=== PATIENT | female | born 1965 | race African-American/Black ===

== ENCOUNTER 2016-08-27 19:14 | Observation (INO) | payer OTHER ==
[~2016-08-27] VITALS: Ht 170.2 cm; Wt 94.9 kg
[~2016-08-27 19:14] MED LIST: AMIT50TA PO; ASPI81TA9 PO; ATOR40TA59 PO; BISA5TAB4 PO; CARV6.252 PO; CIPR500T94 PO; DIPH25CA58 PO; DOXY100T PO; DULO60CA6 PO; HYDR-2666 PO; HYDR-2678 PO; INSU100V13 SQ; INSU100V31 SQ; LISI-334 PO; OXYC-323 PO; QUET300T6 PO; SULF1TAB24 PO
--- NOTE | 2016-08-27 20:19 | PHYS DOC ---
Past Medical History Past Medical History: Bipolar, CVA, Dementia, Depression, Diabetes-Type II, High Cholesterol, Hypertension, [place], Other Additional Past Medical Histor: neuropathy, SI, diabetic foot ulcer r heel Past Surgical History: Other Additional Past Surgical Histo: cardiac stent, Additional Information: 0.5 PPD Alcohol Use: Occasionally Drug Use: None Adult General Chief Complaint Chief Complaint: LOSS OF CONSCIOUSNESS HPI HPI 51 yo F presenting to the ED today after having a syncopal event after feeling " lightheaded". She has a hx of an WI s/p stent placment. She denies having palpitations or chest pain prior to the event. She did hit her head and now is complaining of neck pain. Her neck pain is sharp, nonradiating moderate and without alleviating factors. Currently, she denies cp or soa. Review of systems is negative for chest pain abdominal pain nausea vomiting fevers or chills. All other review of systems is negative unless otherwise noted in history of present illness. Review of Systems Review of Systems SEE ABOVE. Allergies Allergies Allergies Coded Allergies Type Severity Reaction Last Updated Verified No Known Drug Allergies 09/27/13 No Physical Exam Physical Exam Constitutional: Well developed, well nourished, no acute distress, non-toxic appearance. [] HENT: Normocephalic, no depressed skull fractures present. No ecchymosis lacerations or abrasions., bilateral external ears normal, oropharynx moist, no oral exudates, nose normal. Eyes: PERRLA, EOMI, conjunctiva normal, no discharge. [] Neck: Normal range of motion, no tenderness, supple, no stridor. The patient's cervical spine is mildly tender palpation in the midline without step-off, lacerations abrasions or ecchymosis. Cardiovascular:Heart rate regular rhythm, no murmur Lungs & Thorax: Bilateral breath sounds clear to auscultation [] Abdomen: Bowel sounds normal, soft, no tenderness, no masses, no pulsatile masses. [] Skin: Warm, dry, no erythema, no rash. Back: No tenderness, no CVA tenderness. [] Extremities: No tenderness, no cyanosis, no clubbing, ROM intact, no edema. [] The patient's left shoulder is nontender with range of motion. Nontender clavicle. No ecchymosis lacerations or abrasions present. Otherwise neurovascularly intact. 2 second cap refill. The remainder the patient's extremities are nontender and without evidence of trauma. Neurologic: Alert and oriented X 3, normal motor function, normal sensory function, no focal deficits noted. [] Psychologic: Affect normal, judgement normal, mood normal. [] Current Patient Data Vital Signs Vital Signs Date Time Temp Pulse Resp B/P Pulse Ox O2 Delivery O2 Flow Rate FiO2 08/27/16 19:20 98.1 79 20 98/54 98 Room Air 98.1 Lab Values Laboratory Tests Test 08/27/16 19:55 08/27/16 21:10 08/27/16 22:00 Sodium Level 139mmol/L (136-145) Potassium Level 3.6mmol/L (3.5-5.1) Chloride Level 100mmol/L (98-107) Carbon Dioxide Level 30mmol/L (21-32) Anion Gap 9 (6-14) Blood Urea Nitrogen 17mg/dL (7-20) Creatinine 1.8mg/dL (0.6-1.0) H Estimated GFR (Cockcroft-Gault) 35.9 Glucose Level 302mg/dL (70-99) H Calcium Level 10.1mg/dL (8.5-10.1) Total Bilirubin 0.4mg/dL (0.2-1.0) Direct Bilirubin < 0.1mg/dL (0.0-0.2) Aspartate Amino Transferase (AST) 17U/L (15-37) Alanine Aminotransferase (ALT) 18U/L (14-59) Alkaline Phosphatase 100U/L (46-116) Troponin I Quantitative < 0.017ng/mL (0.000-0.055) Total Protein 8.2g/dL (6.4-8.2) Albumin 3.8g/dL (3.4-5.0) Lipase 266U/L (73-393) White Blood Count 8.2x10^3/uL (4.0-11.0) Red Blood Count 4.72x10^6/uL (3.50-5.40) Hemoglobin 13.8g/dL (12.0-15.5) Hematocrit 42.3% (36.0-47.0) Mean Corpuscular Volume 90fL (79-100) Mean Corpuscular Hemoglobin 29pg (25-35) Mean Corpuscular Hemoglobin Concent 33g/dL (31-37) Red Cell Distribution Width 14.8% (11.5-14.5) H Platelet Count 243x10^3/uL (140-400) Neutrophils (%) (Auto) 68% (31-73) Lymphocytes (%) (Auto) 24% (24-48) Monocytes (%) (Auto) 6% (0-9) Eosinophils (%) (Auto) 2% (0-3) Basophils (%) (Auto) 0% (0-3) Neutrophils # (Auto) 5.6x10^3uL (1.8-7.7) Lymphocytes # (Auto) 2.0x10^3/uL (1.0-4.8) Monocytes # (Auto) 0.5x10^3/uL (0.0-1.1) Eosinophils # (Auto) 0.1x10^3/uL (0.0-0.7) Basophils # (Auto) 0.0x10^3/uL (0.0-0.2) Urine Collection Type Unknown Urine Color Yellow Urine Clarity Clear Urine pH 5.5 Urine Specific [place] 1.015 Urine Protein 100mg/dL (NEG-TRACE) Urine Glucose (UA) 500mg/dL (NEG) Urine Ketones (Stick) Negativemg/dL (NEG) Urine Blood Negative (NEG) Urine Nitrite Negative (NEG) Urine Bilirubin Negative (NEG) Urine Urobilinogen Dipstick 0.2mg/dL (0.2 mg/dL) Urine Leukocyte Esterase Negative (NEG) Urine RBC 0/HPF (0-2) Urine WBC 0/HPF (0-4) Urine Squamous Epithelial Cells Few/LPF Urine Amorphous Sediment Present/HPF Urine Bacteria 0/HPF (0-FEW) Laboratory Tests 08/27/16 21:10 Laboratory Tests 08/27/16 19:55 EKG EKG EKG without previous for comparison available at this time on 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 ST segments show mild repolarization. [] Radiology/Procedures Radiology/Procedures Chest x-ray and left shoulder without any acute pathology. head and neck CT read without any acute pathology. [] Course & Med Decision Making Course & Med Decision Making Pertinent Labs and Imaging studies reviewed. (See chart for details) [] 51-year-old female presenting to the emergency department with syncope today. Vital signs showed mild hypotension. Otherwise afebrile and normal heart rate. Pertinent physical exam showed that she had normal physical exam. EKG not suggestive of Brugada syndrome. QT within normal limits. not suggestive of HOCM. Blood work obtained IV established. CBC unremarkable. Urinalysis negative. Chemistry panel unremarkable. She was then admitted to our hospital for telemetry monitoring further evaluation workup and care. Cardiology consult placed. Dragon Disclaimer Dragon Disclaimer This electronic medical record was generated, in whole or in part, using a voice recognition dictation system. Departure Departure Impression: Primary Impression: LOC (loss of consciousness) Disposition: ADMITTED INPATIENT Admitting Physician: Radha Patten Condition: STABLE Referrals: UNKNOWN PCP NAME (PCP) ANA RUIZ MD Aug 27, 2016 20:19
[2016-08-27 20:37] LABS: ANION GAP 9 (6-14); BLOOD UREA NITROGEN 17 mg/dL (7-20); CALCIUM 10.1 mg/dL (8.5-10.1); CARBON DIOXIDE 30 mmol/L (21-32); CHLORIDE 100 mmol/L (98-107); CREATININE 1.8 mg/dL (0.6-1.0); GFR 35.9; GLUCOSE 302 mg/dL (70-99); POTASSIUM 3.6 mmol/L (3.5-5.1); SODIUM 139 mmol/L (136-145)
[2016-08-27 20:43] LABS: ALBUMIN 3.8 g/dL (3.4-5.0); ALK PHOS 100 U/L (46-116); ALT (SGPT) 18 U/L (14-59); AST (SGOT) 17 U/L (15-37); DIRECT BILIRUBIN < 0.1 mg/dL (0.0-0.2); TOTAL BILIRUBIN 0.4 mg/dL (0.2-1.0); TOTAL PROTEIN 8.2 g/dL (6.4-8.2)
--- NOTE | 2016-08-27 20:53 | RAD ---
PROCEDURE CT scan of the head without contrast 08/27/2016 HISTORY Dizziness for several days. Syncopal episode earlier today with fall striking head. TECHNIQUE Unenhanced contiguous, 5 millimeter axial sections were obtained through the head. One or more of the following individualized dose reduction techniques were utilized for this study: 1. Automated exposure control. 2. Adjustment of the mA and/or kV according to patient size. 3. Use of iterative reconstruction technique. FINDINGS Comparison is made to the patient's MRI of the brain dated 11/14/2013. The ventricles are within normal limits in size and configuration. Old areas of infarction are seen involving both cerebellar hemispheres, left greater than right. No acute parenchymal abnormality is seen. No extra-axial fluid collection is noted. No skull fracture is seen. IMPRESSION No acute intracranial abnormality is seen. PROCEDURE CT scan of the cervical spine without contrast 08/27/2016 HISTORY Neck pain post fall. TECHNIQUE Unenhanced contiguous, 0.625 millimeter axial sections were obtained through the cervical spine. 3 millimeter reconstructed sagittal, axial and coronal images were obtained. One or more of the following individualized dose reduction techniques were utilized for this study: 1. Automated exposure control. 2. Adjustment of the mA and/or kV according to patient size. 3. Use of iterative reconstruction technique. FINDINGS Sagittal and coronal reconstructed images demonstrate minimal lateral curvature of the cervical spine convex to the right. There is reversal of the normal cervical lordosis. Degenerative changes consisting of disc space narrowing, vertebral endplate sclerosis and mild to moderate anterior vertebral body osteophyte formation are seen involving the lower cervical disc spaces. No fracture or subluxation of the cervical vertebrae is seen. IMPRESSION No fracture or subluxation of the cervical vertebrae is seen. Electronically signed by: Chadwick Dai MD (Aug 27, 2016 20:52:23)
[2016-08-27 21:25] LABS: BASO % 0 % (0-3); EOS % 2 % (0-3); HEMATOCRIT 42.3 % (36.0-47.0); HEMOGLOBIN 13.8 g/dL (12.0-15.5); LYMPH % 24 % (24-48); MEAN CORPUSCULAR HEMOGLOBIN 29 pg (25-35); MEAN CORPUSCULAR HGB CONC 33 g/dL (31-37); MEAN CORPUSCULAR VOLUME 90 fL (79-100); MONO % 6 % (0-9); NEUT % 68 % (31-73); PLATELET COUNT 243 x10^3/uL (140-400); RED BLOOD COUNT 4.72 x10^6/uL (3.50-5.40); RED CELL DISTRIBUTION WIDTH 14.8 % (11.5-14.5); WHITE BLOOD COUNT 8.2 x10^3/uL (4.0-11.0)
[2016-08-27 22:14] LABS: BILIRUBIN,URINE NEGATIVE (NEG); GLUCOSE,URINE 500 mg/dL (NEG); NITRITE,URINE NEGATIVE (NEG); PH,URINE 5.5; PROTEIN,URINE 100 mg/dL (NEG-TRACE); UROBILINOGEN,URINE 0.2 mg/dL (0.2 mg/dL)
[2016-08-27 22:23] LABS: BACTERIA,URINE 0 /HPF (0-FEW); RBC,URINE 0 /HPF (0-2); SQUAMOUS EPITHELIAL CELL,UR FEW /LPF; WBC,URINE 0 /HPF (0-4)
[2016-08-27] MEDS ORDERED: MORPHINE SULFATE 2 MG/ML DISP.SYRIN. IV PRN (23:00)
[2016-08-27] MEDS ORDERED: ONDANSETRON PF 4 MG/2 ML VIAL. IV PRN (23:00)
[2016-08-27] MEDS ORDERED: IV NORMAL SALINE 1000ML BAG 1,000 ML IV ONE (23:15)
[2016-08-28] VITALS (9 sets, daily range): BP systolic 83–138; BP diastolic 49–80
--- NOTE | 2016-08-28 00:16 | ACF ---
Admission Forms Criteria ACUTE LOSS OF CONSCIOUSNESS- ALOC Clinical Indications for Inpatient Care (Place 'X' for any and all applicable criteria): Ongoing inpatient care may be needed for ANY ONE of the following(1)(2)(3)(5)(6) : [X ]I. Suspected serious etiology (eg, medical disorder, REGISTRATION REP event) of mental status change [ ]II. Danger to self or others not manageable at lower level of care [ ]III. Grave disability (eg, inability to perform self care necessary at lower level of care) [ ]IV. Agitation or inappropriate behavior interfering with care for primary condition (eg, attempting to discontinue lines or drains prematurely, unable to cooperate with respiratory care) [ ]V. Delirium [A] [D][E] as described by ANY ONE of the following(26): [ ]a) Delirium due to alcohol or sedative [F] withdrawal [ ]b) Delirium of uncertain etiology that has not responded to appropriate empiric treatment [ ]c) Delirium that prevents performance of a life-sustaining function (eg, feeding or hydrating oneself) [ ]. General contraindications and/or Inappropriate clinical situations for Observational Care in patients with Acute Loss of Consciousness, when ANY ONE of the following is required: [ ]a) Prediction of prolongation of LOS based on ANY ONE of the following may be considered as a contraindication for observational care 2, 3, 4, 5, 6, 7, 8 , 9, 10, 11 [ ]i) Age > 65 yrs. [ ]ii) Patient arriving by ambulance [ ]iii) Patient with high acuity [ ]iv) Patient requiring vital sign monitoring [ ]v) Patient on IV medication [ ]b) Systolic blood pressures 180mmHg 3,12 [ ]c) Patient with altered mental status including delirium and other alteration of consciousness, (3) [ ]d) Patient whose discharge disposition will be to a care home home or rehabilitation home should not be managed in Emergency Department Observation Unit. CMS rule requires 3 days hospital stay before such placement.3,13 [ ]e) Patient with failure to thrive due to broad array of etiologies 3,16,17 [ ]f) Inability to ambulate 3,14 Extended stay beyond goal length of stay for the primary condition may be needed until ALL of the following are present(3)(5): [ ]a) Underlying medical etiology of mental status change is absent, or has been established and adequately treated [ ]b) Danger to self or others is absent or manageable at lower level of care. [ ]c) Behavior crisis management, including physical or chemical restraints, is not required or available at lower level of car [ ]d) Substance or alcohol withdrawal is absent or manageable at lower level of care. [ ]e) Behavioral symptoms (eg, agitation, somnolence, inappropriate behavior) are absent, or are manageable at lower level of care. The original [facility] [employer] content created by [facility] has been revised. The portions of the content which have been revised are identified through the use of italic text or in bold, and [facility] has neither reviewed nor approved the modified material. All other unmodified content is copyright [facility]. Please see references footnoted in the original [facility] edition 2016 Admission Criteria Met?: Yes GENIA BERMUDEZ Aug 28, 2016 00:16
[2016-08-28] MEDS ORDERED: DEXTROSE 50% 25 GM / 50ML DISP.SYRIN. IV PRN (02:00)
[2016-08-28] MEDS ORDERED: IV NORMAL SALINE 1000ML BAG 1,000 ML IV ONE (02:15)
[2016-08-28] MEDS ORDERED: IV NORMAL SALINE 1000ML BAG 1,000 ML IV SCH (02:30)
[2016-08-28 05:09] LABS: BASO % 0 % (0-3); EOS % 1 % (0-3); HEMATOCRIT 35.7 % (36.0-47.0); HEMOGLOBIN 11.6 g/dL (12.0-15.5); LYMPH # 1.8 x10^3/uL (1.0-4.8); LYMPH % 23 % (24-48); MEAN CORPUSCULAR HEMOGLOBIN 29 pg (25-35); MEAN CORPUSCULAR HGB CONC 33 g/dL (31-37); MEAN CORPUSCULAR VOLUME 90 fL (79-100); MONO % 5 % (0-9); NEUT % 70 % (31-73); PLATELET COUNT 222 x10^3/uL (140-400); RED BLOOD COUNT 3.98 x10^6/uL (3.50-5.40); RED CELL DISTRIBUTION WIDTH 14.4 % (11.5-14.5)
[2016-08-28 05:26] LABS: CALCIUM 8.5 mg/dL (8.5-10.1); CREATININE 1.6 mg/dL (0.6-1.0); GFR 41.1; POTASSIUM 3.4 mmol/L (3.5-5.1)
--- NOTE | 2016-08-28 06:14 | EKG ---
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
--- NOTE | 2016-08-28 07:35 | RAD ---
Left shoulder radiographs History: Fall on left side with pain. Comparison: None. Findings: AP internal rotation, AP slight external rotation, and scapular Y-view of left shoulder. No acute fracture or dislocation is identified. Mild-moderate clavicular degeneration is seen. Impression: No acute osseous traumatic injury identified.
--- NOTE | 2016-08-28 07:36 | RAD ---
Exam: AP portable chest. History: Fall with left shoulder pain. Comparison: 02/12/2016. Findings: The heart and mediastinal structures are within normal limits for size. Lungs are without infiltrate. No pneumothorax or pleural effusion is appreciated. Old granulomatous disease of the chest is noted. Impression: 1. No acute cardiopulmonary process.
[2016-08-28] MEDS: QUEtiapine 300 MG TAB.ER.24H. PO SCH (08:50)
[2016-08-28] MEDS: ASPIRIN ENTERIC COATED 81 MG TABLET.DR. PO SCH (08:50)
[2016-08-28] MEDS: INSULIN ASPART 300 UNITS/3 ML INSULN.PEN SQ SCH ×6 (08:55→17:34)
--- NOTE | 2016-08-28 09:03 | PDOC2 ---
JOHN SCOTT TIE LOADER 08/28/16 0903: CARDIAC CONSULT DATE OF CONSULT Date of Consult DATE: 08/28/16 TIME: 08:56 REASON FOR CONSULT Reason for Consult: Syncope REFERRING PHYSICIAN Referring Physician: Dr. Rasheed SOURCE Source: Chart review, Patient HISTORY OF PRESENT ILLNESS HISTORY OF PRESENT ILLNESS This is a 5 yo male who presented secondary to syncopal episode. Patient reports she was letting her do out; was light-headed, dizzy, and subsequently passed out. Patient reports she awoke on the floor. H/o Meniere's disease and chronic vertigo; follows with ENT at . Dizziness generally resolves without intervention. Also follows with outpatient neurologist. Reports previous episode of syncope in 2014 with [place]- underwent PCI/EUSEBIO to LAD at that time. Patient follows with Dr. Juarez of [facility]- had appointment a couple of days ago with follow-up scheduled for 6 months. Reportedly normal stress test 6 weeks ago. PAST MEDICAL HISTORY Past Medical History Cardiovascular: HTN (with hypertensive heart disease), [place] (PCI/EUSEBIO to LAD), Hyperlipidemia, Other (carotid stenosis bilaterally 50-70%; CDU 06/2014 @ ) CENTRAL NERVOUS SYSTEM: CVA (with memory loss), Dementia (following CVA), peripheral neuropathy GI: GERD (with h/o esophagitis) Heme/Onc: Anemia NOS, Cancer (ovarian) Hepatobiliary: No pertinent hx Psych: Bipolar, Depression, anxiety, self mutilation (cutting) Musculoskeletal: Osteoarthritis Rheumatologic: No pertinent hx Infectious disease: No pertinent hx ENT: Other (Meniere's disease) Renal/: Chronic renal insuff Endocrine: Diabetes (type II) Dermatology: No pertinent hx PAST SURGICAL HISTORY Past Surgical History: Other (LEEP) FAMILY HISTORY Family History: Coronary Artery Disease, Diabetes, Hypertension SOCIAL HISTORY Smoke: <1 pack per day ALCOHOL: none Drugs: None Lives: with Family CURRENT MEDICATIONS CURRENT MEDICATIONS Current Medications Medications (Trade) Dose Ordered Sig/Luis Enrique Route PRN Reason Start Time Stop Time Status Last Admin Dose Admin Sodium Chloride 1,000 ml @ 1,000 mls/hr 1X ONCE IV 08/27/16 23:15 08/28/16 00:14 DC 08/27/16 23:08 Sodium Chloride 1,000 ml @ 1,000 mls/hr 1X ONCE IV 08/28/16 02:15 08/28/16 03:14 DC 08/28/16 02:15 Sodium Chloride (Iv Sodium Chloride 0.9% 1000ml Bag) 1,000 ml @ 125 mls/hr Q8H IV 08/28/16 02:30 08/28/16 03:28 ALLERGIES ALLERGIES: Coded Allergies: No Known Drug Allergies (Unverified , 09/27/13) ROS Review of System 14 point ROS conducted with pertinent positives noted above in HPI PHYSICAL EXAM General: Alert, Oriented X3, Cooperative, No acute distress HEENT: Atraumatic, Mucous membr. moist/pink Lungs: Clear to auscultation, Normal air movement Heart: Regular rate, Normal S1, Normal S2, No murmurs Abdomen: Soft, No tenderness Extremities: No edema, Normal pulses Skin: No significant lesion Neuro: Normal speech, Sensation intact Psych/Mental Status: Mental status NL, Mood NL MUSCULOSKELETAL: Osteoarthritic changes both hands VITALS VITALS Vital Signs Date Time Temp Pulse Resp B/P Pulse Ox O2 Delivery O2 Flow Rate FiO2 08/28/16 07:35 97.3 79 18 112/65 99 Room Air 97.3 LABS Lab: Laboratory Tests Test 08/27/16 19:55 08/27/16 21:10 08/27/16 22:00 08/28/16 01:49 Sodium Level 139mmol/L (136-145) Potassium Level 3.6mmol/L (3.5-5.1) Chloride Level 100mmol/L (98-107) Carbon Dioxide Level 30mmol/L (21-32) Anion Gap 9 (6-14) Blood Urea Nitrogen 17mg/dL (7-20) Creatinine 1.8mg/dL (0.6-1.0) Estimated GFR (Cockcroft-Gault) 35.9 Glucose Level 302mg/dL (70-99) Calcium Level 10.1mg/dL (8.5-10.1) Total Bilirubin 0.4mg/dL (0.2-1.0) Direct Bilirubin < 0.1mg/dL (0.0-0.2) Aspartate Amino Transf (AST/SGOT) 17U/L (15-37) Alanine Aminotransferase (ALT/SGPT) 18U/L (14-59) Alkaline Phosphatase 100U/L (46-116) Troponin I Quantitative < 0.017ng/mL (0.000-0.055) Total Protein 8.2g/dL (6.4-8.2) Albumin 3.8g/dL (3.4-5.0) Lipase 266U/L (73-393) White Blood Count 8.2x10^3/uL (4.0-11.0) Red Blood Count 4.72x10^6/uL (3.50-5.40) Hemoglobin 13.8g/dL (12.0-15.5) Hematocrit 42.3% (36.0-47.0) Mean Corpuscular Volume 90fL (79-100) Mean Corpuscular Hemoglobin 29pg (25-35) Mean Corpuscular Hemoglobin Concent 33g/dL (31-37) Red Cell Distribution Width 14.8% (11.5-14.5) Platelet Count 243x10^3/uL (140-400) Neutrophils (%) (Auto) 68% (31-73) Lymphocytes (%) (Auto) 24% (24-48) Monocytes (%) (Auto) 6% (0-9) Eosinophils (%) (Auto) 2% (0-3) Basophils (%) (Auto) 0% (0-3) Neutrophils # (Auto) 5.6x10^3uL (1.8-7.7) Lymphocytes # (Auto) 2.0x10^3/uL (1.0-4.8) Monocytes # (Auto) 0.5x10^3/uL (0.0-1.1) Eosinophils # (Auto) 0.1x10^3/uL (0.0-0.7) Basophils # (Auto) 0.0x10^3/uL (0.0-0.2) Urine Collection Type Unknown Urine Color Yellow Urine Clarity Clear Urine pH 5.5 Urine Specific [place] 1.015 Urine Protein 100mg/dL (NEG-TRACE) Urine Glucose (UA) 500mg/dL (NEG) Urine Ketones (Stick) Negativemg/dL (NEG) Urine Blood Negative (NEG) Urine Nitrite Negative (NEG) Urine Bilirubin Negative (NEG) Urine Urobilinogen Dipstick 0.2mg/dL (0.2 mg/dL) Urine Leukocyte Esterase Negative (NEG) Urine RBC 0/HPF (0-2) Urine WBC 0/HPF (0-4) Urine Squamous Epithelial Cells Few/LPF Urine Amorphous Sediment Present/HPF Urine Bacteria 0/HPF (0-FEW) Glucose (Fingerstick) 220mg/dL (70-99) Test 08/28/16 04:40 08/28/16 07:55 White Blood Count 8.0x10^3/uL (4.0-11.0) Red Blood Count 3.98x10^6/uL (3.50-5.40) Hemoglobin 11.6g/dL (12.0-15.5) Hematocrit 35.7% (36.0-47.0) Mean Corpuscular Volume 90fL (79-100) Mean Corpuscular Hemoglobin 29pg (25-35) Mean Corpuscular Hemoglobin Concent 33g/dL (31-37) Red Cell Distribution Width 14.4% (11.5-14.5) Platelet Count 222x10^3/uL (140-400) Neutrophils (%) (Auto) 70% (31-73) Lymphocytes (%) (Auto) 23% (24-48) Monocytes (%) (Auto) 5% (0-9) Eosinophils (%) (Auto) 1% (0-3) Basophils (%) (Auto) 0% (0-3) Neutrophils # (Auto) 5.6x10^3uL (1.8-7.7) Lymphocytes # (Auto) 1.8x10^3/uL (1.0-4.8) Monocytes # (Auto) 0.4x10^3/uL (0.0-1.1) Eosinophils # (Auto) 0.1x10^3/uL (0.0-0.7) Basophils # (Auto) 0.0x10^3/uL (0.0-0.2) Sodium Level 138mmol/L (136-145) Potassium Level 3.4mmol/L (3.5-5.1) Chloride Level 104mmol/L (98-107) Carbon Dioxide Level 25mmol/L (21-32) Anion Gap 9 (6-14) Blood Urea Nitrogen 20mg/dL (7-20) Creatinine 1.6mg/dL (0.6-1.0) Estimated GFR (Cockcroft-Gault) 41.1 Glucose Level 239mg/dL (70-99) Calcium Level 8.5mg/dL (8.5-10.1) Troponin I Quantitative < 0.017ng/mL (0.000-0.055) Thyroid Stimulating Hormone (TSH) 1.605uIU/mL (0.358-3.74) Glucose (Fingerstick) 212mg/dL (70-99) ECHOCARDIOGRAM ECHOCARDIOGRAM <Conclusion> Left ventricle systolic function is normal. The Ejection Fraction is estimated at 50-55%. Mild tricuspid regurgitation. The PA pressure was estimated at 27 mmHg. There is no evidence of significant pericardial effusion. DATE: 02/14/16 1110 HEART CATH HEART CATH FINDINGS 1. Hemodynamics: Left ventricular end-diastolic pressure of 25 mmHg. No pullback gradient across the aortic valve. 2. Coronary angiography: a. The left main coronary artery arose from the left sinus of Valsalva, gave rise to the left anterior descending and left circumflex arteries and did not show any significant stenosis. b. The left anterior descending artery showed widely patent previously placed stent in the midsegment. c. The left circumflex artery was a dominant vessel that showed 80% stenosis in the mid segment and 70% stenosis in the distal segment of a small to medium caliber second obtuse marginal branch. d. The right coronary artery was small and nondominant vessel that showed moderate diffuse disease. Conclusion Widely patent previously placed stent in the left anterior descending artery with 80% stenosis involving small to medium caliber second obtuse marginal branch of left circumflex artery. No flow-limiting lesions that needed intervention were noted. Recommendations Medical Therapy DATE: 02/14/16 1345 ASSESSMENT/PLAN ASSESSMENT/PLAN 1. syncope no acute events overnight on telemetry TSH WNL echo 02/06 with preserved LV function- no significant valvular abnormalities likely vasovagal episode. Dehydration/orthostasis also potential will repeat echo. 2. CAD s/p PCI/EUSEBIO to LAD 2014 repeat cath with patent stent 02/06 reportedly normal stress test 6 weeks ago with [facility]- will obtain these records continue secondary prevention 3. HTN hypotensive upon admission mild dehydration, POA- IV fluids ongoing decrease coreg. Hold lisinopril check orthos 4. HLD 02/06- TG 765; TC 244 on high dose atorvastatin will recheck 5. DM, II uncontrolled, per PCP 6. SHABNAM with CKD fluid replacement 7. bipolar disorder [facility] records obtained and reviewed - [facility] (06/10/16) LVEF 38% mixed apical defect . recommend for cardiac cath to further asses he coronary anatomy - Left heart cath (07/16/16) moderate CAD involving the second marginal branching with 60-70% stenosis in the midportion, which appears very similar to previous cath performed in October of 2014. LAD stent patent LVEDP 10-15 mmHg Medical management recommended Problems: MIRIAM GEE MD 08/28/16 1648: CARDIAC CONSULT ALLERGIES ALLERGIES: Coded Allergies: No Known Drug Allergies (Unverified , 09/27/13) ASSESSMENT/PLAN ASSESSMENT/PLAN Patient seen and examined. Agree with MINE SURVEYOR's assessment and plan. Syncope most probably vasovagal. Telemetry did not show any significant arrhythmia so far. 2-D echo showed LVEF 40-45%. Recent cardiac catheterization results noted above. CAD status clinically stable. Plan for event monitor as an outpatient to rule out any significant arrhythmias. Thank you for your consultation. Problems: JOHN SCOTT APRN Aug 28, 2016 09:03 MIRIAM GEE MD Aug 28, 2016 16:48
[2016-08-28] MEDS ORDERED: ACETAMINOPHEN 325 MG TABLET. PO PRN (10:00)
[2016-08-28] MEDS ORDERED: ONDANSETRON PF 4 MG/2 ML VIAL. IV PRN (10:00)
--- NOTE | 2016-08-28 10:29 | PDOC1 ---
History and Physical Date of Admission Date of Admission 08/28/16 Identification/Chief Complaint Chief Complaint SYNcope Problems: Source Source: Chart review, Patient History of Present Illness History of Present Illness HPI HPI 51 yo F presenting to the ED today after having a syncope. pt has extensive medical problems, current smoking, DE with stent before, 3 times of left side stroke with mild right side weakness and slurry speech (mild , can feels getting worse now), menieres dz (lightheaded daily, right ear hearing loss and tinnitus). Pt said she was standing with her dog at home, felt some lightheaded, then fell on the ground, not sure for how long, woke up with daughter at side, some sob, no chest pain. She did hit her head and now is complaining of neck pain. no recent fever, chills, + mild cough with recent cold. denies dehydration. Past Medical History Cardiovascular: HTN, DE, Hyperlipidemia, Other CENTRAL NERVOUS SYSTEM: CVA, Dementia, Periperal neuropathy GI: GERD Heme/Onc: Anemia NOS, Cancer Hepatobiliary: No pertinent hx Psych: Bipolar, Depression Rheumatologic: No pertinent hx Infectious disease: No pertinent hx Renal/: Chronic renal insuff Endocrine: Diabetes Past Surgical History Past Surgical History: Other Family History Family History: Coronary Artery Disease, Diabetes Social History Smoke: <1 pack per day ALCOHOL: social Drugs: None Current Problem List Problem List Problems Medical Problems: (1) LOC (loss of consciousness) Status: Acute Current Medications Current Medications Current Medications Medications (Trade) Dose Ordered Sig/Luis Enrique Start Time Stop Time Status Last Admin Dose Admin Acetaminophen (Tylenol) 650 mg PRN Q6HRS PRN 08/28/16 10:00 Amitriptyline HCl (Amitriptyline HCl) 50 mg HS 08/28/16 21:00 Aspirin (Ecotrin) 81 mg [id number] 08/28/16 08:00 08/28/16 08:50 81 MG Atorvastatin Calcium (Lipitor) 80 mg QHS 08/28/16 21:00 Carvedilol (Coreg) 6.25 mg BIDWMEALS 08/28/16 10:30 Dextrose (Dextrose 50%-Water Syringe) 12.5 gm PRN Q15MIN PRN 08/28/16 02:00 Insulin Aspart (Novolog) 0-7 UNITS TIDWMEALS 08/28/16 08:00 08/28/16 08:55 4 UNITS Insulin Detemir (Levemir) 30 units HS 08/28/16 21:00 Morphine Sulfate 2 mg PRN Q2HR PRN 08/27/16 23:00 08/28/16 22:59 Ondansetron HCl (Zofran) 4 mg PRN Q8HRS PRN 08/27/16 23:00 08/28/16 22:59 Ondansetron HCl 4 mg 4 mg PRN Q6HRS PRN 08/28/16 10:00 Oxycodone/ Acetaminophen (Percocet 5/325) 1 tab PRN Q6HRS PRN 08/28/16 02:00 Potassium Chloride (Klor-Con) 40 meq 1X ONCE 08/28/16 10:30 08/28/16 10:31 Quetiapine Fumarate (SEROquel XR) 300 mg DAILY 08/28/16 09:00 08/28/16 08:50 300 MG Sodium Chloride (Iv Sodium Chloride 0.9% 1000ml Bag) 1,000 ml @ 100 mls/hr Q10H 08/28/16 10:30 08/29/16 10:29 Allergies Allergies Allergies Coded Allergies Type Severity Reaction Last Updated Verified No Known Drug Allergies 09/27/13 No ROS Review of System CONSTITUTIONAL: No fever or chills EYES: No recent changes SKIN: No rash or itching CARDIOVASCULAR: No chest pain, syncope, palpitations, or edema RESPIRATORY: No SOB or cough GASTROINTESTINAL: No nausea, vomiting or abdominal pain NEUROLOGICAL: No headaches or weakness ENDOCRINE: No cold or heat intolerance GENITOURINARY: No urgency or frequency of urination MUSCULOSKELETAL: No back pain or joint pain LYMPHATICS: No enlarged lymph nodes PSYCHIATRIC: No anxiety or depression Physical Exam Physical Exam GEN.: No apparent distress. Alert and oriented. HEENT: Head is normocephalic, atraumatic NECK: Supple. LUNGS: bl coarse bs. HEART: RRR, S1, S2 present. Peripheral pulses intact ABDOMEN: Soft, nontender. Positive bowel sounds. EXTREMITIES: Without any cyanosis. right side mild weaker 4/5. NEUROLOGIC: Normal speech, normal tone PSYCHIATRIC: Normal affect, normal mood. SKIN: No ulcerations Vitals Vitals Vital Signs Date Time Temp Pulse Resp B/P Pulse Ox O2 Delivery O2 Flow Rate FiO2 08/28/16 07:35 97.3 79 18 112/65 99 Room Air 97.3 Labs Labs Laboratory Tests Test 08/27/16 19:55 08/27/16 21:10 08/27/16 22:00 08/28/16 01:49 Sodium Level 139mmol/L (136-145) Potassium Level 3.6mmol/L (3.5-5.1) Chloride Level 100mmol/L (98-107) Carbon Dioxide Level 30mmol/L (21-32) Anion Gap 9 (6-14) Blood Urea Nitrogen 17mg/dL (7-20) Creatinine 1.8mg/dL (0.6-1.0) Estimated GFR (Cockcroft-Gault) 35.9 Glucose Level 302mg/dL (70-99) Calcium Level 10.1mg/dL (8.5-10.1) Total Bilirubin 0.4mg/dL (0.2-1.0) Direct Bilirubin < 0.1mg/dL (0.0-0.2) Aspartate Amino Transf (AST/SGOT) 17U/L (15-37) Alanine Aminotransferase (ALT/SGPT) 18U/L (14-59) Alkaline Phosphatase 100U/L (46-116) Troponin I Quantitative < 0.017ng/mL (0.000-0.055) Total Protein 8.2g/dL (6.4-8.2) Albumin 3.8g/dL (3.4-5.0) Lipase 266U/L (73-393) White Blood Count 8.2x10^3/uL (4.0-11.0) Red Blood Count 4.72x10^6/uL (3.50-5.40) Hemoglobin 13.8g/dL (12.0-15.5) Hematocrit 42.3% (36.0-47.0) Mean Corpuscular Volume 90fL (79-100) Mean Corpuscular Hemoglobin 29pg (25-35) Mean Corpuscular Hemoglobin Concent 33g/dL (31-37) Red Cell Distribution Width 14.8% (11.5-14.5) Platelet Count 243x10^3/uL (140-400) Neutrophils (%) (Auto) 68% (31-73) Lymphocytes (%) (Auto) 24% (24-48) Monocytes (%) (Auto) 6% (0-9) Eosinophils (%) (Auto) 2% (0-3) Basophils (%) (Auto) 0% (0-3) Neutrophils # (Auto) 5.6x10^3uL (1.8-7.7) Lymphocytes # (Auto) 2.0x10^3/uL (1.0-4.8) Monocytes # (Auto) 0.5x10^3/uL (0.0-1.1) Eosinophils # (Auto) 0.1x10^3/uL (0.0-0.7) Basophils # (Auto) 0.0x10^3/uL (0.0-0.2) Urine Collection Type Unknown Urine Color Yellow Urine Clarity Clear Urine pH 5.5 Urine Specific Booker 1.015 Urine Protein 100mg/dL (NEG-TRACE) Urine Glucose (UA) 500mg/dL (NEG) Urine Ketones (Stick) Negativemg/dL (NEG) Urine Blood Negative (NEG) Urine Nitrite Negative (NEG) Urine Bilirubin Negative (NEG) Urine Urobilinogen Dipstick 0.2mg/dL (0.2 mg/dL) Urine Leukocyte Esterase Negative (NEG) Urine RBC 0/HPF (0-2) Urine WBC 0/HPF (0-4) Urine Squamous Epithelial Cells Few/LPF Urine Amorphous Sediment Present/HPF Urine Bacteria 0/HPF (0-FEW) Glucose (Fingerstick) 220mg/dL (70-99) Test 08/28/16 04:40 08/28/16 07:55 White Blood Count 8.0x10^3/uL (4.0-11.0) Red Blood Count 3.98x10^6/uL (3.50-5.40) Hemoglobin 11.6g/dL (12.0-15.5) Hematocrit 35.7% (36.0-47.0) Mean Corpuscular Volume 90fL (79-100) Mean Corpuscular Hemoglobin 29pg (25-35) Mean Corpuscular Hemoglobin Concent 33g/dL (31-37) Red Cell Distribution Width 14.4% (11.5-14.5) Platelet Count 222x10^3/uL (140-400) Neutrophils (%) (Auto) 70% (31-73) Lymphocytes (%) (Auto) 23% (24-48) Monocytes (%) (Auto) 5% (0-9) Eosinophils (%) (Auto) 1% (0-3) Basophils (%) (Auto) 0% (0-3) Neutrophils # (Auto) 5.6x10^3uL (1.8-7.7) Lymphocytes # (Auto) 1.8x10^3/uL (1.0-4.8) Monocytes # (Auto) 0.4x10^3/uL (0.0-1.1) Eosinophils # (Auto) 0.1x10^3/uL (0.0-0.7) Basophils # (Auto) 0.0x10^3/uL (0.0-0.2) Sodium Level 138mmol/L (136-145) Potassium Level 3.4mmol/L (3.5-5.1) Chloride Level 104mmol/L (98-107) Carbon Dioxide Level 25mmol/L (21-32) Anion Gap 9 (6-14) Blood Urea Nitrogen 20mg/dL (7-20) Creatinine 1.6mg/dL (0.6-1.0) Estimated GFR (Cockcroft-Gault) 41.1 Glucose Level 239mg/dL (70-99) Calcium Level 8.5mg/dL (8.5-10.1) Troponin I Quantitative < 0.017ng/mL (0.000-0.055) Thyroid Stimulating Hormone (TSH) 1.605uIU/mL (0.358-3.74) Glucose (Fingerstick) 212mg/dL (70-99) Laboratory Tests Test 08/27/16 19:55 08/27/16 21:10 08/27/16 22:00 08/28/16 01:49 Sodium Level 139mmol/L (136-145) Potassium Level 3.6mmol/L (3.5-5.1) Chloride Level 100mmol/L (98-107) Carbon Dioxide Level 30mmol/L (21-32) Anion Gap 9 (6-14) Blood Urea Nitrogen 17mg/dL (7-20) Creatinine 1.8mg/dL (0.6-1.0) Estimated GFR (Cockcroft-Gault) 35.9 Glucose Level 302mg/dL (70-99) Calcium Level 10.1mg/dL (8.5-10.1) Total Bilirubin 0.4mg/dL (0.2-1.0) Direct Bilirubin < 0.1mg/dL (0.0-0.2) Aspartate Amino Transf (AST/SGOT) 17U/L (15-37) Alanine Aminotransferase (ALT/SGPT) 18U/L (14-59) Alkaline Phosphatase 100U/L (46-116) Troponin I Quantitative < 0.017ng/mL (0.000-0.055) Total Protein 8.2g/dL (6.4-8.2) Albumin 3.8g/dL (3.4-5.0) Lipase 266U/L (73-393) White Blood Count 8.2x10^3/uL (4.0-11.0) Red Blood Count 4.72x10^6/uL (3.50-5.40) Hemoglobin 13.8g/dL (12.0-15.5) Hematocrit 42.3% (36.0-47.0) Mean Corpuscular Volume 90fL (79-100) Mean Corpuscular Hemoglobin 29pg (25-35) Mean Corpuscular Hemoglobin Concent 33g/dL (31-37) Red Cell Distribution Width 14.8% (11.5-14.5) Platelet Count 243x10^3/uL (140-400) Neutrophils (%) (Auto) 68% (31-73) Lymphocytes (%) (Auto) 24% (24-48) Monocytes (%) (Auto) 6% (0-9) Eosinophils (%) (Auto) 2% (0-3) Basophils (%) (Auto) 0% (0-3) Neutrophils # (Auto) 5.6x10^3uL (1.8-7.7) Lymphocytes # (Auto) 2.0x10^3/uL (1.0-4.8) Monocytes # (Auto) 0.5x10^3/uL (0.0-1.1) Eosinophils # (Auto) 0.1x10^3/uL (0.0-0.7) Basophils # (Auto) 0.0x10^3/uL (0.0-0.2) Urine Collection Type Unknown Urine Color Yellow Urine Clarity Clear Urine pH 5.5 Urine Specific Booker 1.015 Urine Protein 100mg/dL (NEG-TRACE) Urine Glucose (UA) 500mg/dL (NEG) Urine Ketones (Stick) Negativemg/dL (NEG) Urine Blood Negative (NEG) Urine Nitrite Negative (NEG) Urine Bilirubin Negative (NEG) Urine Urobilinogen Dipstick 0.2mg/dL (0.2 mg/dL) Urine Leukocyte Esterase Negative (NEG) Urine RBC 0/HPF (0-2) Urine WBC 0/HPF (0-4) Urine Squamous Epithelial Cells Few/LPF Urine Amorphous Sediment Present/HPF Urine Bacteria 0/HPF (0-FEW) Glucose (Fingerstick) 220mg/dL (70-99) Test 08/28/16 04:40 08/28/16 07:55 White Blood Count 8.0x10^3/uL (4.0-11.0) Red Blood Count 3.98x10^6/uL (3.50-5.40) Hemoglobin 11.6g/dL (12.0-15.5) Hematocrit 35.7% (36.0-47.0) Mean Corpuscular Volume 90fL (79-100) Mean Corpuscular Hemoglobin 29pg (25-35) Mean Corpuscular Hemoglobin Concent 33g/dL (31-37) Red Cell Distribution Width 14.4% (11.5-14.5) Platelet Count 222x10^3/uL (140-400) Neutrophils (%) (Auto) 70% (31-73) Lymphocytes (%) (Auto) 23% (24-48) Monocytes (%) (Auto) 5% (0-9) Eosinophils (%) (Auto) 1% (0-3) Basophils (%) (Auto) 0% (0-3) Neutrophils # (Auto) 5.6x10^3uL (1.8-7.7) Lymphocytes # (Auto) 1.8x10^3/uL (1.0-4.8) Monocytes # (Auto) 0.4x10^3/uL (0.0-1.1) Eosinophils # (Auto) 0.1x10^3/uL (0.0-0.7) Basophils # (Auto) 0.0x10^3/uL (0.0-0.2) Sodium Level 138mmol/L (136-145) Potassium Level 3.4mmol/L (3.5-5.1) Chloride Level 104mmol/L (98-107) Carbon Dioxide Level 25mmol/L (21-32) Anion Gap 9 (6-14) Blood Urea Nitrogen 20mg/dL (7-20) Creatinine 1.6mg/dL (0.6-1.0) Estimated GFR (Cockcroft-Gault) 41.1 Glucose Level 239mg/dL (70-99) Calcium Level 8.5mg/dL (8.5-10.1) Troponin I Quantitative < 0.017ng/mL (0.000-0.055) Thyroid Stimulating Hormone (TSH) 1.605uIU/mL (0.358-3.74) Glucose (Fingerstick) 212mg/dL (70-99) VTE Prophylaxis Ordered VTE Prophylaxis Devices: Yes VTE Pharmacological Prophylaxi: Yes Assessment/Plan Assessment/Plan 1. syncope, need to rule out orthostatic hypotensive vs. vasovagal 2. worsening slurry speech with h/o stroke 3. h/o DE with stent 4. HTN 5. DM2 6.HLD 7. Bipolar disorder 8.dementia with stroke, mild 9. tobaccoism 10. SHABNAM, vasomotor 11. obesity 12. menieres dz 13. bronchitis plan: 1. cont home meds, hold lisinopril 2. check orthostatic bp 3. fu with neuro, card consult 4. check CArotid us, brain MRI 5. ptot 6. levemir 30u qhs, aspart 10u tid, ssi 7. dvt ppx RONNI BENTLEY MD Aug 28, 2016 10:29
[2016-08-28] MEDS ORDERED: CARVEDILOL 6.25 MG TABLET. PO SCH (10:30)
[2016-08-28] MEDS ORDERED: POTASSIUM CHLORIDE 20 MEQ TABLET.ER. PO ONE (10:30)
--- NOTE | 2016-08-28 11:11 | PDOC2 ---
NEUROLOGY CONSULT Date of Admission Date of Admission DATE: 08/28/16 TIME: 11:04 Reason for Consult Reason for Consult: syncope Referring Physician Referring Physician: Dr. Murrieta PCP: Dr. Kelly Source Source: Caregiver, Chart review, Patient History of Present Illness History of Present Illness The patient is a 51-year-old right-handed female who fainted yesterday. She felt lightheaded and her blood pressure was indeed low when measured. She actually had 2 episodes of syncope. She has been more dizzy and has been having some dysarthria in the last week. 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 She has also had a stroke in the past leaving her with memory problems. She never has had any convulsive activity, tongue biting, postictal confusion, or urinary incontinence with any syncopal episodes. She has fainted in the past. At the time of her last syncopal episode , she was found to have a myocardial infarction and did have a stent placement. Past Medical History Cardiovascular: CAD, HTN, [place] CENTRAL NERVOUS SYSTEM: CVA, Dementia (following strokes), Periperal neuropathy GI: GERD Heme/Onc: Cancer (ovarian) Psych: Anxiety, Bipolar, Depression (here in 2013 for self-inflicted wrist laceration) Musculoskeletal: low back pain, Osteoarthritis ENT: Other (right ear hearing loss, Meniere's) Endocrine: Diabetes Past Surgical History Past Surgical History: Other (coronary stent) Family History Family History: Cancer Social History Social History Lives with her children, occasional alcohol, occasional tobacco Current Medications Current Medications Current Medications Ondansetron HCl (Zofran) 4 mg PRN Q8HRS PRN IV NAUSEA/VOMITING; Start 08/27/16 at 23:00; Stop 08/28/16 at 22:59 Morphine Sulfate 2 mg 2 mg PRN Q2HR PRN IV PAIN; Start 08/27/16 at 23:00; Stop 08/28/16 at 22:59 Sodium Chloride (Iv Sodium Chloride 0.9% 1000ml Bag) 1,000 ml @ 1,000 mls/hr 1X ONCE IV Last administered on 08/27/16t 23:08; Start 08/27/16 at 23:15; Stop 08/28/16 at 00:14; Status DC Amitriptyline HCl (Amitriptyline HCl) 50 mg HS PO ; Start 08/28/16 at 21:00 Aspirin (Ecotrin) 81 mg DAILYWBKFT PO Last administered on 08/28/16 08:50; Start 08/28/16 at 08:00 Atorvastatin Calcium (Lipitor) 80 mg QHS PO ; Start 08/28/16 at 21:00 Insulin Aspart (Novolog) 10 units TIDAC SQ Last administered on 08/28/16 08:56 ; Start 08/28/16 at 07:30 Oxycodone/ Acetaminophen (Percocet 5/325) 1 tab PRN Q6HRS PRN PO PAIN; Start at 02:00 Quetiapine Fumarate (SEROquel XR) 300 mg DAILY PO Last administered on 08:50; Start 08/28/16 at 09:00 Insulin Detemir 30 units 30 units HS SQ ; Start 08/28/16 at 21:00 Sodium Chloride 1,000 ml @ 1,000 mls/hr 1X ONCE IV Last administered on 02:15; Start 08/28/16 at 02:15; Stop 08/28/16 at 03:14; Status DC Sodium Chloride (Iv Sodium Chloride 0.9% 1000ml Bag) 1,000 ml @ 125 mls/hr Q8H IV Last administered on 08/28/16 03:28; Start 08/28/16 at 02:30; Stop 08/28/16 at 09:57; Status DC Insulin Aspart (Novolog) 0-7 UNITS TIDWMEALS SQ Last administered on 08/28/16 08:55; Start 08/28/16 at 08:00 Dextrose (Dextrose 50%-Water Syringe) 12.5 gm PRN Q15MIN PRN IV SEE COMMENTS; Start 08/28/16 at 02:00 Carvedilol (Coreg) 6.25 mg BIDWMEALS PO ; Start 08/28/16 at 10:30; Stop 08/28/16 at 10:39; Status DC Potassium Chloride (Klor-Con) 40 meq 1X ONCE PO ; Start 08/28/16 at 10:30; Stop 08/28/16 at 10:31; Status DC Acetaminophen (Tylenol) 650 mg PRN Q6HRS PRN PO FEVER; Start 08/28/16 at 10:00 Ondansetron HCl 4 mg 4 mg PRN Q6HRS PRN IV NAUSEA/VOMITING; Start 08/28/16 at 10 :00 Sodium Chloride (Iv Sodium Chloride 0.9% 1000ml Bag) 1,000 ml @ 100 mls/hr Q10H IV ; Start 08/28/16 at 10:30; Stop 08/29/16 at 10:29 Heparin Sodium (Porcine) 5,000 unit Q8HRS SQ ; Start 08/28/16 at 14:00 Carvedilol (Coreg) 3.125 mg BIDWMEALS PO ; Start 08/28/16 at 17:00 Active Scripts Active Percocet 5-325 Mg Tablet (Oxycodone/Acetaminophen) 1 Each Tablet 1 Tab PO PRN Q6HRS PRN Bactrim Ds Tablet (Sulfamethoxazole/Trimethoprim) 1 Each Tablet 1 Tab PO BID 10 Days Carvedilol 6.25 Mg Tablet 6.25 Mg PO BIDWMEALS Atorvastatin Calcium 40 Mg Tablet 80 Mg PO QHS Aspirin Ec (Aspirin) 81 Mg Tablet.dr 81 Mg PO DAILYWBKFT Reported Levemir (Insulin Detemir) 100 Unit/1 Ml Vial 30 Unit SQ HS Novolog (Insulin Aspart) 100 Unit/1 Ml Vial 10 Unit SQ TIDAC Seroquel Xr (Quetiapine Fumarate) 300 Mg Tab.er.24h 300 Mg PO DAILY Amitriptyline Hcl 50 Mg Tablet 50 Mg PO HS Lisinopril 20 Mg Tablet 20 Mg PO DAILY Allergies Allergies: Coded Allergies: No Known Drug Allergies (Unverified , 09/27/13) ROS Review of System Patient denies fevers, chills, weight loss, dyspnea, angina, abdominal pain, change in bowels, or dysuria. 14 point review of systems is negative. Physical Exam Physical Examination PHYSICAL EXAMINATION: Vital signs: see above. General appearance is normal and in no acute distress. HEENT: Normocephalic and nontraumatic. Eyes, nose, ears, and throat are unremarkable. Neck is supple. No lymphadenopathy. No bruits are heard over the carotid artery. No crepitus. NEUROLOGICAL EXAMINATION: Mental Status Examination: Alert. Oriented to time, place, and person. Answers questions and follows commends. Pupils are equal round and reactive to light and accommodation. Extraocular movements are intact. Visual field exam shows no defect on the direct confrontation. No motor or sensory deficits on the facial exam. Uvula in the midline and the soft palate elevated symmetrically. No deviation of the tongue to any direction. Right hearing loss. Shoulder shrug normal. Muscle tone is normal. Muscle strength is 5. Deep tendon reflexes are 1+ all around. Plantar reflex is with flexion response bilaterally. Sizmfb-fe-oitv test performance is accurate. Alternative movements are accurate. Gait is a little unsteady, sensory apraxia. Sensory exam shows stocking loss. No cerebellar signs are elicited. Vitals VITALS Vital Signs Date Time Temp Pulse Resp B/P Pulse Ox O2 Delivery O2 Flow Rate FiO2 08/28/16 10:50 97.9 82 20 109/63 100 Room Air 97.9 Labs Labs Laboratory Tests Test 08/27/16 19:55 08/27/16 21:10 08/27/16 22:00 08/28/16 01:49 Sodium Level 139mmol/L (136-145) Potassium Level 3.6mmol/L (3.5-5.1) Chloride Level 100mmol/L (98-107) Carbon Dioxide Level 30mmol/L (21-32) Anion Gap 9 (6-14) Blood Urea Nitrogen 17mg/dL (7-20) Creatinine 1.8mg/dL (0.6-1.0) Estimated GFR (Cockcroft-Gault) 35.9 Glucose Level 302mg/dL (70-99) Calcium Level 10.1mg/dL (8.5-10.1) Total Bilirubin 0.4mg/dL (0.2-1.0) Direct Bilirubin < 0.1mg/dL (0.0-0.2) Aspartate Amino Transf (AST/SGOT) 17U/L (15-37) Alanine Aminotransferase (ALT/SGPT) 18U/L (14-59) Alkaline Phosphatase 100U/L (46-116) Troponin I Quantitative < 0.017ng/mL (0.000-0.055) Total Protein 8.2g/dL (6.4-8.2) Albumin 3.8g/dL (3.4-5.0) Lipase 266U/L (73-393) White Blood Count 8.2x10^3/uL (4.0-11.0) Red Blood Count 4.72x10^6/uL (3.50-5.40) Hemoglobin 13.8g/dL (12.0-15.5) Hematocrit 42.3% (36.0-47.0) Mean Corpuscular Volume 90fL (79-100) Mean Corpuscular Hemoglobin 29pg (25-35) Mean Corpuscular Hemoglobin Concent 33g/dL (31-37) Red Cell Distribution Width 14.8% (11.5-14.5) Platelet Count 243x10^3/uL (140-400) Neutrophils (%) (Auto) 68% (31-73) Lymphocytes (%) (Auto) 24% (24-48) Monocytes (%) (Auto) 6% (0-9) Eosinophils (%) (Auto) 2% (0-3) Basophils (%) (Auto) 0% (0-3) Neutrophils # (Auto) 5.6x10^3uL (1.8-7.7) Lymphocytes # (Auto) 2.0x10^3/uL (1.0-4.8) Monocytes # (Auto) 0.5x10^3/uL (0.0-1.1) Eosinophils # (Auto) 0.1x10^3/uL (0.0-0.7) Basophils # (Auto) 0.0x10^3/uL (0.0-0.2) Urine Collection Type Unknown Urine Color Yellow Urine Clarity Clear Urine pH 5.5 Urine Specific [place] 1.015 Urine Protein 100mg/dL (NEG-TRACE) Urine Glucose (UA) 500mg/dL (NEG) Urine Ketones (Stick) Negativemg/dL (NEG) Urine Blood Negative (NEG) Urine Nitrite Negative (NEG) Urine Bilirubin Negative (NEG) Urine Urobilinogen Dipstick 0.2mg/dL (0.2 mg/dL) Urine Leukocyte Esterase Negative (NEG) Urine RBC 0/HPF (0-2) Urine WBC 0/HPF (0-4) Urine Squamous Epithelial Cells Few/LPF Urine Amorphous Sediment Present/HPF Urine Bacteria 0/HPF (0-FEW) Glucose (Fingerstick) 220mg/dL (70-99) Test 08/28/16 04:40 08/28/16 07:55 White Blood Count 8.0x10^3/uL (4.0-11.0) Red Blood Count 3.98x10^6/uL (3.50-5.40) Hemoglobin 11.6g/dL (12.0-15.5) Hematocrit 35.7% (36.0-47.0) Mean Corpuscular Volume 90fL (79-100) Mean Corpuscular Hemoglobin 29pg (25-35) Mean Corpuscular Hemoglobin Concent 33g/dL (31-37) Red Cell Distribution Width 14.4% (11.5-14.5) Platelet Count 222x10^3/uL (140-400) Neutrophils (%) (Auto) 70% (31-73) Lymphocytes (%) (Auto) 23% (24-48) Monocytes (%) (Auto) 5% (0-9) Eosinophils (%) (Auto) 1% (0-3) Basophils (%) (Auto) 0% (0-3) Neutrophils # (Auto) 5.6x10^3uL (1.8-7.7) Lymphocytes # (Auto) 1.8x10^3/uL (1.0-4.8) Monocytes # (Auto) 0.4x10^3/uL (0.0-1.1) Eosinophils # (Auto) 0.1x10^3/uL (0.0-0.7) Basophils # (Auto) 0.0x10^3/uL (0.0-0.2) Sodium Level 138mmol/L (136-145) Potassium Level 3.4mmol/L (3.5-5.1) Chloride Level 104mmol/L (98-107) Carbon Dioxide Level 25mmol/L (21-32) Anion Gap 9 (6-14) Blood Urea Nitrogen 20mg/dL (7-20) Creatinine 1.6mg/dL (0.6-1.0) Estimated GFR (Cockcroft-Gault) 41.1 Glucose Level 239mg/dL (70-99) Calcium Level 8.5mg/dL (8.5-10.1) Troponin I Quantitative < 0.017ng/mL (0.000-0.055) Triglycerides Level 407mg/dL (0-150) Cholesterol Level 170mg/dL (0-200) LDL Cholesterol, Calculated 55mg/dL (0-100) VLDL Cholesterol, Calculated 81mg/dL (0-40) HDL Cholesterol 34mg/dL (40-60) Cholesterol/HDL Ratio 5.0 Thyroid Stimulating Hormone (TSH) 1.605uIU/mL (0.358-3.74) Glucose (Fingerstick) 212mg/dL (70-99) Laboratory Tests Test 08/27/16 19:55 08/27/16 21:10 08/27/16 22:00 08/28/16 01:49 Sodium Level 139mmol/L (136-145) Potassium Level 3.6mmol/L (3.5-5.1) Chloride Level 100mmol/L (98-107) Carbon Dioxide Level 30mmol/L (21-32) Anion Gap 9 (6-14) Blood Urea Nitrogen 17mg/dL (7-20) Creatinine 1.8mg/dL (0.6-1.0) Estimated GFR (Cockcroft-Gault) 35.9 Glucose Level 302mg/dL (70-99) Calcium Level 10.1mg/dL (8.5-10.1) Total Bilirubin 0.4mg/dL (0.2-1.0) Direct Bilirubin < 0.1mg/dL (0.0-0.2) Aspartate Amino Transf (AST/SGOT) 17U/L (15-37) Alanine Aminotransferase (ALT/SGPT) 18U/L (14-59) Alkaline Phosphatase 100U/L (46-116) Troponin I Quantitative < 0.017ng/mL (0.000-0.055) Total Protein 8.2g/dL (6.4-8.2) Albumin 3.8g/dL (3.4-5.0) Lipase 266U/L (73-393) White Blood Count 8.2x10^3/uL (4.0-11.0) Red Blood Count 4.72x10^6/uL (3.50-5.40) Hemoglobin 13.8g/dL (12.0-15.5) Hematocrit 42.3% (36.0-47.0) Mean Corpuscular Volume 90fL (79-100) Mean Corpuscular Hemoglobin 29pg (25-35) Mean Corpuscular Hemoglobin Concent 33g/dL (31-37) Red Cell Distribution Width 14.8% (11.5-14.5) Platelet Count 243x10^3/uL (140-400) Neutrophils (%) (Auto) 68% (31-73) Lymphocytes (%) (Auto) 24% (24-48) Monocytes (%) (Auto) 6% (0-9) Eosinophils (%) (Auto) 2% (0-3) Basophils (%) (Auto) 0% (0-3) Neutrophils # (Auto) 5.6x10^3uL (1.8-7.7) Lymphocytes # (Auto) 2.0x10^3/uL (1.0-4.8) Monocytes # (Auto) 0.5x10^3/uL (0.0-1.1) Eosinophils # (Auto) 0.1x10^3/uL (0.0-0.7) Basophils # (Auto) 0.0x10^3/uL (0.0-0.2) Urine Collection Type Unknown Urine Color Yellow Urine Clarity Clear Urine pH 5.5 Urine Specific [place] 1.015 Urine Protein 100mg/dL (NEG-TRACE) Urine Glucose (UA) 500mg/dL (NEG) Urine Ketones (Stick) Negativemg/dL (NEG) Urine Blood Negative (NEG) Urine Nitrite Negative (NEG) Urine Bilirubin Negative (NEG) Urine Urobilinogen Dipstick 0.2mg/dL (0.2 mg/dL) Urine Leukocyte Esterase Negative (NEG) Urine RBC 0/HPF (0-2) Urine WBC 0/HPF (0-4) Urine Squamous Epithelial Cells Few/LPF Urine Amorphous Sediment Present/HPF Urine Bacteria 0/HPF (0-FEW) Glucose (Fingerstick) 220mg/dL (70-99) Test 08/28/16 04:40 08/28/16 07:55 White Blood Count 8.0x10^3/uL (4.0-11.0) Red Blood Count 3.98x10^6/uL (3.50-5.40) Hemoglobin 11.6g/dL (12.0-15.5) Hematocrit 35.7% (36.0-47.0) Mean Corpuscular Volume 90fL (79-100) Mean Corpuscular Hemoglobin 29pg (25-35) Mean Corpuscular Hemoglobin Concent 33g/dL (31-37) Red Cell Distribution Width 14.4% (11.5-14.5) Platelet Count 222x10^3/uL (140-400) Neutrophils (%) (Auto) 70% (31-73) Lymphocytes (%) (Auto) 23% (24-48) Monocytes (%) (Auto) 5% (0-9) Eosinophils (%) (Auto) 1% (0-3) Basophils (%) (Auto) 0% (0-3) Neutrophils # (Auto) 5.6x10^3uL (1.8-7.7) Lymphocytes # (Auto) 1.8x10^3/uL (1.0-4.8) Monocytes # (Auto) 0.4x10^3/uL (0.0-1.1) Eosinophils # (Auto) 0.1x10^3/uL (0.0-0.7) Basophils # (Auto) 0.0x10^3/uL (0.0-0.2) Sodium Level 138mmol/L (136-145) Potassium Level 3.4mmol/L (3.5-5.1) Chloride Level 104mmol/L (98-107) Carbon Dioxide Level 25mmol/L (21-32) Anion Gap 9 (6-14) Blood Urea Nitrogen 20mg/dL (7-20) Creatinine 1.6mg/dL (0.6-1.0) Estimated GFR (Cockcroft-Gault) 41.1 Glucose Level 239mg/dL (70-99) Calcium Level 8.5mg/dL (8.5-10.1) Troponin I Quantitative < 0.017ng/mL (0.000-0.055) Triglycerides Level 407mg/dL (0-150) Cholesterol Level 170mg/dL (0-200) LDL Cholesterol, Calculated 55mg/dL (0-100) VLDL Cholesterol, Calculated 81mg/dL (0-40) HDL Cholesterol 34mg/dL (40-60) Cholesterol/HDL Ratio 5.0 Thyroid Stimulating Hormone (TSH) 1.605uIU/mL (0.358-3.74) Glucose (Fingerstick) 212mg/dL (70-99) Images Images CT head and cervical spine: Comparison is made to the patient's MRI of the brain dated 11/14/2013. The ventricles are within normal limits in size and configuration. Old areas of infarction are seen involving both cerebellar hemispheres, left greater than right. No acute parenchymal abnormality is seen. No extra-axial fluid collection is noted. No skull fracture is seen. IMPRESSION No acute intracranial abnormality is seen. PROCEDURE CT scan of the cervical spine without contrast 08/27/2016 HISTORY Neck pain post fall. TECHNIQUE Unenhanced contiguous, 0.625 millimeter axial sections were obtained through the cervical spine. 3 millimeter reconstructed sagittal, axial and coronal images were obtained. One or more of the following individualized dose reduction techniques were utilized for this study: 1. Automated exposure control. 2. Adjustment of the mA and/or kV according to patient size. 3. Use of iterative reconstruction technique. FINDINGS Sagittal and coronal reconstructed images demonstrate minimal lateral curvature of the cervical spine convex to the right. There is reversal of the normal cervical lordosis. Degenerative changes consisting of disc space narrowing, vertebral endplate sclerosis and mild to moderate anterior vertebral body osteophyte formation are seen involving the lower cervical disc spaces. No fracture or subluxation of the cervical vertebrae is seen. IMPRESSION No fracture or subluxation of the cervical vertebrae is seen. Assessment/Plan Assessment/Plan Impression: Vasovagal syncope History of strokes Multi-infarct dementia Psychiatric disease Peripheral neuropathy from diabetes Recommendations: Await brain MRI No evidence of a seizure that requires EEG testing Avoid dehydration I discussed my findings with the patient and her mother Thank you for letting me help with the patient's care. NICHOLAS SMITH MD Aug 28, 2016 11:11
[2016-08-28] MEDS: IV NORMAL SALINE 1000ML BAG 1,000 ML IV SCH ×2 (11:25→20:35)
--- NOTE | 2016-08-28 12:30 | RAD ---
Carotid ultrasound, 08/28/2016: History: Syncope Duplex evaluation of the carotid arteries in the neck was performed including grayscale, color-flow and spectral Doppler analysis. There is moderate intimal thickening in the common carotid arteries with moderate smooth plaquing at the carotid bifurcations, left greater than right. There is a velocity acceleration in the left internal carotid artery up to 324 cm/s. The end-diastolic velocity at that level is 148 cm/s. The internal carotid to common carotid artery ratio is 2.4. The velocity measurements suggest greater than 70% diameter stenosis, while the internal carotid artery to common carotid artery ratio suggests narrowing in the 50-70% diameter range. Correlation with the color images favors 50-70% diameter narrowing. On the right, the peak systolic velocity in the internal carotid artery is 154 cm/s. The end-diastolic velocity at that level is 69 cm/s. The internal carotid to common carotid artery ratio is 1.2. The velocities suggest narrowing in the 50-70% diameter range, however, the internal carotid to common carotid artery ratio suggests a lesser degree of narrowing. Correlation with the color images suggests that luminal narrowing is in the 0-50% diameter range. There is a moderate velocity accelerations in the right external carotid artery up to 282 cm/s suggesting mild narrowing at the origin of that vessel. These carotid velocity accelerations were not evident on the previous ultrasound study of 11/20/2010. Antegrade flow is present in both vertebral arteries in the neck. IMPRESSION: Moderate atherosclerotic plaquing at the carotid bifurcations, left greater than right, with underlying luminal narrowing of the proximal left internal carotid artery in the 50-70% diameter range and narrowing of the right internal carotid artery in the 0-50% diameter range. Note: Stenosis calculations for CT, MRA and conventional angiography are based upon determination of the distal ICA diameter in accordance with the NASCET methodology. Stenosis calculations for Doppler studies are derived from validated velocity criteria which are known to correlate with NASCET methodology of determining stenosis.
[2016-08-28] MEDS: HEPARIN PF for SUB-Q USE 5,000 UNIT/0.5 ML VIAL. SQ SCH ×2 (13:17→20:29)
--- NOTE | 2016-08-28 13:50 | RAD ---
BRAIN W/O CONTRAST Indication: DIZZINESS, SLURRED SPEECH, NO SX HX, PRIOR MRI Reason: stroke? with receent more slurry speech / Spl. Instructions: / History: COMPARISON: November 14, 2013 TECHNIQUE: Axial diffusion weighted imaging was obtained. Additional sagittal T1, axial T1, axial FLAIR, and axial T2 weighted imaging of the brain was also performed. FINDINGS: There are scattered foci of FLAIR signal hyperintensity in the periventricular white matter which are nonspecific but most likely related to sequelae of chronic small vessel ischemic disease. There is an old left cerebellar hemisphere infarct. No evidence of acute intracranial hemorrhage. No restricted diffusion to indicate acute infarct. No extra-axial fluid collections. No midline shift or mass effect. Ventricular size is appropriate. Midline structures have a normal anatomic configuration. Basal cisterns are patent. Arterial flow voids at the skull base and major dural venous sinuses are maintained. Globes and orbits are unremarkable. There is partial opacification of the left sphenoid sinus. IMPRESSION: - No acute or recent infarct. No acute intracranial abnormality. - Old left cerebellar infarct. - Mild left sphenoid sinus disease. Electronically signed by: Alan Hall (Aug 28, 2016 13:49:38)
[2016-08-28 14:43] LABS: BARBITURATES NEG (NEG); BENZODIAZEPINES NEG (NEG); CANNABINOIDS NEG (NEG); COCAINE NEG (NEG); METHADONE NEG (NEG); OPIATES NEG (NEG); PHENCYCLIDINE NEG (NEG)
[2016-08-28 14:47] LABS: ETHANOL, URINE NEG (NEG)
[2016-08-28] MEDS ORDERED: METO25TA9 PO (15:42)
[2016-08-28] MEDS ORDERED: CLOP75TA PO (15:49)
--- NOTE | 2016-08-28 16:15 | CARD ---
APPROVED REPORT EXAM: Two-dimensional and M-mode echocardiogram with Doppler and color Doppler. Other Information Quality : Good INDICATION Syncope 2D DIMENSIONS RVDd2.5 (2.9-3.5cm)Left Atrium(2D)3.5 (1.6-4.0cm) IVSd1.1 (0.7-1.1cm)Aortic Root(2D)2.4 (2.0-3.7cm) LVDd4.9 (3.9-5.9cm)LVOT Diameter2.0 (1.8-2.4cm) PWd1.2 (0.7-1.1cm)LVDs3.9 (2.5-4.0cm) FS (%) 23.0 %SV46.7 ml LVEF(%)45.0 (>50%) Aortic Valve AoV Peak Walter.146.7cm/sAoV VTI30.4cm AO Peak GR.8.6mmHgLVOT Peak Walter.90.0cm/s LVOT VTI 17.84cmAO Mean GR.4mmHg MELVIN (VMAX)1.66zb4WWX (VTI)1.90cm2 Mitral Valve MV E Quinmfrr17.5cm/sMV DECEL [id number] MV A Nxnjtucv658.7cm/sMV HNF12wz E/A Ratio0.8MVA (PHT)3.61cm2 TDI E/Medial E'13.1 Tricuspid Valve TR P. Ovmibjyj118pu/sRAP [id number] TR Peak Gr.25lkQiUVUY81biFz Pulmonary Vein S1 Ovfjppvh32.4cm/sD2 Pewnnfqc85.3cm/s PVa [id number] LEFT VENTRICLE The left ventricle is normal size. There is borderline concentric left ventricular hypertrophy. Left ventricle systolic function is mildly impaired. The Ejection Fraction is 40-45%. There is mild genera lized hypokinesis. Transmitral Doppler flow pattern is Grade I-abnormal relaxation pattern. RIGHT VENTRICLE The right ventricle is normal size. The right ventricular systolic function is normal. ATRIA The left atrium size is normal. The right atrium size is normal. The interatrial septum is intact wit h no evidence for an atrial septal defect or patent foramen ovale as noted on 2-D or Doppler imaging. AORTIC VALVE The aortic valve is normal in structure and function. Doppler and Color Flow revealed trace to mild a ortic regurgitation. There is no significant aortic valvular stenosis. MITRAL VALVE The mitral valve is normal in structure and function. There is no evidence of mitral valve prolapse. There is no mitral valve stenosis. Doppler and Color-flow revealed trace to mild mitral regurgitation . TRICUSPID VALVE The tricuspid valve is normal in structure and function. Doppler and Color Flow revealed trace to mil d tricuspid regurgitation. The PA pressure was estimated at 29 mmHg. There is no tricuspid valve sten osis. PULMONIC VALVE The pulmonary valve is normal in structure and function. Doppler and Color Flow revealed trace pulmon ic valvular regurgitation. There is no pulmonic valvular stenosis. GREAT VESSELS The aortic root is normal in size. The ascending aorta is normal in size. The IVC is normal in size a nd collapses >50% with inspiration. PERICARDIAL EFFUSION There is no evidence of significant pericardial effusion. Critical Notification Critical Value: No <Conclusion> The left ventricle is normal size. Left ventricle systolic function is mildly impaired. The Ejection Fraction is 40-45%. There is mild generalized hypokinesis. There is borderline concentric left ventricular hypertrophy. There is no significant aortic valvular stenosis. Doppler and Color Flow revealed trace to mild aortic regurgitation. Doppler and Color-flow revealed trace to mild mitral regurgitation. Doppler and Color Flow revealed trace to mild tricuspid regurgitation. The PA pressure was estimated at 29 mmHg. There is no evidence of significant pericardial effusion.
[2016-08-28] MEDS ORDERED: CARVEDILOL 3.125 MG TABLET. PO SCH (17:00)
[2016-08-28] MEDS: METOPROLOL TART IMMED RELEASE 25 MG TABLET. PO SCH (20:25)
[2016-08-28] MEDS: OXYCODONE/APAP 5/325 TABLET. PO PRN (20:34)
[2016-08-28] MEDS ORDERED: ATORVASTATIN CALCIUM 40 MG TABLET. PO SCH (21:00)
[2016-08-28] MEDS ORDERED: AMITRIPTYLINE HCL 50 MG TABLET PO SCH (21:00)
[2016-08-28] MEDS ORDERED: INSULIN DETEMIR 300 UNITS/3 ML INSULN.PEN. SQ SCH (21:00)
[2016-08-29 03:05] VITALS: BP 102/55
[2016-08-29 04:37] LABS: CALCIUM 8.3 mg/dL (8.5-10.1); GFR 70.7; POTASSIUM 4.1 mmol/L (3.5-5.1)
[2016-08-29 04:39] LABS: BASO % 1 % (0-3); EOS % 2 % (0-3); HEMATOCRIT 32.1 % (36.0-47.0); HEMOGLOBIN 10.7 g/dL (12.0-15.5); LYMPH # 2.2 x10^3/uL (1.0-4.8); LYMPH % 42 % (24-48); MEAN CORPUSCULAR HEMOGLOBIN 30 pg (25-35); MEAN CORPUSCULAR HGB CONC 33 g/dL (31-37); MEAN CORPUSCULAR VOLUME 90 fL (79-100); MONO % 5 % (0-9); NEUT % 51 % (31-73); PLATELET COUNT 191 x10^3/uL (140-400); RED BLOOD COUNT 3.58 x10^6/uL (3.50-5.40); RED CELL DISTRIBUTION WIDTH 14.8 % (11.5-14.5); WHITE BLOOD COUNT 5.3 x10^3/uL (4.0-11.0)
[2016-08-29] MEDS: IV NORMAL SALINE 1000ML BAG 1,000 ML IV SCH (05:52)
[2016-08-29] MEDS: HEPARIN PF for SUB-Q USE 5,000 UNIT/0.5 ML VIAL. SQ SCH (05:55)
[2016-08-29 07:00] VITALS: BP 144/76
[2016-08-29] MEDS: QUEtiapine 300 MG TAB.ER.24H. PO SCH (07:54)
[2016-08-29] MEDS: ASPIRIN ENTERIC COATED 81 MG TABLET.DR. PO SCH (07:54)
[2016-08-29] MEDS: METOPROLOL TART IMMED RELEASE 25 MG TABLET. PO SCH (07:55)
[2016-08-29] MEDS: INSULIN ASPART 300 UNITS/3 ML INSULN.PEN SQ SCH ×2 (08:00→08:01)
[2016-08-29] MEDS: OXYCODONE/APAP 5/325 TABLET. PO PRN (08:13)
[2016-08-29] MEDS ORDERED: CLOPIDOGREL BISULFATE 75 MG TABLET PO SCH (09:00)
[2016-08-29 10:00] VITALS: BP 141/83
[2016-08-29 10:03] VITALS: BP 140/76
[2016-08-29 10:06] VITALS: BP 147/77
[2016-08-29] MEDS ORDERED: Meclizine Hcl PO (10:13)
[2016-08-29] MEDS ORDERED: MECLIZINE HCL 12.5 MG TABLET. PO PRN (10:15)
--- NOTE | 2016-08-29 12:05 | PDOC ---
PROGRESS NOTES Assessment Problems Medical Problems: (1) LOC (loss of consciousness) Status: Acute Vasovagal syncope Orthostatic hypotension History of strokes, no new stroke on MRI Multi-infarct dementia Mnire's disease Psychiatric disease Peripheral neuropathy from diabetes Plan Avoid dehydration and rapid position shifts I discussed my findings with the patient and her mother Agree with discharge Follow-up with neurology as needed Follow up with ENT regarding Mnire's disease Subjective No complaints Objective Vital Signs Date Time Temp Pulse Resp B/P Pulse Ox O2 Delivery O2 Flow Rate FiO2 08/29/16 10:06 75 18 147/77 08/29/16 09:13 99 Room Air 08/29/16 07:00 98.1 98.1 Intake and Output 08/29/16 07:00 Intake Total 1620 ml Output Total 1 ml Balance 1619 ml Intake Oral 420 ml IV Total 1200 ml Output Urine/Stool Mix 1 ml # Voids 5 # Bowel Movements 1 PHYSICAL EXAM Alert. Oriented to time, place and person. PERRL. EOMI. CN: no focal findings. Muscle tone: normal. Muscle strength: 5/5 DTR: 1+ Plantar reflex: flexor Gait: not examined in bed. Sensory exam: stocking loss. No cerebellar signs elicited. Review of Relevant I have reviewed the following items elena (where applicable) has been applied. Labs Laboratory Tests Test 08/27/16 19:55 08/27/16 21:10 08/27/16 22:00 08/28/16 01:49 Sodium Level 139mmol/L (136-145) Potassium Level 3.6mmol/L (3.5-5.1) Chloride Level 100mmol/L (98-107) Carbon Dioxide Level 30mmol/L (21-32) Anion Gap 9 (6-14) Blood Urea Nitrogen 17mg/dL (7-20) Creatinine 1.8mg/dL (0.6-1.0) Estimated GFR (Cockcroft-Gault) 35.9 Glucose Level 302mg/dL (70-99) Calcium Level 10.1mg/dL (8.5-10.1) Total Bilirubin 0.4mg/dL (0.2-1.0) Direct Bilirubin < 0.1mg/dL (0.0-0.2) Aspartate Amino Transf (AST/SGOT) 17U/L (15-37) Alanine Aminotransferase (ALT/SGPT) 18U/L (14-59) Alkaline Phosphatase 100U/L (46-116) Troponin I Quantitative < 0.017ng/mL (0.000-0.055) Total Protein 8.2g/dL (6.4-8.2) Albumin 3.8g/dL (3.4-5.0) Lipase 266U/L (73-393) White Blood Count 8.2x10^3/uL (4.0-11.0) Red Blood Count 4.72x10^6/uL (3.50-5.40) Hemoglobin 13.8g/dL (12.0-15.5) Hematocrit 42.3% (36.0-47.0) Mean Corpuscular Volume 90fL (79-100) Mean Corpuscular Hemoglobin 29pg (25-35) Mean Corpuscular Hemoglobin Concent 33g/dL (31-37) Red Cell Distribution Width 14.8% (11.5-14.5) Platelet Count 243x10^3/uL (140-400) Neutrophils (%) (Auto) 68% (31-73) Lymphocytes (%) (Auto) 24% (24-48) Monocytes (%) (Auto) 6% (0-9) Eosinophils (%) (Auto) 2% (0-3) Basophils (%) (Auto) 0% (0-3) Neutrophils # (Auto) 5.6x10^3uL (1.8-7.7) Lymphocytes # (Auto) 2.0x10^3/uL (1.0-4.8) Monocytes # (Auto) 0.5x10^3/uL (0.0-1.1) Eosinophils # (Auto) 0.1x10^3/uL (0.0-0.7) Basophils # (Auto) 0.0x10^3/uL (0.0-0.2) Urine Collection Type Unknown Urine Color Yellow Urine Clarity Clear Urine pH 5.5 Urine Specific [place] 1.015 Urine Protein 100mg/dL (NEG-TRACE) Urine Glucose (UA) 500mg/dL (NEG) Urine Ketones (Stick) Negativemg/dL (NEG) Urine Blood Negative (NEG) Urine Nitrite Negative (NEG) Urine Bilirubin Negative (NEG) Urine Urobilinogen Dipstick 0.2mg/dL (0.2 mg/dL) Urine Leukocyte Esterase Negative (NEG) Urine RBC 0/HPF (0-2) Urine WBC 0/HPF (0-4) Urine Squamous Epithelial Cells Few/LPF Urine Amorphous Sediment Present/HPF Urine Bacteria 0/HPF (0-FEW) Glucose (Fingerstick) 220mg/dL (70-99) Test 08/28/16 04:40 08/28/16 07:55 08/28/16 11:00 08/28/16 13:08 White Blood Count 8.0x10^3/uL (4.0-11.0) Red Blood Count 3.98x10^6/uL (3.50-5.40) Hemoglobin 11.6g/dL (12.0-15.5) Hematocrit 35.7% (36.0-47.0) Mean Corpuscular Volume 90fL (79-100) Mean Corpuscular Hemoglobin 29pg (25-35) Mean Corpuscular Hemoglobin Concent 33g/dL (31-37) Red Cell Distribution Width 14.4% (11.5-14.5) Platelet Count 222x10^3/uL (140-400) Neutrophils (%) (Auto) 70% (31-73) Lymphocytes (%) (Auto) 23% (24-48) Monocytes (%) (Auto) 5% (0-9) Eosinophils (%) (Auto) 1% (0-3) Basophils (%) (Auto) 0% (0-3) Neutrophils # (Auto) 5.6x10^3uL (1.8-7.7) Lymphocytes # (Auto) 1.8x10^3/uL (1.0-4.8) Monocytes # (Auto) 0.4x10^3/uL (0.0-1.1) Eosinophils # (Auto) 0.1x10^3/uL (0.0-0.7) Basophils # (Auto) 0.0x10^3/uL (0.0-0.2) Sodium Level 138mmol/L (136-145) Potassium Level 3.4mmol/L (3.5-5.1) Chloride Level 104mmol/L (98-107) Carbon Dioxide Level 25mmol/L (21-32) Anion Gap 9 (6-14) Blood Urea Nitrogen 20mg/dL (7-20) Creatinine 1.6mg/dL (0.6-1.0) Estimated GFR (Cockcroft-Gault) 41.1 Glucose Level 239mg/dL (70-99) Calcium Level 8.5mg/dL (8.5-10.1) Troponin I Quantitative < 0.017ng/mL (0.000-0.055) < 0.017ng/mL (0.000-0.055) Triglycerides Level 407mg/dL (0-150) Cholesterol Level 170mg/dL (0-200) LDL Cholesterol, Calculated 55mg/dL (0-100) VLDL Cholesterol, Calculated 81mg/dL (0-40) HDL Cholesterol 34mg/dL (40-60) Cholesterol/HDL Ratio 5.0 Thyroid Stimulating Hormone (TSH) 1.605uIU/mL (0.358-3.74) Cortisol AM Sample 5.2ug/dL (6.2-19.4) Glucose (Fingerstick) 212mg/dL (70-99) 179mg/dL (70-99) Test 08/28/16 13:15 08/28/16 15:53 08/28/16 20:25 08/29/16 04:10 Urine Opiates Screen Neg (NEG) Urine Methadone Screen Neg (NEG) Urine Barbiturates Neg (NEG) Urine Phencyclidine Screen Neg (NEG) Urine Amphetamine/Methamphetamine Neg (NEG) Urine Benzodiazepines Screen Neg (NEG) Urine Cocaine Screen Neg (NEG) Urine Cannabinoids Screen Neg (NEG) Urine Ethyl Alcohol Neg (NEG) Glucose (Fingerstick) 199mg/dL (70-99) 126mg/dL (70-99) White Blood Count 5.3x10^3/uL (4.0-11.0) Red Blood Count 3.58x10^6/uL (3.50-5.40) Hemoglobin 10.7g/dL (12.0-15.5) Hematocrit 32.1% (36.0-47.0) Mean Corpuscular Volume 90fL (79-100) Mean Corpuscular Hemoglobin 30pg (25-35) Mean Corpuscular Hemoglobin Concent 33g/dL (31-37) Red Cell Distribution Width 14.8% (11.5-14.5) Platelet Count 191x10^3/uL (140-400) Neutrophils (%) (Auto) 51% (31-73) Lymphocytes (%) (Auto) 42% (24-48) Monocytes (%) (Auto) 5% (0-9) Eosinophils (%) (Auto) 2% (0-3) Basophils (%) (Auto) 1% (0-3) Neutrophils # (Auto) 2.7x10^3uL (1.8-7.7) Lymphocytes # (Auto) 2.2x10^3/uL (1.0-4.8) Monocytes # (Auto) 0.3x10^3/uL (0.0-1.1) Eosinophils # (Auto) 0.1x10^3/uL (0.0-0.7) Basophils # (Auto) 0.0x10^3/uL (0.0-0.2) Sodium Level 140mmol/L (136-145) Potassium Level 4.1mmol/L (3.5-5.1) Chloride Level 108mmol/L (98-107) Carbon Dioxide Level 23mmol/L (21-32) Anion Gap 9 (6-14) Blood Urea Nitrogen 16mg/dL (7-20) Creatinine 1.0mg/dL (0.6-1.0) Estimated GFR (Cockcroft-Gault) 70.7 Glucose Level 225mg/dL (70-99) Calcium Level 8.3mg/dL (8.5-10.1) Test 08/29/16 07:02 Glucose (Fingerstick) 224mg/dL (70-99) Laboratory Tests Test 08/28/16 13:08 08/28/16 13:15 08/28/16 15:53 08/28/16 20:25 Glucose (Fingerstick) 179mg/dL (70-99) 199mg/dL (70-99) 126mg/dL (70-99) Urine Opiates Screen Neg (NEG) Urine Methadone Screen Neg (NEG) Urine Barbiturates Neg (NEG) Urine Phencyclidine Screen Neg (NEG) Urine Amphetamine/Methamphetamine Neg (NEG) Urine Benzodiazepines Screen Neg (NEG) Urine Cocaine Screen Neg (NEG) Urine Cannabinoids Screen Neg (NEG) Urine Ethyl Alcohol Neg (NEG) Test 08/29/16 04:10 4/8/17 07:02 White Blood Count 5.3x10^3/uL (4.0-11.0) Red Blood Count 3.58x10^6/uL (3.50-5.40) Hemoglobin 10.7g/dL (12.0-15.5) Hematocrit 32.1% (36.0-47.0) Mean Corpuscular Volume 90fL (79-100) Mean Corpuscular Hemoglobin 30pg (25-35) Mean Corpuscular Hemoglobin Concent 33g/dL (31-37) Red Cell Distribution Width 14.8% (11.5-14.5) Platelet Count 191x10^3/uL (140-400) Neutrophils (%) (Auto) 51% (31-73) Lymphocytes (%) (Auto) 42% (24-48) Monocytes (%) (Auto) 5% (0-9) Eosinophils (%) (Auto) 2% (0-3) Basophils (%) (Auto) 1% (0-3) Neutrophils # (Auto) 2.7x10^3uL (1.8-7.7) Lymphocytes # (Auto) 2.2x10^3/uL (1.0-4.8) Monocytes # (Auto) 0.3x10^3/uL (0.0-1.1) Eosinophils # (Auto) 0.1x10^3/uL (0.0-0.7) Basophils # (Auto) 0.0x10^3/uL (0.0-0.2) Sodium Level 140mmol/L (136-145) Potassium Level 4.1mmol/L (3.5-5.1) Chloride Level 108mmol/L (98-107) Carbon Dioxide Level 23mmol/L (21-32) Anion Gap 9 (6-14) Blood Urea Nitrogen 16mg/dL (7-20) Creatinine 1.0mg/dL (0.6-1.0) Estimated GFR (Cockcroft-Gault) 70.7 Glucose Level 225mg/dL (70-99) Calcium Level 8.3mg/dL (8.5-10.1) Glucose (Fingerstick) 224mg/dL (70-99) Medications Current Medications Ondansetron HCl (Zofran) 4 mg PRN Q8HRS PRN IV NAUSEA/VOMITING; Start 08/27/16 at 23:00; Stop 08/28/16 at 22:59; Status DC Morphine Sulfate 2 mg 2 mg PRN Q2HR PRN IV PAIN; Start 08/27/16 at 23:00; Stop 08/28/16 at 22:59; Status DC Sodium Chloride (Iv Sodium Chloride 0.9% 1000ml Bag) 1,000 ml @ 1,000 mls/hr 1X ONCE IV Last administered on 08/27/16 23:08; Start 08/27/16 at 23:15; Stop 08/28/16 at 00:14; Status DC Amitriptyline HCl (Amitriptyline HCl) 50 mg HS PO Last administered on 20:26; Start 08/28/16 at 21:00; Stop 08/29/16 at 11:57; Status DC Aspirin (Ecotrin) 81 mg DAILYWBKFT PO Last administered on 08/29/16 07:54; Start 08/28/16 at 08:00; Stop 08/29/16 at 11:57; Status DC Atorvastatin Calcium (Lipitor) 80 mg QHS PO Last administered on 08/28/16 20:27 ; Start 08/28/16 at 21:00; Stop 08/29/16 at 11:57; Status DC Insulin Aspart (Novolog) 10 units TIDAC SQ Last administered on 08/29/16 08:01 ; Start 08/28/16 at 07:30; Stop 08/29/16 at 11:57; Status DC Oxycodone/ Acetaminophen (Percocet 5/325) 1 tab PRN Q6HRS PRN PO PAIN Last administered on 08/29/16 08:13; Start 08/28/16 at 02:00; Stop 08/29/16 at 11:57; Status DC Quetiapine Fumarate (SEROquel XR) 300 mg DAILY PO Last administered on 07:54; Start 08/28/16 at 09:00; Stop 08/29/16 at 11:57; Status DC Insulin Detemir 30 units 30 units HS SQ Last administered on 08/28/16 20:30; Start 08/28/16 at 21:00; Stop 08/29/16 at 11:57; Status DC Sodium Chloride 1,000 ml @ 1,000 mls/hr 1X ONCE IV Last administered on 02:15; Start 08/28/16 at 02:15; Stop 08/28/16 at 03:14; Status DC Sodium Chloride (Iv Sodium Chloride 0.9% 1000ml Bag) 1,000 ml @ 125 mls/hr Q8H IV Last administered on 08/28/16 03:28; Start 08/28/16 at 02:30; Stop 08/28/16 at 09:57; Status DC Insulin Aspart (Novolog) 0-7 UNITS TIDWMEALS SQ Last administered on 08/29/16 08:00; Start 08/28/16 at 08:00; Stop 08/29/16 at 11:57; Status DC Dextrose (Dextrose 50%-Water Syringe) 12.5 gm PRN Q15MIN PRN IV SEE COMMENTS; Start 08/28/16 at 02:00; Stop 08/29/16 at 11:57; Status DC Carvedilol (Coreg) 6.25 mg BIDWMEALS PO ; Start 08/28/16 at 10:30; Stop 08/28/16 at 10:39; Status DC Potassium Chloride (Klor-Con) 40 meq 1X ONCE PO Last administered on 08/28/16 11:25; Start 08/28/16 at 10:30; Stop 08/28/16 at 10:31; Status DC Acetaminophen (Tylenol) 650 mg PRN Q6HRS PRN PO FEVER; Start 08/28/16 at 10:00; Stop 08/29/16 at 11:57; Status DC Ondansetron HCl 4 mg 4 mg PRN Q6HRS PRN IV NAUSEA/VOMITING; Start 08/28/16 at 10 :00; Stop 08/29/16 at 11:57; Status DC Sodium Chloride (Iv Sodium Chloride 0.9% 1000ml Bag) 1,000 ml @ 100 mls/hr Q10H IV Last administered on 08/29/16 05:52; Start 08/28/16 at 10:30; Stop at 10:29; Status DC Heparin Sodium (Porcine) 5,000 unit Q8HRS SQ Last administered on 08/29/16 05: 55; Start 08/28/16 at 14:00; Stop 08/29/16 at 11:57; Status DC Carvedilol (Coreg) 3.125 mg BIDWMEALS PO ; Start 08/28/16 at 17:00; Stop 08/28/16 at 17:00; Status DC Metoprolol Tartrate (Lopressor) 12.5 mg BID PO Last administered on 08/29/16 07 :55; Start 08/28/16 at 21:00; Stop 08/29/16 at 11:57; Status DC Clopidogrel Bisulfate (Plavix) 75 mg DAILY PO Last administered on 08/29/16 08: 13; Start 08/29/16 at 09:00; Stop 08/29/16 at 11:57; Status DC Meclizine HCl (Antivert) 12.5 mg PRN Q6HRS PRN PO DIZZINESS Last administered on 08/29/16 10:50; Start 08/29/16 at 10:15; Stop 08/29/16 at 11:57; Status DC Active Scripts Active [Meclizine Hcl] 12.5 MG Tablet 12.5 Mg PO PRN Q6HRS PRN Clopidogrel (Clopidogrel Bisulfate) 75 Mg Tablet 1 Tab PO DAILY Metoprolol Succinate ( Xl ) (Metoprolol Succinate) 25 Mg Tab.er.24h 1 Tab PO DAILY Percocet 5-325 Mg Tablet (Oxycodone/Acetaminophen) 1 Each Tablet 1 Tab PO PRN Q6HRS PRN Atorvastatin Calcium 40 Mg Tablet 80 Mg PO QHS Aspirin Ec (Aspirin) 81 Mg Tablet. 81 Mg PO DAILYWBKFT Reported Levemir (Insulin Detemir) 100 Unit/1 Ml Vial 30 Unit SQ HS Novolog (Insulin Aspart) 100 Unit/1 Ml Vial 10 Unit SQ TIDAC Seroquel Xr (Quetiapine Fumarate) 300 Mg Tab.er.24h 300 Mg PO DAILY Amitriptyline Hcl 50 Mg Tablet 50 Mg PO HS Vitals/I & O Vital Sign - Last 24 Hours 08/28/16 08/28/16 08/28/16 08/28/16 14:14 14:14 15:00 19:00 Temp 97.6 98.1 97.6 98.1 Pulse 86 76 91 85 Resp B/P 114/63 83/64 138/72 137/80 Pulse Ox 100 100 O2 Delivery Room Air Room Air 4/708/28/16 08/28/16 08/28/16 20:12 20:25 20:34 21:12 Pulse 85 Resp 18 B/P 137/80 Pulse Ox 100 O2 Delivery Room Air Room Air Room Air 08/28/16 08/29/16 08/29/16 08/29/16 23:02 03:05 07:00 07:50 Temp 97.8 98.2 98.1 97.8 98.2 98.1 Pulse 80 83 84 Resp 16 18 20 B/P 121/72 102/55 144/76 Pulse Ox 98 98 99 O2 Delivery Room Air Room Air Room Air Room Air 08/29/16 08/29/16 08/29/16 08/29/16 07:55 08:13 09:13 10:00 Pulse 84 75 Resp 18 18 18 B/P 144/76 141/83 Pulse Ox 99 99 O2 Delivery Room Air Room Air 08/29/16 08/29/16 10:03 10:06 Pulse 75 75 Resp 18 18 B/P 140/76 147/77 Intake and Output 08/28/16 08/28/16 08/29/16 15:00 23:00 07:00 Intake Total 300 ml 120 ml 1200 ml Output Total 1 ml Balance 300 ml 119 ml 1200 ml Images MRI brain: - No acute or recent infarct. No acute intracranial abnormality. - Old left cerebellar infarct. - Mild left sphenoid sinus disease. Carotid Dopplers: Left 50-70%, right 0-50% NICHOLAS SMITH MD Aug 29, 2016 12:05
--- NOTE | 2016-08-29 12:36 | PDOC3 ---
Discharge Summary [facility] Date of Admission: Aug 27, 2016 Discharge Date: Aug 29, 2016 Admitting Diagnosis 1. syncope, 2/2 orthostatic hypotensive and vasovagal 2. worsening slurry speech with h/o stroke, neg MRI 3. h/o MD with stent 4. HTN 5. DM2 6.HLD 7. Bipolar disorder 8.dementia with stroke, mild 9. tobaccoism 10. SHABNAM, vasomotor 11. obesity 12. menieres dz 13. bronchitis Problems: Final Diagnosis CONSULTS neuro card Brief Hospital Course 51 yo F presenting to the ED today after having a syncope. pt has extensive medical problems, current smoking, MD with stent before, 3 times of left side stroke with mild right side weakness and slurry speech (mild , can feels getting worse now), menieres dz (lightheaded daily, right ear hearing loss and tinnitus). Pt said she was standing with her dog at home, felt some lightheaded, then fell on the ground, not sure for how long, woke up with daughter at side, some sob, no chest pain. She did hit her head and now is complaining of neck pain. no recent fever, chills, + mild cough with recent cold. denies dehydration. MRI brain neg for new stroke, echo is stable with EF 40%. pt was found + orthostatic hypotension, lisinopril dced. Cr normal with IVF, orthostatic low BP neg on 2nd day, pt still feels daily dizzy wo movement. dc home with metoprolol only, meclazine prn which might not help tho. dc time 35min. GEN.: No apparent distress. Alert and oriented. HEENT: Head is normocephalic, atraumatic NECK: Supple. LUNGS: bl coarse bs. HEART: RRR, S1, S2 present. Peripheral pulses intact ABDOMEN: Soft, nontender. Positive bowel sounds. EXTREMITIES: Without any cyanosis. right side mild weaker 4/5. NEUROLOGIC: Normal speech, normal tone PSYCHIATRIC: Normal affect, normal mood. SKIN: No ulcerations Problems: Disposition home CONDITION AT DISCHARGE: Improved Diet cardiac Scheduled Amitriptyline Hcl (Amitriptyline Hcl) 50 MG PO HS (Reported) Aspirin (Aspirin Ec) 81 MG PO DAILYWBKFT Atorvastatin Calcium (Atorvastatin Calcium) 80 MG PO QHS Clopidogrel Bisulfate (Clopidogrel) 1 TAB PO DAILY Insulin Aspart (Novolog) 10 UNIT SQ TIDAC (Reported) Insulin Detemir (Levemir) 30 UNIT SQ HS (Reported) Metoprolol Succinate (Metoprolol Succinate ( Xl )) 1 TAB PO DAILY Quetiapine Fumarate (Seroquel Xr) 300 MG PO DAILY (Reported) Scheduled PRN ([Meclizine Hcl]) 12.5 MG PO PRN Q6HRS PRN PRN DIZZINESS Oxycodone/Apap 5-325 (Percocet 5-325 Mg Tablet) 1 TAB PO PRN Q6HRS PRN PRN PAIN Discontinued Medications Bisacodyl (Bisacodyl) 5 MG PO DAILY (Reported) Diphenhydramine Hcl (Benadryl) 1 CAP PO QHS (Reported) Duloxetine Hcl (Cymbalta) 60 MG PO DAILY (Reported) Hydrocodone Bit/Acetaminophen (Hydrocodone-Apap 5-325 ) 1 TAB PO PRN Q6HRS PRN PRN PAIN (Reported) Hydrocodone Bit/Acetaminophen (Hydrocodone-Apap 5-325 ) 1 TAB PO PRN Q6HRS PRN PRN PAIN (Reported) Hydrocodone/Acetaminophen (Lortab 5-325 mg Tablet) 1 EACH PO PRN Q4HRS PRN PRN PAIN (Reported) Lisinopril (Lisinopril) 20 MG PO DAILY (Reported) Sulfamethoxazole/Trimethoprim (Bactrim Ds Tablet) 1 TAB PO BID Follow Up pcp in 2 weeks RONNI BENTLEY MD Aug 29, 2016 12:35
== END 2016-08-29 11:55 | disposition home or self-care (01) ==
LOC: ER 19:14 → 5 SOUTH 22:56 → INTOOBSV 22:56
PROVIDERS: ADMIT Internal Medicine; ATTEND Internal Medicine
DX: R55 Syncope and collapse (principal); I25.2 Old myocardial infarction; E11.22 Type 2 diabetes mellitus with diabetic chronic kidney disease; E11.42 Type 2 diabetes mellitus with diabetic polyneuropathy; I13.10 Hypertensive heart and chronic kidney disease without heart failure, with stage 1 through stage 4 chronic kidney disease, or unspecified chronic kidney disease; N18.9 Chronic kidney disease, unspecified; N17.9 Acute kidney failure, unspecified; E66.9 Obesity, unspecified; E78.00 Pure hypercholesterolemia, unspecified; E78.5 Hyperlipidemia, unspecified; E86.0 Dehydration; F01.50 Vascular dementia, unspecified severity, without behavioral disturbance, psychotic disturbance, mood disturbance, and anxiety; F17.200 Nicotine dependence, unspecified, uncomplicated; F31.9 Bipolar disorder, unspecified; H81.09 Meniere's disease, unspecified ear; H91.91 Unspecified hearing loss, right ear; H93.19 Tinnitus, unspecified ear; I21.3 ST elevation (STEMI) myocardial infarction of unspecified site; I25.10 Atherosclerotic heart disease of native coronary artery without angina pectoris; I63.9 Cerebral infarction, unspecified; I69.311 Memory deficit following cerebral infarction; I95.1 Orthostatic hypotension; J40 Bronchitis, not specified as acute or chronic; K21.9 Gastro-esophageal reflux disease without esophagitis; Z95.5 Presence of coronary angioplasty implant and graft; W19.XXXA Unspecified fall, initial encounter
CPT/HCPCS: 36415; 70450; 70551; 71010; 72125; 73030; 80048; 80061; 80076; 81001; 82533; 82947; 83690; 84443; 84484; 85027; 93005; 93306; 93880; 96361; 96372; 97161; 97165; 99285; G0378; G0481; G8978; G8979; G8980; J1815; J7030; J8597; G0379

== ENCOUNTER 2017-07-08 19:35 | Inpatient (IN) | payer MEDICARE, OTHER ==
[2017-07-08 19:57] LABS: ADD MAN DIFF? NO
[2017-07-08 19:59] LABS: BASO # 0.1 x10^3/uL (0.0-0.2); BASO % 1 % (0-3); EOS # 0.1 x10^3/uL (0.0-0.7); EOS % 2 % (0-3); HEMATOCRIT 36.4 % (36.0-47.0); HEMOGLOBIN 12.4 g/dL (12.0-15.5); LYMPH # 2.1 x10^3/uL (1.0-4.8); LYMPH % 27 % (24-48); MEAN CORPUSCULAR HEMOGLOBIN 31 pg (25-35); MEAN CORPUSCULAR HGB CONC 34 g/dL (31-37); MEAN CORPUSCULAR VOLUME 91 fL (79-100); MONO # 0.4 x10^3/uL (0.0-1.1); MONO % 5 % (0-9); NEUT # 5.2 x10^3uL (1.8-7.7); NEUT % 66 % (31-73); PLATELET COUNT 250 x10^3/uL (140-400); RED BLOOD COUNT 4.03 x10^6/uL (3.50-5.40); RED CELL DISTRIBUTION WIDTH 14.5 % (11.5-14.5); WHITE BLOOD COUNT 7.9 x10^3/uL (4.0-11.0)
[2017-07-08 20:02] LABS: URINE HCG POC HCG NEGATIVE (Negative)
[2017-07-08] MEDS: IV NORMAL SALINE 500ML BAG 500 ML IV (20:02)
[2017-07-08 20:03] LABS: BILIRUBIN,URINE NEGATIVE (NEG); CLARITY,URINE CLEAR; COLOR,URINE YELLOW; GLUCOSE,URINE NEGATIVE (NEG); NITRITE,URINE NEGATIVE (NEG); PROTEIN,URINE NEGATIVE (NEG-TRACE); UROBILINOGEN,URINE 0.2 mg/dL (0.2 mg/dL)
[2017-07-08 20:09] LABS: BACTERIA,URINE FEW /HPF (0-FEW); INR 1.2 (0.8-1.1); PARTIAL THROMBOPLASTIN TIME 28 SEC (24-38); RBC,URINE 0 /HPF (0-2); SQUAMOUS EPITHELIAL CELL,UR OCC /LPF; WBC,URINE OCC /HPF (0-4)
[2017-07-08 20:11] LABS: ANION GAP 10 (6-14); BLOOD UREA NITROGEN 15 mg/dL (7-20); BUN/CREATININE RATIO 12 (6-20); CALCIUM 9.1 mg/dL (8.5-10.1); CARBON DIOXIDE 27 mmol/L (21-32); CHLORIDE 102 mmol/L (98-107); CREATININE 1.3 mg/dL (0.6-1.0); GLUCOSE 263 mg/dL (70-99); POTASSIUM 3.8 mmol/L (3.5-5.1); SODIUM 139 mmol/L (136-145)
[2017-07-08 20:12] LABS: BARBITURATES NEG (NEG); BENZODIAZEPINES NEG (NEG); CANNABINOIDS NEG (NEG); COCAINE NEG (NEG); METHADONE NEG (NEG); OPIATES NEG (NEG); PHENCYCLIDINE NEG (NEG)
[2017-07-08 20:13] LABS: ACETAMIN < 2 mcg/ml (10-30); AMPHETAMINE/METHAMPHETAMINE NEG (NEG); ETHANOL < 10 mg/dL (0-10); SALIC 6.5 mg/dL (2.8-20.0)
[2017-07-08 20:14] LABS: ETHANOL, URINE NEG (NEG)
[2017-07-08 20:17] LABS: ALBUMIN 3.3 g/dL (3.4-5.0); ALBUMIN/GLOBULIN RATIO 0.7 (1.0-1.7); ALK PHOS 111 U/L (46-116); ALT (SGPT) 28 U/L (14-59); AST (SGOT) 21 U/L (15-37); MAGNESIUM 1.6 mg/dL (1.8-2.4); TOTAL BILIRUBIN 0.1 mg/dL (0.2-1.0)
[2017-07-08 20:19] LABS: TROPONINI < 0.017 ng/mL (0.000-0.055)
[2017-07-08 20:22] LABS: NT-PRO BNP 157 pg/mL (0-124)
[2017-07-08] MEDS: CLINDAMYCIN 600MG PREMIX 50 ML IV (20:38)
[2017-07-08] MEDS ORDERED: ONDANSETRON PF 4 MG/2 ML VIAL. IV (22:45)
[2017-07-08] MEDS ORDERED: ACETAMINOPHEN 325 MG TABLET. PO (22:45)
[2017-07-08] MEDS ORDERED: MORPHINE SULFATE 2 MG/ML DISP.SYRIN. IV (22:45)
[2017-07-09 07:52] LABS: ADD MAN DIFF? NO
[2017-07-09 07:57] LABS: BASO % 1 % (0-3); EOS # 0.1 x10^3/uL (0.0-0.7); EOS % 2 % (0-3); HEMATOCRIT 37.7 % (36.0-47.0); HEMOGLOBIN 12.4 g/dL (12.0-15.5); LYMPH # 1.6 x10^3/uL (1.0-4.8); LYMPH % 22 % (24-48); MEAN CORPUSCULAR HEMOGLOBIN 30 pg (25-35); MEAN CORPUSCULAR HGB CONC 33 g/dL (31-37); MEAN CORPUSCULAR VOLUME 91 fL (79-100); MONO # 0.4 x10^3/uL (0.0-1.1); MONO % 6 % (0-9); NEUT # 4.9 x10^3uL (1.8-7.7); NEUT % 70 % (31-73); PLATELET COUNT 254 x10^3/uL (140-400); RED BLOOD COUNT 4.15 x10^6/uL (3.50-5.40)
[2017-07-09 08:08] LABS: ANION GAP 11 (6-14); BLOOD UREA NITROGEN 14 mg/dL (7-20); CALCIUM 9.3 mg/dL (8.5-10.1); CARBON DIOXIDE 24 mmol/L (21-32); CHLORIDE 103 mmol/L (98-107); GFR 70.5; GLUCOSE 231 mg/dL (70-99); SODIUM 138 mmol/L (136-145)
[2017-07-09 08:17] LABS: POC GLUCOSE 228 mg/dL (70-99)
[2017-07-09 09:55] LABS: THYROID STIM HORMONE (TSH) 1.409 uIU/mL (0.358-3.74)
[2017-07-09 12:04] LABS: POC GLUCOSE 166 mg/dL (70-99)
[2017-07-09] MEDS: CLOPIDOGREL BISULFATE 75 MG TABLET PO (12:18)
[2017-07-09] MEDS: ASPIRIN ENTERIC COATED 81 MG TABLET.DR. PO (12:18)
[2017-07-09] MEDS: METOPROLOL SUCC 24HR ER 25 MG TAB.ER.24H. PO (12:18)
[2017-07-09] MEDS: IV NORMAL SALINE 1000ML BAG 1,000 ML IV (13:25)
[2017-07-09 17:15] LABS: POC GLUCOSE 325 mg/dL (70-99)
[2017-07-09 20:46] LABS: POC GLUCOSE 338 mg/dL (70-99)
[2017-07-09] MEDS: ATORVASTATIN CALCIUM 40 MG TABLET. PO (22:11)
[2017-07-10] MEDS: IV NORMAL SALINE 1000ML BAG 1,000 ML IV (02:37)
[2017-07-10] MEDS ORDERED: MECLIZINE HCL 12.5 MG TABLET. PO (02:45)
[2017-07-10 07:28] LABS: POC GLUCOSE 385 mg/dL (70-99)
[2017-07-10] MEDS: QUEtiapine 300 MG TAB.ER.24H. PO (09:03)
[2017-07-10] MEDS: ASPIRIN ENTERIC COATED 81 MG TABLET.DR. PO (09:03)
[2017-07-10] MEDS: CLOPIDOGREL BISULFATE 75 MG TABLET PO (09:04)
[2017-07-10] MEDS: METOPROLOL SUCC 24HR ER 25 MG TAB.ER.24H. PO (09:04)
[2017-07-10] MEDS: INSULIN ASPART 300 UNITS/3 ML INSULN.PEN SQ ×5 (09:12→17:40)
[2017-07-10] MEDS ORDERED: ACETAMINOPHEN 500 MG TABLET PO (10:15)
[2017-07-10] MEDS ORDERED: ONDANSETRON PF 4 MG/2 ML VIAL. IV (10:15)
[2017-07-10] MEDS ORDERED: DEXTROSE 50% 25 GM / 50ML DISP.SYRIN. IV (10:15)
[2017-07-10] MEDS ORDERED: ONDANSETRON ODT 4 MG TAB.RAPDIS. PO (10:15)
[2017-07-10 12:00] LABS: POC GLUCOSE 298 mg/dL (70-99)
[2017-07-10 13:04] LABS: SEDIMENTATION RATE 37 (0-25)
[2017-07-10 16:58] LABS: POC GLUCOSE 306 mg/dL (70-99)
[2017-07-10 20:37] LABS: POC GLUCOSE 258 mg/dL (70-99)
[2017-07-10] MEDS ORDERED: INSULIN DETEMIR 300 UNITS/3 ML INSULN.PEN. SQ (21:00)
[2017-07-10] MEDS: ATORVASTATIN CALCIUM 40 MG TABLET. PO (21:54)
[2017-07-10] MEDS: oxyCODONE/APAP 5/325 1 TAB TABLET PO (21:54)
[2017-07-10] MEDS: AMITRIPTYLINE HCL 50 MG TABLET PO (21:54)
[2017-07-10] MEDS: INSULIN DETEMIR 300 UNITS/3 ML INSULN.PEN. SQ (21:57)
[2017-07-11 01:08] LABS: HEMOGLOBIN A1C 9.1 % (4.8-5.6)
[2017-07-11 07:42] LABS: POC GLUCOSE 305 mg/dL (70-99)
[2017-07-11] MEDS: QUEtiapine 300 MG TAB.ER.24H. PO (08:59)
[2017-07-11] MEDS: ASPIRIN ENTERIC COATED 81 MG TABLET.DR. PO (08:59)
[2017-07-11] MEDS: CLOPIDOGREL BISULFATE 75 MG TABLET PO (08:59)
[2017-07-11] MEDS: METOPROLOL SUCC 24HR ER 25 MG TAB.ER.24H. PO (08:59)
[2017-07-11] MEDS: INSULIN ASPART 300 UNITS/3 ML INSULN.PEN SQ ×6 (09:04→17:17)
[2017-07-11 11:59] LABS: POC GLUCOSE 217 mg/dL (70-99)
[2017-07-11] MEDS: MORPHINE SULFATE 2 MG/ML DISP.SYRIN. IV (16:43)
[2017-07-11] MEDS: NICOTINE 21MG PATCH. TD (16:44)
[2017-07-11 17:13] LABS: POC GLUCOSE 228 mg/dL (70-99)
[2017-07-11] MEDS: ATORVASTATIN CALCIUM 40 MG TABLET. PO (20:31)
[2017-07-11] MEDS: oxyCODONE/APAP 5/325 1 TAB TABLET PO (20:31)
[2017-07-11] MEDS: AMITRIPTYLINE HCL 50 MG TABLET PO (20:32)
[2017-07-11] MEDS: INSULIN DETEMIR 300 UNITS/3 ML INSULN.PEN. SQ (20:36)
[2017-07-11 21:01] LABS: POC GLUCOSE 125 mg/dL (70-99)
[2017-07-11] MEDS: MORPHINE SULFATE 4 MG/ML DISP.SYRIN. IV (23:45)
[2017-07-12] MEDS: oxyCODONE/APAP 5/325 1 TAB TABLET PO ×2 (03:23→21:34)
[2017-07-12 04:48] LABS: ANION GAP 10 (6-14); BLOOD UREA NITROGEN 13 mg/dL (7-20); CALCIUM 9.4 mg/dL (8.5-10.1); CARBON DIOXIDE 24 mmol/L (21-32); CHLORIDE 101 mmol/L (98-107); GFR 70.5; GLUCOSE 271 mg/dL (70-99); POTASSIUM 4.1 mmol/L (3.5-5.1); SODIUM 135 mmol/L (136-145)
[2017-07-12] MEDS: CLOPIDOGREL BISULFATE 75 MG TABLET PO (07:00)
[2017-07-12] MEDS: INSULIN ASPART 300 UNITS/3 ML INSULN.PEN SQ ×6 (07:30→18:06)
[2017-07-12 07:58] LABS: POC GLUCOSE 231 mg/dL (70-99)
[2017-07-12] MEDS: ASPIRIN ENTERIC COATED 81 MG TABLET.DR. PO (08:00)
[2017-07-12] MEDS: METOPROLOL SUCC 24HR ER 25 MG TAB.ER.24H. PO (08:57)
[2017-07-12] MEDS: QUEtiapine 300 MG TAB.ER.24H. PO (08:57)
[2017-07-12] MEDS: NICOTINE 21MG PATCH. TD (08:58)
[2017-07-12 11:52] LABS: POC GLUCOSE 183 mg/dL (70-99)
[2017-07-12] MEDS ORDERED: IODIXANOL 320MG/ML 50ML VIAL. (12:35)
[2017-07-12] MEDS ORDERED: LIDOCAINE WITH 8.4% SOD BICARB 3 ML DISP.SYRIN. (12:35)
[2017-07-12] MEDS ORDERED: IODIXANOL 320 MG/ML 100 ML VIAL. ×3 (12:35→14:24)
[2017-07-12] MEDS: fentaNYL PF VIAL 100 MCG/2 ML VIAL IV (12:45)
[2017-07-12] MEDS: IODIXANOL 320 MG/ML 100 ML VIAL. IART (12:45)
[2017-07-12] MEDS ORDERED: MIDAZOLAM HCL/PF 2 MG/2 ML VIAL. (12:46)
[2017-07-12] MEDS ORDERED: fentaNYL PF VIAL 100 MCG/2 ML VIAL (12:46)
[2017-07-12] MEDS: LIDOCAINE 1%/EPI 1:100,000 20 ML VIAL. INJ (13:00)
[2017-07-12] MEDS ORDERED: CONTRAST GIVEN MC (13:00)
[2017-07-12] MEDS ORDERED: HEPARIN for IV BOLUS 10,000 UNIT/10 ML VIAL. (13:47)
[2017-07-12] MEDS: HEPARIN for IV BOLUS 10,000 UNIT/10 ML VIAL. IV (13:49)
[2017-07-12] MEDS: MIDAZOLAM HCL/PF 2 MG/2 ML VIAL. IV (14:04)
[2017-07-12 16:49] LABS: POC GLUCOSE 163 mg/dL (70-99)
[2017-07-12] MEDS: AMITRIPTYLINE HCL 50 MG TABLET PO (21:33)
[2017-07-12] MEDS: ATORVASTATIN CALCIUM 40 MG TABLET. PO (21:33)
[2017-07-12] MEDS: INSULIN DETEMIR 300 UNITS/3 ML INSULN.PEN. SQ (21:35)
[2017-07-12 22:22] LABS: POC GLUCOSE 185 mg/dL (70-99)
[2017-07-13] MEDS: INSULIN ASPART 300 UNITS/3 ML INSULN.PEN SQ ×6 (07:30→17:00)
[2017-07-13 08:27] LABS: POC GLUCOSE 290 mg/dL (70-99)
[2017-07-13] MEDS: oxyCODONE/APAP 5/325 1 TAB TABLET PO (10:02)
[2017-07-13] MEDS: METOPROLOL SUCC 24HR ER 25 MG TAB.ER.24H. PO (10:03)
[2017-07-13] MEDS: QUEtiapine 300 MG TAB.ER.24H. PO (10:03)
[2017-07-13] MEDS: NICOTINE 21MG PATCH. TD (10:03)
[2017-07-13] MEDS: ASPIRIN ENTERIC COATED 81 MG TABLET.DR. PO (10:35)
[2017-07-13] MEDS: CLOPIDOGREL BISULFATE 75 MG TABLET PO (10:35)
[2017-07-13 11:58] LABS: POC GLUCOSE 301 mg/dL (70-99)
[2017-07-13 15:51] LABS: POC GLUCOSE 206 mg/dL (70-99)
[2017-07-13] MEDS ORDERED: LIDOCAINE 1% 20 ML VIAL. (16:14)
[2017-07-13] MEDS ORDERED: silver sulfADIAZINE 1% CREAM 25GM TUBE. TP (16:14)
[2017-07-13] MEDS ORDERED: INSULIN ASPART 100 UNIT/ML 10ML VIAL. SQ (16:43)
[2017-07-13] MEDS: INSULIN ASPART 100 UNIT/ML 10ML VIAL. SQ (16:48)
[2017-07-13] MEDS ORDERED: DEXAMETHASONE SOD PHOS 20 MG/5 ML VIAL. (17:15)
[2017-07-13] MEDS ORDERED: LIDOCAINE 2% PF Vial for OR 5 ML VIAL. (17:15)
[2017-07-13] MEDS ORDERED: ONDANSETRON PF 4 MG/2 ML VIAL. (17:15)
[2017-07-13] MEDS ORDERED: PROPOFOL 20 ML IV (17:15)
[2017-07-13] MEDS ORDERED: fentaNYL PF VIAL 100 MCG/2 ML VIAL (17:15)
[2017-07-13] MEDS ORDERED: PHENYLEPHRINE in 0.9% NACL PF 1 MG/10 ML SYRINGE. IV (17:45)
[2017-07-13 18:15] LABS: POC GLUCOSE 169 mg/dL (70-99)
[2017-07-13] MEDS ORDERED: SEVOFLURANE 31 TO 60 MINUTES. IH (18:18)
[2017-07-13] MEDS: IV RINGERS,LACTATED 1000ML 1,000 ML IV (18:39)
[2017-07-13] MEDS ORDERED: MORPHINE SULFATE 2 MG/ML DISP.SYRIN. IV (18:45)
[2017-07-13] MEDS ORDERED: ONDANSETRON PF 4 MG/2 ML VIAL. IV (18:45)
[2017-07-13] MEDS ORDERED: PROCHLORPERAZINE 10 MG/2 ML VIAL. IV (18:45)
[2017-07-13] MEDS ORDERED: LIDOCAINE 1% PF 2 ML VIAL. ID (18:45)
[2017-07-13] MEDS ORDERED: fentaNYL PF VIAL 100 MCG/2 ML VIAL IV ×2 (18:45)
[2017-07-13] MEDS: AMITRIPTYLINE HCL 50 MG TABLET PO (20:44)
[2017-07-13] MEDS: ATORVASTATIN CALCIUM 40 MG TABLET. PO (20:44)
[2017-07-13] MEDS: INSULIN DETEMIR 300 UNITS/3 ML INSULN.PEN. SQ (20:47)
[2017-07-14] MEDS: oxyCODONE/APAP 5/325 1 TAB TABLET PO ×2 (00:32→16:08)
[2017-07-14 04:38] LABS: BASO % 0 % (0-3); EOS % 0 % (0-3); HEMATOCRIT 39.7 % (36.0-47.0); LYMPH # 0.7 x10^3/uL (1.0-4.8); LYMPH % 7 % (24-48); MEAN CORPUSCULAR HEMOGLOBIN 30 pg (25-35); MEAN CORPUSCULAR HGB CONC 33 g/dL (31-37); MEAN CORPUSCULAR VOLUME 92 fL (79-100); MONO # 0.1 x10^3/uL (0.0-1.1); MONO % 1 % (0-9); NEUT # 9.7 x10^3uL (1.8-7.7); NEUT % 93 % (31-73); PLATELET COUNT 245 x10^3/uL (140-400); RED BLOOD COUNT 4.32 x10^6/uL (3.50-5.40); RED CELL DISTRIBUTION WIDTH 14.9 % (11.5-14.5); WHITE BLOOD COUNT 10.5 x10^3/uL (4.0-11.0)
[2017-07-14 05:01] LABS: ANION GAP 13 (6-14); BLOOD UREA NITROGEN 17 mg/dL (7-20); CALCIUM 9.7 mg/dL (8.5-10.1); CARBON DIOXIDE 23 mmol/L (21-32); CHLORIDE 96 mmol/L (98-107); CREATININE 1.6 mg/dL (0.6-1.0); MAGNESIUM 1.9 mg/dL (1.8-2.4); PHOSPHORUS 3.7 mg/dL (2.6-4.7); POTASSIUM 4.5 mmol/L (3.5-5.1); SODIUM 132 mmol/L (136-145)
[2017-07-14 05:05] LABS: ADD MAN DIFF? YES
[2017-07-14 05:12] LABS: GLUCOSE 558 mg/dL (70-99)
[2017-07-14] MEDS: INSULIN ASPART 300 UNITS/3 ML INSULN.PEN SQ ×5 (05:53→13:29)
[2017-07-14 06:45] LABS: POC GLUCOSE 203 mg/dL (70-99)
[2017-07-14 08:21] LABS: POC GLUCOSE 384 mg/dL (70-99)
[2017-07-14] MEDS: silver sulfADIAZINE 1% CREAM 25GM TUBE. TP (09:00)
[2017-07-14 09:13] LABS: % BANDS 10 % (0-9); % BASOS 1 % (0-3); % LYMPHS 15 % (24-48); % MONOS 1 % (0-10); % SEGS 73 % (35-66); PLT ESTIMATE ADEQUATE (ADEQUATE)
[2017-07-14] MEDS: METOPROLOL SUCC 24HR ER 25 MG TAB.ER.24H. PO (09:33)
[2017-07-14] MEDS: NICOTINE 21MG PATCH. TD (09:33)
[2017-07-14] MEDS: QUEtiapine 300 MG TAB.ER.24H. PO (09:33)
[2017-07-14 12:03] LABS: POC GLUCOSE 329 mg/dL (70-99)
[2017-07-14] MEDS ORDERED: INSULIN DETEMIR 300 UNITS/3 ML INSULN.PEN. SQ (21:00)
== END 2017-07-14 16:45 | disposition home health service (06) | DRG 253 ==
LOC: 6 SOUTH 07-09 03:11 → ER 19:35 → ED HOLD 21:36
PROC: 0JBQ0ZZ Excision of Right Foot Subcutaneous Tissue and Fascia, Open Approach (ICD-10-PCS; 2017-07-13 16:30)
PROC: 0Y6P0Z1 Detachment at Right 1st Toe, High, Open Approach (ICD-10-PCS; 2017-07-13 16:30)
PROC: B41D1ZZ Fluoroscopy of Aorta and Bilateral Lower Extremity Arteries using Low Osmolar Contrast (ICD-10-PCS; principal; 2017-07-13 17:29)
PROC: 047K3Z1 Dilation of Right Femoral Artery using Drug-Coated Balloon, Percutaneous Approach (ICD-10-PCS; 2017-07-13 17:29)
PROC: 047R3ZZ Dilation of Right Posterior Tibial Artery, Percutaneous Approach (ICD-10-PCS; 2017-07-13 17:29)
PROC: B4101ZZ Fluoroscopy of Abdominal Aorta using Low Osmolar Contrast (ICD-10-PCS; 2017-07-13 17:29)
DX: E11.52 Type 2 diabetes mellitus with diabetic peripheral angiopathy with gangrene (principal); E11.22 Type 2 diabetes mellitus with diabetic chronic kidney disease; E11.40 Type 2 diabetes mellitus with diabetic neuropathy, unspecified; L03.90 Cellulitis, unspecified; I69.351 Hemiplegia and hemiparesis following cerebral infarction affecting right dominant side; L97.419 Non-pressure chronic ulcer of right heel and midfoot with unspecified severity; E11.621 Type 2 diabetes mellitus with foot ulcer; E11.65 Type 2 diabetes mellitus with hyperglycemia; E66.9 Obesity, unspecified; Z68.32 Body mass index [BMI] 32.0-32.9, adult; E78.00 Pure hypercholesterolemia, unspecified; E78.5 Hyperlipidemia, unspecified; F03.90 Unspecified dementia, unspecified severity, without behavioral disturbance, psychotic disturbance, mood disturbance, and anxiety; F17.210 Nicotine dependence, cigarettes, uncomplicated; F31.9 Bipolar disorder, unspecified; I13.10 Hypertensive heart and chronic kidney disease without heart failure, with stage 1 through stage 4 chronic kidney disease, or unspecified chronic kidney disease; I25.10 Atherosclerotic heart disease of native coronary artery without angina pectoris; I25.2 Old myocardial infarction; K21.9 Gastro-esophageal reflux disease without esophagitis; M17.11 Unilateral primary osteoarthritis, right knee; N18.9 Chronic kidney disease, unspecified; Z82.49 Family history of ischemic heart disease and other diseases of the circulatory system; Z83.3 Family history of diabetes mellitus; Z95.5 Presence of coronary angioplasty implant and graft; F41.9 Anxiety disorder, unspecified; K21.0 Gastro-esophageal reflux disease with esophagitis; M54.5 Low back pain; I99.8 Other disorder of circulatory system; Z71.89 Other specified counseling
CPT/HCPCS: 36415; 37224; 37228; 70450; 71045; 73630; 75625; 75710; 76937; 80048; 80053; 80307; 80329; 81001; 81025; 82962; 83036; 83735; 83880; 84100; 84443; 84484; 85007; 85025; 85610; 85651; 85730; 88304; 88305; 88311; 93005; 93306; 93922; 93925; 96365; 96366; 97162-GP; 97164-GP; 97165-GO; 99152; 99153; 99285; 99285-25; A4215; C1725; C1769; C1892; C1894; C2623; G0269; G0480; J0690; J1100; J1644; J1815; J2250; J2270; J2370; J2405; J2704; J3010; J3490; J7030; J7040; J7120

== ENCOUNTER → 2017-07-23 | Outpatient (CLI) | payer MEDICARE, OTHER | END | disposition home or self-care (01) | LOC: PMGWOUND 07:51 | DX: E11.621 Type 2 diabetes mellitus with foot ulcer (principal); L97.411 Non-pressure chronic ulcer of right heel and midfoot limited to breakdown of skin; F03.90 Unspecified dementia, unspecified severity, without behavioral disturbance, psychotic disturbance, mood disturbance, and anxiety; E11.42 Type 2 diabetes mellitus with diabetic polyneuropathy; I25.2 Old myocardial infarction; I25.10 Atherosclerotic heart disease of native coronary artery without angina pectoris; K21.9 Gastro-esophageal reflux disease without esophagitis; E66.9 Obesity, unspecified; M19.90 Unspecified osteoarthritis, unspecified site; F32.9 Major depressive disorder, single episode, unspecified; F41.9 Anxiety disorder, unspecified; M17.11 Unilateral primary osteoarthritis, right knee; F17.210 Nicotine dependence, cigarettes, uncomplicated; E11.52 Type 2 diabetes mellitus with diabetic peripheral angiopathy with gangrene; I96 Gangrene, not elsewhere classified; E11.65 Type 2 diabetes mellitus with hyperglycemia; E11.22 Type 2 diabetes mellitus with diabetic chronic kidney disease; I12.9 Hypertensive chronic kidney disease with stage 1 through stage 4 chronic kidney disease, or unspecified chronic kidney disease; N18.9 Chronic kidney disease, unspecified; E78.00 Pure hypercholesterolemia, unspecified; Z86.73 Personal history of transient ischemic attack (TIA), and cerebral infarction without residual deficits; Z85.43 Personal history of malignant neoplasm of ovary; Z72.89 Other problems related to lifestyle; Z68.36 Body mass index [BMI] 36.0-36.9, adult; Z95.5 Presence of coronary angioplasty implant and graft | CPT/HCPCS: 99214 ==

== ENCOUNTER → 2017-07-30 | Outpatient (CLI) | payer MEDICARE, OTHER | END | disposition home or self-care (01) | LOC: PMGWOUND 08:56 | DX: E11.621 Type 2 diabetes mellitus with foot ulcer (principal); L97.411 Non-pressure chronic ulcer of right heel and midfoot limited to breakdown of skin; F41.9 Anxiety disorder, unspecified; I25.10 Atherosclerotic heart disease of native coronary artery without angina pectoris; K21.9 Gastro-esophageal reflux disease without esophagitis; E66.9 Obesity, unspecified; I25.2 Old myocardial infarction; E78.00 Pure hypercholesterolemia, unspecified; E11.22 Type 2 diabetes mellitus with diabetic chronic kidney disease; I12.9 Hypertensive chronic kidney disease with stage 1 through stage 4 chronic kidney disease, or unspecified chronic kidney disease; N18.9 Chronic kidney disease, unspecified; E11.42 Type 2 diabetes mellitus with diabetic polyneuropathy; E11.52 Type 2 diabetes mellitus with diabetic peripheral angiopathy with gangrene; I96 Gangrene, not elsewhere classified; F03.90 Unspecified dementia, unspecified severity, without behavioral disturbance, psychotic disturbance, mood disturbance, and anxiety; M17.11 Unilateral primary osteoarthritis, right knee; F31.9 Bipolar disorder, unspecified; F17.210 Nicotine dependence, cigarettes, uncomplicated; Z85.43 Personal history of malignant neoplasm of ovary; Z86.73 Personal history of transient ischemic attack (TIA), and cerebral infarction without residual deficits; Z68.36 Body mass index [BMI] 36.0-36.9, adult; Z72.89 Other problems related to lifestyle | CPT/HCPCS: 97597 ==

== ENCOUNTER → 2017-08-06 | Outpatient (CLI) | payer MEDICARE, OTHER | END | disposition home or self-care (01) | LOC: PMGWOUND 08:50 | DX: E11.621 Type 2 diabetes mellitus with foot ulcer (principal); L97.413 Non-pressure chronic ulcer of right heel and midfoot with necrosis of muscle; F41.9 Anxiety disorder, unspecified; I25.10 Atherosclerotic heart disease of native coronary artery without angina pectoris; K21.9 Gastro-esophageal reflux disease without esophagitis; E66.9 Obesity, unspecified; I25.2 Old myocardial infarction; E78.00 Pure hypercholesterolemia, unspecified; E11.22 Type 2 diabetes mellitus with diabetic chronic kidney disease; I12.9 Hypertensive chronic kidney disease with stage 1 through stage 4 chronic kidney disease, or unspecified chronic kidney disease; N18.9 Chronic kidney disease, unspecified; E11.65 Type 2 diabetes mellitus with hyperglycemia; E11.42 Type 2 diabetes mellitus with diabetic polyneuropathy; E11.52 Type 2 diabetes mellitus with diabetic peripheral angiopathy with gangrene; I96 Gangrene, not elsewhere classified; F03.90 Unspecified dementia, unspecified severity, without behavioral disturbance, psychotic disturbance, mood disturbance, and anxiety; M17.11 Unilateral primary osteoarthritis, right knee; F31.9 Bipolar disorder, unspecified; F17.210 Nicotine dependence, cigarettes, uncomplicated; Z85.43 Personal history of malignant neoplasm of ovary; Z86.73 Personal history of transient ischemic attack (TIA), and cerebral infarction without residual deficits; Z68.36 Body mass index [BMI] 36.0-36.9, adult; Z72.89 Other problems related to lifestyle | CPT/HCPCS: 97597 ==

== ENCOUNTER → 2017-08-13 | Outpatient (CLI) | payer MEDICARE, OTHER | END | disposition home or self-care (01) | LOC: PMGWOUND 08:47 | DX: E11.621 Type 2 diabetes mellitus with foot ulcer (principal); L97.411 Non-pressure chronic ulcer of right heel and midfoot limited to breakdown of skin; F41.9 Anxiety disorder, unspecified; I25.10 Atherosclerotic heart disease of native coronary artery without angina pectoris; K21.9 Gastro-esophageal reflux disease without esophagitis; E66.9 Obesity, unspecified; I25.2 Old myocardial infarction; E78.00 Pure hypercholesterolemia, unspecified; E11.22 Type 2 diabetes mellitus with diabetic chronic kidney disease; I12.9 Hypertensive chronic kidney disease with stage 1 through stage 4 chronic kidney disease, or unspecified chronic kidney disease; N18.9 Chronic kidney disease, unspecified; E11.65 Type 2 diabetes mellitus with hyperglycemia; E11.42 Type 2 diabetes mellitus with diabetic polyneuropathy; E11.52 Type 2 diabetes mellitus with diabetic peripheral angiopathy with gangrene; I96 Gangrene, not elsewhere classified; F03.90 Unspecified dementia, unspecified severity, without behavioral disturbance, psychotic disturbance, mood disturbance, and anxiety; M17.11 Unilateral primary osteoarthritis, right knee; F31.9 Bipolar disorder, unspecified; F17.210 Nicotine dependence, cigarettes, uncomplicated; Z85.43 Personal history of malignant neoplasm of ovary; Z86.73 Personal history of transient ischemic attack (TIA), and cerebral infarction without residual deficits; Z68.36 Body mass index [BMI] 36.0-36.9, adult | CPT/HCPCS: 97597 ==

== ENCOUNTER → 2017-09-03 | Outpatient (CLI) | payer MEDICARE, OTHER | END | disposition home or self-care (01) | LOC: PMGWOUND 09:14 | DX: T87.89 Other complications of amputation stump (principal); E11.621 Type 2 diabetes mellitus with foot ulcer; L97.412 Non-pressure chronic ulcer of right heel and midfoot with fat layer exposed; F41.9 Anxiety disorder, unspecified; I25.10 Atherosclerotic heart disease of native coronary artery without angina pectoris; K21.9 Gastro-esophageal reflux disease without esophagitis; E66.9 Obesity, unspecified; I25.2 Old myocardial infarction; E78.00 Pure hypercholesterolemia, unspecified; E11.22 Type 2 diabetes mellitus with diabetic chronic kidney disease; I12.9 Hypertensive chronic kidney disease with stage 1 through stage 4 chronic kidney disease, or unspecified chronic kidney disease; N18.9 Chronic kidney disease, unspecified; E11.65 Type 2 diabetes mellitus with hyperglycemia; E11.42 Type 2 diabetes mellitus with diabetic polyneuropathy; E11.52 Type 2 diabetes mellitus with diabetic peripheral angiopathy with gangrene; I96 Gangrene, not elsewhere classified; F03.90 Unspecified dementia, unspecified severity, without behavioral disturbance, psychotic disturbance, mood disturbance, and anxiety; F32.9 Major depressive disorder, single episode, unspecified; M17.11 Unilateral primary osteoarthritis, right knee; F17.210 Nicotine dependence, cigarettes, uncomplicated; Z85.43 Personal history of malignant neoplasm of ovary; Z86.73 Personal history of transient ischemic attack (TIA), and cerebral infarction without residual deficits; Z68.36 Body mass index [BMI] 36.0-36.9, adult; Y83.5 Amputation of limb(s) as the cause of abnormal reaction of the patient, or of later complication, without mention of misadventure at the time of the procedure | CPT/HCPCS: 29445 ==

== ENCOUNTER → 2017-09-06 | Outpatient (CLI) | payer MEDICARE, OTHER | END | disposition home or self-care (01) | LOC: PMGWOUND 08:51 | DX: E11.621 Type 2 diabetes mellitus with foot ulcer (principal); L97.412 Non-pressure chronic ulcer of right heel and midfoot with fat layer exposed; F41.9 Anxiety disorder, unspecified; I25.10 Atherosclerotic heart disease of native coronary artery without angina pectoris; K21.9 Gastro-esophageal reflux disease without esophagitis; E11.22 Type 2 diabetes mellitus with diabetic chronic kidney disease; I12.9 Hypertensive chronic kidney disease with stage 1 through stage 4 chronic kidney disease, or unspecified chronic kidney disease; N18.9 Chronic kidney disease, unspecified; E11.52 Type 2 diabetes mellitus with diabetic peripheral angiopathy with gangrene; I96 Gangrene, not elsewhere classified; E66.9 Obesity, unspecified; I25.2 Old myocardial infarction; E78.00 Pure hypercholesterolemia, unspecified; E11.42 Type 2 diabetes mellitus with diabetic polyneuropathy; M17.11 Unilateral primary osteoarthritis, right knee; F03.90 Unspecified dementia, unspecified severity, without behavioral disturbance, psychotic disturbance, mood disturbance, and anxiety; F17.210 Nicotine dependence, cigarettes, uncomplicated; Z85.43 Personal history of malignant neoplasm of ovary; Z86.73 Personal history of transient ischemic attack (TIA), and cerebral infarction without residual deficits; F31.9 Bipolar disorder, unspecified; Z95.5 Presence of coronary angioplasty implant and graft; Z72.89 Other problems related to lifestyle; Z68.36 Body mass index [BMI] 36.0-36.9, adult | CPT/HCPCS: 29445 ==

== ENCOUNTER → 2017-09-13 | Outpatient (CLI) | payer MEDICARE, OTHER | END | disposition home or self-care (01) | LOC: PMGWOUND 08:51 | DX: E11.621 Type 2 diabetes mellitus with foot ulcer (principal); L97.412 Non-pressure chronic ulcer of right heel and midfoot with fat layer exposed; E11.22 Type 2 diabetes mellitus with diabetic chronic kidney disease; I12.9 Hypertensive chronic kidney disease with stage 1 through stage 4 chronic kidney disease, or unspecified chronic kidney disease; N18.9 Chronic kidney disease, unspecified; E11.65 Type 2 diabetes mellitus with hyperglycemia; E11.42 Type 2 diabetes mellitus with diabetic polyneuropathy; E11.52 Type 2 diabetes mellitus with diabetic peripheral angiopathy with gangrene; I96 Gangrene, not elsewhere classified; F03.90 Unspecified dementia, unspecified severity, without behavioral disturbance, psychotic disturbance, mood disturbance, and anxiety; F41.9 Anxiety disorder, unspecified; I25.10 Atherosclerotic heart disease of native coronary artery without angina pectoris; K21.9 Gastro-esophageal reflux disease without esophagitis; E66.9 Obesity, unspecified; I25.2 Old myocardial infarction; E78.00 Pure hypercholesterolemia, unspecified; F32.9 Major depressive disorder, single episode, unspecified; M17.11 Unilateral primary osteoarthritis, right knee; F17.210 Nicotine dependence, cigarettes, uncomplicated; Z85.43 Personal history of malignant neoplasm of ovary; Z86.73 Personal history of transient ischemic attack (TIA), and cerebral infarction without residual deficits; Z68.36 Body mass index [BMI] 36.0-36.9, adult | CPT/HCPCS: 99214 ==

== ENCOUNTER → 2017-09-30 | Outpatient (CLI) | payer MEDICARE, OTHER | END | disposition home or self-care (01) | LOC: PMGWOUND 13:19 | DX: E11.621 Type 2 diabetes mellitus with foot ulcer (principal); L97.412 Non-pressure chronic ulcer of right heel and midfoot with fat layer exposed; F41.9 Anxiety disorder, unspecified; I25.10 Atherosclerotic heart disease of native coronary artery without angina pectoris; K21.9 Gastro-esophageal reflux disease without esophagitis; E11.22 Type 2 diabetes mellitus with diabetic chronic kidney disease; I12.9 Hypertensive chronic kidney disease with stage 1 through stage 4 chronic kidney disease, or unspecified chronic kidney disease; N18.9 Chronic kidney disease, unspecified; E66.9 Obesity, unspecified; I25.2 Old myocardial infarction; E78.00 Pure hypercholesterolemia, unspecified; E11.42 Type 2 diabetes mellitus with diabetic polyneuropathy; E11.52 Type 2 diabetes mellitus with diabetic peripheral angiopathy with gangrene; I96 Gangrene, not elsewhere classified; M17.11 Unilateral primary osteoarthritis, right knee; F03.90 Unspecified dementia, unspecified severity, without behavioral disturbance, psychotic disturbance, mood disturbance, and anxiety; F31.9 Bipolar disorder, unspecified; F17.210 Nicotine dependence, cigarettes, uncomplicated; Z85.43 Personal history of malignant neoplasm of ovary; Z86.73 Personal history of transient ischemic attack (TIA), and cerebral infarction without residual deficits; Z95.5 Presence of coronary angioplasty implant and graft; Z72.89 Other problems related to lifestyle | CPT/HCPCS: 97597; 97598 ==

== ENCOUNTER 2017-10-25 17:31 | Emergency (ER) | payer MEDICARE, OTHER ==
[2017-10-25 18:02] LABS: POC GLUCOSE 332 mg/dL (70-99)
[2017-10-25 18:08] LABS: ADD MAN DIFF? NO; BILIRUBIN,URINE NEGATIVE (NEG); CLARITY,URINE CLEAR; COLOR,URINE YELLOW; GLUCOSE,URINE >=1000 mg/dL (NEG); NITRITE,URINE NEGATIVE (NEG); PROTEIN,URINE NEGATIVE (NEG-TRACE); UROBILINOGEN,URINE 0.2 mg/dL (0.2 mg/dL)
[2017-10-25 18:10] LABS: BASO % 1 % (0-3); EOS # 0.1 x10^3/uL (0.0-0.7); EOS % 2 % (0-3); HEMATOCRIT 37.4 % (36.0-47.0); HEMOGLOBIN 12.5 g/dL (12.0-15.5); LYMPH # 1.7 x10^3/uL (1.0-4.8); LYMPH % 25 % (24-48); MEAN CORPUSCULAR HEMOGLOBIN 30 pg (25-35); MEAN CORPUSCULAR HGB CONC 33 g/dL (31-37); MEAN CORPUSCULAR VOLUME 89 fL (79-100); MONO # 0.3 x10^3/uL (0.0-1.1); MONO % 5 % (0-9); NEUT # 4.6 x10^3uL (1.8-7.7); NEUT % 68 % (31-73); PLATELET COUNT 260 x10^3/uL (140-400); RED BLOOD COUNT 4.18 x10^6/uL (3.50-5.40); RED CELL DISTRIBUTION WIDTH 15.1 % (11.5-14.5); WHITE BLOOD COUNT 6.7 x10^3/uL (4.0-11.0)
[2017-10-25 18:15] LABS: BARBITURATES NEG (NEG); BENZODIAZEPINES NEG (NEG); CANNABINOIDS NEG (NEG); COCAINE NEG (NEG); METHADONE NEG (NEG); OPIATES NEG (NEG); PHENCYCLIDINE NEG (NEG)
[2017-10-25] MEDS: IV NORMAL SALINE 1000ML BAG 1,000 ML IV (18:15)
[2017-10-25 18:16] LABS: BACTERIA,URINE 0 /HPF (0-FEW); RBC,URINE OCC /HPF (0-2); SQUAMOUS EPITHELIAL CELL,UR MOD /LPF; WBC,URINE 0 /HPF (0-4)
[2017-10-25] MEDS: INSULIN REGULAR 100 UNIT/ML 3ML VIAL. IV (18:16)
[2017-10-25 18:19] LABS: ANION GAP 13 (6-14); BLOOD UREA NITROGEN 12 mg/dL (7-20); BUN/CREATININE RATIO 9 (6-20); CALCIUM 9.5 mg/dL (8.5-10.1); CARBON DIOXIDE 23 mmol/L (21-32); CHLORIDE 100 mmol/L (98-107); CREATININE 1.4 mg/dL (0.6-1.0); GFR 47.8; GLUCOSE 360 mg/dL (70-99); POTASSIUM 3.6 mmol/L (3.5-5.1); SODIUM 136 mmol/L (136-145)
[2017-10-25 18:22] LABS: ETHANOL < 10 mg/dL (0-10)
[2017-10-25 18:23] LABS: AMPHETAMINE/METHAMPHETAMINE NEG (NEG); ETHANOL, URINE NEG (NEG)
[2017-10-25 18:25] LABS: ALBUMIN 3.8 g/dL (3.4-5.0); ALBUMIN/GLOBULIN RATIO 0.9 (1.0-1.7); ALK PHOS 127 U/L (46-116); ALT (SGPT) 16 U/L (14-59); AST (SGOT) 13 U/L (15-37); TOTAL BILIRUBIN 0.4 mg/dL (0.2-1.0); TOTAL PROTEIN 7.9 g/dL (6.4-8.2)
[2017-10-25 19:37] LABS: POC GLUCOSE 181 mg/dL (70-99)
== END 2017-10-25 20:00 | disposition home or self-care (01) ==
LOC: ER 17:31
DX: E11.621 Type 2 diabetes mellitus with foot ulcer (principal); L97.412 Non-pressure chronic ulcer of right heel and midfoot with fat layer exposed; E11.65 Type 2 diabetes mellitus with hyperglycemia; E11.40 Type 2 diabetes mellitus with diabetic neuropathy, unspecified; I25.2 Old myocardial infarction; Z86.73 Personal history of transient ischemic attack (TIA), and cerebral infarction without residual deficits; Z89.411 Acquired absence of right great toe; Z95.5 Presence of coronary angioplasty implant and graft; Z79.4 Long term (current) use of insulin
CPT/HCPCS: 36415; 73630; 80053; 80307; 81001; 82962; 85025; 96361; 96374; 99285-25; G0480; J1815; J7030

== ENCOUNTER → 2017-10-29 | Outpatient (CLI) | payer MEDICARE, OTHER | END | disposition home or self-care (01) | LOC: PMGWOUND 08:32 | DX: E11.621 Type 2 diabetes mellitus with foot ulcer (principal); L97.412 Non-pressure chronic ulcer of right heel and midfoot with fat layer exposed; L97.421 Non-pressure chronic ulcer of left heel and midfoot limited to breakdown of skin; F03.90 Unspecified dementia, unspecified severity, without behavioral disturbance, psychotic disturbance, mood disturbance, and anxiety; E11.42 Type 2 diabetes mellitus with diabetic polyneuropathy; I25.2 Old myocardial infarction; I25.10 Atherosclerotic heart disease of native coronary artery without angina pectoris; I10 Essential (primary) hypertension; E66.9 Obesity, unspecified; K21.9 Gastro-esophageal reflux disease without esophagitis; F31.9 Bipolar disorder, unspecified; F41.9 Anxiety disorder, unspecified; F17.210 Nicotine dependence, cigarettes, uncomplicated; Z85.43 Personal history of malignant neoplasm of ovary; Z86.73 Personal history of transient ischemic attack (TIA), and cerebral infarction without residual deficits; Z68.36 Body mass index [BMI] 36.0-36.9, adult | CPT/HCPCS: 97597 ==

== ENCOUNTER → 2017-11-03 | Outpatient (CLI) | payer MEDICARE, OTHER | END | disposition home or self-care (01) | LOC: PMGWOUND 07:57 | DX: E11.621 Type 2 diabetes mellitus with foot ulcer (principal); L97.412 Non-pressure chronic ulcer of right heel and midfoot with fat layer exposed; L97.421 Non-pressure chronic ulcer of left heel and midfoot limited to breakdown of skin; F03.90 Unspecified dementia, unspecified severity, without behavioral disturbance, psychotic disturbance, mood disturbance, and anxiety; E11.42 Type 2 diabetes mellitus with diabetic polyneuropathy; E11.52 Type 2 diabetes mellitus with diabetic peripheral angiopathy with gangrene; I96 Gangrene, not elsewhere classified; E11.65 Type 2 diabetes mellitus with hyperglycemia; M17.11 Unilateral primary osteoarthritis, right knee; E11.22 Type 2 diabetes mellitus with diabetic chronic kidney disease; I12.9 Hypertensive chronic kidney disease with stage 1 through stage 4 chronic kidney disease, or unspecified chronic kidney disease; N18.9 Chronic kidney disease, unspecified; I25.2 Old myocardial infarction; I25.10 Atherosclerotic heart disease of native coronary artery without angina pectoris; F32.9 Major depressive disorder, single episode, unspecified; L84 Corns and callosities; K21.9 Gastro-esophageal reflux disease without esophagitis; F41.9 Anxiety disorder, unspecified; E78.00 Pure hypercholesterolemia, unspecified; E66.9 Obesity, unspecified; F17.210 Nicotine dependence, cigarettes, uncomplicated; Z85.43 Personal history of malignant neoplasm of ovary; Z86.73 Personal history of transient ischemic attack (TIA), and cerebral infarction without residual deficits; Z68.36 Body mass index [BMI] 36.0-36.9, adult; Z79.4 Long term (current) use of insulin | CPT/HCPCS: 29445; 97597 ==

== ENCOUNTER → 2017-11-05 | Outpatient (CLI) | payer MEDICARE, OTHER | END | disposition home or self-care (01) | LOC: PMGWOUND 11:45 | DX: E11.621 Type 2 diabetes mellitus with foot ulcer (principal); L97.412 Non-pressure chronic ulcer of right heel and midfoot with fat layer exposed; F03.90 Unspecified dementia, unspecified severity, without behavioral disturbance, psychotic disturbance, mood disturbance, and anxiety; E11.42 Type 2 diabetes mellitus with diabetic polyneuropathy; E11.52 Type 2 diabetes mellitus with diabetic peripheral angiopathy with gangrene; I96 Gangrene, not elsewhere classified; E11.65 Type 2 diabetes mellitus with hyperglycemia; M17.11 Unilateral primary osteoarthritis, right knee; E11.22 Type 2 diabetes mellitus with diabetic chronic kidney disease; I12.9 Hypertensive chronic kidney disease with stage 1 through stage 4 chronic kidney disease, or unspecified chronic kidney disease; N18.9 Chronic kidney disease, unspecified; I25.2 Old myocardial infarction; I25.10 Atherosclerotic heart disease of native coronary artery without angina pectoris; F32.9 Major depressive disorder, single episode, unspecified; L84 Corns and callosities; K21.9 Gastro-esophageal reflux disease without esophagitis; F41.9 Anxiety disorder, unspecified; E78.00 Pure hypercholesterolemia, unspecified; E66.9 Obesity, unspecified; F17.210 Nicotine dependence, cigarettes, uncomplicated; Z85.43 Personal history of malignant neoplasm of ovary; Z86.73 Personal history of transient ischemic attack (TIA), and cerebral infarction without residual deficits; Z68.36 Body mass index [BMI] 36.0-36.9, adult; Z79.4 Long term (current) use of insulin | CPT/HCPCS: 11042 ==

== ENCOUNTER → 2017-11-16 | Day surgery (SDC) | payer MEDICARE, OTHER ==
[~2017-11-16] MED LIST changes: -AMIT50TA PO; -ASPI81TA9 PO; -ATOR40TA59 PO; -BISA5TAB4 PO; -CARV6.252 PO; -CIPR500T94 PO; -DIPH25CA58 PO; -DOXY100T PO; -DULO60CA6 PO; -HYDR-2666 PO; -HYDR-2678 PO; -INSU100V13 SQ; -INSU100V31 SQ; +LIDOCAINE 1% PF 2 ML VIAL. ID; +LIDOCAINE 2% PF Vial for OR 5 ML VIAL.; -LISI-334 PO; +MORPHINE SULFATE 2 MG/ML DISP.SYRIN. IV; +ONDANSETRON PF 4 MG/2 ML VIAL.; +ONDANSETRON PF 4 MG/2 ML VIAL. IV; -OXYC-323 PO; +PROCHLORPERAZINE 10 MG/2 ML VIAL. IV; +PROPOFOL 20 ML IV; -QUET300T6 PO; -SULF1TAB24 PO; +ceFAZolin 2GM PREMIX 2 GM/50 ML BAG IV; +ePHEDrine PF IN SALINE 50 MG/5 ML DISP.SYRIN IV; +fentaNYL PF VIAL 100 MCG/2 ML VIAL; +fentaNYL PF VIAL 100 MCG/2 ML VIAL IV
[2017-11-16] MEDS: IV RINGERS,LACTATED 1000ML 1,000 ML IV (11:00)
[2017-11-16 12:20] LABS: POC GLUCOSE 148 mg/dL (70-99)
[2017-11-16 12:53] LABS: POC GLUCOSE 105 mg/dL (70-99)
[2017-11-16] MEDS: fentaNYL PF VIAL 100 MCG/2 ML VIAL IV (13:00)
[2017-11-16] MEDS: HYDROcodone/APAP 7.5/325MG 1 TAB TABLET PO (13:24)
== END | disposition home or self-care (01) ==
LOC: SURG 10:38
DX: E11.621 Type 2 diabetes mellitus with foot ulcer (principal); L97.412 Non-pressure chronic ulcer of right heel and midfoot with fat layer exposed; F17.210 Nicotine dependence, cigarettes, uncomplicated; Z98.890 Other specified postprocedural states; Z83.3 Family history of diabetes mellitus; Z79.82 Long term (current) use of aspirin; Z79.4 Long term (current) use of insulin; Z79.899 Other long term (current) drug therapy; Z86.73 Personal history of transient ischemic attack (TIA), and cerebral infarction without residual deficits; F03.90 Unspecified dementia, unspecified severity, without behavioral disturbance, psychotic disturbance, mood disturbance, and anxiety; E11.42 Type 2 diabetes mellitus with diabetic polyneuropathy; I25.10 Atherosclerotic heart disease of native coronary artery without angina pectoris; I10 Essential (primary) hypertension; J45.909 Unspecified asthma, uncomplicated; Z79.01 Long term (current) use of anticoagulants; K21.9 Gastro-esophageal reflux disease without esophagitis; E66.9 Obesity, unspecified; Z68.34 Body mass index [BMI] 34.0-34.9, adult; Z85.43 Personal history of malignant neoplasm of ovary; Z89.431 Acquired absence of right foot; M19.90 Unspecified osteoarthritis, unspecified site; F31.9 Bipolar disorder, unspecified; F41.9 Anxiety disorder, unspecified; Z72.89 Other problems related to lifestyle; Z88.8 Allergy status to other drugs, medicaments and biological substances
CPT/HCPCS: 11042; 82962; A7015; J0690; J2001; J2405; J2704; J3010; J7030

== ENCOUNTER → 2017-11-18 | Outpatient (CLI) | payer MEDICARE, OTHER | END | disposition home or self-care (01) | LOC: PMGWOUND 08:26 | DX: E11.621 Type 2 diabetes mellitus with foot ulcer (principal); L97.412 Non-pressure chronic ulcer of right heel and midfoot with fat layer exposed; F41.9 Anxiety disorder, unspecified; I25.10 Atherosclerotic heart disease of native coronary artery without angina pectoris; E11.52 Type 2 diabetes mellitus with diabetic peripheral angiopathy with gangrene; I96 Gangrene, not elsewhere classified; K21.9 Gastro-esophageal reflux disease without esophagitis; E66.9 Obesity, unspecified; I25.2 Old myocardial infarction; E78.00 Pure hypercholesterolemia, unspecified; E11.22 Type 2 diabetes mellitus with diabetic chronic kidney disease; I12.9 Hypertensive chronic kidney disease with stage 1 through stage 4 chronic kidney disease, or unspecified chronic kidney disease; N18.9 Chronic kidney disease, unspecified; E11.42 Type 2 diabetes mellitus with diabetic polyneuropathy; M17.11 Unilateral primary osteoarthritis, right knee; F03.90 Unspecified dementia, unspecified severity, without behavioral disturbance, psychotic disturbance, mood disturbance, and anxiety; F31.9 Bipolar disorder, unspecified; F17.210 Nicotine dependence, cigarettes, uncomplicated; Z86.73 Personal history of transient ischemic attack (TIA), and cerebral infarction without residual deficits; Z85.43 Personal history of malignant neoplasm of ovary; Z68.36 Body mass index [BMI] 36.0-36.9, adult; Z89.411 Acquired absence of right great toe; Z79.4 Long term (current) use of insulin | CPT/HCPCS: 93923 ==

== ENCOUNTER → 2017-11-26 | Outpatient (CLI) | payer MEDICARE, OTHER | END | disposition home or self-care (01) | LOC: PMGWOUND 09:58 | DX: E11.621 Type 2 diabetes mellitus with foot ulcer (principal); L97.412 Non-pressure chronic ulcer of right heel and midfoot with fat layer exposed; F41.9 Anxiety disorder, unspecified; I25.10 Atherosclerotic heart disease of native coronary artery without angina pectoris; E11.52 Type 2 diabetes mellitus with diabetic peripheral angiopathy with gangrene; I96 Gangrene, not elsewhere classified; K21.9 Gastro-esophageal reflux disease without esophagitis; E66.9 Obesity, unspecified; I25.2 Old myocardial infarction; E78.00 Pure hypercholesterolemia, unspecified; E11.22 Type 2 diabetes mellitus with diabetic chronic kidney disease; I12.9 Hypertensive chronic kidney disease with stage 1 through stage 4 chronic kidney disease, or unspecified chronic kidney disease; N18.9 Chronic kidney disease, unspecified; E11.42 Type 2 diabetes mellitus with diabetic polyneuropathy; M17.11 Unilateral primary osteoarthritis, right knee; F03.90 Unspecified dementia, unspecified severity, without behavioral disturbance, psychotic disturbance, mood disturbance, and anxiety; F31.9 Bipolar disorder, unspecified; F17.210 Nicotine dependence, cigarettes, uncomplicated; Z86.73 Personal history of transient ischemic attack (TIA), and cerebral infarction without residual deficits; Z85.43 Personal history of malignant neoplasm of ovary; Z68.36 Body mass index [BMI] 36.0-36.9, adult; Z89.411 Acquired absence of right great toe; Z79.4 Long term (current) use of insulin | CPT/HCPCS: 97597 ==

== ENCOUNTER → 2017-11-26 | Outpatient (CLI) | payer MEDICARE, OTHER ==
[2017-11-26 08:33] LABS: BLOOD UREA NITROGEN 16 mg/dL (7-20)
[2017-11-26 08:33] LABS: CREATININE 1.1 mg/dL (0.6-1.0); GFR 63.1
[2017-11-26] MEDS: GADOBUTROL 10 MMOL/10 ML VIAL IV (09:14)
== END | disposition home or self-care (01) ==
LOC: MRI 07:37
DX: L97.412 Non-pressure chronic ulcer of right heel and midfoot with fat layer exposed (principal); I13.10 Hypertensive heart and chronic kidney disease without heart failure, with stage 1 through stage 4 chronic kidney disease, or unspecified chronic kidney disease; E11.22 Type 2 diabetes mellitus with diabetic chronic kidney disease; N18.9 Chronic kidney disease, unspecified; E78.5 Hyperlipidemia, unspecified; E78.00 Pure hypercholesterolemia, unspecified; K21.9 Gastro-esophageal reflux disease without esophagitis
CPT/HCPCS: 36415; 73720; 82565; 84520; A9585

== ENCOUNTER → 2017-12-03 | Outpatient (CLI) | payer MEDICARE, OTHER | END | disposition home or self-care (01) | LOC: PMGWOUND 09:30 | DX: E11.621 Type 2 diabetes mellitus with foot ulcer (principal); L97.412 Non-pressure chronic ulcer of right heel and midfoot with fat layer exposed; F41.9 Anxiety disorder, unspecified; I25.10 Atherosclerotic heart disease of native coronary artery without angina pectoris; F31.9 Bipolar disorder, unspecified; K21.9 Gastro-esophageal reflux disease without esophagitis; E11.22 Type 2 diabetes mellitus with diabetic chronic kidney disease; I12.9 Hypertensive chronic kidney disease with stage 1 through stage 4 chronic kidney disease, or unspecified chronic kidney disease; N18.9 Chronic kidney disease, unspecified; E11.52 Type 2 diabetes mellitus with diabetic peripheral angiopathy with gangrene; I96 Gangrene, not elsewhere classified; E78.5 Hyperlipidemia, unspecified; E78.00 Pure hypercholesterolemia, unspecified; I25.2 Old myocardial infarction; E66.9 Obesity, unspecified; E11.42 Type 2 diabetes mellitus with diabetic polyneuropathy; M17.11 Unilateral primary osteoarthritis, right knee; F03.90 Unspecified dementia, unspecified severity, without behavioral disturbance, psychotic disturbance, mood disturbance, and anxiety; F17.210 Nicotine dependence, cigarettes, uncomplicated; Z95.5 Presence of coronary angioplasty implant and graft; Z86.73 Personal history of transient ischemic attack (TIA), and cerebral infarction without residual deficits; Z85.43 Personal history of malignant neoplasm of ovary; Z89.411 Acquired absence of right great toe; Z79.4 Long term (current) use of insulin; Z68.36 Body mass index [BMI] 36.0-36.9, adult | CPT/HCPCS: 11042 ==

== ENCOUNTER → 2017-12-13 | Outpatient (CLI) | payer MEDICARE, OTHER | END | disposition home or self-care (01) | LOC: PMGWOUND 11:42 | DX: E11.621 Type 2 diabetes mellitus with foot ulcer (principal); L97.412 Non-pressure chronic ulcer of right heel and midfoot with fat layer exposed; F41.9 Anxiety disorder, unspecified; I25.10 Atherosclerotic heart disease of native coronary artery without angina pectoris; F31.9 Bipolar disorder, unspecified; K21.9 Gastro-esophageal reflux disease without esophagitis; E11.22 Type 2 diabetes mellitus with diabetic chronic kidney disease; I12.9 Hypertensive chronic kidney disease with stage 1 through stage 4 chronic kidney disease, or unspecified chronic kidney disease; N18.9 Chronic kidney disease, unspecified; E11.52 Type 2 diabetes mellitus with diabetic peripheral angiopathy with gangrene; I96 Gangrene, not elsewhere classified; E78.5 Hyperlipidemia, unspecified; E78.00 Pure hypercholesterolemia, unspecified; I25.2 Old myocardial infarction; E66.9 Obesity, unspecified; E11.42 Type 2 diabetes mellitus with diabetic polyneuropathy; M17.11 Unilateral primary osteoarthritis, right knee; F03.90 Unspecified dementia, unspecified severity, without behavioral disturbance, psychotic disturbance, mood disturbance, and anxiety; F17.210 Nicotine dependence, cigarettes, uncomplicated; Z95.5 Presence of coronary angioplasty implant and graft; Z86.73 Personal history of transient ischemic attack (TIA), and cerebral infarction without residual deficits; Z85.43 Personal history of malignant neoplasm of ovary; Z89.411 Acquired absence of right great toe; Z79.4 Long term (current) use of insulin; Z68.36 Body mass index [BMI] 36.0-36.9, adult | CPT/HCPCS: 11042 ==

== ENCOUNTER → 2017-12-20 | Outpatient (CLI) | payer MEDICARE, OTHER | END | disposition home or self-care (01) | LOC: PMGWOUND 12:27 | DX: E11.621 Type 2 diabetes mellitus with foot ulcer (principal); L97.412 Non-pressure chronic ulcer of right heel and midfoot with fat layer exposed; F41.9 Anxiety disorder, unspecified; I25.10 Atherosclerotic heart disease of native coronary artery without angina pectoris; F31.9 Bipolar disorder, unspecified; K21.9 Gastro-esophageal reflux disease without esophagitis; E11.22 Type 2 diabetes mellitus with diabetic chronic kidney disease; I12.9 Hypertensive chronic kidney disease with stage 1 through stage 4 chronic kidney disease, or unspecified chronic kidney disease; N18.9 Chronic kidney disease, unspecified; E11.52 Type 2 diabetes mellitus with diabetic peripheral angiopathy with gangrene; I96 Gangrene, not elsewhere classified; E78.5 Hyperlipidemia, unspecified; E78.00 Pure hypercholesterolemia, unspecified; I25.2 Old myocardial infarction; E66.9 Obesity, unspecified; E11.42 Type 2 diabetes mellitus with diabetic polyneuropathy; M17.11 Unilateral primary osteoarthritis, right knee; F03.90 Unspecified dementia, unspecified severity, without behavioral disturbance, psychotic disturbance, mood disturbance, and anxiety; F17.210 Nicotine dependence, cigarettes, uncomplicated; Z95.5 Presence of coronary angioplasty implant and graft; Z86.73 Personal history of transient ischemic attack (TIA), and cerebral infarction without residual deficits; Z85.43 Personal history of malignant neoplasm of ovary; Z89.411 Acquired absence of right great toe; Z79.4 Long term (current) use of insulin; Z68.36 Body mass index [BMI] 36.0-36.9, adult | CPT/HCPCS: 99213 ==

== ENCOUNTER 2020-01-15 10:35 | Inpatient (IN) | payer OTHER ==
[~2020-01-15] VITALS: Ht 170.2 cm; Wt 97.4 kg
[~2020-01-15 10:35] MED LIST changes: +ACET-704 PO; +AMIT50TA PO; +ASPI-886 PO; +ATOR40TA59 PO; +BISA5TAB4 PO; +CARV6.2511 PO; +CEPH-264 PO; +CIPR500T94 PO; +CLOP75TA PO; +DIPH25CA58 PO; +DOXY100T PO; +DULO60CA6 PO; +FURO20TA3 PO; +GABA300C18 PO; +HYDR-2678 PO; +HYDR-2761 PO; +HYDR-3165 PO; +HYDR12.58 PO; +INSU100C SQ; +INSU100I13 SQ; +INSU100V13 SQ; +INSU100V31 SQ; +LEXAPRO20 MG PO; +LIDO700A21 TP; -LIDOCAINE 1% PF 2 ML VIAL. ID; -LIDOCAINE 2% PF Vial for OR 5 ML VIAL.; +LISI-334 PO; +METO-239 PO; -MORPHINE SULFATE 2 MG/ML DISP.SYRIN. IV; +Meclizine Hcl PO; -ONDANSETRON PF 4 MG/2 ML VIAL.; -ONDANSETRON PF 4 MG/2 ML VIAL. IV; +OXYC1TAB15 PO; +PARO20TA99 PO; +PROAIR RESPICL90 MCG IH; -PROCHLORPERAZINE 10 MG/2 ML VIAL. IV; -PROPOFOL 20 ML IV; +QUET300T89 PO; +RANI-376 PO; +SENN8.6T99 PO; +SULF1TAB24 PO; -ceFAZolin 2GM PREMIX 2 GM/50 ML BAG IV; -ePHEDrine PF IN SALINE 50 MG/5 ML DISP.SYRIN IV; -fentaNYL PF VIAL 100 MCG/2 ML VIAL; -fentaNYL PF VIAL 100 MCG/2 ML VIAL IV
[2020-01-15] MEDS ORDERED: IV RINGERS,LACTATED 1000ML 1,000 ML IV SCH (10:54)
[2020-01-15 11:10] LABS: BASO % 1 % (0-3); EOS # 0.1 x10^3/uL (0.0-0.7); EOS % 2 % (0-3); HEMATOCRIT 38.4 % (36.0-47.0); LYMPH # 1.8 x10^3/uL (1.0-4.8); LYMPH % 22 % (24-48); MEAN CORPUSCULAR HEMOGLOBIN 32 pg (25-35); MEAN CORPUSCULAR HGB CONC 34 g/dL (31-37); MEAN CORPUSCULAR VOLUME 94 fL (79-100); MONO # 0.4 x10^3/uL (0.0-1.1); MONO % 5 % (0-9); NEUT # 5.9 x10^3/uL (1.8-7.7); NEUT % 71 % (31-73); PLATELET COUNT 303 x10^3/uL (140-400); RED BLOOD COUNT 4.08 x10^6/uL (3.50-5.40); RED CELL DISTRIBUTION WIDTH 15.9 % (11.5-14.5); WHITE BLOOD COUNT 8.3 x10^3/uL (4.0-11.0)
[2020-01-15 11:20] LABS: CALCIUM 9.4 mg/dL (8.5-10.1); CREATININE 1.1 mg/dL (0.6-1.0); GFR 62.6; POTASSIUM 3.8 mmol/L (3.5-5.1)
--- NOTE | 2020-01-15 11:21 | RAD ---
Single AP view of the chest. Comparison: None. Indication: No history stated on the examination Findings: The heart is at the upper limits of normal. There is no pneumothorax or effusion. No air space or interstitial disease. Impression: 1. No acute cardiopulmonary process. Electronically signed by: Fabrice Kim MD (01/15/2020 11:17 AM) [id number]
[2020-01-15 11:24] LABS: ALBUMIN 3.6 g/dL (3.4-5.0); DIRECT BILIRUBIN 0.2 mg/dL (0.0-0.2); TOTAL BILIRUBIN 0.4 mg/dL (0.2-1.0); TOTAL PROTEIN 8.3 g/dL (6.4-8.2)
[2020-01-15] MEDS ORDERED: IOHEXOL 300 MG/ML 100ML VIAL. IV ONE (11:45)
[2020-01-15] MEDS ORDERED: CONTRAST GIVEN. MC PRN (11:45)
[2020-01-15 12:08] LABS: BILIRUBIN,URINE NEGATIVE (NEG); CLARITY,URINE CLEAR; COLOR,URINE YELLOW; NITRITE,URINE NEGATIVE (NEG); PROTEIN,URINE NEGATIVE (NEG-TRACE); UROBILINOGEN,URINE 0.2 mg/dL (0.2 mg/dL)
[2020-01-15 12:28] LABS: BACTERIA,URINE 0 /HPF (0-FEW); RBC,URINE OCC /HPF (0-2); SQUAMOUS EPITHELIAL CELL,UR MOD /LPF; WBC,URINE 0 /HPF (0-4)
--- NOTE | 2020-01-15 12:35 | RAD ---
CT abdomen and pelvis with contrast HISTORY: Pancreatitis COMPARISON: November 13, 2019 PQRS Compliance Statement: One or more of the following individualized dose reduction techniques were utilized for this examination: 1. Automated exposure control 2. Adjustment of the mA and/or kV according to patient size 3. Use of iterative reconstruction technique TECHNIQUE: Computed tomographic imaging of the abdomen and pelvis were performed following the uneventful intravenous administration of 75 cc Omnipaque 300 nonionic contrast material FINDINGS: Calcified granuloma in the left lower lobe is again seen. No acute findings in the lung bases. Liver negative Gallbladder contracted Inflammation around the inferior margin of the pancreatic head extending around the mesenteric root is present. No discrete fluid collections are seen. There is also inflammation around the pancreatic tail and splenic hilum without a discrete fluid collection. Adrenal glands negative Kidneys negative Calcified granuloma in the spleen Moderate stool retention Uterus and ovaries unremarkable Moderate urinary retention IMPRESSION: Peripancreatic inflammation is again seen but improved compared with November 12. No discrete fluid collections are present. Residual inflammation is primarily around the inferior margin of the pancreatic head into the mesenteric root and around the very tip of the pancreatic tail. Moderate urinary retention Moderate stool retention Electronically signed by: Mina Cleary MD (01/15/2020 12:32 PM) [id number]
--- NOTE | 2020-01-15 12:48 | PHYS DOC ---
Past Medical History Past Medical History: Alcoholism, CVA, Diabetes-Type II, [place] Additional Past Medical Histor: neuropathy, SI, diabetic foot ulcer r heel Past Surgical History: Other Additional Past Surgical Histo: cardiac stent, Rt great toe amputation Smoking Status: Current Every Day Smoker Alcohol Use: Heavy Additional Information: PATIENT DRINKS ABOUT ONE "WINE GLASS" OF "GIN AND POP" DAILY Drug Use: None General Adult EDM: Chief Complaint: ABDOMINAL PAIN HPI: HPI: 54-year-old AA female past medical history CAD (on plavix, 1 stent), tobacco use, alcohol abuse, NIDDM presents to the ED with complaints of right upper qu adrant epigastric sharp, nonradiating abdominal pain for the past 2 months and has progressively worsened with associated bloating, nausea and nonbloody nonbilious vomiting for the past day and a half, has not kept anything down since yesterday morning. States is feeling her pancreatitis and she was supposed to be admitted 2 months ago but left AMA. ROS: Denies associated fever, chills, cough, sore throat, chest pain or pressure, dyspnea, orthopnea, leg swelling, rash, hematemesis, hemoptysis, melena, hematochezia, back pain, dysuria, headache or neck stiffness. pmd-Dr. Santos at Current Medications: Current Medications Medications (Trade) Dose Ordered Sig/Luis Enrique Start Time Stop Time Status Last Admin Dose Admin Info (CONTRAST GIVEN -- Rx MONITORING) 1 each PRN DAILY PRN 01/15/20 11:45 01/17/20 11:44 Iohexol (Omnipaque 300 Mg/ml) 75 ml 1X ONCE 01/15/20 11:45 01/15/20 11:46 DC 01/15/20 12:08 75 ML Ringer's Solution 1,000 ml @ 1,000 mls/hr Q1H 01/15/20 10:54 01/15/20 11:53 DC 01/15/20 11:29 1,000 MLS/HR Allergies: Allergies: Allergies Coded Allergies Type Severity Reaction Last Updated Verified adhesive tape Allergy Intermediate Rash 11/14/19 Yes Physical Exam: PE: Constitutional: crying, in pain, non-toxic appearance. [] HENT: Normocephalic, atraumatic, bilateral external ears normal, oropharynx moist, no oral exudates, nose normal. [] Eyes: EOMI, conjunctiva normal, no discharge. [] Neck: Normal range of motion, no tenderness, supple, no stridor. [] Cardiovascular:Heart rate regular rhythm, no murmur [] Lungs & Thorax: Bilateral breath sounds clear to auscultation [] Abdomen: Bowel sounds normal, soft, slightly distended w/fluid wave, +epigastric ttp, no masses, no pulsatile masses. [] Skin: Warm, dry, no erythema, no rash. [] Back: No tenderness, Extremities: No tenderness, no cyanosis, no clubbing, ROM intact, Neurologic: Alert and oriented X 3, normal motor function, normal sensory function, no focal deficits noted. [] Psychologic: Affect normal, judgement normal, mood normal. [] Current Patient Data: Labs: Laboratory Tests Test 01/15/20 10:41 01/15/20 10:52 Urine Collection Type Unknown Urine Color Yellow Urine Clarity Clear Urine pH 7.0 (<5.0-8.0) Urine Specific [place] 1.010 (1.000-1.030) Urine Protein Negative mg/dL (NEG-TRACE) Urine Glucose (UA) >=1000 mg/dL (NEG) Urine Ketones (Stick) Negative mg/dL (NEG) Urine Blood Negative (NEG) Urine Nitrite Negative (NEG) Urine Bilirubin Negative (NEG) Urine Urobilinogen Dipstick 0.2 mg/dL (0.2 mg/dL) Urine Leukocyte Esterase Negative (NEG) Urine RBC Occ /HPF (0-2) Urine WBC 0 /HPF (0-4) Urine Squamous Epithelial Cells Mod /LPF Urine Bacteria 0 /HPF (0-FEW) White Blood Count 8.3 x10^3/uL (4.0-11.0) Red Blood Count 4.08 x10^6/uL (3.50-5.40) Hemoglobin 13.0 g/dL (12.0-15.5) Hematocrit 38.4 % (36.0-47.0) Mean Corpuscular Volume 94 fL (79-100) Mean Corpuscular Hemoglobin 32 pg (25-35) Mean Corpuscular Hemoglobin Concent 34 g/dL (31-37) Red Cell Distribution Width 15.9 % (11.5-14.5) H Platelet Count 303 x10^3/uL (140-400) Neutrophils (%) (Auto) 71 % (31-73) Lymphocytes (%) (Auto) 22 % (24-48) L Monocytes (%) (Auto) 5 % (0-9) Eosinophils (%) (Auto) 2 % (0-3) Basophils (%) (Auto) 1 % (0-3) Neutrophils # (Auto) 5.9 x10^3/uL (1.8-7.7) Lymphocytes # (Auto) 1.8 x10^3/uL (1.0-4.8) Monocytes # (Auto) 0.4 x10^3/uL (0.0-1.1) Eosinophils # (Auto) 0.1 x10^3/uL (0.0-0.7) Basophils # (Auto) 0.0 x10^3/uL (0.0-0.2) Sodium Level 136 mmol/L (136-145) Potassium Level 3.8 mmol/L (3.5-5.1) Chloride Level 99 mmol/L (98-107) Carbon Dioxide Level 26 mmol/L (21-32) Anion Gap 11 (6-14) Blood Urea Nitrogen 6 mg/dL (7-20) L Creatinine 1.1 mg/dL (0.6-1.0) H Estimated GFR (Cockcroft-Gault) 62.6 Glucose Level 263 mg/dL (70-99) H Calcium Level 9.4 mg/dL (8.5-10.1) Total Bilirubin 0.4 mg/dL (0.2-1.0) Direct Bilirubin 0.2 mg/dL (0.0-0.2) Aspartate Amino Transferase (AST) 14 U/L (15-37) L Alanine Aminotransferase (ALT) 10 U/L (14-59) L Alkaline Phosphatase 102 U/L (46-116) Creatine Kinase 59 U/L (26-192) Troponin I Quantitative < 0.017 ng/mL (0.000-0.055) Total Protein 8.3 g/dL (6.4-8.2) H Albumin 3.6 g/dL (3.4-5.0) Lipase 971 U/L (73-393) H Laboratory Tests 01/15/20 10:52 Laboratory Tests 01/15/20 10:52 Vital Signs: Vital Signs Date Time Temp Pulse Resp B/P (MAP) Pulse Ox O2 Delivery O2 Flow Rate FiO2 01/15/20 10:40 98.5 87 18 187/88 (121) 99 Room Air 98.5 EKG: EKG: Sinus rhythm at 87 bpm, no axis deviation, QTC 451, no T wave inversions, ST segment concavity in 1 and lead II, no ST elevations or ST depressions no Q waves Radiology/Procedures: Radiology/Procedures: []IMAGING REPORT Signed PATIENT: JONO HOLT V ACCOUNT: [id number] : 1965 LOCATION: ER AGE: 54 SEX: F EXAM STATUS: REG ER ORD. PHYSICIAN: CINTHYA MARIANO DO REASON: pancreatiits PROCEDURE: CT ABD PELV W/ IV CONTRST ONLY CT abdomen and pelvis with contrast HISTORY: Pancreatitis COMPARISON: November 13, 2019 PQRS Compliance Statement: One or more of the following individualized dose reduction techniques were utilized for this examination: 1. Automated exposure control 2. Adjustment of the mA and/or kV according to patient size 3. Use of iterative reconstruction technique TECHNIQUE: Computed tomographic imaging of the abdomen and pelvis were performed following the uneventful intravenous administration of 75 cc Omnipaque 300 nonionic contrast material FINDINGS: Calcified granuloma in the left lower lobe is again seen. No acute findings in the lung bases. Liver negative Gallbladder contracted Inflammation around the inferior margin of the pancreatic head extending around the mesenteric root is present. No discrete fluid collections are seen. There is also inflammation around the pancreatic tail and splenic hilum without a discrete fluid collection. Adrenal glands negative Kidneys negative Calcified granuloma in the spleen Moderate stool retention Uterus and ovaries unremarkable Moderate urinary retention IMPRESSION: Peripancreatic inflammation is again seen but improved compared with November 12. No discrete fluid collections are present. Residual inflammation is primarily around the inferior margin of the pancreatic head into the mesenteric root and around the very tip of the pancreatic tail. Moderate urinary retention Moderate stool retention Electronically signed by: Abi Mo MD (01/15/2020 12:32 PM) [id number] DICTATED and SIGNED BY: ABI MO MD DATE: 01/15/20 1232 IMAGING REPORT Signed PATIENT: JONO HOLT V ACCOUNT: [id number] : 1965 LOCATION: ER AGE: 54 SEX: F EXAM STATUS: REG ER ORD. PHYSICIAN: CINTHYA MARIANO DO REASON: abd pain PROCEDURE: PORTABLE CHEST 1V Single AP view of the chest. Comparison: None. Indication: No history stated on the examination Findings: The heart is at the upper limits of normal. There is no pneumothorax or effusion. No air space or interstitial disease. Impression: 1. No acute cardiopulmonary process. Electronically signed by: Fabrice Kim MD (01/15/2020 11:17 AM) [id number] DICTATED and SIGNED BY: FABRICE KIM MD DATE: 01/15/20 1117 Course & Med Decision Making: Course & Med Decision Making Pertinent Labs and Imaging studies reviewed. (See chart for details) Concern for chronic pancreatitis in the setting of dehydration, nausea, vomiting, pain and pancreatic inflammation on CT imaging. Patient afebrile with no leukocytosis. Will admit for pain control, IV fluids and GI consultation. Patient agrees with this plan. Patient is accepted by Dr. Quiroz. I have spoken with the patient and/or caregivers. I have explained the patient's condition, diagnosis and treatment plan based on the information available to me at this time. I have answered the patient's and/or caregivers questions and answered any concerns. The patient and/or caregivers have as good an understanding of the patient's diagnosis, condition and treatment plan as can be expected at this point. The patient has been stabilized within the capability of the emergency department. The patient will be transported for further care and management or will be moved to an observation or inpatient service. I have communicated with the staff or medical practitioner taking over this patient's care. Vivienne Disclaimer: Dragdagoberto Disclaimer: This electronic medical record was generated, in whole or in part, using a voice recognition dictation system. Departure Departure Impression: Primary Impression: Chronic pancreatitis Additional Impression: Nausea and vomiting Disposition: ADMITTED INPATIENT Admitting Physician: CARISA (Dr. Quiroz) Condition: STABLE Referrals: MILLA ZALDIVAR APRN (PCP) Justicifation of Admission Dx: Justifications for Admission: Justification of Admission Dx: Yes Comments: chronic pancreatitis, dehydration, n/v CINTHYA MARIANO DO Jan 15, 2020 12:48
[2020-01-15] MEDS ORDERED: METOCLOPRAMIDE 10 MG TABLET. PO ONE (13:00)
[2020-01-15] MEDS ORDERED: MORPHINE SULFATE 10 MG/ML VIAL. IV ONE (13:00)
--- NOTE | 2020-01-15 13:17 | EKG ---
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
[2020-01-15] MEDS ORDERED: ONDANSETRON PF 4 MG/2 ML VIAL. IV PRN (15:30)
[2020-01-15 15:56] LABS: CHOLESTEROL/HDL RATIO 4.4
[2020-01-15 17:10] VITALS: BP 183/88
[2020-01-15] MEDS: IV NORMAL SALINE 1000ML BAG 1,000 ML IV SCH (17:24)
[2020-01-15] MEDS ORDERED: DEXTROSE 50% 25 GM / 50ML DISP.SYRIN. IV PRN ×2 (17:30)
--- NOTE | 2020-01-15 17:32 | PDOC1 ---
History and Physical Date of Service: DOS: DATE: 01/15/20 TIME: 17:17 Chief Complaint: Chief Complain: Abdominal pain History of Present Illness: HPI: Patient is a 54-year-old female with past medical history of CAD with stent placement, history of alcohol abuse, diabetes who presents to the ED with generalized abdominal pain that radiates to the back for the past 2 months and has progressively worsened. Patient states that she has had history of acute pancreatitis in the past and also history of alcohol abuse. She has cut down on her smoking and her alcohol drinks immensely. Her last drink she states was about 2 weeks ago. Patient describes her pain as sharp, 6 out of 10, and is associated with nausea and vomiting. Patient denies any bloody bowel movements, fevers, shortness of breath, dysuria, or diarrhea Past Medical/Surgical History: PMH/PSH: Past Medical History: Alcohol abuse, CVA, Diabetes-Type II, [place], neuropathy, SI, diabetic foot ulcer r heel Past Surgical History: cardiac stent, Rt great toe amputation Allergies: Allergies: Coded Allergies: adhesive tape (Verified Allergy, Intermediate, Rash, 11/14/19) Family History: Family History: Reviewed and none reported Social History: Social History: Smoking Status: Current Every Day Smoker Alcohol Use: Heavy PATIENT DRINKS ABOUT ONE "WINE GLASS" OF "GIN AND POP" DAILY Drug Use: None Current Medications: Current Medications Current Medications Ringer's Solution 1,000 ml @ 1,000 mls/hr Q1H IV Last administered on 01/15/20at 11:29; Start 01/15/20 at 10:54; Stop 01/15/20 at 11:53; Status DC Iohexol (Omnipaque 300 Mg/ml) 75 ml 1X ONCE IV Last administered on 01/15/20at 12:08; Start 01/15/20 at 11:45; Stop 01/15/20 at 11:46; Status DC Info (CONTRAST GIVEN -- Rx MONITORING) 1 each PRN DAILY PRN MC SEE COMMENTS; Start 01/15/20 at 11:45; Stop 01/17/20 at 11:44 Morphine Sulfate (Morphine Sulfate) 8 mg 1X ONCE IV Last administered on 01/15/20at 13:08; Start 01/15/20 at 13:00; Stop 01/15/20 at 13:01; Status DC Metoclopramide HCl (Reglan) 10 mg 1X ONCE PO Last administered on 01/15/20at 13:08; Start 01/15/20 at 13:00; Stop 01/15/20 at 13:01; Status DC Ondansetron HCl (Zofran) 4 mg PRN Q8HRS PRN IV NAUSEA/VOMITING; Start 01/15/20 at 15:30; Stop 01/16/20 at 15:29 Sodium Chloride 1,000 ml @ 100 mls/hr Q10H IV ; Start 01/15/20 at 15:27; Stop 01/16/20 at 15:26 Active Scripts Active [place] 7.5-325 Tablet (Acetaminophen/Hydrocodone Bitart) 1 Each Tablet 1 Tab PO PRN Q6HRS PRN Clopidogrel (Clopidogrel Bisulfate) 75 Mg Tablet 1 Tab PO DAILY Metoprolol Succinate ( Xl ) (Metoprolol Succinate) 25 Mg Tab.er.24h 1 Tab PO DAILY Atorvastatin Calcium 40 Mg Tablet 80 Mg PO QHS Aspirin Ec (Aspirin) 81 Mg Tablet.dr 81 Mg PO DAILYWBKFT Reported Humalog (Insulin Lispro) 100 Unit/1 Ml Cartridge 16 Unit SQ TIDAC Lantus Solostar (Insulin Glargine,Hum.rec.anlog) 100 Unit/1 Ml Insuln.pen 35 Unit SQ QHS Lidocaine 1 Each Adh..patch 1 Each TP Senokot (Sennosides) 8.6 Mg Tablet 1 Tab PO PRN PRN Zantac (Ranitidine Hcl) 150 Mg Tablet 1 Tab PO BID Paxil (Paroxetine Hcl) 20 Mg Tablet 1 Tab PO DAILY Lisinopril 20 Mg Tablet 1 Tab PO DAILY Hydrochlorothiazide Tablet (Hydrochlorothiazide) 12.5 Mg Tablet 1 Tab PO DAILY Gabapentin 300 Mg Capsule 300 Mg PO TID Furosemide 20 Mg Tablet 1 Tab PO PRN DAILY PRN Lexapro (Escitalopram Oxalate) 20 Mg Tablet 1 Tab PO DAILY Proair Respiclick (Albuterol Sulfate) 90 Mcg Aer.pow.ba 2 Puff IH PRN PRN ROS: Review of Systems Review of System REVIEW OF SYSTEMS: GENERAL: Denies weakness SKIN: No bruising, hair changes or rashes. EYES: No blurred, double or loss of vision. NOSE AND THROAT: No history of nosebleeds, hoarseness or sore throat. HEART: No history of palpitations, chest pain or shortness of breath on exertion. LUNGS: Denies cough, hemoptysis, wheezing or shortness of breath. GASTROINTESTINAL: Denies changes in appetite, nausea, vomiting, diarrhea or constipation. GENITOURINARY: No history of frequency, urgency, hesitancy or nocturia. NEUROLOGIC: Denies history of numbness, tingling, or tremor. PSYCHIATRIC: No history of panic, anxiety or depression. ENDOCRINE: No history of heat or cold intolerance, polyuria or polydipsia. EXTREMITIES: Denies joint pain, pain on walking or stiffness. Physical Exam: Vital Signs: Vital Signs Date Time Temp Pulse Resp B/P (MAP) Pulse Ox O2 Delivery O2 Flow Rate FiO2 01/15/20 16:00 80 184/79 (114) 98 Room Air 01/15/20 13:08 18 01/15/20 10:40 98.5 98.5 Physcial Exam: GEN: Minimal distress. Alert and oriented HEENT: Normal cephalic, atraumatic, external auditory canals are patent EYES: Extraocular muscles are intact, pupil are equally round and reactive to light and accommodation MUSCULOSKELETAL: Well developed , well nourished, good range of motion ENDOCRINE: No thyromegaly was palpated LYMPHATICS: No cervical chain or axillary nodes were noted HEMATOPOIETIC: No bruising NECK: Supple, no JVD, no thyromegaly was noted LUNGS: Clear to auscultation in all lung chappell without rhonchi or wheezing HEART: RRR, S!, S2 present. Peripheral pulses intact, no obvious murmurs noted ABDOMEN: Soft, generalized tenderness to palpation with guarding. Positive bowel sounds, no organomegaly, normal bowel sounds EXTREMITIES: Without clubbing, cyanosis, or edema. Pedal pulses intact. Negative Homans sign NEUROLOGIC: Normal speech and tone. A&O x 3, moves all extremities, no obvious focal deficits PSYCHIATRIC: Normal affect, normal mood. Stable SKIN: No ulcerations or rashes, good skin turgor, no jaundice. Areas of excoriation due to skin irritation. Areas of shininess concerning for scleroderma VASCULAR: Good capillary refill, neurovascular bundle appears to be intact Labs: Labs: Laboratory Tests Test 01/15/20 10:41 01/15/20 10:52 Urine Collection Type Unknown Urine Color Yellow Urine Clarity Clear Urine pH 7.0 (<5.0-8.0) Urine Specific [place] 1.010 (1.000-1.030) Urine Protein Negative mg/dL (NEG-TRACE) Urine Glucose (UA) >=1000 mg/dL (NEG) Urine Ketones (Stick) Negative mg/dL (NEG) Urine Blood Negative (NEG) Urine Nitrite Negative (NEG) Urine Bilirubin Negative (NEG) Urine Urobilinogen Dipstick 0.2 mg/dL (0.2 mg/dL) Urine Leukocyte Esterase Negative (NEG) Urine RBC Occ /HPF (0-2) Urine WBC 0 /HPF (0-4) Urine Squamous Epithelial Cells Mod /LPF Urine Bacteria 0 /HPF (0-FEW) White Blood Count 8.3 x10^3/uL (4.0-11.0) Red Blood Count 4.08 x10^6/uL (3.50-5.40) Hemoglobin 13.0 g/dL (12.0-15.5) Hematocrit 38.4 % (36.0-47.0) Mean Corpuscular Volume 94 fL (79-100) Mean Corpuscular Hemoglobin 32 pg (25-35) Mean Corpuscular Hemoglobin Concent 34 g/dL (31-37) Red Cell Distribution Width 15.9 % (11.5-14.5) Platelet Count 303 x10^3/uL (140-400) Neutrophils (%) (Auto) 71 % (31-73) Lymphocytes (%) (Auto) 22 % (24-48) Monocytes (%) (Auto) 5 % (0-9) Eosinophils (%) (Auto) 2 % (0-3) Basophils (%) (Auto) 1 % (0-3) Neutrophils # (Auto) 5.9 x10^3/uL (1.8-7.7) Lymphocytes # (Auto) 1.8 x10^3/uL (1.0-4.8) Monocytes # (Auto) 0.4 x10^3/uL (0.0-1.1) Eosinophils # (Auto) 0.1 x10^3/uL (0.0-0.7) Basophils # (Auto) 0.0 x10^3/uL (0.0-0.2) Sodium Level 136 mmol/L (136-145) Potassium Level 3.8 mmol/L (3.5-5.1) Chloride Level 99 mmol/L (98-107) Carbon Dioxide Level 26 mmol/L (21-32) Anion Gap 11 (6-14) Blood Urea Nitrogen 6 mg/dL (7-20) Creatinine 1.1 mg/dL (0.6-1.0) Estimated GFR (Cockcroft-Gault) 62.6 Glucose Level 263 mg/dL (70-99) Calcium Level 9.4 mg/dL (8.5-10.1) Total Bilirubin 0.4 mg/dL (0.2-1.0) Direct Bilirubin 0.2 mg/dL (0.0-0.2) Aspartate Amino Transf (AST/SGOT) 14 U/L (15-37) Alanine Aminotransferase (ALT/SGPT) 10 U/L (14-59) Alkaline Phosphatase 102 U/L (46-116) Creatine Kinase 59 U/L (26-192) Troponin I Quantitative < 0.017 ng/mL (0.000-0.055) Total Protein 8.3 g/dL (6.4-8.2) Albumin 3.6 g/dL (3.4-5.0) Triglycerides Level 258 mg/dL (0-150) Cholesterol Level 173 mg/dL (0-200) LDL Cholesterol, Calculated 82 mg/dL (0-100) VLDL Cholesterol, Calculated 52 mg/dL (0-40) Non-HDL Cholesterol Calculated 134 mg/dL (0-129) HDL Cholesterol 39 mg/dL (40-60) Cholesterol/HDL Ratio 4.4 Lipase 971 U/L (73-393) Laboratory Tests Test 01/15/20 10:41 01/15/20 10:52 Urine Collection Type Unknown Urine Color Yellow Urine Clarity Clear Urine pH 7.0 (<5.0-8.0) Urine Specific [place] 1.010 (1.000-1.030) Urine Protein Negative mg/dL (NEG-TRACE) Urine Glucose (UA) >=1000 mg/dL (NEG) Urine Ketones (Stick) Negative mg/dL (NEG) Urine Blood Negative (NEG) Urine Nitrite Negative (NEG) Urine Bilirubin Negative (NEG) Urine Urobilinogen Dipstick 0.2 mg/dL (0.2 mg/dL) Urine Leukocyte Esterase Negative (NEG) Urine RBC Occ /HPF (0-2) Urine WBC 0 /HPF (0-4) Urine Squamous Epithelial Cells Mod /LPF Urine Bacteria 0 /HPF (0-FEW) White Blood Count 8.3 x10^3/uL (4.0-11.0) Red Blood Count 4.08 x10^6/uL (3.50-5.40) Hemoglobin 13.0 g/dL (12.0-15.5) Hematocrit 38.4 % (36.0-47.0) Mean Corpuscular Volume 94 fL (79-100) Mean Corpuscular Hemoglobin 32 pg (25-35) Mean Corpuscular Hemoglobin Concent 34 g/dL (31-37) Red Cell Distribution Width 15.9 % (11.5-14.5) Platelet Count 303 x10^3/uL (140-400) Neutrophils (%) (Auto) 71 % (31-73) Lymphocytes (%) (Auto) 22 % (24-48) Monocytes (%) (Auto) 5 % (0-9) Eosinophils (%) (Auto) 2 % (0-3) Basophils (%) (Auto) 1 % (0-3) Neutrophils # (Auto) 5.9 x10^3/uL (1.8-7.7) Lymphocytes # (Auto) 1.8 x10^3/uL (1.0-4.8) Monocytes # (Auto) 0.4 x10^3/uL (0.0-1.1) Eosinophils # (Auto) 0.1 x10^3/uL (0.0-0.7) Basophils # (Auto) 0.0 x10^3/uL (0.0-0.2) Sodium Level 136 mmol/L (136-145) Potassium Level 3.8 mmol/L (3.5-5.1) Chloride Level 99 mmol/L (98-107) Carbon Dioxide Level 26 mmol/L (21-32) Anion Gap 11 (6-14) Blood Urea Nitrogen 6 mg/dL (7-20) Creatinine 1.1 mg/dL (0.6-1.0) Estimated GFR (Cockcroft-Gault) 62.6 Glucose Level 263 mg/dL (70-99) Calcium Level 9.4 mg/dL (8.5-10.1) Total Bilirubin 0.4 mg/dL (0.2-1.0) Direct Bilirubin 0.2 mg/dL (0.0-0.2) Aspartate Amino Transf (AST/SGOT) 14 U/L (15-37) Alanine Aminotransferase (ALT/SGPT) 10 U/L (14-59) Alkaline Phosphatase 102 U/L (46-116) Creatine Kinase 59 U/L (26-192) Troponin I Quantitative < 0.017 ng/mL (0.000-0.055) Total Protein 8.3 g/dL (6.4-8.2) Albumin 3.6 g/dL (3.4-5.0) Triglycerides Level 258 mg/dL (0-150) Cholesterol Level 173 mg/dL (0-200) LDL Cholesterol, Calculated 82 mg/dL (0-100) VLDL Cholesterol, Calculated 52 mg/dL (0-40) Non-HDL Cholesterol Calculated 134 mg/dL (0-129) HDL Cholesterol 39 mg/dL (40-60) Cholesterol/HDL Ratio 4.4 Lipase 971 U/L (73-393) Assessment/Plan Assessment/Plan Acute abdominal pain due to acute on chronic pancreatitis Hypertension CAD with stents Diabetes mellitus Admit to medicine for observation Review for recent medication changes Reviewed tobacco or alcohol abuse Obtain lipid panel Appreciate GI consult and recommendations Every hour Accu-Cheks N.p.o. IV morphine PRN Lovenox for DVT prophylaxis Protonix GI prophylaxis ADA diet Full code Discussed with RN and SW Dispo admit for pain control Surrogate decision maker is self MALISSA WEN MD Jan 15, 2020 17:32
[2020-01-15] MEDS: KETOROLAC 30 MG/ML VIAL. IVP PRN (17:49)
[2020-01-15] MEDS: ENOXAPARIN 40 MG/0.4 ML SYRINGE. SQ SCH (17:52)
[2020-01-15] MEDS: LABETALOL 20 MG/4 ML DISP.SYRIN. IVP PRN (18:16)
[2020-01-15] MEDS ORDERED: BUPR450T3 PO (19:40)
[2020-01-15] MEDS ORDERED: IBUP-1027 PO (19:40)
[2020-01-15] MEDS ORDERED: FLUT16SP NS (19:40)
[2020-01-15] MEDS ORDERED: CYAN100072 PO (19:40)
[2020-01-15] MEDS ORDERED: CHOL500021 PO (19:40)
[2020-01-15] MEDS ORDERED: CIME300S4 PO (19:40)
[2020-01-15] MEDS ORDERED: OMEG100021 PO (19:40)
[2020-01-15] MEDS ORDERED: ESCITALOPRAM OX20 MG PO (19:40)
[2020-01-15] MEDS ORDERED: FENO145T3 PO (19:40)
[2020-01-15] MEDS ORDERED: CRESTOR40 MG PO (19:51)
[2020-01-15] MEDS ORDERED: POTA20TA4 PO (19:51)
[2020-01-15] MEDS ORDERED: QUET100T4 PO (19:51)
[2020-01-15] MEDS ORDERED: SPIR25TA5 PO (19:51)
[2020-01-15] MEDS ORDERED: ONDA4TAB12 PO (19:51)
[2020-01-15] MEDS ORDERED: TRIA0.2567 PO (19:51)
[2020-01-15] MEDS ORDERED: QUET400T4 PO (19:51)
[2020-01-15] MEDS ORDERED: OMEP20CA16 PO (19:51)
[2020-01-15] MEDS ORDERED: NITR0.4T22 SL (19:51)
[2020-01-15] MEDS ORDERED: LOSA100T14 PO (19:51)
[2020-01-15] MEDS ORDERED: ISOS30TA4 PO (19:51)
[2020-01-15 19:55] VITALS: BP 107/64
[2020-01-15] MEDS ORDERED: IV NORMAL SALINE 1000ML BAG 1,000 ML IV ONE (20:15)
[2020-01-15] MEDS ORDERED: ENOXAPARIN 40 MG/0.4 ML SYRINGE. SQ SCH (21:00)
[2020-01-15] MEDS: NICOTINE 7MG PATCH. TD SCH (21:07)
[2020-01-15] MEDS: MORPHINE SULFATE 2 MG/ML VIAL. IV PRN (21:08)
[2020-01-15 23:04] VITALS: BP 122/68
[2020-01-16] MEDS: KETOROLAC 30 MG/ML VIAL. IVP PRN ×4 (00:51→18:24)
[2020-01-16 02:42] VITALS: BP 118/65
[2020-01-16] MEDS: IV NORMAL SALINE 1000ML BAG 1,000 ML IV SCH ×2 (06:07→11:27)
[2020-01-16 07:00] VITALS: BP 179/84
[2020-01-16 07:42] LABS: BASO % 1 % (0-3); EOS # 0.1 x10^3/uL (0.0-0.7); EOS % 2 % (0-3); HEMATOCRIT 34.1 % (36.0-47.0); HEMOGLOBIN 11.1 g/dL (12.0-15.5); LYMPH # 1.6 x10^3/uL (1.0-4.8); LYMPH % 26 % (24-48); MEAN CORPUSCULAR HEMOGLOBIN 31 pg (25-35); MEAN CORPUSCULAR HGB CONC 33 g/dL (31-37); MEAN CORPUSCULAR VOLUME 95 fL (79-100); MONO # 0.4 x10^3/uL (0.0-1.1); MONO % 6 % (0-9); NEUT # 4.2 x10^3/uL (1.8-7.7); NEUT % 66 % (31-73); PLATELET COUNT 274 x10^3/uL (140-400); RED BLOOD COUNT 3.58 x10^6/uL (3.50-5.40); WHITE BLOOD COUNT 6.4 x10^3/uL (4.0-11.0)
[2020-01-16 07:48] LABS: ALBUMIN 2.9 g/dL (3.4-5.0); ALBUMIN/GLOBULIN RATIO 0.7 (1.0-1.7); CALCIUM 8.6 mg/dL (8.5-10.1); CREATININE 1.2 mg/dL (0.6-1.0); GFR 56.6; POTASSIUM 3.9 mmol/L (3.5-5.1); TOTAL BILIRUBIN 0.2 mg/dL (0.2-1.0); TOTAL PROTEIN 6.9 g/dL (6.4-8.2)
[2020-01-16] MEDS: MORPHINE SULFATE 2 MG/ML VIAL. IV PRN ×3 (08:23→22:06)
[2020-01-16] MEDS: NICOTINE 7MG PATCH. TD SCH (08:24)
[2020-01-16] MEDS: INSULIN LISPRO 300 UNITS/3 ML VIAL. SQ SCH ×3 (08:33→17:38)
--- NOTE | 2020-01-16 10:21 | PDOC2 ---
GI CONSULT Date of Service: DATE: 01/16/20 TIME: 10:21 Reason For Consult: pancreatitis HPI: HPI: 54 y/o female who we saw in October for pancreatitis (w/ fluid collection on CT and GB sludge on US), has alcohol history (and still drinks some). She left AMA on 11/15/19. Now tells me had pain upper abdominal pain since then but worse recently - can be sharp - associated w/ n/v. Tried OTC pain meds at home - ineffective. Also asks if she can eat today. H/o GERD previously on Tagamet but told to stop during a virtual office visit recently. H/o CAD on ASA and Plavix - this was held recently for possible rotator cuff repair but resumed when surgery not done. Denies hematemesis, dysphagia, diarrhea, hematochezia, melena, and weight loss. Has been a few days since she stooled. No previous EGD. Previous colonoscopy reportedly normal - can't remember where/when. Hepatomegaly/hepatic steatosis on past imaging. PMH: PMH: HTN, DE, HLD, CVA, DM, neuropathy, bipolar/depression, OA, Meniere's, CKD, PVD LEEP, right toe amputation FH: Family History: Cancer Social History: Smoke: <1 pack per day ALCOHOL: occassional (heavier in the past) Drugs: None ROS: GEN: Denies fevers, chills, sweats HEENT: Denies blurred vision, sore throat CV: Denies chest pain RESP: Denies shortness of air, cough GI: Per HPI : Denies hematuria, dysuria ENDO: Denies weight changes NEURO: Denies confusion, dizziness MSK: shoulder pain SKIN: Denies jaundice, pruritus Vitals: Vitals: Vital Signs Date Time Temp Pulse Resp B/P (MAP) Pulse Ox O2 Delivery O2 Flow Rate FiO2 01/16/20 08:23 98 Room Air 01/16/20 07:00 97.9 71 16 179/84 (115) 97.9 Labs: Labs: Laboratory Tests Test 01/15/20 10:41 01/15/20 10:52 01/15/20 20:33 01/16/20 07:05 Urine Collection Type Unknown Urine Color Yellow Urine Clarity Clear Urine pH 7.0 (<5.0-8.0) Urine Specific [place] 1.010 (1.000-1.030) Urine Protein Negative mg/dL (NEG-TRACE) Urine Glucose (UA) >=1000 mg/dL (NEG) Urine Ketones (Stick) Negative mg/dL (NEG) Urine Blood Negative (NEG) Urine Nitrite Negative (NEG) Urine Bilirubin Negative (NEG) Urine Urobilinogen Dipstick 0.2 mg/dL (0.2 mg/dL) Urine Leukocyte Esterase Negative (NEG) Urine RBC Occ /HPF (0-2) Urine WBC 0 /HPF (0-4) Urine Squamous Epithelial Cells Mod /LPF Urine Bacteria 0 /HPF (0-FEW) White Blood Count 8.3 x10^3/uL (4.0-11.0) 6.4 x10^3/uL (4.0-11.0) Red Blood Count 4.08 x10^6/uL (3.50-5.40) 3.58 x10^6/uL (3.50-5.40) Hemoglobin 13.0 g/dL (12.0-15.5) 11.1 g/dL (12.0-15.5) Hematocrit 38.4 % (36.0-47.0) 34.1 % (36.0-47.0) Mean Corpuscular Volume 94 fL (79-100) 95 fL (79-100) Mean Corpuscular Hemoglobin 32 pg (25-35) 31 pg (25-35) Mean Corpuscular Hemoglobin Concent 34 g/dL (31-37) 33 g/dL (31-37) Red Cell Distribution Width 15.9 % (11.5-14.5) 16.0 % (11.5-14.5) Platelet Count 303 x10^3/uL (140-400) 274 x10^3/uL (140-400) Neutrophils (%) (Auto) 71 % (31-73) 66 % (31-73) Lymphocytes (%) (Auto) 22 % (24-48) 26 % (24-48) Monocytes (%) (Auto) 5 % (0-9) 6 % (0-9) Eosinophils (%) (Auto) 2 % (0-3) 2 % (0-3) Basophils (%) (Auto) 1 % (0-3) 1 % (0-3) Neutrophils # (Auto) 5.9 x10^3/uL (1.8-7.7) 4.2 x10^3/uL (1.8-7.7) Lymphocytes # (Auto) 1.8 x10^3/uL (1.0-4.8) 1.6 x10^3/uL (1.0-4.8) Monocytes # (Auto) 0.4 x10^3/uL (0.0-1.1) 0.4 x10^3/uL (0.0-1.1) Eosinophils # (Auto) 0.1 x10^3/uL (0.0-0.7) 0.1 x10^3/uL (0.0-0.7) Basophils # (Auto) 0.0 x10^3/uL (0.0-0.2) 0.0 x10^3/uL (0.0-0.2) Sodium Level 136 mmol/L (136-145) 140 mmol/L (136-145) Potassium Level 3.8 mmol/L (3.5-5.1) 3.9 mmol/L (3.5-5.1) Chloride Level 99 mmol/L (98-107) 105 mmol/L (98-107) Carbon Dioxide Level 26 mmol/L (21-32) 25 mmol/L (21-32) Anion Gap 11 (6-14) 10 (6-14) Blood Urea Nitrogen 6 mg/dL (7-20) 12 mg/dL (7-20) Creatinine 1.1 mg/dL (0.6-1.0) 1.2 mg/dL (0.6-1.0) Estimated GFR (Cockcroft-Gault) 62.6 56.6 Glucose Level 263 mg/dL (70-99) 233 mg/dL (70-99) Calcium Level 9.4 mg/dL (8.5-10.1) 8.6 mg/dL (8.5-10.1) Total Bilirubin 0.4 mg/dL (0.2-1.0) 0.2 mg/dL (0.2-1.0) Direct Bilirubin 0.2 mg/dL (0.0-0.2) Aspartate Amino Transf (AST/SGOT) 14 U/L (15-37) 11 U/L (15-37) Alanine Aminotransferase (ALT/SGPT) 10 U/L (14-59) 9 U/L (14-59) Alkaline Phosphatase 102 U/L (46-116) 84 U/L (46-116) Creatine Kinase 59 U/L (26-192) Troponin I Quantitative < 0.017 ng/mL (0.000-0.055) Total Protein 8.3 g/dL (6.4-8.2) 6.9 g/dL (6.4-8.2) Albumin 3.6 g/dL (3.4-5.0) 2.9 g/dL (3.4-5.0) Triglycerides Level 258 mg/dL (0-150) Cholesterol Level 173 mg/dL (0-200) LDL Cholesterol, Calculated 82 mg/dL (0-100) VLDL Cholesterol, Calculated 52 mg/dL (0-40) Non-HDL Cholesterol Calculated 134 mg/dL (0-129) HDL Cholesterol 39 mg/dL (40-60) Cholesterol/HDL Ratio 4.4 Lipase 971 U/L (73-393) 836 U/L (73-393) Glucose (Fingerstick) 197 mg/dL (70-99) BUN/Creatinine Ratio 10 (6-20) Albumin/Globulin Ratio 0.7 (1.0-1.7) Test 01/16/20 07:56 Glucose (Fingerstick) 253 mg/dL (70-99) Allergies: Coded Allergies: adhesive tape (Verified Allergy, Intermediate, Rash, 11/14/19) Medications: Current Medications Medications (Trade) Dose Ordered Sig/Luis Enrique Route PRN Reason Start Time Stop Time Status Last Admin Dose Admin Ringer's Solution 1,000 ml @ 1,000 mls/hr Q1H IV 01/15/20 10:54 01/15/20 11:53 DC 01/15/20 11:29 Iohexol (Omnipaque 300 Mg/ml) 75 ml 1X ONCE IV 01/15/20 11:45 01/15/20 11:46 DC 01/15/20 12:08 Morphine Sulfate (Morphine Sulfate) 8 mg 1X ONCE IV 01/15/20 13:00 01/15/20 13:01 DC 01/15/20 13:08 Metoclopramide HCl (Reglan) 10 mg 1X ONCE PO 01/15/20 13:00 01/15/20 13:01 DC 01/15/20 13:08 Sodium Chloride 1,000 ml @ 100 mls/hr Q10H IV 01/15/20 15:27 01/16/20 15:26 01/16/20 06:07 Enoxaparin Sodium (Lovenox 40mg Syringe) 40 mg Q24H SQ 01/15/20 18:00 01/15/20 17:52 Ketorolac Tromethamine (Toradol 30mg Vial) 30 mg PRN Q6HRS PRN IVP PAIN 01/15/20 17:30 01/20/20 17:29 01/16/20 06:06 Morphine Sulfate (Morphine Sulfate) 2 mg PRN Q2HR PRN IV breakthrough pain 01/15/20 17:30 01/16/20 08:23 Insulin Human Lispro (HumaLOG) 0-5 UNITS TIDWMEALS SQ 01/16/20 08:00 01/16/20 08:33 Labetalol HCl (Normodyne Iv Push) 20 mg PRN Q2HR PRN IVP HYPERTENSION 01/15/20 18:00 01/15/20 18:16 Nicotine (Nicoderm Cq 7mg) 1 patch DAILY TD 01/15/20 20:00 01/16/20 08:24 Imaging: Imaging: CXR 01/14 Impression: 1. No acute cardiopulmonary process. CT A/P 01/14 IMPRESSION: Peripancreatic inflammation is again seen but improved compared with November 12. No discrete fluid collections are present. Residual inflammation is primarily around the inferior margin of the pancreatic head into the mesenteric root and around the very tip of the pancreatic tail. Moderate urinary retention Moderate stool retention PE: GEN: NAD - I attempted to see her several times this morning - she was showering for quite some time HEENT: Atraumatic, PERRL LUNGS: CTAB anteriorly HEART: RRR ABD: quiet BS, soft, epigastric discomfort to light touch EXTREMITY: No edema SKIN: No rashes, no jaundice NEURO/PSYCH: A & O 3 A/P: A/P: Pancreatitis - h/o same; suspect related to alcohol, additional h/o GB sludge on past imaging Mild anemia - chronic GERD CRC screen - reports normal colonoscopy in the past ?constipation Hepatomegaly/hepatic steatosis CAD, DM, CKD - on ASA and Plavix -- Try clears. Stop alcohol. Could consider surgery opinion re: GB sludge on past US. Check anemia parameters for completeness. PPI, Miralax. DONNA JUAREZ Jan 16, 2020 10:21
--- NOTE | 2020-01-16 10:54 | NUR ---
SS following for discharge planning. SS reviewed pt chart and discussed with pt RN. Pt is from home and is currently on room air. GI following. Pt is on clear liquid diet. SS will continue to follow for discharge planning.
[2020-01-16 11:00] VITALS: BP 182/82
[2020-01-16] MEDS: LABETALOL 20 MG/4 ML DISP.SYRIN. IVP PRN (11:51)
[2020-01-16] MEDS ORDERED: BISACODYL 5 MG TABLET.DR. PO PRN (12:30)
[2020-01-16 15:00] VITALS: BP 169/82
--- NOTE | 2020-01-16 15:37 | PDOC ---
PROGRESS NOTES Date of Service: DATE: 01/16/20 TIME: 15:34 Chief Complaint Chief Complaint Assessment/Plan Acute abdominal pain due to acute on chronic pancreatitis Hypertension CAD with stents Diabetes mellitus Admit to medicine for observation Review for recent medication changes Reviewed tobacco or alcohol abuse Obtain lipid panel Appreciate GI consult and recommendations Every hour Accu-Cheks N.p.o. IV morphine PRN Lovenox for DVT prophylaxis Protonix GI prophylaxis ADA diet Full code Discussed with RN and VIVIAN Dispo admit for pain control Surrogate decision maker is self History of Present Illness History of Present Illness History of Present Illness: HPI: Patient is a 54-year-old female with past medical history of CAD with stent placement, history of alcohol abuse, diabetes who presents to the ED with generalized abdominal pain that radiates to the back for the past 2 months and has progressively worsened. Patient states that she has had history of acute pancreatitis in the past and also history of alcohol abuse. She has cut down on her smoking and her alcohol drinks immensely. Her last drink she states was about 2 weeks ago. Patient describes her pain as sharp, 6 out of 10, and is associated with nausea and vomiting. Patient denies any bloody bowel movements, fevers, shortness of breath, dysuria, or diarrhea 01/15 Patient did not tolerate clear liquid diet, reassurance provided, I explained the need to give her bowel rest and iv fluids for maintenance Pain management will be adjusted, further recommendations based on clinical course. Vitals Vitals Vital Signs Date Time Temp Pulse Resp B/P (MAP) Pulse Ox O2 Delivery O2 Flow Rate FiO2 01/16/20 15:19 97 Room Air 01/16/20 11:51 75 182/82 01/16/20 11:00 98.2 18 98.2 Physical Exam Lungs: Clear Labs LABS Laboratory Tests Test 01/15/20 20:33 01/16/20 07:05 01/16/20 07:56 Glucose (Fingerstick) 197 mg/dL (70-99) 253 mg/dL (70-99) White Blood Count 6.4 x10^3/uL (4.0-11.0) Red Blood Count 3.58 x10^6/uL (3.50-5.40) Hemoglobin 11.1 g/dL (12.0-15.5) Hematocrit 34.1 % (36.0-47.0) Mean Corpuscular Volume 95 fL (79-100) Mean Corpuscular Hemoglobin 31 pg (25-35) Mean Corpuscular Hemoglobin Concent 33 g/dL (31-37) Red Cell Distribution Width 16.0 % (11.5-14.5) Platelet Count 274 x10^3/uL (140-400) Neutrophils (%) (Auto) 66 % (31-73) Lymphocytes (%) (Auto) 26 % (24-48) Monocytes (%) (Auto) 6 % (0-9) Eosinophils (%) (Auto) 2 % (0-3) Basophils (%) (Auto) 1 % (0-3) Neutrophils # (Auto) 4.2 x10^3/uL (1.8-7.7) Lymphocytes # (Auto) 1.6 x10^3/uL (1.0-4.8) Monocytes # (Auto) 0.4 x10^3/uL (0.0-1.1) Eosinophils # (Auto) 0.1 x10^3/uL (0.0-0.7) Basophils # (Auto) 0.0 x10^3/uL (0.0-0.2) Sodium Level 140 mmol/L (136-145) Potassium Level 3.9 mmol/L (3.5-5.1) Chloride Level 105 mmol/L (98-107) Carbon Dioxide Level 25 mmol/L (21-32) Anion Gap 10 (6-14) Blood Urea Nitrogen 12 mg/dL (7-20) Creatinine 1.2 mg/dL (0.6-1.0) Estimated GFR (Cockcroft-Gault) 56.6 BUN/Creatinine Ratio 10 (6-20) Glucose Level 233 mg/dL (70-99) Calcium Level 8.6 mg/dL (8.5-10.1) Iron Level 27 ug/dL (50-170) Total Iron Binding Capacity 264 ug/dL (250-450) Iron Saturation 10 % (15-34) Total Bilirubin 0.2 mg/dL (0.2-1.0) Aspartate Amino Transf (AST/SGOT) 11 U/L (15-37) Alanine Aminotransferase (ALT/SGPT) 9 U/L (14-59) Alkaline Phosphatase 84 U/L (46-116) Total Protein 6.9 g/dL (6.4-8.2) Albumin 2.9 g/dL (3.4-5.0) Albumin/Globulin Ratio 0.7 (1.0-1.7) Lipase 836 U/L (73-393) Vitamin B12 Level 257 pg/mL (247-911) Assessment and Plan Assessmemt and Plan Problems Medical Problems: (1) Chronic pancreatitis Status: Acute (2) Nausea and vomiting Status: Acute Comment Review of Relevant I have reviewed the following items elena (where applicable) has been applied. Labs Laboratory Tests Test 01/15/20 10:41 01/15/20 10:52 01/15/20 20:33 01/16/20 07:05 Urine Collection Type Unknown Urine Color Yellow Urine Clarity Clear Urine pH 7.0 (<5.0-8.0) Urine Specific [place] 1.010 (1.000-1.030) Urine Protein Negative mg/dL (NEG-TRACE) Urine Glucose (UA) >=1000 mg/dL (NEG) Urine Ketones (Stick) Negative mg/dL (NEG) Urine Blood Negative (NEG) Urine Nitrite Negative (NEG) Urine Bilirubin Negative (NEG) Urine Urobilinogen Dipstick 0.2 mg/dL (0.2 mg/dL) Urine Leukocyte Esterase Negative (NEG) Urine RBC Occ /HPF (0-2) Urine WBC 0 /HPF (0-4) Urine Squamous Epithelial Cells Mod /LPF Urine Bacteria 0 /HPF (0-FEW) White Blood Count 8.3 x10^3/uL (4.0-11.0) 6.4 x10^3/uL (4.0-11.0) Red Blood Count 4.08 x10^6/uL (3.50-5.40) 3.58 x10^6/uL (3.50-5.40) Hemoglobin 13.0 g/dL (12.0-15.5) 11.1 g/dL (12.0-15.5) Hematocrit 38.4 % (36.0-47.0) 34.1 % (36.0-47.0) Mean Corpuscular Volume 94 fL (79-100) 95 fL (79-100) Mean Corpuscular Hemoglobin 32 pg (25-35) 31 pg (25-35) Mean Corpuscular Hemoglobin Concent 34 g/dL (31-37) 33 g/dL (31-37) Red Cell Distribution Width 15.9 % (11.5-14.5) 16.0 % (11.5-14.5) Platelet Count 303 x10^3/uL (140-400) 274 x10^3/uL (140-400) Neutrophils (%) (Auto) 71 % (31-73) 66 % (31-73) Lymphocytes (%) (Auto) 22 % (24-48) 26 % (24-48) Monocytes (%) (Auto) 5 % (0-9) 6 % (0-9) Eosinophils (%) (Auto) 2 % (0-3) 2 % (0-3) Basophils (%) (Auto) 1 % (0-3) 1 % (0-3) Neutrophils # (Auto) 5.9 x10^3/uL (1.8-7.7) 4.2 x10^3/uL (1.8-7.7) Lymphocytes # (Auto) 1.8 x10^3/uL (1.0-4.8) 1.6 x10^3/uL (1.0-4.8) Monocytes # (Auto) 0.4 x10^3/uL (0.0-1.1) 0.4 x10^3/uL (0.0-1.1) Eosinophils # (Auto) 0.1 x10^3/uL (0.0-0.7) 0.1 x10^3/uL (0.0-0.7) Basophils # (Auto) 0.0 x10^3/uL (0.0-0.2) 0.0 x10^3/uL (0.0-0.2) Sodium Level 136 mmol/L (136-145) 140 mmol/L (136-145) Potassium Level 3.8 mmol/L (3.5-5.1) 3.9 mmol/L (3.5-5.1) Chloride Level 99 mmol/L (98-107) 105 mmol/L (98-107) Carbon Dioxide Level 26 mmol/L (21-32) 25 mmol/L (21-32) Anion Gap 11 (6-14) 10 (6-14) Blood Urea Nitrogen 6 mg/dL (7-20) 12 mg/dL (7-20) Creatinine 1.1 mg/dL (0.6-1.0) 1.2 mg/dL (0.6-1.0) Estimated GFR (Cockcroft-Gault) 62.6 56.6 Glucose Level 263 mg/dL (70-99) 233 mg/dL (70-99) Calcium Level 9.4 mg/dL (8.5-10.1) 8.6 mg/dL (8.5-10.1) Total Bilirubin 0.4 mg/dL (0.2-1.0) 0.2 mg/dL (0.2-1.0) Direct Bilirubin 0.2 mg/dL (0.0-0.2) Aspartate Amino Transf (AST/SGOT) 14 U/L (15-37) 11 U/L (15-37) Alanine Aminotransferase (ALT/SGPT) 10 U/L (14-59) 9 U/L (14-59) Alkaline Phosphatase 102 U/L (46-116) 84 U/L (46-116) Creatine Kinase 59 U/L (26-192) Troponin I Quantitative < 0.017 ng/mL (0.000-0.055) Total Protein 8.3 g/dL (6.4-8.2) 6.9 g/dL (6.4-8.2) Albumin 3.6 g/dL (3.4-5.0) 2.9 g/dL (3.4-5.0) Triglycerides Level 258 mg/dL (0-150) Cholesterol Level 173 mg/dL (0-200) LDL Cholesterol, Calculated 82 mg/dL (0-100) VLDL Cholesterol, Calculated 52 mg/dL (0-40) Non-HDL Cholesterol Calculated 134 mg/dL (0-129) HDL Cholesterol 39 mg/dL (40-60) Cholesterol/HDL Ratio 4.4 Lipase 971 U/L (73-393) 836 U/L (73-393) Glucose (Fingerstick) 197 mg/dL (70-99) BUN/Creatinine Ratio 10 (6-20) Iron Level 27 ug/dL (50-170) Total Iron Binding Capacity 264 ug/dL (250-450) Iron Saturation 10 % (15-34) Albumin/Globulin Ratio 0.7 (1.0-1.7) Vitamin B12 Level 257 pg/mL (247-911) Test 01/16/20 07:56 Glucose (Fingerstick) 253 mg/dL (70-99) Laboratory Tests Test 01/15/20 20:33 01/16/20 07:05 01/16/20 07:56 Glucose (Fingerstick) 197 mg/dL (70-99) 253 mg/dL (70-99) White Blood Count 6.4 x10^3/uL (4.0-11.0) Red Blood Count 3.58 x10^6/uL (3.50-5.40) Hemoglobin 11.1 g/dL (12.0-15.5) Hematocrit 34.1 % (36.0-47.0) Mean Corpuscular Volume 95 fL (79-100) Mean Corpuscular Hemoglobin 31 pg (25-35) Mean Corpuscular Hemoglobin Concent 33 g/dL (31-37) Red Cell Distribution Width 16.0 % (11.5-14.5) Platelet Count 274 x10^3/uL (140-400) Neutrophils (%) (Auto) 66 % (31-73) Lymphocytes (%) (Auto) 26 % (24-48) Monocytes (%) (Auto) 6 % (0-9) Eosinophils (%) (Auto) 2 % (0-3) Basophils (%) (Auto) 1 % (0-3) Neutrophils # (Auto) 4.2 x10^3/uL (1.8-7.7) Lymphocytes # (Auto) 1.6 x10^3/uL (1.0-4.8) Monocytes # (Auto) 0.4 x10^3/uL (0.0-1.1) Eosinophils # (Auto) 0.1 x10^3/uL (0.0-0.7) Basophils # (Auto) 0.0 x10^3/uL (0.0-0.2) Sodium Level 140 mmol/L (136-145) Potassium Level 3.9 mmol/L (3.5-5.1) Chloride Level 105 mmol/L (98-107) Carbon Dioxide Level 25 mmol/L (21-32) Anion Gap 10 (6-14) Blood Urea Nitrogen 12 mg/dL (7-20) Creatinine 1.2 mg/dL (0.6-1.0) Estimated GFR (Cockcroft-Gault) 56.6 BUN/Creatinine Ratio 10 (6-20) Glucose Level 233 mg/dL (70-99) Calcium Level 8.6 mg/dL (8.5-10.1) Iron Level 27 ug/dL (50-170) Total Iron Binding Capacity 264 ug/dL (250-450) Iron Saturation 10 % (15-34) Total Bilirubin 0.2 mg/dL (0.2-1.0) Aspartate Amino Transf (AST/SGOT) 11 U/L (15-37) Alanine Aminotransferase (ALT/SGPT) 9 U/L (14-59) Alkaline Phosphatase 84 U/L (46-116) Total Protein 6.9 g/dL (6.4-8.2) Albumin 2.9 g/dL (3.4-5.0) Albumin/Globulin Ratio 0.7 (1.0-1.7) Lipase 836 U/L (73-393) Vitamin B12 Level 257 pg/mL (247-911) Medications Current Medications Ringer's Solution 1,000 ml @ 1,000 mls/hr Q1H IV Last administered on 01/15/20at 11:29; Start 01/15/20 at 10:54; Stop 01/15/20 at 11:53; Status DC Iohexol (Omnipaque 300 Mg/ml) 75 ml 1X ONCE IV Last administered on 01/15/20at 12:08; Start 01/15/20 at 11:45; Stop 01/15/20 at 11:46; Status DC Info (CONTRAST GIVEN -- Rx MONITORING) 1 each PRN DAILY PRN MC SEE COMMENTS; Start 01/15/20 at 11:45; Stop 01/17/20 at 11:44 Morphine Sulfate (Morphine Sulfate) 8 mg 1X ONCE IV Last administered on 01/15/20at 13:08; Start 01/15/20 at 13:00; Stop 01/15/20 at 13:01; Status DC Metoclopramide HCl (Reglan) 10 mg 1X ONCE PO Last administered on 01/15/20at 13:08; Start 01/15/20 at 13:00; Stop 01/15/20 at 13:01; Status DC Ondansetron HCl (Zofran) 4 mg PRN Q8HRS PRN IV NAUSEA/VOMITING; Start 01/15/20 at 15:30; Stop 01/16/20 at 15:29; Status DC Sodium Chloride 1,000 ml @ 100 mls/hr Q10H IV Last administered on 01/16/20at 06:07; Start 01/15/20 at 15:27; Stop 01/16/20 at 15:26; Status DC Enoxaparin Sodium (Lovenox 40mg Syringe) 40 mg Q24H SQ Last administered on 01/15/20at 17:52; Start 01/15/20 at 18:00 Ketorolac Tromethamine (Toradol 30mg Vial) 30 mg PRN Q6HRS PRN IVP PAIN Last administered on 01/16/20at 11:45; Start 01/15/20 at 17:30; Stop 01/20/20 at 17:29 Morphine Sulfate (Morphine Sulfate) 2 mg PRN Q2HR PRN IV breakthrough pain Last administered on 01/16/20at 15:19; Start 01/15/20 at 17:30 Dextrose (Dextrose 50%-Water Syringe) 12.5 gm PRN Q15MIN PRN IV SEE COMMENTS; Start 01/15/20 at 17:30; Status UNV Insulin Human Lispro (HumaLOG) 0-5 UNITS TIDWMEALS SQ Last administered on 01/16/20at 08:33; Start 01/16/20 at 08:00 Dextrose (Dextrose 50%-Water Syringe) 12.5 gm PRN Q15MIN PRN IV SEE COMMENTS; Start 01/15/20 at 17:30 Labetalol HCl (Normodyne Iv Push) 20 mg PRN Q2HR PRN IVP HYPERTENSION Last administered on 01/16/20at 11:51; Start 01/15/20 at 18:00 Nicotine (Nicoderm Cq 7mg) 1 patch DAILY TD Last administered on 01/16/20at 08:24; Start 01/15/20 at 20:00 Sodium Chloride 1,000 ml @ 200 mls/hr 1X ONCE IV ; Start 01/15/20 at 20:15; Stop 01/16/20 at 01:14; Status DC Enoxaparin Sodium (Lovenox 40mg Syringe) 40 mg Q24H SQ ; Start 01/15/20 at 21:00; Status Cancel Pantoprazole Sodium (Protonix) 40 mg DAILYAC PO ; Start 01/17/20 at 07:30 Polyethylene Glycol (miraLAX PACKET) 17 gm DAILY PO ; Start 01/17/20 at 09:00 Cyanocobalamin (Vitamin B-12) 1,000 mcg DAILY IM ; Start 01/17/20 at 09:00 Ferrous Sulfate (Feosol) 325 mg DAILYWBKFT PO ; Start 01/17/20 at 08:00 Bisacodyl (Dulcolax Tab) 5 mg PRN DAILY PRN PO CONSTIPATION; Start 01/16/20 at 12:30 Active Scripts Active [place] 7.5-325 Tablet (Acetaminophen/Hydrocodone Bitart) 1 Each Tablet 1 Tab PO PRN Q6HRS PRN Clopidogrel (Clopidogrel Bisulfate) 75 Mg Tablet 1 Tab PO DAILY Metoprolol Succinate ( Xl ) (Metoprolol Succinate) 25 Mg Tab.er.24h 1 Tab PO DAILY Atorvastatin Calcium 40 Mg Tablet 80 Mg PO QHS Aspirin Ec (Aspirin) 81 Mg Tablet.dr 81 Mg PO DAILYWBKFT Reported Triazolam 0.25 Mg Tablet 2 Tab PO PRN QHS PRN MDD 2 Tablet(s) 30 Days Spironolactone 25 Mg Tablet 1 Tab PO DAILY Crestor (Rosuvastatin Calcium) 40 Mg Tablet 1 Tab PO DAILY Seroquel (Quetiapine Fumarate) 400 Mg Tablet 1 Tab PO QHS Seroquel (Quetiapine Fumarate) 100 Mg Tablet 1 Tab PO QHS Potassium Chloride (Potassium Chloride) 20 Meq Tablet.er 20 Meq PO DAILY Ondansetron Odt (Ondansetron) 4 Mg Tab.rapdis 1 Tab PO PRN Q6-8HRS Omeprazole 20 Mg Capsule.dr 1 Cap PO DAILY NITROGLYCERIN SubLingual (Nitroglycerin) 0.4 Mg Tab.subl 0.4 Mg SL PRN Q5MIN PRN Losartan Potassium 100 Mg Tablet 100 Mg PO DAILY Isosorbide Mononitrate Er (Isosorbide Mononitrate) 30 Mg Tab.er.24h 1 Tab PO DAILY Ibuprofen 400 Mg Tablet 400 Mg PO PRN Q6HRS PRN Fluticasone Propionate Nasal Seltzer (Fluticasone Propionate) 16 Gm Seltzer.susp 2 Seltzer NS DAILY Fish Oil 1,000 mg Softgel ([place]-3/Dha/Epa/Fish Oil) 1,000 Mg Capsule 1 Cap PO BID 30 Days Fenofibrate (Fenofibrate Nanocrystallized) 145 Mg Tablet 1 Tab PO DAILY Escitalopram Oxalate 20 Mg Tablet 1 Tab PO DAILY B-12 (Cyanocobalamin (Vitamin B-12)) 1,000 Mcg Tablet 1 Tab PO DAILY 30 Days Cimetidine (Cimetidine Hcl) 300 Mg/5 Ml Solution 300 Mg PO BID D3-50 (Cholecalciferol (Vitamin D3)) 50,000 Unit Capsule 50,000 Unit PO DAILY Bupropion Xl (Bupropion HCl) 450 Mg Tab.er.24h 1 Tab PO DAILYWBKFT 30 Days Humalog (Insulin Lispro) 100 Unit/1 Ml Cartridge 16 Unit SQ TIDAC Lantus Solostar (Insulin Glargine,Hum.rec.anlog) 100 Unit/1 Ml Insuln.pen 35 Unit SQ QHS Lidocaine PATCH (Lidocaine) 1 Each Adh..patch 1 Each TP Senokot (Sennosides) 8.6 Mg Tablet 1 Tab PO PRN PRN Zantac (Ranitidine Hcl) 150 Mg Tablet 1 Tab PO BID Paxil (Paroxetine Hcl) 20 Mg Tablet 1 Tab PO DAILY Lisinopril 20 Mg Tablet 1 Tab PO DAILY Hydrochlorothiazide Tablet (Hydrochlorothiazide) 12.5 Mg Tablet 1 Tab PO DAILY Gabapentin (Gabapentin) 300 Mg Capsule 300 Mg PO TID Furosemide 20 Mg Tablet 1 Tab PO PRN DAILY PRN Lexapro (Escitalopram Oxalate) 20 Mg Tablet 1 Tab PO DAILY Proair Respiclick (Albuterol Sulfate) 90 Mcg Aer.pow.ba 2 Puff IH PRN PRN Vitals/I & O Vital Sign - Last 24 Hours 01/15/20 01/15/20 01/15/20 01/15/20 16:00 17:10 18:16 19:55 Temp 98.2 98.1 98.2 98.1 Pulse 80 83 83 76 Resp 16 16 B/P (MAP) 184/79 (114) 183/88 (119) 183/88 107/64 (78) Pulse Ox 98 99 98 O2 Delivery Room Air Room Air Room Air 01/15/20 01/15/20 01/15/20 01/15/20 20:10 21:08 21:38 23:04 Temp 98.2 98.2 Pulse 76 Resp 16 16 16 B/P (MAP) 122/68 (86) Pulse Ox 98 98 95 O2 Delivery Room Air Room Air Room Air Room Air 01/16/20 01/16/20 01/16/20 01/16/20 02:42 07:00 08:00 08:23 Temp 98.3 97.9 98.3 97.9 Pulse 76 71 Resp 16 16 B/P (MAP) 118/65 (82) 179/84 (115) Pulse Ox 98 98 98 O2 Delivery Room Air Room Air Room Air Room Air 01/16/20 01/16/20 01/16/20 01/16/20 08:53 11:00 11:51 15:19 Temp 98.2 98.2 Pulse 75 75 Resp 18 B/P (MAP) 182/82 (115) 182/82 Pulse Ox 98 97 97 O2 Delivery Room Air Room Air Room Air Intake and Output 01/15/20 01/15/20 01/16/20 15:00 23:00 07:00 Intake Total 1000 ml 0 ml 0 ml Balance 1000 ml 0 ml 0 ml Justicifation of Admission Dx: Justifications for Admission: Justification of Admission Dx: Yes MECCA NAIDU MD Jan 16, 2020 15:37
[2020-01-16] MEDS: IV RINGERS,LACTATED 1000ML 1,000 ML IV SCH (17:32)
[2020-01-16] MEDS: ENOXAPARIN 40 MG/0.4 ML SYRINGE. SQ SCH (17:32)
[2020-01-16 19:32] VITALS: BP 159/79
[2020-01-16 20:08] LABS: ANA INTERP Negative (.)
[2020-01-16 22:53] VITALS: BP 136/66
[2020-01-17] MEDS: KETOROLAC 30 MG/ML VIAL. IVP PRN ×3 (02:41→21:29)
[2020-01-17] MEDS: IV RINGERS,LACTATED 1000ML 1,000 ML IV SCH ×2 (02:45→12:33)
[2020-01-17 03:08] VITALS: BP 177/83
[2020-01-17 07:00] VITALS: BP 189/83
[2020-01-17] MEDS: MORPHINE SULFATE 2 MG/ML VIAL. IV PRN (08:11)
[2020-01-17] MEDS: NICOTINE 7MG PATCH. TD SCH (08:11)
[2020-01-17] MEDS: LABETALOL 20 MG/4 ML DISP.SYRIN. IVP PRN (08:12)
[2020-01-17] MEDS: CYANOCOBALAMIN (VITAMIN B-12) 1,000 MCG/ML VIAL IM SCH (08:24)
[2020-01-17] MEDS: INSULIN LISPRO 300 UNITS/3 ML VIAL. SQ SCH ×3 (08:32→17:32)
--- NOTE | 2020-01-17 09:21 | PDOC ---
Date of Service: DATE: 01/17/20 TIME: 09:17 Subjective: Subjective: Right-sided pain - worse w/ movement, not worse w/ drinking water. Objective: Vital Signs: Vital Signs Date Time Temp Pulse Resp B/P (MAP) Pulse Ox O2 Delivery O2 Flow Rate FiO2 01/17/20 08:12 80 189/83 01/17/20 08:11 19 100 Room Air 01/17/20 07:00 98.9 98.9 Labs: Laboratory Tests Test 01/16/20 17:04 01/16/20 20:59 01/17/20 07:42 Glucose (Fingerstick) 289 mg/dL 252 mg/dL 293 mg/dL PE: GEN: NAD LUNGS: CTAB HEART: RRR ABD: right middle/RUQ tender to light touch, epigastric discomfort NEURO/PSYCH: A & O 3 A/P: Pancreatitis - h/o same; suspect related to alcohol but also h/o GB sludge Anemia - chronic - borderline low B12, also iron deficient - now on replacement GERD, ?constipation - on PPI, also has Miralax ordered Hepatomegaly/hepatic steatosis HTN, CAD, DM, CKD - on ASA and Plavix -- Will ask for surgery opinion. Consider repeating CT. Recheck labs. Okay w/ clear liquids per GI - this order cancelled per primary yesterday. Justicifation of Admission Dx: Justifications for Admission: Justification of Admission Dx: Yes DONNA JUAREZ Jan 17, 2020 09:21
[2020-01-17 11:10] VITALS: BP 151/85
[2020-01-17] MEDS: POLYETHYLENE GLYCOL 3350 17 GM PACKET. PO SCH (12:25)
[2020-01-17] MEDS: PANTOPRAZOLE 40 MG TABLET.DR. PO SCH (12:34)
[2020-01-17] MEDS: FERROUS SULFATE 325 MG TABLET. PO SCH (12:34)
[2020-01-17 15:06] VITALS: BP 168/75
--- NOTE | 2020-01-17 15:48 | PDOC2 ---
CONSULT Date of Consult Date of Consult DATE: 01/17/20 TIME: 15:43 Reason for Consult Reason for Consult: pancreatitis Referring Physician Referring Physician: Dr. Quiroz Identification/Chief Complaint Chief Complaint epigastric abd pain Source Source: Chart review, Patient History of Present Illness Reason for Visit: 54 yo F with pancreatitis. Pt with c/o persistent epigastric and RUQ pain. Pt appears fatigued and minimal interaction with interview. Past Medical History Cardiovascular: CAD, HTN, RI CENTRAL NERVOUS SYSTEM: CVA, Dementia, Periperal neuropathy, Other GI: GERD Heme/Onc: Cancer Hepatobiliary: No pertinent hx Psych: Anxiety, Bipolar, Depression, Other Musculoskeletal: low back pain Rheumatologic: No pertinent hx Infectious disease: No pertinent hx Renal/: Chronic renal insuff Endocrine: Diabetes Past Surgical History Past Surgical History: Other Family History Family History: Coronary Artery Disease, Diabetes, Hypertension Social History <1 pack per day ALCOHOL: occassional (heavier in the past) Drugs: None Lives: with Family Current Problem List Problem List Problems Medical Problems: (1) Chronic pancreatitis Status: Acute (2) Nausea and vomiting Status: Acute Current Medications Current Medications Current Medications Ringer's Solution 1,000 ml @ 1,000 mls/hr Q1H IV Last administered on 01/15/20at 11:29; Start 01/15/20 at 10:54; Stop 01/15/20 at 11:53; Status DC Iohexol (Omnipaque 300 Mg/ml) 75 ml 1X ONCE IV Last administered on 01/15/20at 12:08; Start 01/15/20 at 11:45; Stop 01/15/20 at 11:46; Status DC Info (CONTRAST GIVEN -- Rx MONITORING) 1 each PRN DAILY PRN MC SEE COMMENTS; Start 01/15/20 at 11:45; Stop 01/17/20 at 11:44; Status DC Morphine Sulfate (Morphine Sulfate) 8 mg 1X ONCE IV Last administered on 01/15/20at 13:08; Start 01/15/20 at 13:00; Stop 01/15/20 at 13:01; Status DC Metoclopramide HCl (Reglan) 10 mg 1X ONCE PO Last administered on 01/15/20at 13:08; Start 01/15/20 at 13:00; Stop 01/15/20 at 13:01; Status DC Ondansetron HCl (Zofran) 4 mg PRN Q8HRS PRN IV NAUSEA/VOMITING; Start 01/15/20 at 15:30; Stop 01/16/20 at 15:29; Status DC Sodium Chloride 1,000 ml @ 100 mls/hr Q10H IV Last administered on 01/16/20at 06:07; Start 01/15/20 at 15:27; Stop 01/16/20 at 15:26; Status DC Enoxaparin Sodium (Lovenox 40mg Syringe) 40 mg Q24H SQ Last administered on 01/16/20at 17:32; Start 01/15/20 at 18:00 Ketorolac Tromethamine (Toradol 30mg Vial) 30 mg PRN Q6HRS PRN IVP MODERATE PAIN 4-6 Last administered on 01/17/20at 12:35; Start 01/15/20 at 17:30; Stop 01/20/20 at 17:29 Morphine Sulfate (Morphine Sulfate) 2 mg PRN Q2HR PRN IV breakthrough pain Last administered on 01/17/20at 08:11; Start 01/15/20 at 17:30 Dextrose (Dextrose 50%-Water Syringe) 12.5 gm PRN Q15MIN PRN IV SEE COMMENTS; Start 01/15/20 at 17:30; Status UNV Insulin Human Lispro (HumaLOG) 0-5 UNITS TIDWMEALS SQ Last administered on 01/17/20at 12:45; Start 01/16/20 at 08:00 Dextrose (Dextrose 50%-Water Syringe) 12.5 gm PRN Q15MIN PRN IV SEE COMMENTS; Start 01/15/20 at 17:30 Labetalol HCl (Normodyne Iv Push) 20 mg PRN Q2HR PRN IVP HYPERTENSION Last administered on 01/17/20at 08:12; Start 01/15/20 at 18:00 Nicotine (Nicoderm Cq 7mg) 1 patch DAILY TD Last administered on 01/17/20at 08:11; Start 01/15/20 at 20:00 Sodium Chloride 1,000 ml @ 200 mls/hr 1X ONCE IV ; Start 01/15/20 at 20:15; Stop 01/16/20 at 01:14; Status DC Enoxaparin Sodium (Lovenox 40mg Syringe) 40 mg Q24H SQ ; Start 01/15/20 at 21:00; Status Cancel Pantoprazole Sodium (Protonix) 40 mg DAILYAC PO Last administered on 01/17/20at 12:34; Start 01/17/20 at 07:30 Polyethylene Glycol (miraLAX PACKET) 17 gm DAILY PO ; Start 01/17/20 at 09:00 Cyanocobalamin (Vitamin B-12) 1,000 mcg DAILY IM Last administered on 01/17/20at 08:24; Start 01/17/20 at 09:00 Ferrous Sulfate (Feosol) 325 mg DAILYWBKFT PO Last administered on 01/17/20at 12:34; Start 01/17/20 at 08:00 Bisacodyl (Dulcolax Tab) 5 mg PRN DAILY PRN PO CONSTIPATION; Start 01/16/20 at 12:30 Ringer's Solution 1,000 ml @ 100 mls/hr Q10H IV Last administered on 01/17/20at 12:33; Start 01/16/20 at 15:45 Active Scripts Active [place] 7.5-325 Tablet (Acetaminophen/Hydrocodone Bitart) 1 Each Tablet 1 Tab PO PRN Q6HRS PRN Clopidogrel (Clopidogrel Bisulfate) 75 Mg Tablet 1 Tab PO DAILY Metoprolol Succinate ( Xl ) (Metoprolol Succinate) 25 Mg Tab.er.24h 1 Tab PO DAILY Atorvastatin Calcium 40 Mg Tablet 80 Mg PO QHS Aspirin Ec (Aspirin) 81 Mg Tablet.dr 81 Mg PO DAILYWBKFT Reported Triazolam 0.25 Mg Tablet 2 Tab PO PRN QHS PRN MDD 2 Tablet(s) 30 Days Spironolactone 25 Mg Tablet 1 Tab PO DAILY Crestor (Rosuvastatin Calcium) 40 Mg Tablet 1 Tab PO DAILY Seroquel (Quetiapine Fumarate) 400 Mg Tablet 1 Tab PO QHS Seroquel (Quetiapine Fumarate) 100 Mg Tablet 1 Tab PO QHS Potassium Chloride (Potassium Chloride) 20 Meq Tablet.er 20 Meq PO DAILY Ondansetron Odt (Ondansetron) 4 Mg Tab.rapdis 1 Tab PO PRN Q6-8HRS Omeprazole 20 Mg Capsule.dr 1 Cap PO DAILY NITROGLYCERIN SubLingual (Nitroglycerin) 0.4 Mg Tab.subl 0.4 Mg SL PRN Q5MIN PRN Losartan Potassium 100 Mg Tablet 100 Mg PO DAILY Isosorbide Mononitrate Er (Isosorbide Mononitrate) 30 Mg Tab.er.24h 1 Tab PO DAILY Ibuprofen 400 Mg Tablet 400 Mg PO PRN Q6HRS PRN Fluticasone Propionate Nasal [place] (Fluticasone Propionate) 16 Gm [place].susp 2 [place] NS DAILY Fish Oil 1,000 mg Softgel ([place]-3/Dha/Epa/Fish Oil) 1,000 Mg Capsule 1 Cap PO BID 30 Days Fenofibrate (Fenofibrate Nanocrystallized) 145 Mg Tablet 1 Tab PO DAILY Escitalopram Oxalate 20 Mg Tablet 1 Tab PO DAILY B-12 (Cyanocobalamin (Vitamin B-12)) 1,000 Mcg Tablet 1 Tab PO DAILY 30 Days Cimetidine (Cimetidine Hcl) 300 Mg/5 Ml Solution 300 Mg PO BID D3-50 (Cholecalciferol (Vitamin D3)) 50,000 Unit Capsule 50,000 Unit PO DAILY Bupropion Xl (Bupropion HCl) 450 Mg Tab.er.24h 1 Tab PO DAILYWBKFT 30 Days Humalog (Insulin Lispro) 100 Unit/1 Ml Cartridge 16 Unit SQ TIDAC Lantus Solostar (Insulin Glargine,Hum.rec.anlog) 100 Unit/1 Ml Insuln.pen 35 Unit SQ QHS Lidocaine PATCH (Lidocaine) 1 Each Adh..patch 1 Each TP Senokot (Sennosides) 8.6 Mg Tablet 1 Tab PO PRN PRN Zantac (Ranitidine Hcl) 150 Mg Tablet 1 Tab PO BID Paxil (Paroxetine Hcl) 20 Mg Tablet 1 Tab PO DAILY Lisinopril 20 Mg Tablet 1 Tab PO DAILY Hydrochlorothiazide Tablet (Hydrochlorothiazide) 12.5 Mg Tablet 1 Tab PO DAILY Gabapentin (Gabapentin) 300 Mg Capsule 300 Mg PO TID Furosemide 20 Mg Tablet 1 Tab PO PRN DAILY PRN Lexapro (Escitalopram Oxalate) 20 Mg Tablet 1 Tab PO DAILY Proair Respiclick (Albuterol Sulfate) 90 Mcg Aer.pow.ba 2 Puff IH PRN PRN Allergies Allergies: Coded Allergies: adhesive tape (Verified Allergy, Intermediate, Rash, 11/14/19) ROS Gastrointestinal: Yes Abdominal Pain Physical Exam General: Alert, mild distress HEENT: Atraumatic Lungs: Normal air movement Abdomen: Soft, Other (mild TTP epgastric) Vitals VITALS Vital Signs Date Time Temp Pulse Resp B/P (MAP) Pulse Ox O2 Delivery O2 Flow Rate FiO2 01/17/20 15:06 98.4 89 16 168/75 (106) 100 Room Air 98.4 Labs Labs Laboratory Tests Test 01/15/20 20:33 01/16/20 07:05 01/16/20 07:56 01/16/20 17:04 Glucose (Fingerstick) 197 mg/dL (70-99) 253 mg/dL (70-99) 289 mg/dL (70-99) White Blood Count 6.4 x10^3/uL (4.0-11.0) Red Blood Count 3.58 x10^6/uL (3.50-5.40) Hemoglobin 11.1 g/dL (12.0-15.5) Hematocrit 34.1 % (36.0-47.0) Mean Corpuscular Volume 95 fL (79-100) Mean Corpuscular Hemoglobin 31 pg (25-35) Mean Corpuscular Hemoglobin Concent 33 g/dL (31-37) Red Cell Distribution Width 16.0 % (11.5-14.5) Platelet Count 274 x10^3/uL (140-400) Neutrophils (%) (Auto) 66 % (31-73) Lymphocytes (%) (Auto) 26 % (24-48) Monocytes (%) (Auto) 6 % (0-9) Eosinophils (%) (Auto) 2 % (0-3) Basophils (%) (Auto) 1 % (0-3) Neutrophils # (Auto) 4.2 x10^3/uL (1.8-7.7) Lymphocytes # (Auto) 1.6 x10^3/uL (1.0-4.8) Monocytes # (Auto) 0.4 x10^3/uL (0.0-1.1) Eosinophils # (Auto) 0.1 x10^3/uL (0.0-0.7) Basophils # (Auto) 0.0 x10^3/uL (0.0-0.2) Sodium Level 140 mmol/L (136-145) Potassium Level 3.9 mmol/L (3.5-5.1) Chloride Level 105 mmol/L (98-107) Carbon Dioxide Level 25 mmol/L (21-32) Anion Gap 10 (6-14) Blood Urea Nitrogen 12 mg/dL (7-20) Creatinine 1.2 mg/dL (0.6-1.0) Estimated GFR (Cockcroft-Gault) 56.6 BUN/Creatinine Ratio 10 (6-20) Glucose Level 233 mg/dL (70-99) Calcium Level 8.6 mg/dL (8.5-10.1) Iron Level 27 ug/dL (50-170) Total Iron Binding Capacity 264 ug/dL (250-450) Iron Saturation 10 % (15-34) Total Bilirubin 0.2 mg/dL (0.2-1.0) Aspartate Amino Transf (AST/SGOT) 11 U/L (15-37) Alanine Aminotransferase (ALT/SGPT) 9 U/L (14-59) Alkaline Phosphatase 84 U/L (46-116) Total Protein 6.9 g/dL (6.4-8.2) Albumin 2.9 g/dL (3.4-5.0) Albumin/Globulin Ratio 0.7 (1.0-1.7) Lipase 836 U/L (73-393) Vitamin B12 Level 257 pg/mL (247-911) Test 01/16/20 20:59 01/17/20 07:42 01/17/20 11:42 Glucose (Fingerstick) 252 mg/dL (70-99) 293 mg/dL (70-99) 251 mg/dL (70-99) Laboratory Tests Test 01/16/20 17:04 01/16/20 20:59 01/17/20 07:42 01/17/20 11:42 Glucose (Fingerstick) 289 mg/dL (70-99) 252 mg/dL (70-99) 293 mg/dL (70-99) 251 mg/dL (70-99) Images Images CT with improved inflammation of pancreas Assessment/Plan Assessment/Plan Pancreatitis favor supportive care and etoh cessation pt is poor surgical candidate. Would consider elective cholecystectomy pending etoh cessation. Thanks for consult! IESHA WILKES MD Jan 17, 2020 15:48
[2020-01-17] MEDS: ENOXAPARIN 40 MG/0.4 ML SYRINGE. SQ SCH (17:28)
[2020-01-17] MEDS: HYDROcodone/APAP 7.5/325MG 1 TAB TABLET PO PRN (18:26)
--- NOTE | 2020-01-17 18:41 | PDOC ---
PROGRESS NOTES Date of Service: DATE: 01/17/20 TIME: 18:39 Chief Complaint Chief Complaint Assessment/Plan Acute abdominal pain due to acute on chronic pancreatitis Hypertension CAD with stents Diabetes mellitus Admit to medicine for observation Review for recent medication changes Reviewed tobacco or alcohol abuse Obtain lipid panel Appreciate GI consult and recommendations Every hour Accu-Cheks N.p.o. IV morphine PRN Lovenox for DVT prophylaxis Protonix GI prophylaxis ADA diet Full code Discussed with RN and SW Dispo admit for pain control Surrogate decision maker is self History of Present Illness History of Present Illness History of Present Illness: HPI: Patient is a 54-year-old female with past medical history of CAD with stent placement, history of alcohol abuse, diabetes who presents to the ED with generalized abdominal pain that radiates to the back for the past 2 months and has progressively worsened. Patient states that she has had history of acute pancreatitis in the past and also history of alcohol abuse. She has cut down on her smoking and her alcohol drinks immensely. Her last drink she states was about 2 weeks ago. Patient describes her pain as sharp, 6 out of 10, and is associated with nausea and vomiting. Patient denies any bloody bowel movements, fevers, shortness of breath, dysuria, or diarrhea 01/15 Patient did not tolerate clear liquid diet, reassurance provided, I explained the need to give her bowel rest and iv fluids for maintenance Pain management will be adjusted, further recommendations based on clinical course. 01/16 Patient still complains of some abdominal pain, mild nausea. She denies any vomiting. She did lose IV access and discussed with her nursing staff to try to replace this. September 30 for midline if unable to obtain IV access. Vitals Vitals Vital Signs Date Time Temp Pulse Resp B/P (MAP) Pulse Ox O2 Delivery O2 Flow Rate FiO2 01/17/20 18:26 18 100 Room Air 01/17/20 15:06 98.4 89 168/75 (106) 98.4 Physical Exam General: Alert, mild distress Lungs: Clear Abdomen: Soft, Other (mild TTP epgastric) Extremities: No clubbing, No cyanosis Skin: No rashes, No breakdown Labs LABS Laboratory Tests Test 01/16/20 20:59 01/17/20 07:42 01/17/20 11:42 01/17/20 16:36 Glucose (Fingerstick) 252 mg/dL (70-99) 293 mg/dL (70-99) 251 mg/dL (70-99) 183 mg/dL (70-99) Review of Systems Review of Systems Abdominal pain, nausea. Patient denies vomiting, denies chest pain, denies shortness of breath, denies fever Assessment and Plan Assessmemt and Plan Problems Medical Problems: (1) Chronic pancreatitis Status: Acute (2) Nausea and vomiting Status: Acute Comment Review of Relevant I have reviewed the following items elena (where applicable) has been applied. Labs Laboratory Tests Test 01/15/20 20:33 01/16/20 07:05 01/16/20 07:56 01/16/20 17:04 Glucose (Fingerstick) 197 mg/dL (70-99) 253 mg/dL (70-99) 289 mg/dL (70-99) White Blood Count 6.4 x10^3/uL (4.0-11.0) Red Blood Count 3.58 x10^6/uL (3.50-5.40) Hemoglobin 11.1 g/dL (12.0-15.5) Hematocrit 34.1 % (36.0-47.0) Mean Corpuscular Volume 95 fL (79-100) Mean Corpuscular Hemoglobin 31 pg (25-35) Mean Corpuscular Hemoglobin Concent 33 g/dL (31-37) Red Cell Distribution Width 16.0 % (11.5-14.5) Platelet Count 274 x10^3/uL (140-400) Neutrophils (%) (Auto) 66 % (31-73) Lymphocytes (%) (Auto) 26 % (24-48) Monocytes (%) (Auto) 6 % (0-9) Eosinophils (%) (Auto) 2 % (0-3) Basophils (%) (Auto) 1 % (0-3) Neutrophils # (Auto) 4.2 x10^3/uL (1.8-7.7) Lymphocytes # (Auto) 1.6 x10^3/uL (1.0-4.8) Monocytes # (Auto) 0.4 x10^3/uL (0.0-1.1) Eosinophils # (Auto) 0.1 x10^3/uL (0.0-0.7) Basophils # (Auto) 0.0 x10^3/uL (0.0-0.2) Sodium Level 140 mmol/L (136-145) Potassium Level 3.9 mmol/L (3.5-5.1) Chloride Level 105 mmol/L (98-107) Carbon Dioxide Level 25 mmol/L (21-32) Anion Gap 10 (6-14) Blood Urea Nitrogen 12 mg/dL (7-20) Creatinine 1.2 mg/dL (0.6-1.0) Estimated GFR (Cockcroft-Gault) 56.6 BUN/Creatinine Ratio 10 (6-20) Glucose Level 233 mg/dL (70-99) Calcium Level 8.6 mg/dL (8.5-10.1) Iron Level 27 ug/dL (50-170) Total Iron Binding Capacity 264 ug/dL (250-450) Iron Saturation 10 % (15-34) Total Bilirubin 0.2 mg/dL (0.2-1.0) Aspartate Amino Transf (AST/SGOT) 11 U/L (15-37) Alanine Aminotransferase (ALT/SGPT) 9 U/L (14-59) Alkaline Phosphatase 84 U/L (46-116) Total Protein 6.9 g/dL (6.4-8.2) Albumin 2.9 g/dL (3.4-5.0) Albumin/Globulin Ratio 0.7 (1.0-1.7) Lipase 836 U/L (73-393) Vitamin B12 Level 257 pg/mL (247-911) Test 01/16/20 20:59 01/17/20 07:42 01/17/20 11:42 01/17/20 16:36 Glucose (Fingerstick) 252 mg/dL (70-99) 293 mg/dL (70-99) 251 mg/dL (70-99) 183 mg/dL (70-99) Laboratory Tests Test 01/16/20 20:59 01/17/20 07:42 01/17/20 11:42 01/17/20 16:36 Glucose (Fingerstick) 252 mg/dL (70-99) 293 mg/dL (70-99) 251 mg/dL (70-99) 183 mg/dL (70-99) Medications Current Medications Ringer's Solution 1,000 ml @ 1,000 mls/hr Q1H IV Last administered on 01/15/20at 11:29; Start 01/15/20 at 10:54; Stop 01/15/20 at 11:53; Status DC Iohexol (Omnipaque 300 Mg/ml) 75 ml 1X ONCE IV Last administered on 01/15/20at 12:08; Start 01/15/20 at 11:45; Stop 01/15/20 at 11:46; Status DC Info (CONTRAST GIVEN -- Rx MONITORING) 1 each PRN DAILY PRN MC SEE COMMENTS; Start 01/15/20 at 11:45; Stop 01/17/20 at 11:44; Status DC Morphine Sulfate (Morphine Sulfate) 8 mg 1X ONCE IV Last administered on 01/15/20at 13:08; Start 01/15/20 at 13:00; Stop 01/15/20 at 13:01; Status DC Metoclopramide HCl (Reglan) 10 mg 1X ONCE PO Last administered on 01/15/20at 13:08; Start 01/15/20 at 13:00; Stop 01/15/20 at 13:01; Status DC Ondansetron HCl (Zofran) 4 mg PRN Q8HRS PRN IV NAUSEA/VOMITING; Start 01/15/20 at 15:30; Stop 01/16/20 at 15:29; Status DC Sodium Chloride 1,000 ml @ 100 mls/hr Q10H IV Last administered on 01/16/20at 06:07; Start 01/15/20 at 15:27; Stop 01/16/20 at 15:26; Status DC Enoxaparin Sodium (Lovenox 40mg Syringe) 40 mg Q24H SQ Last administered on 01/17/20at 17:28; Start 01/15/20 at 18:00 Ketorolac Tromethamine (Toradol 30mg Vial) 30 mg PRN Q6HRS PRN IVP MODERATE PAIN 4-6 Last administered on 01/17/20at 12:35; Start 01/15/20 at 17:30; Stop 01/20/20 at 17:29 Morphine Sulfate (Morphine Sulfate) 2 mg PRN Q2HR PRN IV breakthrough pain Last administered on 01/17/20at 08:11; Start 01/15/20 at 17:30 Dextrose (Dextrose 50%-Water Syringe) 12.5 gm PRN Q15MIN PRN IV SEE COMMENTS; Start 01/15/20 at 17:30; Status UNV Insulin Human Lispro (HumaLOG) 0-5 UNITS TIDWMEALS SQ Last administered on at 17:32; Start 01/16/20 at 08:00 Dextrose (Dextrose 50%-Water Syringe) 12.5 gm PRN Q15MIN PRN IV SEE COMMENTS; Start 01/15/20 at 17:30 Labetalol HCl (Normodyne Iv Push) 20 mg PRN Q2HR PRN IVP HYPERTENSION Last administered on 01/17/20at 08:12; Start 01/15/20 at 18:00 Nicotine (Nicoderm Cq 7mg) 1 patch DAILY TD Last administered on 01/17/20at 08:11; Start 01/15/20 at 20:00 Sodium Chloride 1,000 ml @ 200 mls/hr 1X ONCE IV ; Start 01/15/20 at 20:15; Stop 01/16/20 at 01:14; Status DC Enoxaparin Sodium (Lovenox 40mg Syringe) 40 mg Q24H SQ ; Start 01/15/20 at 21:00; Status Cancel Pantoprazole Sodium (Protonix) 40 mg DAILYAC PO Last administered on 01/17/20at 12:34; Start 01/17/20 at 07:30 Polyethylene Glycol (miraLAX PACKET) 17 gm DAILY PO ; Start 01/17/20 at 09:00 Cyanocobalamin (Vitamin B-12) 1,000 mcg DAILY IM Last administered on 01/17/20at 08:24; Start 01/17/20 at 09:00 Ferrous Sulfate (Feosol) 325 mg DAILYWBKFT PO Last administered on 01/17/20at 12:34; Start 01/17/20 at 08:00 Bisacodyl (Dulcolax Tab) 5 mg PRN DAILY PRN PO CONSTIPATION; Start 01/16/20 at 12:30 Ringer's Solution 1,000 ml @ 100 mls/hr Q10H IV Last administered on 01/17/20at 12:33; Start 01/16/20 at 15:45 Acetaminophen/ Hydrocodone Bitart (Lortab 7.5/325) 1 tab PRN Q6HRS PRN PO PAIN Last administered on 01/17/20at 18:26; Start 01/17/20 at 18:00 Active Scripts Active [place] 7.5-325 Tablet (Acetaminophen/Hydrocodone Bitart) 1 Each Tablet 1 Tab PO PRN Q6HRS PRN Clopidogrel (Clopidogrel Bisulfate) 75 Mg Tablet 1 Tab PO DAILY Metoprolol Succinate ( Xl ) (Metoprolol Succinate) 25 Mg Tab.er.24h 1 Tab PO DAILY Atorvastatin Calcium 40 Mg Tablet 80 Mg PO QHS Aspirin Ec (Aspirin) 81 Mg Tablet.dr 81 Mg PO DAILYWBKFT Reported Triazolam 0.25 Mg Tablet 2 Tab PO PRN QHS PRN MDD 2 Tablet(s) 30 Days Spironolactone 25 Mg Tablet 1 Tab PO DAILY Crestor (Rosuvastatin Calcium) 40 Mg Tablet 1 Tab PO DAILY Seroquel (Quetiapine Fumarate) 400 Mg Tablet 1 Tab PO QHS Seroquel (Quetiapine Fumarate) 100 Mg Tablet 1 Tab PO QHS Potassium Chloride (Potassium Chloride) 20 Meq Tablet.er 20 Meq PO DAILY Ondansetron Odt (Ondansetron) 4 Mg Tab.rapdis 1 Tab PO PRN Q6-8HRS Omeprazole 20 Mg Capsule.dr 1 Cap PO DAILY NITROGLYCERIN SubLingual (Nitroglycerin) 0.4 Mg Tab.subl 0.4 Mg SL PRN Q5MIN PRN Losartan Potassium 100 Mg Tablet 100 Mg PO DAILY Isosorbide Mononitrate Er (Isosorbide Mononitrate) 30 Mg Tab.er.24h 1 Tab PO DAILY Ibuprofen 400 Mg Tablet 400 Mg PO PRN Q6HRS PRN Fluticasone Propionate Nasal [place] (Fluticasone Propionate) 16 Gm [place].susp 2 [place] NS DAILY Fish Oil 1,000 mg Softgel ([place]-3/Dha/Epa/Fish Oil) 1,000 Mg Capsule 1 Cap PO BID 30 Days Fenofibrate (Fenofibrate Nanocrystallized) 145 Mg Tablet 1 Tab PO DAILY Escitalopram Oxalate 20 Mg Tablet 1 Tab PO DAILY B-12 (Cyanocobalamin (Vitamin B-12)) 1,000 Mcg Tablet 1 Tab PO DAILY 30 Days Cimetidine (Cimetidine Hcl) 300 Mg/5 Ml Solution 300 Mg PO BID D3-50 (Cholecalciferol (Vitamin D3)) 50,000 Unit Capsule 50,000 Unit PO DAILY Bupropion Xl (Bupropion HCl) 450 Mg Tab.er.24h 1 Tab PO DAILYWBKFT 30 Days Humalog (Insulin Lispro) 100 Unit/1 Ml Cartridge 16 Unit SQ TIDAC Lantus Solostar (Insulin Glargine,Hum.rec.anlog) 100 Unit/1 Ml Insuln.pen 35 Unit SQ QHS Lidocaine PATCH (Lidocaine) 1 Each Adh..patch 1 Each TP Senokot (Sennosides) 8.6 Mg Tablet 1 Tab PO PRN PRN Zantac (Ranitidine Hcl) 150 Mg Tablet 1 Tab PO BID Paxil (Paroxetine Hcl) 20 Mg Tablet 1 Tab PO DAILY Lisinopril 20 Mg Tablet 1 Tab PO DAILY Hydrochlorothiazide Tablet (Hydrochlorothiazide) 12.5 Mg Tablet 1 Tab PO DAILY Gabapentin (Gabapentin) 300 Mg Capsule 300 Mg PO TID Furosemide 20 Mg Tablet 1 Tab PO PRN DAILY PRN Lexapro (Escitalopram Oxalate) 20 Mg Tablet 1 Tab PO DAILY Proair Respiclick (Albuterol Sulfate) 90 Mcg Aer.pow.ba 2 Puff IH PRN PRN Vitals/I & O Vital Sign - Last 24 Hours 01/16/20 01/16/20 01/16/20 01/16/20 19:32 20:07 22:06 22:36 Temp 98.1 98.1 Pulse 82 Resp 18 16 16 B/P (MAP) 159/79 (105) Pulse Ox 97 97 100 O2 Delivery Room Air Room Air Room Air Room Air 01/16/20 01/17/20 01/17/20 01/17/20 22:53 03:08 07:00 08:00 Temp 97.6 98.1 98.9 97.6 98.1 98.9 Pulse 62 74 77 Resp 18 18 18 B/P (MAP) 136/66 (89) 177/83 (114) 189/83 (118) Pulse Ox 97 100 100 O2 Delivery Room Air Room Air Room Air Room Air 01/17/20 01/17/20 01/17/20 01/17/20 08:11 08:12 08:45 11:10 Temp 97.8 97.8 Pulse 80 72 Resp 19 17 18 B/P (MAP) 189/83 151/85 (107) Pulse Ox 100 99 99 O2 Delivery Room Air Room Air Room Air 01/17/20 01/17/20 15:06 18:26 Temp 98.4 98.4 Pulse 89 Resp 16 18 B/P (MAP) 168/75 (106) Pulse Ox 100 100 O2 Delivery Room Air Room Air Intake and Output 01/16/20 01/16/20 01/17/20 14:59 22:59 06:59 Intake Total 0 ml 280 ml 360 ml Output Total 250 ml 1350 ml Balance -250 ml 280 ml -990 ml Justicifation of Admission Dx: Justifications for Admission: Justification of Admission Dx: Yes KAITLIN DAILY MD Jan 17, 2020 18:41
--- NOTE | 2020-01-17 18:55 | NUR ---
IV accidentally pulled out by patient, this nurse attempted 2x to put an IV access but failed. Patient has to have IV fluids going per Dr. Oseguera. Notified charge auditor and informed night RN.
[2020-01-17 19:45] VITALS: BP 176/81
[2020-01-17 23:22] VITALS: BP 173/79
[2020-01-18] MEDS: MORPHINE SULFATE 2 MG/ML VIAL. IV PRN (00:58)
[2020-01-18 02:34] VITALS: BP 175/80
[2020-01-18] MEDS: KETOROLAC 30 MG/ML VIAL. IVP PRN ×2 (03:36→21:50)
[2020-01-18] MEDS: IV RINGERS,LACTATED 1000ML 1,000 ML IV SCH ×3 (03:36→17:45)
[2020-01-18 06:09] LABS: BASO % 1 % (0-3); EOS # 0.2 x10^3/uL (0.0-0.7); EOS % 3 % (0-3); HEMATOCRIT 32.3 % (36.0-47.0); HEMOGLOBIN 10.7 g/dL (12.0-15.5); LYMPH # 1.2 x10^3/uL (1.0-4.8); LYMPH % 18 % (24-48); MEAN CORPUSCULAR HEMOGLOBIN 31 pg (25-35); MEAN CORPUSCULAR HGB CONC 33 g/dL (31-37); MEAN CORPUSCULAR VOLUME 94 fL (79-100); MONO # 0.3 x10^3/uL (0.0-1.1); MONO % 5 % (0-9); NEUT # 4.9 x10^3/uL (1.8-7.7); NEUT % 75 % (31-73); PLATELET COUNT 256 x10^3/uL (140-400); RED BLOOD COUNT 3.43 x10^6/uL (3.50-5.40); RED CELL DISTRIBUTION WIDTH 15.7 % (11.5-14.5); WHITE BLOOD COUNT 6.6 x10^3/uL (4.0-11.0)
[2020-01-18 06:50] LABS: CALCIUM 8.4 mg/dL (8.5-10.1); CREATININE 0.9 mg/dL (0.6-1.0); POTASSIUM 3.8 mmol/L (3.5-5.1)
[2020-01-18 07:00] VITALS: BP 197/90
[2020-01-18] MEDS: INSULIN LISPRO 300 UNITS/3 ML VIAL. SQ SCH ×3 (08:00→17:44)
[2020-01-18] MEDS: POLYETHYLENE GLYCOL 3350 17 GM PACKET. PO SCH ×2 (09:30→21:00)
[2020-01-18] MEDS: CYANOCOBALAMIN (VITAMIN B-12) 1,000 MCG/ML VIAL IM SCH (09:30)
[2020-01-18] MEDS: FERROUS SULFATE 325 MG TABLET. PO SCH (09:31)
[2020-01-18] MEDS: NICOTINE 7MG PATCH. TD SCH (09:31)
[2020-01-18] MEDS: PANTOPRAZOLE 40 MG TABLET.DR. PO SCH (09:32)
[2020-01-18] MEDS: HYDROcodone/APAP 7.5/325MG 1 TAB TABLET PO PRN ×2 (10:11→17:21)
--- NOTE | 2020-01-18 10:44 | PDOC ---
Date of Service: DATE: 01/18/20 TIME: 10:41 Subjective: Subjective: Not feeling better - right-sided pain w/ movement. However, very hungry. Hasn't stooled, taking Miralax. Objective: Objective: Surgery note reviewed - could consider elective roberta pending alcohol cessation. Vital Signs: Vital Signs Date Time Temp Pulse Resp B/P (MAP) Pulse Ox O2 Delivery O2 Flow Rate FiO2 01/18/20 10:11 98 Room Air 01/18/20 07:00 97.8 81 20 197/90 (125) 97.8 Labs: Laboratory Tests Test 01/17/20 11:42 01/17/20 16:36 01/17/20 20:57 01/18/20 05:25 Glucose (Fingerstick) 251 mg/dL 183 mg/dL 215 mg/dL White Blood Count 6.6 x10^3/uL Red Blood Count 3.43 x10^6/uL Hemoglobin 10.7 g/dL Hematocrit 32.3 % Mean Corpuscular Volume 94 fL Mean Corpuscular Hemoglobin 31 pg Mean Corpuscular Hemoglobin Concent 33 g/dL Red Cell Distribution Width 15.7 % Platelet Count 256 x10^3/uL Neutrophils (%) (Auto) 75 % Lymphocytes (%) (Auto) 18 % Monocytes (%) (Auto) 5 % Eosinophils (%) (Auto) 3 % Basophils (%) (Auto) 1 % Neutrophils # (Auto) 4.9 x10^3/uL Lymphocytes # (Auto) 1.2 x10^3/uL Monocytes # (Auto) 0.3 x10^3/uL Eosinophils # (Auto) 0.2 x10^3/uL Basophils # (Auto) 0.0 x10^3/uL Sodium Level 140 mmol/L Potassium Level 3.8 mmol/L Chloride Level 104 mmol/L Carbon Dioxide Level 25 mmol/L Anion Gap 11 Blood Urea Nitrogen 8 mg/dL Creatinine 0.9 mg/dL Estimated GFR (Cockcroft-Gault) 79.0 Glucose Level 281 mg/dL Calcium Level 8.4 mg/dL Lipase 645 U/L Test 01/18/20 07:19 Glucose (Fingerstick) 263 mg/dL PE: GEN: NAD LUNGS: CTAB HEART: RRR ABD: LESS right-sided pain, quiet NEURO/PSYCH: A & O 3 A/P: Right-sided pain Alcoholic pancreatitis - recurrent Anemia - iron and B12 deficient GERD, constipation - on PPI and Miralax Hepatomegaly/hepatic steatosis HTN, CAD, DM, CKD - on ASA and Plavix -- Asking to advance diet - try full liquids. Consider repeating CT. Justicifation of Admission Dx: Justifications for Admission: Justification of Admission Dx: Yes DONNA JUAREZ Jan 18, 2020 10:44
[2020-01-18] MEDS ORDERED: BISACODYL 5 MG TABLET.DR. PO ONE (10:45)
[2020-01-18 11:00] VITALS: BP 182/89
--- NOTE | 2020-01-18 12:12 | NUR ---
SS following up with discharge planning. SS reviewed pt chart and discussed with pt RN. Pt is currently on room air. Diet advanced to full liquid diet. Discharge plan is to home when medically ready. SS will continue to follow for discharge planning.
--- NOTE | 2020-01-18 14:43 | PDOC ---
SURGICAL PROGRESS NOTE DATE: 01/18/20 TIME: 14:41 Subjective Pt with c/o epigastric pain, improved Vital Signs Vital Signs Date Time Temp Pulse Resp B/P (MAP) Pulse Ox O2 Delivery O2 Flow Rate FiO2 01/18/20 11:11 100 Room Air 01/18/20 11:00 97.9 88 20 182/89 (120) 97.9 I&O Intake and Output 01/18/20 07:00 Intake Total 1080 ml Output Total 2400 ml Balance -1320 ml Intake Oral 1080 ml Output Urine Total 2400 ml General: Alert, Oriented X3, Cooperative, No acute distress Abdomen: Soft, Other (mild epigastric TTP) Labs Laboratory Tests Test 01/16/20 17:04 01/16/20 20:59 01/17/20 07:42 01/17/20 11:42 Glucose (Fingerstick) 289 mg/dL (70-99) 252 mg/dL (70-99) 293 mg/dL (70-99) 251 mg/dL (70-99) Test 01/17/20 16:36 01/17/20 20:57 01/18/20 05:25 01/18/20 07:19 Glucose (Fingerstick) 183 mg/dL (70-99) 215 mg/dL (70-99) 263 mg/dL (70-99) White Blood Count 6.6 x10^3/uL (4.0-11.0) Red Blood Count 3.43 x10^6/uL (3.50-5.40) Hemoglobin 10.7 g/dL (12.0-15.5) Hematocrit 32.3 % (36.0-47.0) Mean Corpuscular Volume 94 fL (79-100) Mean Corpuscular Hemoglobin 31 pg (25-35) Mean Corpuscular Hemoglobin Concent 33 g/dL (31-37) Red Cell Distribution Width 15.7 % (11.5-14.5) Platelet Count 256 x10^3/uL (140-400) Neutrophils (%) (Auto) 75 % (31-73) Lymphocytes (%) (Auto) 18 % (24-48) Monocytes (%) (Auto) 5 % (0-9) Eosinophils (%) (Auto) 3 % (0-3) Basophils (%) (Auto) 1 % (0-3) Neutrophils # (Auto) 4.9 x10^3/uL (1.8-7.7) Lymphocytes # (Auto) 1.2 x10^3/uL (1.0-4.8) Monocytes # (Auto) 0.3 x10^3/uL (0.0-1.1) Eosinophils # (Auto) 0.2 x10^3/uL (0.0-0.7) Basophils # (Auto) 0.0 x10^3/uL (0.0-0.2) Sodium Level 140 mmol/L (136-145) Potassium Level 3.8 mmol/L (3.5-5.1) Chloride Level 104 mmol/L (98-107) Carbon Dioxide Level 25 mmol/L (21-32) Anion Gap 11 (6-14) Blood Urea Nitrogen 8 mg/dL (7-20) Creatinine 0.9 mg/dL (0.6-1.0) Estimated GFR (Cockcroft-Gault) 79.0 Glucose Level 281 mg/dL (70-99) Calcium Level 8.4 mg/dL (8.5-10.1) Lipase 645 U/L (73-393) Test 01/18/20 11:53 Glucose (Fingerstick) 167 mg/dL (70-99) Laboratory Tests Test 01/17/20 16:36 01/17/20 20:57 01/18/20 05:25 01/18/20 07:19 Glucose (Fingerstick) 183 mg/dL (70-99) 215 mg/dL (70-99) 263 mg/dL (70-99) White Blood Count 6.6 x10^3/uL (4.0-11.0) Red Blood Count 3.43 x10^6/uL (3.50-5.40) Hemoglobin 10.7 g/dL (12.0-15.5) Hematocrit 32.3 % (36.0-47.0) Mean Corpuscular Volume 94 fL (79-100) Mean Corpuscular Hemoglobin 31 pg (25-35) Mean Corpuscular Hemoglobin Concent 33 g/dL (31-37) Red Cell Distribution Width 15.7 % (11.5-14.5) Platelet Count 256 x10^3/uL (140-400) Neutrophils (%) (Auto) 75 % (31-73) Lymphocytes (%) (Auto) 18 % (24-48) Monocytes (%) (Auto) 5 % (0-9) Eosinophils (%) (Auto) 3 % (0-3) Basophils (%) (Auto) 1 % (0-3) Neutrophils # (Auto) 4.9 x10^3/uL (1.8-7.7) Lymphocytes # (Auto) 1.2 x10^3/uL (1.0-4.8) Monocytes # (Auto) 0.3 x10^3/uL (0.0-1.1) Eosinophils # (Auto) 0.2 x10^3/uL (0.0-0.7) Basophils # (Auto) 0.0 x10^3/uL (0.0-0.2) Sodium Level 140 mmol/L (136-145) Potassium Level 3.8 mmol/L (3.5-5.1) Chloride Level 104 mmol/L (98-107) Carbon Dioxide Level 25 mmol/L (21-32) Anion Gap 11 (6-14) Blood Urea Nitrogen 8 mg/dL (7-20) Creatinine 0.9 mg/dL (0.6-1.0) Estimated GFR (Cockcroft-Gault) 79.0 Glucose Level 281 mg/dL (70-99) Calcium Level 8.4 mg/dL (8.5-10.1) Lipase 645 U/L (73-393) Test 01/18/20 11:53 Glucose (Fingerstick) 167 mg/dL (70-99) Problem List Problems Medical Problems: (1) Chronic pancreatitis Status: Acute (2) Nausea and vomiting Status: Acute Assessment/Plan pancreatitis, favor secondary to etoh encourage etoh cessation. Seems to be improving encourage consideration for f/u and consideration of cholecystectomy pending etoh cessation. Will sign off, but please call for question. Justicifation of Admission Dx: Justifications for Admission: Justification of Admission Dx: Yes IESHA WILKES MD Jan 18, 2020 14:43
[2020-01-18 15:00] VITALS: BP 183/95
--- NOTE | 2020-01-18 17:30 | PDOC ---
PROGRESS NOTES Date of Service: DATE: 01/18/20 TIME: : Chief Complaint Chief Complaint Assessment/Plan Acute abdominal pain due to acute on chronic pancreatitis Hypertension CAD with stents Diabetes mellitus Admit to medicine for observation Review for recent medication changes Reviewed tobacco or alcohol abuse Obtain lipid panel Appreciate GI consult and recommendations Every hour Accu-Cheks N.p.o. IV morphine PRN Lovenox for DVT prophylaxis Protonix GI prophylaxis ADA diet Full code Discussed with RN and VIVIAN Dispo admit for pain control Surrogate decision maker is self History of Present Illness History of Present Illness History of Present Illness: HPI: Patient is a 54-year-old female with past medical history of CAD with stent placement, history of alcohol abuse, diabetes who presents to the ED with generalized abdominal pain that radiates to the back for the past 2 months and has progressively worsened. Patient states that she has had history of acute pancreatitis in the past and also history of alcohol abuse. She has cut down on her smoking and her alcohol drinks immensely. Her last drink she states was about 2 weeks ago. Patient describes her pain as sharp, 6 out of 10, and is associated with nausea and vomiting. Patient denies any bloody bowel movements, fevers, shortness of breath, dysuria, or diarrhea 01/15 Patient did not tolerate clear liquid diet, reassurance provided, I explained the need to give her bowel rest and iv fluids for maintenance Pain management will be adjusted, further recommendations based on clinical course. 01/16 Patient still complains of some abdominal pain, mild nausea. She denies any vomiting. She did lose IV access and discussed with her nursing staff to try to replace this. September 30 for midline if unable to obtain IV access. 01/17 Patient denies any significant improvement in her epigastric abdominal pain. She does report new onset of right lower quadrant pain. She describes his pain as cramping in nature. She is tolerating a full liquid diet without any nausea or vomiting. Discussed plan to repeat CT abdomen pelvis to evaluate lack of improvement in symptoms. Vitals Vitals Vital Signs Date Time Temp Pulse Resp B/P (MAP) Pulse Ox O2 Delivery O2 Flow Rate FiO2 01/18/20 17:21 100 Room Air 01/18/20 15:00 98.2 95 20 183/95 (124) 98.2 Physical Exam General: Alert, Oriented X3, Cooperative, No acute distress Lungs: Clear Abdomen: Soft, Other (mild epigastric TTP, right lower quadrant tenderness) Extremities: No clubbing, No cyanosis Skin: No rashes, No breakdown Labs LABS Laboratory Tests Test 01/17/20 20:57 01/18/20 05:25 01/18/20 07:19 01/18/20 11:53 Glucose (Fingerstick) 215 mg/dL (70-99) 263 mg/dL (70-99) 167 mg/dL (70-99) White Blood Count 6.6 x10^3/uL (4.0-11.0) Red Blood Count 3.43 x10^6/uL (3.50-5.40) Hemoglobin 10.7 g/dL (12.0-15.5) Hematocrit 32.3 % (36.0-47.0) Mean Corpuscular Volume 94 fL (79-100) Mean Corpuscular Hemoglobin 31 pg (25-35) Mean Corpuscular Hemoglobin Concent 33 g/dL (31-37) Red Cell Distribution Width 15.7 % (11.5-14.5) Platelet Count 256 x10^3/uL (140-400) Neutrophils (%) (Auto) 75 % (31-73) Lymphocytes (%) (Auto) 18 % (24-48) Monocytes (%) (Auto) 5 % (0-9) Eosinophils (%) (Auto) 3 % (0-3) Basophils (%) (Auto) 1 % (0-3) Neutrophils # (Auto) 4.9 x10^3/uL (1.8-7.7) Lymphocytes # (Auto) 1.2 x10^3/uL (1.0-4.8) Monocytes # (Auto) 0.3 x10^3/uL (0.0-1.1) Eosinophils # (Auto) 0.2 x10^3/uL (0.0-0.7) Basophils # (Auto) 0.0 x10^3/uL (0.0-0.2) Sodium Level 140 mmol/L (136-145) Potassium Level 3.8 mmol/L (3.5-5.1) Chloride Level 104 mmol/L (98-107) Carbon Dioxide Level 25 mmol/L (21-32) Anion Gap 11 (6-14) Blood Urea Nitrogen 8 mg/dL (7-20) Creatinine 0.9 mg/dL (0.6-1.0) Estimated GFR (Cockcroft-Gault) 79.0 Glucose Level 281 mg/dL (70-99) Calcium Level 8.4 mg/dL (8.5-10.1) Lipase 645 U/L (73-393) Test 01/18/20 17:21 Glucose (Fingerstick) 217 mg/dL (70-99) Review of Systems Review of Systems Epigastric pain, right lower quadrant pain. Denies fever, denies nausea, denies vomiting, denies shortness of breath. Assessment and Plan Assessmemt and Plan Problems Medical Problems: (1) Chronic pancreatitis Status: Acute (2) Nausea and vomiting Status: Acute Comment Review of Relevant I have reviewed the following items elena (where applicable) has been applied. Labs Laboratory Tests Test 01/16/20 20:59 01/17/20 07:42 01/17/20 11:42 01/17/20 16:36 Glucose (Fingerstick) 252 mg/dL (70-99) 293 mg/dL (70-99) 251 mg/dL (70-99) 183 mg/dL (70-99) Test 01/17/20 20:57 01/18/20 05:25 01/18/20 07:19 01/18/20 11:53 Glucose (Fingerstick) 215 mg/dL (70-99) 263 mg/dL (70-99) 167 mg/dL (70-99) White Blood Count 6.6 x10^3/uL (4.0-11.0) Red Blood Count 3.43 x10^6/uL (3.50-5.40) Hemoglobin 10.7 g/dL (12.0-15.5) Hematocrit 32.3 % (36.0-47.0) Mean Corpuscular Volume 94 fL (79-100) Mean Corpuscular Hemoglobin 31 pg (25-35) Mean Corpuscular Hemoglobin Concent 33 g/dL (31-37) Red Cell Distribution Width 15.7 % (11.5-14.5) Platelet Count 256 x10^3/uL (140-400) Neutrophils (%) (Auto) 75 % (31-73) Lymphocytes (%) (Auto) 18 % (24-48) Monocytes (%) (Auto) 5 % (0-9) Eosinophils (%) (Auto) 3 % (0-3) Basophils (%) (Auto) 1 % (0-3) Neutrophils # (Auto) 4.9 x10^3/uL (1.8-7.7) Lymphocytes # (Auto) 1.2 x10^3/uL (1.0-4.8) Monocytes # (Auto) 0.3 x10^3/uL (0.0-1.1) Eosinophils # (Auto) 0.2 x10^3/uL (0.0-0.7) Basophils # (Auto) 0.0 x10^3/uL (0.0-0.2) Sodium Level 140 mmol/L (136-145) Potassium Level 3.8 mmol/L (3.5-5.1) Chloride Level 104 mmol/L (98-107) Carbon Dioxide Level 25 mmol/L (21-32) Anion Gap 11 (6-14) Blood Urea Nitrogen 8 mg/dL (7-20) Creatinine 0.9 mg/dL (0.6-1.0) Estimated GFR (Cockcroft-Gault) 79.0 Glucose Level 281 mg/dL (70-99) Calcium Level 8.4 mg/dL (8.5-10.1) Lipase 645 U/L (73-393) Test 01/18/20 17:21 Glucose (Fingerstick) 217 mg/dL (70-99) Laboratory Tests Test 01/17/20 20:57 01/18/20 05:25 01/18/20 07:19 01/18/20 11:53 Glucose (Fingerstick) 215 mg/dL (70-99) 263 mg/dL (70-99) 167 mg/dL (70-99) White Blood Count 6.6 x10^3/uL (4.0-11.0) Red Blood Count 3.43 x10^6/uL (3.50-5.40) Hemoglobin 10.7 g/dL (12.0-15.5) Hematocrit 32.3 % (36.0-47.0) Mean Corpuscular Volume 94 fL (79-100) Mean Corpuscular Hemoglobin 31 pg (25-35) Mean Corpuscular Hemoglobin Concent 33 g/dL (31-37) Red Cell Distribution Width 15.7 % (11.5-14.5) Platelet Count 256 x10^3/uL (140-400) Neutrophils (%) (Auto) 75 % (31-73) Lymphocytes (%) (Auto) 18 % (24-48) Monocytes (%) (Auto) 5 % (0-9) Eosinophils (%) (Auto) 3 % (0-3) Basophils (%) (Auto) 1 % (0-3) Neutrophils # (Auto) 4.9 x10^3/uL (1.8-7.7) Lymphocytes # (Auto) 1.2 x10^3/uL (1.0-4.8) Monocytes # (Auto) 0.3 x10^3/uL (0.0-1.1) Eosinophils # (Auto) 0.2 x10^3/uL (0.0-0.7) Basophils # (Auto) 0.0 x10^3/uL (0.0-0.2) Sodium Level 140 mmol/L (136-145) Potassium Level 3.8 mmol/L (3.5-5.1) Chloride Level 104 mmol/L (98-107) Carbon Dioxide Level 25 mmol/L (21-32) Anion Gap 11 (6-14) Blood Urea Nitrogen 8 mg/dL (7-20) Creatinine 0.9 mg/dL (0.6-1.0) Estimated GFR (Cockcroft-Gault) 79.0 Glucose Level 281 mg/dL (70-99) Calcium Level 8.4 mg/dL (8.5-10.1) Lipase 645 U/L (73-393) Test 01/18/20 17:21 Glucose (Fingerstick) 217 mg/dL (70-99) Medications Current Medications Ringer's Solution 1,000 ml @ 1,000 mls/hr Q1H IV Last administered on 01/15/20at 11:29; Start 01/15/20 at 10:54; Stop 01/15/20 at 11:53; Status DC Iohexol (Omnipaque 300 Mg/ml) 75 ml 1X ONCE IV Last administered on 01/15/20at 12:08; Start 01/15/20 at 11:45; Stop 01/15/20 at 11:46; Status DC Info (CONTRAST GIVEN -- Rx MONITORING) 1 each PRN DAILY PRN MC SEE COMMENTS; Start 01/15/20 at 11:45; Stop 01/17/20 at 11:44; Status DC Morphine Sulfate (Morphine Sulfate) 8 mg 1X ONCE IV Last administered on 01/15/20at 13:08; Start 01/15/20 at 13:00; Stop 01/15/20 at 13:01; Status DC Metoclopramide HCl (Reglan) 10 mg 1X ONCE PO Last administered on 01/15/20at 13:08; Start 01/15/20 at 13:00; Stop 01/15/20 at 13:01; Status DC Ondansetron HCl (Zofran) 4 mg PRN Q8HRS PRN IV NAUSEA/VOMITING; Start 01/15/20 at 15:30; Stop 01/16/20 at 15:29; Status DC Sodium Chloride 1,000 ml @ 100 mls/hr Q10H IV Last administered on 01/16/20at 06:07; Start 01/15/20 at 15:27; Stop 01/16/20 at 15:26; Status DC Enoxaparin Sodium (Lovenox 40mg Syringe) 40 mg Q24H SQ Last administered on 01/17/20at 17:28; Start 01/15/20 at 18:00 Ketorolac Tromethamine (Toradol 30mg Vial) 30 mg PRN Q6HRS PRN IVP MODERATE PAIN 4-6 Last administered on 01/18/20at 03:36; Start 01/15/20 at 17:30; Stop at 17:29 Morphine Sulfate (Morphine Sulfate) 2 mg PRN Q2HR PRN IV breakthrough pain Last administered on 01/18/20at 00:58; Start 01/15/20 at 17:30 Dextrose (Dextrose 50%-Water Syringe) 12.5 gm PRN Q15MIN PRN IV SEE COMMENTS; Start 01/15/20 at 17:30; Status UNV Insulin Human Lispro (HumaLOG) 0-5 UNITS TIDWMEALS SQ Last administered on 01/18/20at 13:16; Start 01/16/20 at 08:00 Dextrose (Dextrose 50%-Water Syringe) 12.5 gm PRN Q15MIN PRN IV SEE COMMENTS; Start 01/15/20 at 17:30 Labetalol HCl (Normodyne Iv Push) 20 mg PRN Q2HR PRN IVP HYPERTENSION Last administered on 01/17/20 08:12; Start 01/15/20 at 18:00 Nicotine (Nicoderm Cq 7mg) 1 patch DAILY TD Last administered on 01/18/20at 09:31; Start 01/15/20 at 20:00 Sodium Chloride 1,000 ml @ 200 mls/hr 1X ONCE IV ; Start 01/15/20 at 20:15; Stop 01/16/20 at 01:14; Status DC Enoxaparin Sodium (Lovenox 40mg Syringe) 40 mg Q24H SQ ; Start 01/15/20 at 21:00; Status Cancel Pantoprazole Sodium (Protonix) 40 mg DAILYAC PO Last administered on 01/18/20at 09:32; Start 01/17/20 at 07:30 Polyethylene Glycol (miraLAX PACKET) 17 gm DAILY PO Last administered on 01/18/20at 09:30; Start 01/17/20 at 09:00; Stop 01/18/20 at 10:46; Status DC Cyanocobalamin (Vitamin B-12) 1,000 mcg DAILY IM Last administered on 01/18/20at 09:30; Start 01/17/20 at 09:00 Ferrous Sulfate (Feosol) 325 mg DAILYWBKFT PO Last administered on 01/18/20at 09:31; Start 01/17/20 at 08:00 Bisacodyl (Dulcolax Tab) 5 mg PRN DAILY PRN PO CONSTIPATION; Start 01/16/20 at 12:30 Ringer's Solution 1,000 ml @ 100 mls/hr Q10H IV Last administered on 01/18/20at 03:36; Start 01/16/20 at 15:45 Acetaminophen/ Hydrocodone Bitart (Lortab 7.5/325) 1 tab PRN Q6HRS PRN PO PAIN Last administered on 01/18/20at 17:21; Start 01/17/20 at 18:00 Bisacodyl (Dulcolax Tab) 10 mg 1X ONCE PO Last administered on 01/18/20at 13:12; Start 01/18/20 at 10:45; Stop 01/18/20 at 10:46; Status DC Polyethylene Glycol (miraLAX PACKET) 17 gm BID PO ; Start 01/18/20 at 21:00 Active Scripts Active [place] 7.5-325 Tablet (Acetaminophen/Hydrocodone Bitart) 1 Each Tablet 1 Tab PO PRN Q6HRS PRN Clopidogrel (Clopidogrel Bisulfate) 75 Mg Tablet 1 Tab PO DAILY Metoprolol Succinate ( Xl ) (Metoprolol Succinate) 25 Mg Tab.er.24h 1 Tab PO DAILY Atorvastatin Calcium 40 Mg Tablet 80 Mg PO QHS Aspirin Ec (Aspirin) 81 Mg Tablet.dr 81 Mg PO DAILYWBKFT Reported Triazolam 0.25 Mg Tablet 2 Tab PO PRN QHS PRN MDD 2 Tablet(s) 30 Days Spironolactone 25 Mg Tablet 1 Tab PO DAILY Crestor (Rosuvastatin Calcium) 40 Mg Tablet 1 Tab PO DAILY Seroquel (Quetiapine Fumarate) 400 Mg Tablet 1 Tab PO QHS Seroquel (Quetiapine Fumarate) 100 Mg Tablet 1 Tab PO QHS Potassium Chloride (Potassium Chloride) 20 Meq Tablet.er 20 Meq PO DAILY Ondansetron Odt (Ondansetron) 4 Mg Tab.rapdis 1 Tab PO PRN Q6-8HRS Omeprazole 20 Mg Capsule.dr 1 Cap PO DAILY NITROGLYCERIN SubLingual (Nitroglycerin) 0.4 Mg Tab.subl 0.4 Mg SL PRN Q5MIN PRN Losartan Potassium 100 Mg Tablet 100 Mg PO DAILY Isosorbide Mononitrate Er (Isosorbide Mononitrate) 30 Mg Tab.er.24h 1 Tab PO DAILY Ibuprofen 400 Mg Tablet 400 Mg PO PRN Q6HRS PRN Fluticasone Propionate Nasal [place] (Fluticasone Propionate) 16 Gm [place].susp 2 [place] NS DAILY Fish Oil 1,000 mg Softgel ([place]-3/Dha/Epa/Fish Oil) 1,000 Mg Capsule 1 Cap PO BID 30 Days Fenofibrate (Fenofibrate Nanocrystallized) 145 Mg Tablet 1 Tab PO DAILY Escitalopram Oxalate 20 Mg Tablet 1 Tab PO DAILY B-12 (Cyanocobalamin (Vitamin B-12)) 1,000 Mcg Tablet 1 Tab PO DAILY 30 Days Cimetidine (Cimetidine Hcl) 300 Mg/5 Ml Solution 300 Mg PO BID D3-50 (Cholecalciferol (Vitamin D3)) 50,000 Unit Capsule 50,000 Unit PO DAILY Bupropion Xl (Bupropion HCl) 450 Mg Tab.er.24h 1 Tab PO DAILYWBKFT 30 Days Humalog (Insulin Lispro) 100 Unit/1 Ml Cartridge 16 Unit SQ TIDAC Lantus Solostar (Insulin Glargine,Hum.rec.anlog) 100 Unit/1 Ml Insuln.pen 35 Unit SQ QHS Lidocaine PATCH (Lidocaine) 1 Each Adh..patch 1 Each TP Senokot (Sennosides) 8.6 Mg Tablet 1 Tab PO PRN PRN Zantac (Ranitidine Hcl) 150 Mg Tablet 1 Tab PO BID Paxil (Paroxetine Hcl) 20 Mg Tablet 1 Tab PO DAILY Lisinopril 20 Mg Tablet 1 Tab PO DAILY Hydrochlorothiazide Tablet (Hydrochlorothiazide) 12.5 Mg Tablet 1 Tab PO DAILY Gabapentin (Gabapentin) 300 Mg Capsule 300 Mg PO TID Furosemide 20 Mg Tablet 1 Tab PO PRN DAILY PRN Lexapro (Escitalopram Oxalate) 20 Mg Tablet 1 Tab PO DAILY Proair Respiclick (Albuterol Sulfate) 90 Mcg Aer.pow.ba 2 Puff IH PRN PRN Vitals/I & O Vital Sign - Last 24 Hours 01/17/20 01/17/20 01/17/20 01/17/20 18:26 19:26 19:45 20:00 Temp 98.5 98.5 Pulse 79 Resp 18 16 16 B/P (MAP) 176/81 (112) Pulse Ox 100 99 99 O2 Delivery Room Air Room Air Room Air Room Air 01/17/20 01/18/20 01/18/20 01/18/20 23:22 00:58 01:28 02:34 Temp 98.3 98.0 98.3 98.0 Pulse 86 74 Resp 16 16 16 16 B/P (MAP) 173/79 (110) 175/80 (111) Pulse Ox 99 99 99 O2 Delivery Room Air Room Air Room Air Room Air 01/18/20 01/18/20 01/18/20 01/18/20 07:00 08:00 10:11 11:00 Temp 97.8 97.9 97.8 97.9 Pulse 81 88 Resp 20 20 B/P (MAP) 197/90 (125) 182/89 (120) Pulse Ox 98 98 100 O2 Delivery Room Air Room Air Room Air Room Air 01/18/20 01/18/20 01/18/20 11:11 15:00 17:21 Temp 98.2 98.2 Pulse 95 Resp 20 B/P (MAP) 183/95 (124) Pulse Ox 100 100 100 O2 Delivery Room Air Room Air Room Air Intake and Output 01/17/20 01/17/20 01/18/20 15:00 23:00 07:00 Intake Total 480 ml 600 ml Output Total 900 ml 500 ml 1000 ml Balance -420 ml 100 ml -1000 ml Justicifation of Admission Dx: Justifications for Admission: Justification of Admission Dx: Yes KAITLIN DAILY MD Jan 18, 2020 17:30
[2020-01-18] MEDS: ENOXAPARIN 40 MG/0.4 ML SYRINGE. SQ SCH (18:03)
[2020-01-18] MEDS ORDERED: ZOLPIDEM 5 MG TABLET. PO PRN (19:15)
[2020-01-18 19:55] VITALS: BP 159/78
[2020-01-18] MEDS: QUEtiapine 100 MG TABLET. PO SCH (21:50)
[2020-01-18 23:55] VITALS: BP 139/68
[2020-01-19] VITALS (8 sets, daily range): BP systolic 148–187; BP diastolic 69–90
[2020-01-19] MEDS: IV RINGERS,LACTATED 1000ML 1,000 ML IV SCH ×3 (03:44→23:36)
[2020-01-19 05:00] LABS: BASO % 0 % (0-3); EOS # 0.2 x10^3/uL (0.0-0.7); EOS % 3 % (0-3); HEMATOCRIT 31.7 % (36.0-47.0); HEMOGLOBIN 10.6 g/dL (12.0-15.5); LYMPH # 1.4 x10^3/uL (1.0-4.8); LYMPH % 21 % (24-48); MEAN CORPUSCULAR HEMOGLOBIN 31 pg (25-35); MEAN CORPUSCULAR HGB CONC 34 g/dL (31-37); MEAN CORPUSCULAR VOLUME 93 fL (79-100); MONO # 0.4 x10^3/uL (0.0-1.1); MONO % 5 % (0-9); NEUT # 4.7 x10^3/uL (1.8-7.7); NEUT % 71 % (31-73); PLATELET COUNT 270 x10^3/uL (140-400); RED CELL DISTRIBUTION WIDTH 15.8 % (11.5-14.5); WHITE BLOOD COUNT 6.7 x10^3/uL (4.0-11.0)
[2020-01-19 05:31] LABS: CALCIUM 8.8 mg/dL (8.5-10.1); GFR 69.9; POTASSIUM 3.5 mmol/L (3.5-5.1)
[2020-01-19] MEDS ORDERED: CONTRAST GIVEN. MC PRN (06:45)
[2020-01-19] MEDS ORDERED: IOHEXOL 300 MG/ML 100ML VIAL. IV ONE (07:00)
--- NOTE | 2020-01-19 08:33 | RAD ---
INDICATION: Reason: pancreatitis / Spl. Instructions: OMNI 300 INJ 75 MLS / History: COMPARISON: January 15, 2020 TECHNIQUE: Axial CT images obtained through the abdomen with contrast. One or more of the following individualized dose reduction techniques were utilized for this examination: 1. Automated exposure control; 2. Adjustment of the mA and/or kV according to patient size; 3. Use of iterative reconstruction technique. FINDINGS: Calcified granuloma left lung base. Linear opacity at the bilateral lung bases could be from scarring or atelectasis. Calcific atherosclerosis. There is some subcutaneous edema and air seen anterior abdominal wall. Small free fluid. There is edema and some fluid seen adjacent to the pancreas and extending into the mesentery. The edema is also now seen abutting the stomach and colon. At the pancreatic head there is a focal low density region seen measuring approximately 11 mm. Splenic calcified granulomas. No hydronephrosis. No dilated loops of bowel in the upper abdomen to suggest obstruction. Degenerative changes the spine with multilevel central canal and neural foraminal stenosis. Subcentimeter low-density lesion is again seen within the liver. IMPRESSION: * Interval increase in the amount of edema and fluid seen at the pancreas which could be secondary to increasing pancreatitis. There is also now edema and fluid seen adjacent to the stomach, duodenum as well as right side of the colon therefore superimposed gastritis/duodenitis or ulcer are within the differential as well. Secondary inflammation to portion of colon is not excluded given the edema in the area. Focal low density region within the pancreatic head region which could be secondary to causes such as pseudocyst formation but follow-up could be obtained to ensure that this decreases to exclude alternative causes such as intraductal papillary mucinous neoplasm. Electronically signed by: Bobby Gallardo MD (01/19/2020 8:30 AM) [id number]
[2020-01-19] MEDS: FERROUS SULFATE 325 MG TABLET. PO SCH (08:44)
[2020-01-19] MEDS: PARoxetine 20 MG TABLET PO SCH (08:44)
[2020-01-19] MEDS: CITALOPRAM 20 MG TABLET. PO SCH (08:44)
[2020-01-19] MEDS: HYDROcodone/APAP 7.5/325MG 1 TAB TABLET PO PRN ×3 (08:44→20:20)
[2020-01-19] MEDS: PANTOPRAZOLE 40 MG TABLET.DR. PO SCH (08:44)
[2020-01-19] MEDS: METOPROLOL SUCC 24HR ER 25 MG TAB.ER.24H. PO SCH ×2 (08:45→09:00)
[2020-01-19] MEDS: NICOTINE 7MG PATCH. TD SCH (08:58)
[2020-01-19] MEDS: INSULIN LISPRO 300 UNITS/3 ML VIAL. SQ SCH ×3 (08:58→16:46)
[2020-01-19] MEDS: CYANOCOBALAMIN (VITAMIN B-12) 1,000 MCG/ML VIAL IM SCH (08:59)
[2020-01-19] MEDS: POLYETHYLENE GLYCOL 3350 17 GM PACKET. PO SCH ×2 (08:59→21:45)
--- NOTE | 2020-01-19 10:45 | PDOC ---
Date of Service: DATE: 01/19/20 TIME: 10:43 Subjective: Subjective: Pain worse after eating, improved w/ meds, worse when moving. Objective: Objective: Nurse asking about DC. Vital Signs: Vital Signs Date Time Temp Pulse Resp B/P (MAP) Pulse Ox O2 Delivery O2 Flow Rate FiO2 01/19/20 09:05 82 148/74 (98) 01/19/20 07:00 98.9 18 99 Room Air 98.9 Labs: Laboratory Tests Test 01/18/20 11:53 01/18/20 17:21 01/18/20 20:40 01/19/20 04:20 Glucose (Fingerstick) 167 mg/dL 217 mg/dL 163 mg/dL White Blood Count 6.7 x10^3/uL Red Blood Count 3.40 x10^6/uL Hemoglobin 10.6 g/dL Hematocrit 31.7 % Mean Corpuscular Volume 93 fL Mean Corpuscular Hemoglobin 31 pg Mean Corpuscular Hemoglobin Concent 34 g/dL Red Cell Distribution Width 15.8 % Platelet Count 270 x10^3/uL Neutrophils (%) (Auto) 71 % Lymphocytes (%) (Auto) 21 % Monocytes (%) (Auto) 5 % Eosinophils (%) (Auto) 3 % Basophils (%) (Auto) 0 % Neutrophils # (Auto) 4.7 x10^3/uL Lymphocytes # (Auto) 1.4 x10^3/uL Monocytes # (Auto) 0.4 x10^3/uL Eosinophils # (Auto) 0.2 x10^3/uL Basophils # (Auto) 0.0 x10^3/uL Sodium Level 140 mmol/L Potassium Level 3.5 mmol/L Chloride Level 105 mmol/L Carbon Dioxide Level 24 mmol/L Anion Gap 11 Blood Urea Nitrogen 7 mg/dL Creatinine 1.0 mg/dL Estimated GFR (Cockcroft-Gault) 69.9 Glucose Level 213 mg/dL Calcium Level 8.8 mg/dL Test 01/19/20 08:11 Glucose (Fingerstick) 212 mg/dL Imaging: CT abd 01/18 IMPRESSION: * Interval increase in the amount of edema and fluid seen at the pancreas which could be secondary to increasing pancreatitis. There is also now edema and fluid seen adjacent to the stomach, duodenum as well as right side of the colon therefore superimposed gastritis/duodenitis or ulcer are within the differential as well. Secondary inflammation to portion of colon is not excluded given the edema in the area. Focal low density region within the pancreatic head region which could be secondary to causes such as pseudocyst formation but follow-up could be obtained to ensure that this decreases to exclude alternative causes such as intraductal papillary mucinous neoplasm. PE: GEN: NAD LUNGS: CTAB HEART: RRR ABD: quiet, right-sided and epigastric tenderness NEURO/PSYCH: A & O 3 A/P: Right-sided abd pain, alcoholic pancreatiits FUNMILAYO/B12 deficiency, GERD, constipation -- Wouldn't discharge. Interval CT w/ increased inflammation, possible pseudocyst. Back to clear - many need PICC/TPN. Justicifation of Admission Dx: Justifications for Admission: Justification of Admission Dx: Yes DONNA JUAREZ Jan 19, 2020 10:45
--- NOTE | 2020-01-19 14:29 | NUR ---
SS following up with discharge planning. SS reviewed pt chart and discussed with pt RN. Pt is currently on room air. Pt having abdominal pain today. GI ordered TPN and gut rest. SS will continue to follow for discharge planning.
[2020-01-19] MEDS: hydroCHLOROthiazide 12.5 MG CAPSULE PO SCH (18:42)
[2020-01-19] MEDS: ENOXAPARIN 40 MG/0.4 ML SYRINGE. SQ SCH (18:42)
[2020-01-19] MEDS: QUEtiapine 100 MG TABLET. PO SCH (20:18)
[2020-01-19] MEDS: LABETALOL 20 MG/4 ML DISP.SYRIN. IVP PRN (20:22)
--- NOTE | 2020-01-19 21:00 | PDOC ---
PROGRESS NOTES Date of Service: DATE: 01/19/20 TIME: 21:00 Chief Complaint Chief Complaint Assessment/Plan Acute abdominal pain due to acute on chronic pancreatitis Hypertension CAD with stents Diabetes mellitus Admit to medicine for observation Review for recent medication changes Reviewed tobacco or alcohol abuse Obtain lipid panel Appreciate GI consult and recommendations Every hour Accu-Cheks N.p.o. IV morphine PRN Lovenox for DVT prophylaxis Protonix GI prophylaxis ADA diet Full code Discussed with RN and VIVIAN Dispo admit for pain control Surrogate decision maker is self History of Present Illness History of Present Illness History of Present Illness: HPI: Patient is a 54-year-old female with past medical history of CAD with stent placement, history of alcohol abuse, diabetes who presents to the ED with generalized abdominal pain that radiates to the back for the past 2 months and has progressively worsened. Patient states that she has had history of acute pancreatitis in the past and also history of alcohol abuse. She has cut down on her smoking and her alcohol drinks immensely. Her last drink she states was about 2 weeks ago. Patient describes her pain as sharp, 6 out of 10, and is associated with nausea and vomiting. Patient denies any bloody bowel movements, fevers, shortness of breath, dysuria, or diarrhea 01/15 Patient did not tolerate clear liquid diet, reassurance provided, I explained the need to give her bowel rest and iv fluids for maintenance Pain management will be adjusted, further recommendations based on clinical course. 01/16 Patient still complains of some abdominal pain, mild nausea. She denies any vomiting. She did lose IV access and discussed with her nursing staff to try to replace this. September 30 for midline if unable to obtain IV access. 01/17 Patient denies any significant improvement in her epigastric abdominal pain. She does report new onset of right lower quadrant pain. She describes his pain as cramping in nature. She is tolerating a full liquid diet without any nausea or vomiting. Discussed plan to repeat CT abdomen pelvis to evaluate lack of improvement in symptoms. 01/18 Still with pain, improved with meds. Repeat CT concerning fo worsening pancreatitis. Per GI recommendations, will pursue PICC line, TPN, and clear liquids. Vitals Vitals Vital Signs Date Time Temp Pulse Resp B/P (MAP) Pulse Ox O2 Delivery O2 Flow Rate FiO2 01/19/20 20:22 82 171/75 01/19/20 20:20 18 95 Room Air 01/19/20 19:45 98.2 98.2 Physical Exam General: Alert, Oriented X3, Cooperative, No acute distress Lungs: Clear Abdomen: Soft, Other (mild epigastric TTP, right lower quadrant tenderness) Extremities: No clubbing, No cyanosis Skin: No rashes, No breakdown Labs LABS Laboratory Tests Test 01/19/20 04:20 01/19/20 08:11 01/19/20 11:56 01/19/20 16:39 White Blood Count 6.7 x10^3/uL (4.0-11.0) Red Blood Count 3.40 x10^6/uL (3.50-5.40) Hemoglobin 10.6 g/dL (12.0-15.5) Hematocrit 31.7 % (36.0-47.0) Mean Corpuscular Volume 93 fL (79-100) Mean Corpuscular Hemoglobin 31 pg (25-35) Mean Corpuscular Hemoglobin Concent 34 g/dL (31-37) Red Cell Distribution Width 15.8 % (11.5-14.5) Platelet Count 270 x10^3/uL (140-400) Neutrophils (%) (Auto) 71 % (31-73) Lymphocytes (%) (Auto) 21 % (24-48) Monocytes (%) (Auto) 5 % (0-9) Eosinophils (%) (Auto) 3 % (0-3) Basophils (%) (Auto) 0 % (0-3) Neutrophils # (Auto) 4.7 x10^3/uL (1.8-7.7) Lymphocytes # (Auto) 1.4 x10^3/uL (1.0-4.8) Monocytes # (Auto) 0.4 x10^3/uL (0.0-1.1) Eosinophils # (Auto) 0.2 x10^3/uL (0.0-0.7) Basophils # (Auto) 0.0 x10^3/uL (0.0-0.2) Sodium Level 140 mmol/L (136-145) Potassium Level 3.5 mmol/L (3.5-5.1) Chloride Level 105 mmol/L (98-107) Carbon Dioxide Level 24 mmol/L (21-32) Anion Gap 11 (6-14) Blood Urea Nitrogen 7 mg/dL (7-20) Creatinine 1.0 mg/dL (0.6-1.0) Estimated GFR (Cockcroft-Gault) 69.9 Glucose Level 213 mg/dL (70-99) Calcium Level 8.8 mg/dL (8.5-10.1) Glucose (Fingerstick) 212 mg/dL (70-99) 214 mg/dL (70-99) 103 mg/dL (70-99) Review of Systems Review of Systems Abdominal pain. Denies nausea, denies vomiting, denies fever. Assessment and Plan Assessmemt and Plan Problems Medical Problems: (1) Chronic pancreatitis Status: Acute (2) Nausea and vomiting Status: Acute Comment Review of Relevant I have reviewed the following items elena (where applicable) has been applied. Labs Laboratory Tests Test 01/18/20 05:25 01/18/20 07:19 01/18/20 11:53 01/18/20 17:21 White Blood Count 6.6 x10^3/uL (4.0-11.0) Red Blood Count 3.43 x10^6/uL (3.50-5.40) Hemoglobin 10.7 g/dL (12.0-15.5) Hematocrit 32.3 % (36.0-47.0) Mean Corpuscular Volume 94 fL (79-100) Mean Corpuscular Hemoglobin 31 pg (25-35) Mean Corpuscular Hemoglobin Concent 33 g/dL (31-37) Red Cell Distribution Width 15.7 % (11.5-14.5) Platelet Count 256 x10^3/uL (140-400) Neutrophils (%) (Auto) 75 % (31-73) Lymphocytes (%) (Auto) 18 % (24-48) Monocytes (%) (Auto) 5 % (0-9) Eosinophils (%) (Auto) 3 % (0-3) Basophils (%) (Auto) 1 % (0-3) Neutrophils # (Auto) 4.9 x10^3/uL (1.8-7.7) Lymphocytes # (Auto) 1.2 x10^3/uL (1.0-4.8) Monocytes # (Auto) 0.3 x10^3/uL (0.0-1.1) Eosinophils # (Auto) 0.2 x10^3/uL (0.0-0.7) Basophils # (Auto) 0.0 x10^3/uL (0.0-0.2) Sodium Level 140 mmol/L (136-145) Potassium Level 3.8 mmol/L (3.5-5.1) Chloride Level 104 mmol/L (98-107) Carbon Dioxide Level 25 mmol/L (21-32) Anion Gap 11 (6-14) Blood Urea Nitrogen 8 mg/dL (7-20) Creatinine 0.9 mg/dL (0.6-1.0) Estimated GFR (Cockcroft-Gault) 79.0 Glucose Level 281 mg/dL (70-99) Calcium Level 8.4 mg/dL (8.5-10.1) Lipase 645 U/L (73-393) Glucose (Fingerstick) 263 mg/dL (70-99) 167 mg/dL (70-99) 217 mg/dL (70-99) Test 01/18/20 20:40 01/19/20 04:20 01/19/20 08:11 01/19/20 11:56 Glucose (Fingerstick) 163 mg/dL (70-99) 212 mg/dL (70-99) 214 mg/dL (70-99) White Blood Count 6.7 x10^3/uL (4.0-11.0) Red Blood Count 3.40 x10^6/uL (3.50-5.40) Hemoglobin 10.6 g/dL (12.0-15.5) Hematocrit 31.7 % (36.0-47.0) Mean Corpuscular Volume 93 fL (79-100) Mean Corpuscular Hemoglobin 31 pg (25-35) Mean Corpuscular Hemoglobin Concent 34 g/dL (31-37) Red Cell Distribution Width 15.8 % (11.5-14.5) Platelet Count 270 x10^3/uL (140-400) Neutrophils (%) (Auto) 71 % (31-73) Lymphocytes (%) (Auto) 21 % (24-48) Monocytes (%) (Auto) 5 % (0-9) Eosinophils (%) (Auto) 3 % (0-3) Basophils (%) (Auto) 0 % (0-3) Neutrophils # (Auto) 4.7 x10^3/uL (1.8-7.7) Lymphocytes # (Auto) 1.4 x10^3/uL (1.0-4.8) Monocytes # (Auto) 0.4 x10^3/uL (0.0-1.1) Eosinophils # (Auto) 0.2 x10^3/uL (0.0-0.7) Basophils # (Auto) 0.0 x10^3/uL (0.0-0.2) Sodium Level 140 mmol/L (136-145) Potassium Level 3.5 mmol/L (3.5-5.1) Chloride Level 105 mmol/L (98-107) Carbon Dioxide Level 24 mmol/L (21-32) Anion Gap 11 (6-14) Blood Urea Nitrogen 7 mg/dL (7-20) Creatinine 1.0 mg/dL (0.6-1.0) Estimated GFR (Cockcroft-Gault) 69.9 Glucose Level 213 mg/dL (70-99) Calcium Level 8.8 mg/dL (8.5-10.1) Test 01/19/20 16:39 Glucose (Fingerstick) 103 mg/dL (70-99) Laboratory Tests Test 01/19/20 04:20 01/19/20 08:11 01/19/20 11:56 01/19/20 16:39 White Blood Count 6.7 x10^3/uL (4.0-11.0) Red Blood Count 3.40 x10^6/uL (3.50-5.40) Hemoglobin 10.6 g/dL (12.0-15.5) Hematocrit 31.7 % (36.0-47.0) Mean Corpuscular Volume 93 fL (79-100) Mean Corpuscular Hemoglobin 31 pg (25-35) Mean Corpuscular Hemoglobin Concent 34 g/dL (31-37) Red Cell Distribution Width 15.8 % (11.5-14.5) Platelet Count 270 x10^3/uL (140-400) Neutrophils (%) (Auto) 71 % (31-73) Lymphocytes (%) (Auto) 21 % (24-48) Monocytes (%) (Auto) 5 % (0-9) Eosinophils (%) (Auto) 3 % (0-3) Basophils (%) (Auto) 0 % (0-3) Neutrophils # (Auto) 4.7 x10^3/uL (1.8-7.7) Lymphocytes # (Auto) 1.4 x10^3/uL (1.0-4.8) Monocytes # (Auto) 0.4 x10^3/uL (0.0-1.1) Eosinophils # (Auto) 0.2 x10^3/uL (0.0-0.7) Basophils # (Auto) 0.0 x10^3/uL (0.0-0.2) Sodium Level 140 mmol/L (136-145) Potassium Level 3.5 mmol/L (3.5-5.1) Chloride Level 105 mmol/L (98-107) Carbon Dioxide Level 24 mmol/L (21-32) Anion Gap 11 (6-14) Blood Urea Nitrogen 7 mg/dL (7-20) Creatinine 1.0 mg/dL (0.6-1.0) Estimated GFR (Cockcroft-Gault) 69.9 Glucose Level 213 mg/dL (70-99) Calcium Level 8.8 mg/dL (8.5-10.1) Glucose (Fingerstick) 212 mg/dL (70-99) 214 mg/dL (70-99) 103 mg/dL (70-99) Medications Current Medications Ringer's Solution 1,000 ml @ 1,000 mls/hr Q1H IV Last administered on at 11:29; Start 01/15/20 at 10:54; Stop 01/15/20 at 11:53; Status DC Iohexol (Omnipaque 300 Mg/ml) 75 ml 1X ONCE IV Last administered on 01/15/20at 12:08; Start 01/15/20 at 11:45; Stop 01/15/20 at 11:46; Status DC Info (CONTRAST GIVEN -- Rx MONITORING) 1 each PRN DAILY PRN MC SEE COMMENTS; Start 01/15/20 at 11:45; Stop 01/17/20 at 11:44; Status DC Morphine Sulfate (Morphine Sulfate) 8 mg 1X ONCE IV Last administered on 01/15/20at 13:08; Start 01/15/20 at 13:00; Stop 01/15/20 at 13:01; Status DC Metoclopramide HCl (Reglan) 10 mg 1X ONCE PO Last administered on 01/15/20at 13:08; Start 01/15/20 at 13:00; Stop 01/15/20 at 13:01; Status DC Ondansetron HCl (Zofran) 4 mg PRN Q8HRS PRN IV NAUSEA/VOMITING; Start 01/15/20 at 15:30; Stop 01/16/20 at 15:29; Status DC Sodium Chloride 1,000 ml @ 100 mls/hr Q10H IV Last administered on 01/16/20at 06:07; Start 01/15/20 at 15:27; Stop 01/16/20 at 15:26; Status DC Enoxaparin Sodium (Lovenox 40mg Syringe) 40 mg Q24H SQ Last administered on 01/19/20at 18:42; Start 01/15/20 at 18:00 Ketorolac Tromethamine (Toradol 30mg Vial) 30 mg PRN Q6HRS PRN IVP MODERATE PAIN 4-6 Last administered on 01/18/20at 21:50; Start 01/15/20 at 17:30; Stop 01/20/20 at 17:29 Morphine Sulfate (Morphine Sulfate) 2 mg PRN Q2HR PRN IV breakthrough pain Last administered on 01/18/20at 00:58; Start 01/15/20 at 17:30 Dextrose (Dextrose 50%-Water Syringe) 12.5 gm PRN Q15MIN PRN IV SEE COMMENTS; Start 01/15/20 at 17:30; Status UNV Insulin Human Lispro (HumaLOG) 0-5 UNITS TIDWMEALS SQ Last administered on 01/19/20at 13:06; Start 01/16/20 at 08:00 Dextrose (Dextrose 50%-Water Syringe) 12.5 gm PRN Q15MIN PRN IV SEE COMMENTS; Start 01/15/20 at 17:30 Labetalol HCl (Normodyne Iv Push) 20 mg PRN Q2HR PRN IVP HYPERTENSION Last administered on 01/19/20at 20:22; Start 01/15/20 at 18:00 Nicotine (Nicoderm Cq 7mg) 1 patch DAILY TD Last administered on 01/19/20at 08:58; Start 01/15/20 at 20:00 Sodium Chloride 1,000 ml @ 200 mls/hr 1X ONCE IV ; Start 01/15/20 at 20:15; Stop 01/16/20 at 01:14; Status DC Enoxaparin Sodium (Lovenox 40mg Syringe) 40 mg Q24H SQ ; Start 01/15/20 at 21:00; Status Cancel Pantoprazole Sodium (Protonix) 40 mg DAILYAC PO Last administered on 01/19/20at 08:44; Start 01/17/20 at 07:30 Polyethylene Glycol (miraLAX PACKET) 17 gm DAILY PO Last administered on 01/18/20at 09:30; Start 01/17/20 at 09:00; Stop 01/18/20 at 10:46; Status DC Cyanocobalamin (Vitamin B-12) 1,000 mcg DAILY IM Last administered on 01/18/20at 09:30; Start 01/17/20 at 09:00 Ferrous Sulfate (Feosol) 325 mg DAILYWBKFT PO Last administered on 01/19/20at 08:44; Start 01/17/20 at 08:00 Bisacodyl (Dulcolax Tab) 5 mg PRN DAILY PRN PO CONSTIPATION; Start 01/16/20 at 12:30 Ringer's Solution 1,000 ml @ 100 mls/hr Q10H IV Last administered on 01/19/20at 03:44; Start 01/16/20 at 15:45 Acetaminophen/ Hydrocodone Bitart (Lortab 7.5/325) 1 tab PRN Q6HRS PRN PO PAIN Last administered on 01/19/20at 20:20; Start 01/17/20 at 18:00 Bisacodyl (Dulcolax Tab) 10 mg 1X ONCE PO Last administered on 01/18/20at 13:12; Start 01/18/20 at 10:45; Stop 01/18/20 at 10:46; Status DC Polyethylene Glycol (miraLAX PACKET) 17 gm BID PO ; Start 01/18/20 at 21:00 Metoprolol Succinate (Toprol Xl) 25 mg DAILY PO ; Start 01/19/20 at 09:00; Stop 01/19/20 at 16:51; Status DC Paroxetine HCl (Paxil) 20 mg DAILY PO Last administered on 01/19/20at 08:44; Start 01/19/20 at 09:00 Quetiapine Fumarate (SEROquel) 100 mg QHS PO Last administered on 01/19/20at 20:18; Start 01/18/20 at 21:00 Citalopram Hydrobromide (CeleXA) 40 mg DAILY PO Last administered on 01/19/20at 08:44; Start 01/19/20 at 09:00 Zolpidem Tartrate (Ambien) 5 mg PRN QHS PRN PO INSOMNIA; Start 01/18/20 at 19:15; Status Cancel Zolpidem Tartrate (Ambien) 5 mg PRN QHS PRN PO INSOMNIA; Start 01/18/20 at 19:30 Iohexol (Omnipaque 300 Mg/ml) 75 ml 1X ONCE IV Last administered on 01/19/20at 07:50; Start 01/19/20 at 07:00; Stop 01/19/20 at 07:01; Status DC Info (CONTRAST GIVEN -- Rx MONITORING) 1 each PRN DAILY PRN MC SEE COMMENTS; Start 01/19/20 at 06:45; Stop 01/21/20 at 06:44 Hydrochlorothiazide (Microzide) 12.5 mg DAILY PO Last administered on 01/19/20at 18:42; Start 01/19/20 at 17:00 Active Scripts Active [place] 7.5-325 Tablet (Acetaminophen/Hydrocodone Bitart) 1 Each Tablet 1 Tab PO PRN Q6HRS PRN Clopidogrel (Clopidogrel Bisulfate) 75 Mg Tablet 1 Tab PO DAILY Metoprolol Succinate ( Xl ) (Metoprolol Succinate) 25 Mg Tab.er.24h 1 Tab PO DAILY Atorvastatin Calcium 40 Mg Tablet 80 Mg PO QHS Aspirin Ec (Aspirin) 81 Mg Tablet.dr 81 Mg PO DAILYWBKFT Reported Triazolam 0.25 Mg Tablet 2 Tab PO PRN QHS PRN MDD 2 Tablet(s) 30 Days Spironolactone 25 Mg Tablet 1 Tab PO DAILY Crestor (Rosuvastatin Calcium) 40 Mg Tablet 1 Tab PO DAILY Seroquel (Quetiapine Fumarate) 400 Mg Tablet 1 Tab PO QHS Seroquel (Quetiapine Fumarate) 100 Mg Tablet 1 Tab PO QHS Potassium Chloride (Potassium Chloride) 20 Meq Tablet.er 20 Meq PO DAILY Ondansetron Odt (Ondansetron) 4 Mg Tab.rapdis 1 Tab PO PRN Q6-8HRS Omeprazole 20 Mg Capsule.dr 1 Cap PO DAILY NITROGLYCERIN SubLingual (Nitroglycerin) 0.4 Mg Tab.subl 0.4 Mg SL PRN Q5MIN PRN Losartan Potassium 100 Mg Tablet 100 Mg PO DAILY Isosorbide Mononitrate Er (Isosorbide Mononitrate) 30 Mg Tab.er.24h 1 Tab PO DAILY Ibuprofen 400 Mg Tablet 400 Mg PO PRN Q6HRS PRN Fluticasone Propionate Nasal [place] (Fluticasone Propionate) 16 Gm [place].susp 2 [place] NS DAILY Fish Oil 1,000 mg Softgel ([place]-3/Dha/Epa/Fish Oil) 1,000 Mg Capsule 1 Cap PO BID 30 Days Fenofibrate (Fenofibrate Nanocrystallized) 145 Mg Tablet 1 Tab PO DAILY Escitalopram Oxalate 20 Mg Tablet 1 Tab PO DAILY B-12 (Cyanocobalamin (Vitamin B-12)) 1,000 Mcg Tablet 1 Tab PO DAILY 30 Days Cimetidine (Cimetidine Hcl) 300 Mg/5 Ml Solution 300 Mg PO BID D3-50 (Cholecalciferol (Vitamin D3)) 50,000 Unit Capsule 50,000 Unit PO DAILY Bupropion Xl (Bupropion HCl) 450 Mg Tab.er.24h 1 Tab PO DAILYWBKFT 30 Days Humalog (Insulin Lispro) 100 Unit/1 Ml Cartridge 16 Unit SQ TIDAC Lantus Solostar (Insulin Glargine,Hum.rec.anlog) 100 Unit/1 Ml Insuln.pen 35 Unit SQ QHS Lidocaine PATCH (Lidocaine) 1 Each Adh..patch 1 Each TP Senokot (Sennosides) 8.6 Mg Tablet 1 Tab PO PRN PRN Zantac (Ranitidine Hcl) 150 Mg Tablet 1 Tab PO BID Paxil (Paroxetine Hcl) 20 Mg Tablet 1 Tab PO DAILY Lisinopril 20 Mg Tablet 1 Tab PO DAILY Hydrochlorothiazide Tablet (Hydrochlorothiazide) 12.5 Mg Tablet 1 Tab PO DAILY Gabapentin (Gabapentin) 300 Mg Capsule 300 Mg PO TID Furosemide 20 Mg Tablet 1 Tab PO PRN DAILY PRN Lexapro (Escitalopram Oxalate) 20 Mg Tablet 1 Tab PO DAILY Proair Respiclick (Albuterol Sulfate) 90 Mcg Aer.pow.ba 2 Puff IH PRN PRN Vitals/I & O Vital Sign - Last 24 Hours 01/18/20 01/19/20 01/19/20 01/19/20 23:55 00:00 01:00 02:18 Temp 98.2 98.3 98.2 98.3 Pulse 88 90 Resp 18 16 18 18 B/P (MAP) 139/68 (91) 169/70 (103) Pulse Ox 98 99 98 98 O2 Delivery Room Air Room Air Room Air Room Air 01/19/20 01/19/20 01/19/20 01/19/20 07:00 08:15 09:05 11:00 Temp 98.9 98.8 98.9 98.8 Pulse 89 82 85 Resp 18 20 B/P (MAP) 186/90 (122) 148/74 (98) 187/84 (118) Pulse Ox 99 97 O2 Delivery Room Air Room Air Room Air 01/19/20 01/19/20 01/19/20 01/19/20 12:12 15:00 19:45 20:20 Temp 98.8 98.2 98.8 98.2 Pulse 85 81 82 Resp 20 17 18 B/P (MAP) 164/81 (108) 177/86 (116) 171/75 (107) Pulse Ox 98 95 95 O2 Delivery Room Air Room Air Room Air 01/19/20 20:22 Pulse 82 B/P (MAP) 171/75 Intake and Output 01/18/20 01/18/20 01/19/20 15:00 23:00 07:00 Intake Total 200 ml 1550 ml 0 ml Output Total 500 ml 300 ml Balance -300 ml 1550 ml -300 ml Justicifation of Admission Dx: Justifications for Admission: Justification of Admission Dx: Yes KAITLIN DAILY MD Jan 19, 2020 21:00
--- NOTE | 2020-01-19 21:39 | RAD ---
CHEST AP ONLY History: Reason: PICC line placement / Spl. Instructions: / History: Comparison: January 15, 2020 Findings: Right PICC with tip projecting over the lower SVC. Tiny right pleural effusion. No consolidation. Normal heart size. No pneumothorax. Impression: 1. Interval placement right PICC. 2. Tiny right pleural effusion. Electronically signed by: Natalio Gore DO (01/19/2020 9:36 PM) [facility]
[2020-01-19] MEDS: MORPHINE SULFATE 2 MG/ML VIAL. IV PRN (21:48)
[2020-01-19] MEDS: ZOLPIDEM 5 MG TABLET. PO PRN (21:50)
[2020-01-20] MEDS: HYDROcodone/APAP 7.5/325MG 1 TAB TABLET PO PRN ×3 (04:00→21:22)
[2020-01-20 04:15] VITALS: BP 158/72
[2020-01-20 04:42] LABS: BASO % 1 % (0-3); EOS # 0.2 x10^3/uL (0.0-0.7); EOS % 3 % (0-3); HEMATOCRIT 29.5 % (36.0-47.0); HEMOGLOBIN 9.7 g/dL (12.0-15.5); LYMPH # 1.4 x10^3/uL (1.0-4.8); LYMPH % 23 % (24-48); MEAN CORPUSCULAR HEMOGLOBIN 31 pg (25-35); MEAN CORPUSCULAR HGB CONC 33 g/dL (31-37); MEAN CORPUSCULAR VOLUME 94 fL (79-100); MONO # 0.3 x10^3/uL (0.0-1.1); MONO % 5 % (0-9); NEUT # 4.3 x10^3/uL (1.8-7.7); NEUT % 69 % (31-73); PLATELET COUNT 270 x10^3/uL (140-400); RED BLOOD COUNT 3.16 x10^6/uL (3.50-5.40); RED CELL DISTRIBUTION WIDTH 15.6 % (11.5-14.5); WHITE BLOOD COUNT 6.3 x10^3/uL (4.0-11.0)
[2020-01-20 05:06] LABS: CALCIUM 8.6 mg/dL (8.5-10.1); CREATININE 0.9 mg/dL (0.6-1.0); POTASSIUM 3.5 mmol/L (3.5-5.1)
[2020-01-20] MEDS: PANTOPRAZOLE 40 MG TABLET.DR. PO SCH (05:09)
[2020-01-20 07:58] VITALS: BP 157/75
[2020-01-20] MEDS: CITALOPRAM 20 MG TABLET. PO SCH (07:58)
[2020-01-20] MEDS: hydroCHLOROthiazide 12.5 MG CAPSULE PO SCH (07:58)
[2020-01-20] MEDS: FERROUS SULFATE 325 MG TABLET. PO SCH (07:58)
[2020-01-20] MEDS: PARoxetine 20 MG TABLET PO SCH (07:58)
[2020-01-20] MEDS: CYANOCOBALAMIN (VITAMIN B-12) 1,000 MCG/ML VIAL IM SCH (07:59)
[2020-01-20] MEDS: INSULIN LISPRO 300 UNITS/3 ML VIAL. SQ SCH ×3 (08:04→18:31)
[2020-01-20] MEDS: NICOTINE 7MG PATCH. TD SCH (08:06)
[2020-01-20] MEDS: POLYETHYLENE GLYCOL 3350 17 GM PACKET. PO SCH ×2 (08:06→21:22)
[2020-01-20] MEDS: IV RINGERS,LACTATED 1000ML 1,000 ML IV SCH ×2 (11:08→19:45)
[2020-01-20 11:48] VITALS: BP 139/71
--- NOTE | 2020-01-20 14:13 | PDOC ---
[employer] PROGRESS NOTE Date of Service DOS: DATE: 01/20/20 TIME: 14:10 Chief Complaint Chief Complaint Assessment/Plan Acute abdominal pain due to acute on chronic pancreatitisrepeat CT scan on 01/19/2020 showed worsening pancreatic fluid Hypertension CAD with stents Diabetes mellitus Admit to medicine for observation Pending PICC line placement for TPN Pharmacy to consult for TPN calculations. Review for recent medication changes Reviewed tobacco or alcohol abuse Appreciate GI consult and recommendations Every hour Accu-Cheks N.p.o. IV morphine PRN Lovenox for DVT prophylaxis Protonix GI prophylaxis ADA diet Full code Discussed with RN and VIVIAN Dispo admit for pain control Surrogate decision maker is self History of Present Illness History of Present Illness History of Present Illness: HPI: Patient is a 54-year-old female with past medical history of CAD with stent placement, history of alcohol abuse, diabetes who presents to the ED with generalized abdominal pain that radiates to the back for the past 2 months and has progressively worsened. Patient states that she has had history of acute pancreatitis in the past and also history of alcohol abuse. She has cut down on her smoking and her alcohol drinks immensely. Her last drink she states was a bout 2 weeks ago. Patient describes her pain as sharp, 6 out of 10, and is associated with nausea and vomiting. Patient denies any bloody bowel movements, fevers, shortness of breath, dysuria, or diarrhea 01/15 Patient did not tolerate clear liquid diet, reassurance provided, I explained the need to give her bowel rest and iv fluids for maintenance Pain management will be adjusted, further recommendations based on clinical course. 01/16 Patient still complains of some abdominal pain, mild nausea. She denies any vomiting. She did lose IV access and discussed with her nursing staff to try to replace this. September 30 for midline if unable to obtain IV access. 01/17 Patient denies any significant improvement in her epigastric abdominal pain. She does report new onset of right lower quadrant pain. She describes his pain as cramping in nature. She is tolerating a full liquid diet without any nausea or vomiting. Discussed plan to repeat CT abdomen pelvis to evaluate lack of improvement in symptoms. 01/18 Still with pain, improved with meds. Repeat CT concerning fo worsening pancreatitis. Per GI recommendations, will pursue PICC line, TPN, and clear liquids. 01/20/2020 No acute events overnight. Pending PEG line placement and TPN. Patient's chart, labs, images were reviewed and discussed with RN Vitals/I&O Vitals/I&O: Vital Signs Date Time Temp Pulse Resp B/P (MAP) Pulse Ox O2 Delivery O2 Flow Rate FiO2 01/20/20 11:48 97.8 72 20 139/71 (93) 94 Room Air 97.8 I & O 01/19/20 01/19/20 01/20/20 15:00 23:00 07:00 Intake Total 550 ml 540 ml 640 ml Balance 550 ml 540 ml 640 ml Physical Exam General: Alert, Oriented X3, Cooperative, No acute distress Lungs: Clear Abdomen: Soft, Other (mild epigastric TTP, right lower quadrant tenderness) Extremities: No clubbing, No cyanosis Skin: No rashes, No breakdown Labs Labs: Laboratory Tests Test 01/19/20 16:39 01/19/20 21:27 01/20/20 04:20 01/20/20 07:18 Glucose (Fingerstick) 103 mg/dL (70-99) 280 mg/dL (70-99) 269 mg/dL (70-99) White Blood Count 6.3 x10^3/uL (4.0-11.0) Red Blood Count 3.16 x10^6/uL (3.50-5.40) Hemoglobin 9.7 g/dL (12.0-15.5) Hematocrit 29.5 % (36.0-47.0) Mean Corpuscular Volume 94 fL (79-100) Mean Corpuscular Hemoglobin 31 pg (25-35) Mean Corpuscular Hemoglobin Concent 33 g/dL (31-37) Red Cell Distribution Width 15.6 % (11.5-14.5) Platelet Count 270 x10^3/uL (140-400) Neutrophils (%) (Auto) 69 % (31-73) Lymphocytes (%) (Auto) 23 % (24-48) Monocytes (%) (Auto) 5 % (0-9) Eosinophils (%) (Auto) 3 % (0-3) Basophils (%) (Auto) 1 % (0-3) Neutrophils # (Auto) 4.3 x10^3/uL (1.8-7.7) Lymphocytes # (Auto) 1.4 x10^3/uL (1.0-4.8) Monocytes # (Auto) 0.3 x10^3/uL (0.0-1.1) Eosinophils # (Auto) 0.2 x10^3/uL (0.0-0.7) Basophils # (Auto) 0.0 x10^3/uL (0.0-0.2) Sodium Level 139 mmol/L (136-145) Potassium Level 3.5 mmol/L (3.5-5.1) Chloride Level 105 mmol/L (98-107) Carbon Dioxide Level 25 mmol/L (21-32) Anion Gap 9 (6-14) Blood Urea Nitrogen 8 mg/dL (7-20) Creatinine 0.9 mg/dL (0.6-1.0) Estimated GFR (Cockcroft-Gault) 79.0 Glucose Level 268 mg/dL (70-99) Calcium Level 8.6 mg/dL (8.5-10.1) Lipase 439 U/L (73-393) Test 01/20/20 11:13 Glucose (Fingerstick) 196 mg/dL (70-99) Assessment and Plan Assessmemt and Plan Problems Medical Problems: (1) Chronic pancreatitis Status: Acute (2) Nausea and vomiting Status: Acute Comment Review of Relevant I have reviewed the following items elena (where applicable) has been applied. Medications: Current Medications Medications (Trade) Dose Ordered Sig/Luis Enrique Route PRN Reason Start Time Stop Time Status Last Admin Dose Admin Hydrochlorothiazide (Microzide) 12.5 mg DAILY PO 01/19/20 17:00 01/20/20 07:58 Justifications for Admission Other Justification MALISSA WEN MD Jan 20, 2020 14:13
[2020-01-20] MEDS: TPN PER PHARMACY MC PRN (14:57)
--- NOTE | 2020-01-20 14:59 | NUR ---
Pharmacy TPN Dosing Note S: JONO HOLT V is a 54 year old F Currently receiving Central Continuous TPN started 01/20/20 B:Pertinent PMH: Bowel rest/pseudocyst Height: 5 feet, 7 inches Weight: 97.7 kg Current diet: CLD LABS: Sodium: 139 Potassium: 3.5 Chloride: 105 Calcium: 8.6 Corrected Calcium: 9.48 Magnesium: CO2: 25 SCr: 0.9 Glucose: 196-280 Albumin: 2.9 AST: 11 ALT: 9 TPN FORMULA: TPN TYPE: Central Continuous AMINO ACIDS: 60 gm DEXTROSE: 195 gm LIPIDS: 20 gm SODIUM CHLORIDE: 90 mEq POTASSIUM CHLORIDE: 50 mEq POTASSIUM PHOSPHATE: 13.6 mmol MAGNESIUM: 10 mEq CALCIUM: 10 mEq MULTIPLE VITAMIN: 10 ml TRACE ELEMENTS: 1 ml(s) TPN PLAN: Initiate house formula TPN. R: Begin TPN Will monitor electrolytes, glucose, and tolerance to TPN. Queenie Perez Chantel, 01/20/20 [id number]
[2020-01-20 15:46] VITALS: BP 145/82
[2020-01-20] MEDS: ENOXAPARIN 40 MG/0.4 ML SYRINGE. SQ SCH (18:32)
[2020-01-20 19:00] VITALS: BP 154/73
[2020-01-20] MEDS: QUEtiapine 100 MG TABLET. PO SCH (21:22)
[2020-01-20] MEDS ORDERED: TOTAL PARENTERAL NUTRITION 1,424.9614 ML, AMINO ACID 15% 60 GM, DEXTROSE 70 % IN WATER ... IV SCH (22:00)
[2020-01-20 23:00] VITALS: BP 136/69
[2020-01-21 03:00] VITALS: BP 126/72
[2020-01-21] MEDS: IV RINGERS,LACTATED 1000ML 1,000 ML IV SCH ×2 (05:45→15:45)
[2020-01-21 06:41] LABS: BASO # 0.1 x10^3/uL (0.0-0.2); BASO % 1 % (0-3); EOS # 0.3 x10^3/uL (0.0-0.7); EOS % 4 % (0-3); HEMOGLOBIN 9.7 g/dL (12.0-15.5); LYMPH # 1.5 x10^3/uL (1.0-4.8); LYMPH % 21 % (24-48); MEAN CORPUSCULAR HEMOGLOBIN 31 pg (25-35); MEAN CORPUSCULAR HGB CONC 33 g/dL (31-37); MEAN CORPUSCULAR VOLUME 94 fL (79-100); MONO # 0.3 x10^3/uL (0.0-1.1); MONO % 4 % (0-9); NEUT # 4.8 x10^3/uL (1.8-7.7); NEUT % 70 % (31-73); PLATELET COUNT 245 x10^3/uL (140-400); RED BLOOD COUNT 3.08 x10^6/uL (3.50-5.40); RED CELL DISTRIBUTION WIDTH 15.6 % (11.5-14.5); WHITE BLOOD COUNT 6.9 x10^3/uL (4.0-11.0)
[2020-01-21 06:54] LABS: CALCIUM 8.5 mg/dL (8.5-10.1); CREATININE 0.8 mg/dL (0.6-1.0); GFR 90.4; POTASSIUM 3.9 mmol/L (3.5-5.1)
[2020-01-21 06:59] LABS: MAGNESIUM 1.9 mg/dL (1.8-2.4); PHOSPHORUS 3.6 mg/dL (2.6-4.7)
[2020-01-21 07:16] VITALS: BP 168/77
[2020-01-21] MEDS: NICOTINE 7MG PATCH. TD SCH (08:34)
[2020-01-21] MEDS: hydroCHLOROthiazide 12.5 MG CAPSULE PO SCH (08:34)
[2020-01-21] MEDS: HYDROcodone/APAP 7.5/325MG 1 TAB TABLET PO PRN ×2 (08:35→17:32)
[2020-01-21] MEDS: PANTOPRAZOLE 40 MG TABLET.DR. PO SCH (08:35)
[2020-01-21] MEDS: PARoxetine 20 MG TABLET PO SCH (08:35)
[2020-01-21] MEDS: CYANOCOBALAMIN (VITAMIN B-12) 1,000 MCG/ML VIAL IM SCH (08:35)
[2020-01-21] MEDS: CITALOPRAM 20 MG TABLET. PO SCH (08:35)
[2020-01-21] MEDS: FERROUS SULFATE 325 MG TABLET. PO SCH (08:35)
[2020-01-21] MEDS: INSULIN LISPRO 300 UNITS/3 ML VIAL. SQ SCH ×3 (08:38→17:33)
[2020-01-21] MEDS: POLYETHYLENE GLYCOL 3350 17 GM PACKET. PO SCH ×2 (08:53→21:00)
[2020-01-21 11:20] VITALS: BP 187/82
[2020-01-21] MEDS: TPN PER PHARMACY MC PRN (11:43)
--- NOTE | 2020-01-21 11:53 | NUR ---
Pharmacy TPN Dosing Note S: JONO HOLT V is a 54 year old F Currently receiving Central Continuous TPN started 01/20/20 B:Pertinent PMH: Bowel rest/pseudocyst Height: 5 feet, 7 inches Weight: 97.4 kg Current diet: CLD LABS: Sodium: 140 Potassium: 3.9 Chloride: 107 Calcium: 8.5 Corrected Calcium: 9.38 Magnesium: 1.9 CO2: 25 SCr: 0.8 Glucose: 263-290 Albumin: 2.9 AST: 11 ALT: 9 TPN FORMULA: TPN TYPE: Central Continuous AMINO ACIDS: 60 gm DEXTROSE: 195 gm LIPIDS: 20 gm SODIUM CHLORIDE: 90 mEq POTASSIUM CHLORIDE: 50 mEq POTASSIUM PHOSPHATE: 13.6 mmol MAGNESIUM: 10 mEq CALCIUM: 10 mEq MULTIPLE VITAMIN: 10 ml TRACE ELEMENTS: 1 ml(s) TPN PLAN: Continue same R: Continue TPN Will monitor electrolytes, glucose, and tolerance to TPN. Queenie Perez Chantel, 01/21/20 [id number]
[2020-01-21 15:20] VITALS: BP 168/75
[2020-01-21] MEDS: ENOXAPARIN 40 MG/0.4 ML SYRINGE. SQ SCH (17:31)
--- NOTE | 2020-01-21 17:50 | PDOC ---
[facility] PROGRESS NOTE Date of Service DOS: DATE: 01/21/20 TIME: 17:48 Chief Complaint Chief Complaint Assessment/Plan Acute abdominal pain due to acute on chronic pancreatitisrepeat CT scan on 01/19/2020 showed worsening pancreatic fluid Hypertension CAD with stents Diabetes mellitus Advance diet to full liquid diet, once tolerating can consider discontinuing TPN Increased insulin sliding scale to high intensity Increased SCD glargine to 25 units PICC line placed and will continue TPN Pharmacy to consult for TPN calculations. Review for recent medication changes Reviewed tobacco or alcohol abuse Appreciate GI consult and recommendations Every hour Accu-Cheks IV morphine PRN Lovenox for DVT prophylaxis Protonix GI prophylaxis ADA diet Full code Discussed with RN and VIVIAN Dispo admit for pain control Surrogate decision maker is self History of Present Illness History of Present Illness History of Present Illness: HPI: Patient is a 54-year-old female with past medical history of CAD with stent placement, history of alcohol abuse, diabetes who presents to the ED with generalized abdominal pain that radiates to the back for the past 2 months and has progressively worsened. Patient states that she has had history of acute pancreatitis in the past and also history of alcohol abuse. She has cut down on her smoking and her alcohol drinks immensely. Her last drink she states was ab out 2 weeks ago. Patient describes her pain as sharp, 6 out of 10, and is associated with nausea and vomiting. Patient denies any bloody bowel movements, fevers, shortness of breath, dysuria, or diarrhea 01/15 Patient did not tolerate clear liquid diet, reassurance provided, I explained the need to give her bowel rest and iv fluids for maintenance Pain management will be adjusted, further recommendations based on clinical course. 01/16 Patient still complains of some abdominal pain, mild nausea. She denies any vomiting. She did lose IV access and discussed with her nursing staff to try to replace this. September 30 for midline if unable to obtain IV access. 01/17 Patient denies any significant improvement in her epigastric abdominal pain. She does report new onset of right lower quadrant pain. She describes his pain as cramping in nature. She is tolerating a full liquid diet without any nausea or vomiting. Discussed plan to repeat CT abdomen pelvis to evaluate lack of improvement in symptoms. 01/18 Still with pain, improved with meds. Repeat CT concerning fo worsening pancreatitis. Per GI recommendations, will pursue PICC line, TPN, and clear liquids. 01/20/2020 No acute events overnight. Pending PICC line placement and TPN. Patient's chart, labs, images were reviewed and discussed with RN 01/21/2020 No acute events overnight. Patient seen and examined bedside. Patient notes i mprove meant and her abdominal pain. Patient tolerated clears and would like to advance diet. Patient's chart, labs, images were reviewed and discussed with RN Vitals/I&O Vitals/I&O: Vital Signs Date Time Temp Pulse Resp B/P (MAP) Pulse Ox O2 Delivery O2 Flow Rate FiO2 01/21/20 17:32 18 Room Air 01/21/20 15:20 98.3 72 168/75 (106) 100 98.3 I & O 01/20/20 01/20/20 01/21/20 15:00 23:00 07:00 Intake Total 630 ml 500 ml 300 ml Balance 630 ml 500 ml 300 ml Physical Exam Physical Exam: GEN: No apparent distress. Alert and oriented HEENT: Normal cephalic, atraumatic, external auditory canals are patent NECK: Supple, no JVD, no thyromegaly was noted LUNGS: Bilateral crackles HEART: RRR, S1, S2 present. Peripheral pulses intact, no obvious murmurs not ed ABDOMEN: Soft, minimal epigastric discomfort upon palpation positive bowel sounds, no organomegaly, normal bowel sounds EXTREMITIES: Without clubbing, cyanosis, or edema. Pedal pulses intact. Negative Homans sign General: Alert, Oriented X3, Cooperative, No acute distress Lungs: Clear Abdomen: Soft, Other (mild epigastric TTP, right lower quadrant tenderness) Extremities: No clubbing, No cyanosis Skin: No rashes, No breakdown Labs Labs: Laboratory Tests Test 01/20/20 20:45 01/21/20 06:30 01/21/20 07:48 01/21/20 11:19 Glucose (Fingerstick) 225 mg/dL (70-99) 290 mg/dL (70-99) 263 mg/dL (70-99) White Blood Count 6.9 x10^3/uL (4.0-11.0) Red Blood Count 3.08 x10^6/uL (3.50-5.40) Hemoglobin 9.7 g/dL (12.0-15.5) Hematocrit 29.0 % (36.0-47.0) Mean Corpuscular Volume 94 fL (79-100) Mean Corpuscular Hemoglobin 31 pg (25-35) Mean Corpuscular Hemoglobin Concent 33 g/dL (31-37) Red Cell Distribution Width 15.6 % (11.5-14.5) Platelet Count 245 x10^3/uL (140-400) Neutrophils (%) (Auto) 70 % (31-73) Lymphocytes (%) (Auto) 21 % (24-48) Monocytes (%) (Auto) 4 % (0-9) Eosinophils (%) (Auto) 4 % (0-3) Basophils (%) (Auto) 1 % (0-3) Neutrophils # (Auto) 4.8 x10^3/uL (1.8-7.7) Lymphocytes # (Auto) 1.5 x10^3/uL (1.0-4.8) Monocytes # (Auto) 0.3 x10^3/uL (0.0-1.1) Eosinophils # (Auto) 0.3 x10^3/uL (0.0-0.7) Basophils # (Auto) 0.1 x10^3/uL (0.0-0.2) Sodium Level 140 mmol/L (136-145) Potassium Level 3.9 mmol/L (3.5-5.1) Chloride Level 107 mmol/L (98-107) Carbon Dioxide Level 25 mmol/L (21-32) Anion Gap 8 (6-14) Blood Urea Nitrogen 5 mg/dL (7-20) Creatinine 0.8 mg/dL (0.6-1.0) Estimated GFR (Cockcroft-Gault) 90.4 Glucose Level 283 mg/dL (70-99) Calcium Level 8.5 mg/dL (8.5-10.1) Phosphorus Level 3.6 mg/dL (2.6-4.7) Magnesium Level 1.9 mg/dL (1.8-2.4) Triglycerides Level 179 mg/dL (0-150) Lipase 353 U/L (73-393) Test 01/21/20 15:55 Glucose (Fingerstick) 253 mg/dL (70-99) Assessment and Plan Assessmemt and Plan Problems Medical Problems: (1) Chronic pancreatitis Status: Acute (2) Nausea and vomiting Status: Acute Comment Review of Relevant I have reviewed the following items elena (where applicable) has been applied. Medications: Current Medications Medications (Trade) Dose Ordered Sig/Luis Enrique Route PRN Reason Start Time Stop Time Status Last Admin Dose Admin Sodium Chloride 90 meq/Potassium Chloride 50 meq/ Potassium Phosphate 13.6 mmol/Magnesium Sulfate 10 meq/ Calcium Gluconate 10 meq/ Multivitamins 10 ml/Chromium/ Copper/Manganese/ Seleni/Zn 1 ml/ Total Parenteral Nutrition/Amino Acids/Dextrose/ Fat Emulsion Intravenous 1,512 ml @ 63 mls/hr TPN CONT IV 01/20/20 22:00 01/21/20 21:59 01/20/20 21:23 Insulin Human Lispro (HumaLOG) 0-9 UNITS TIDWMEALS SQ 01/21/20 12:00 01/21/20 17:33 Justifications for Admission Other Justification MALISSA WEN MD Jan 21, 2020 17:50
[2020-01-21 19:00] VITALS: BP 195/80
[2020-01-21] MEDS: QUEtiapine 100 MG TABLET. PO SCH (21:00)
[2020-01-21] MEDS: INSULIN GLARGINE SYRINGE. SQ SCH (21:00)
[2020-01-21] MEDS ORDERED: TOTAL PARENTERAL NUTRITION 1,424.9614 ML, AMINO ACID 15% 60 GM, DEXTROSE 70 % IN WATER ... IV SCH (22:00)
[2020-01-21 23:00] VITALS: BP 179/94
[2020-01-22] MEDS: IV RINGERS,LACTATED 1000ML 1,000 ML IV SCH ×3 (01:45→21:29)
[2020-01-22 04:33] VITALS: BP 160/70
[2020-01-22 06:42] LABS: BASO # 0.1 x10^3/uL (0.0-0.2); BASO % 1 % (0-3); EOS # 0.2 x10^3/uL (0.0-0.7); EOS % 3 % (0-3); HEMATOCRIT 30.5 % (36.0-47.0); HEMOGLOBIN 10.2 g/dL (12.0-15.5); LYMPH # 1.7 x10^3/uL (1.0-4.8); LYMPH % 21 % (24-48); MEAN CORPUSCULAR HEMOGLOBIN 31 pg (25-35); MEAN CORPUSCULAR HGB CONC 33 g/dL (31-37); MEAN CORPUSCULAR VOLUME 94 fL (79-100); MONO # 0.5 x10^3/uL (0.0-1.1); MONO % 6 % (0-9); NEUT # 5.4 x10^3/uL (1.8-7.7); NEUT % 69 % (31-73); PLATELET COUNT 288 x10^3/uL (140-400); RED BLOOD COUNT 3.25 x10^6/uL (3.50-5.40); RED CELL DISTRIBUTION WIDTH 15.6 % (11.5-14.5); WHITE BLOOD COUNT 7.9 x10^3/uL (4.0-11.0)
[2020-01-22 07:00] VITALS: BP 179/84
[2020-01-22 07:26] LABS: CALCIUM 9.2 mg/dL (8.5-10.1); CREATININE 0.8 mg/dL (0.6-1.0); GFR 90.4
[2020-01-22 07:43] LABS: PHOSPHORUS 4.4 mg/dL (2.6-4.7)
[2020-01-22] MEDS: CITALOPRAM 20 MG TABLET. PO SCH (09:15)
[2020-01-22] MEDS: MORPHINE SULFATE 2 MG/ML VIAL. IV PRN (09:15)
[2020-01-22] MEDS: LABETALOL 20 MG/4 ML DISP.SYRIN. IVP PRN (09:15)
[2020-01-22] MEDS: PARoxetine 20 MG TABLET PO SCH (09:16)
[2020-01-22] MEDS: CYANOCOBALAMIN (VITAMIN B-12) 1,000 MCG/ML VIAL IM SCH (09:16)
[2020-01-22] MEDS: NICOTINE 7MG PATCH. TD SCH (09:16)
[2020-01-22] MEDS: hydroCHLOROthiazide 12.5 MG CAPSULE PO SCH (09:16)
[2020-01-22] MEDS: PANTOPRAZOLE 40 MG TABLET.DR. PO SCH (09:16)
[2020-01-22] MEDS: FERROUS SULFATE 325 MG TABLET. PO SCH (09:16)
[2020-01-22] MEDS: POLYETHYLENE GLYCOL 3350 17 GM PACKET. PO SCH ×3 (09:17→21:00)
[2020-01-22] MEDS: INSULIN LISPRO 300 UNITS/3 ML VIAL. SQ SCH ×6 (09:39→17:03)
[2020-01-22 10:50] VITALS: BP 176/81
--- NOTE | 2020-01-22 11:46 | PDOC ---
Date of Service: DATE: 01/22/20 TIME: 11:43 Subjective: Subjective: Main complaint this morning is headache. Right-sided pain is better, still needing PO pain meds. Tolerating full liquids, also on TPN. Abd pain NOT worse w/ eating (though was last week). Objective: Vital Signs: Vital Signs Date Time Temp Pulse Resp B/P (MAP) Pulse Ox O2 Delivery O2 Flow Rate FiO2 01/22/20 10:50 98.2 69 18 176/81 (112) 97 Room Air 98.2 Labs: Laboratory Tests Test 01/21/20 15:55 01/21/20 20:51 01/22/20 06:10 01/22/20 09:19 Glucose (Fingerstick) 253 mg/dL 232 mg/dL 318 mg/dL White Blood Count 7.9 x10^3/uL Red Blood Count 3.25 x10^6/uL Hemoglobin 10.2 g/dL Hematocrit 30.5 % Mean Corpuscular Volume 94 fL Mean Corpuscular Hemoglobin 31 pg Mean Corpuscular Hemoglobin Concent 33 g/dL Red Cell Distribution Width 15.6 % Platelet Count 288 x10^3/uL Neutrophils (%) (Auto) 69 % Lymphocytes (%) (Auto) 21 % Monocytes (%) (Auto) 6 % Eosinophils (%) (Auto) 3 % Basophils (%) (Auto) 1 % Neutrophils # (Auto) 5.4 x10^3/uL Lymphocytes # (Auto) 1.7 x10^3/uL Monocytes # (Auto) 0.5 x10^3/uL Eosinophils # (Auto) 0.2 x10^3/uL Basophils # (Auto) 0.1 x10^3/uL Sodium Level 135 mmol/L Potassium Level 4.0 mmol/L Chloride Level 101 mmol/L Carbon Dioxide Level 22 mmol/L Anion Gap 12 Blood Urea Nitrogen 10 mg/dL Creatinine 0.8 mg/dL Estimated GFR (Cockcroft-Gault) 90.4 Glucose Level 318 mg/dL Calcium Level 9.2 mg/dL Phosphorus Level 4.4 mg/dL Magnesium Level 2.0 mg/dL Lipase 424 U/L Test 01/22/20 11:23 Glucose (Fingerstick) 327 mg/dL PE: GEN: NAD LUNGS: CTAB HEART: RRR ABD: right-sided discomfort - less compared to exam Wednesday NEURO/PSYCH: A & O 3 A/P: Alcoholic pancreatitis, possible pseudocyst - on TPN, full liquids FUNMILAYO/B12 deficiency, GERD, constipation Headache, HTN - per primary -- Tolerating full liquids. Will review w/ Dr. Nieto re: duration for TPN. Discussed w/ pt need for interval pancreas imaging. Justicifation of Admission Dx: Justifications for Admission: Justification of Admission Dx: Yes DONNA JUAREZ Jan 22, 2020 11:46
--- NOTE | 2020-01-22 12:12 | PDOC ---
[facility] PROGRESS NOTE Date of Service DOS: DATE: 01/22/20 TIME: 12:10 Chief Complaint Chief Complaint Assessment/Plan Acute abdominal pain due to acute on chronic pancreatitisrepeat CT scan on 01/19/2020 showed worsening pancreatic fluid Hypertension CAD with stents Diabetes mellitus Advance diet to full liquid diet, once tolerating can consider discontinuing TPN Increased insulin sliding scale to high intensity Increased SCD glargine to 25 units PICC line placed and will continue TPN Pharmacy to consult for TPN calculations. Review for recent medication changes Reviewed tobacco or alcohol abuse Appreciate GI consult and recommendations Every hour Accu-Cheks IV morphine PRN Lovenox for DVT prophylaxis Protonix GI prophylaxis ADA diet Full code Discussed with RN and VIVIAN Dispo admit for pain control Surrogate decision maker is self History of Present Illness History of Present Illness Ms Vargas is a 54-year-old female with past medical history of CAD with stent placement, history of alcohol abuse, diabetes who presents to the ED with generalized abdominal pain that radiates to the back for the past 2 months and has progressively worsened. Patient states that she has had history of acute pancreatitis in the past and also history of alcohol abuse. She has cut down on her smoking and her alcohol drinks immensely. Her last drink she states was about 2 weeks ago. Patient describes her pain as sharp, 6 out of 10, and is associated with nausea and vomiting. Patient denies any bloody bowel movements, fevers, shortness of breath, dysuria, or diarrhea 01/15 Patient did not tolerate clear liquid diet, reassurance provided, I explained the need to give her bowel rest and iv fluids for maintenance Pain management will be adjusted, further recommendations based on clinical course. 01/16 Patient still complains of some abdominal pain, mild nausea. She denies any vomiting. She did lose IV access and discussed with her nursing staff to try to replace this. September 30 for midline if unable to obtain IV access. 01/17 Patient denies any significant improvement in her epigastric abdominal pain. She does report new onset of right lower quadrant pain. She describes his pain as cramping in nature. She is tolerating a full liquid diet without any nausea or vomiting. Discussed plan to repeat CT abdomen pelvis to evaluate lack of improvement in symptoms. 01/18 Still with pain, improved with meds. Repeat CT concerning fo worsening pancreatitis. Per GI recommendations, will pursue PICC line, TPN, and clear liquids. 01/20/2020 No acute events overnight. Pending PICC line placement and TPN. Patient's chart, labs, images were reviewed and discussed with RN 01/21/2020 No acute events overnight. Patient seen and examined bedside. Patient notes improve meant and her abdominal pain. Patient tolerated clears and would like to advance diet. Patient's chart, labs, images were reviewed and discussed with RN Feels improved today. Tolerated p.o. well. Vitals/I&O Vitals/I&O: Vital Signs Date Time Temp Pulse Resp B/P (MAP) Pulse Ox O2 Delivery O2 Flow Rate FiO2 01/22/20 10:50 98.2 69 18 176/81 (112) 97 Room Air 98.2 I & O 01/21/20 01/21/20 01/22/20 15:00 23:00 07:00 Intake Total 660 ml 310 ml Output Total 0 ml Balance 660 ml 310 ml 0 ml Physical Exam Physical Exam: GEN: No apparent distress. Alert and oriented HEENT: Normal cephalic, atraumatic, external auditory canals are patent NECK: Supple, no JVD, no thyromegaly was noted LUNGS: Bilateral crackles HEART: RRR, S1, S2 present. Peripheral pulses intact, no obvious murmurs noted ABDOMEN: Soft, minimal epigastric discomfort upon palpation positive bowel sounds, no organomegaly, normal bowel sounds EXTREMITIES: Without clubbing, cyanosis, or edema. Pedal pulses intact. Negative Homans sign General: Alert, Oriented X3, Cooperative, No acute distress Lungs: Clear Abdomen: Soft, Other (mild epigastric TTP, right lower quadrant tenderness) Extremities: No clubbing, No cyanosis Skin: No rashes, No breakdown Labs Labs: Laboratory Tests Test 01/21/20 15:55 01/21/20 20:51 01/22/20 06:10 01/22/20 09:19 Glucose (Fingerstick) 253 mg/dL (70-99) 232 mg/dL (70-99) 318 mg/dL (70-99) White Blood Count 7.9 x10^3/uL (4.0-11.0) Red Blood Count 3.25 x10^6/uL (3.50-5.40) Hemoglobin 10.2 g/dL (12.0-15.5) Hematocrit 30.5 % (36.0-47.0) Mean Corpuscular Volume 94 fL (79-100) Mean Corpuscular Hemoglobin 31 pg (25-35) Mean Corpuscular Hemoglobin Concent 33 g/dL (31-37) Red Cell Distribution Width 15.6 % (11.5-14.5) Platelet Count 288 x10^3/uL (140-400) Neutrophils (%) (Auto) 69 % (31-73) Lymphocytes (%) (Auto) 21 % (24-48) Monocytes (%) (Auto) 6 % (0-9) Eosinophils (%) (Auto) 3 % (0-3) Basophils (%) (Auto) 1 % (0-3) Neutrophils # (Auto) 5.4 x10^3/uL (1.8-7.7) Lymphocytes # (Auto) 1.7 x10^3/uL (1.0-4.8) Monocytes # (Auto) 0.5 x10^3/uL (0.0-1.1) Eosinophils # (Auto) 0.2 x10^3/uL (0.0-0.7) Basophils # (Auto) 0.1 x10^3/uL (0.0-0.2) Sodium Level 135 mmol/L (136-145) Potassium Level 4.0 mmol/L (3.5-5.1) Chloride Level 101 mmol/L (98-107) Carbon Dioxide Level 22 mmol/L (21-32) Anion Gap 12 (6-14) Blood Urea Nitrogen 10 mg/dL (7-20) Creatinine 0.8 mg/dL (0.6-1.0) Estimated GFR (Cockcroft-Gault) 90.4 Glucose Level 318 mg/dL (70-99) Calcium Level 9.2 mg/dL (8.5-10.1) Phosphorus Level 4.4 mg/dL (2.6-4.7) Magnesium Level 2.0 mg/dL (1.8-2.4) Lipase 424 U/L (73-393) Test 01/22/20 11:23 Glucose (Fingerstick) 327 mg/dL (70-99) Assessment and Plan Assessmemt and Plan Problems Medical Problems: (1) Chronic pancreatitis Status: Acute (2) Nausea and vomiting Status: Acute Comment Review of Relevant I have reviewed the following items elena (where applicable) has been applied. Medications: Current Medications Medications (Trade) Dose Ordered Sig/Luis Enrique Route PRN Reason Start Time Stop Time Status Last Admin Dose Admin Insulin Glargine (Lantus Syringe) 35 unit QHS SQ 01/21/20 21:00 01/21/20 21:00 Sodium Chloride 90 meq/Potassium Chloride 50 meq/ Potassium Phosphate 13.6 mmol/Magnesium Sulfate 10 meq/ Calcium Gluconate 10 meq/ Multivitamins 10 ml/Chromium/ Copper/Manganese/ Seleni/Zn 1 ml/ Total Parenteral Nutrition/Amino Acids/Dextrose/ Fat Emulsion Intravenous 1,512 ml @ 63 mls/hr TPN CONT IV 01/21/20 22:00 01/22/20 21:59 01/21/20 22:00 Justifications for Admission Other Justification BAKARI KINGSTON MD Jan 22, 2020 12:11
[2020-01-22] MEDS ORDERED: PROCHLORPERAZINE 10 MG/2 ML VIAL. IV PRN (12:15)
[2020-01-22] MEDS ORDERED: ACETAMINOPHEN 325 MG TABLET. PO PRN (12:15)
[2020-01-22] MEDS: LOSARTAN POTASSIUM 25 MG TABLET. PO SCH (12:29)
[2020-01-22 15:18] VITALS: BP 161/75
[2020-01-22] MEDS: ENOXAPARIN 40 MG/0.4 ML SYRINGE. SQ SCH (17:01)
[2020-01-22] MEDS: HYDROcodone/APAP 7.5/325MG 1 TAB TABLET PO PRN ×2 (17:11→22:48)
--- NOTE | 2020-01-22 17:56 | NUR ---
SW following for discharge planning. Spoke with RN and reviewed chart. Pt on room air. Pt COVID negative. Pt still has PICC but pt's diet has been advanced from TPN to GI soft. Pt on IV pain medications. SW following.
[2020-01-22 19:03] VITALS: BP 153/74
[2020-01-22] MEDS: ZOLPIDEM 5 MG TABLET. PO PRN (20:58)
[2020-01-22] MEDS: QUEtiapine 100 MG TABLET. PO SCH (20:58)
[2020-01-22] MEDS: INSULIN GLARGINE SYRINGE. SQ SCH (21:29)
[2020-01-22 23:00] VITALS: BP_SYST 137; BP_SYST 179; BP_DIAS 80; BP_DIAS 93
[2020-01-23 03:00] VITALS: BP 146/67
[2020-01-23 04:52] LABS: PHOSPHORUS 5.1 mg/dL (2.6-4.7)
[2020-01-23 07:00] VITALS: BP 190/85
[2020-01-23 07:04] LABS: CALCIUM 9.1 mg/dL (8.5-10.1); GFR 69.9
[2020-01-23] MEDS: IV RINGERS,LACTATED 1000ML 1,000 ML IV SCH (07:45)
--- NOTE | 2020-01-23 08:09 | PDOC ---
[facility] PROGRESS NOTE Date of Service DOS: DATE: 01/23/20 TIME: 08:08 Chief Complaint Chief Complaint Assessment/Plan Acute abdominal pain due to acute on chronic pancreatitisrepeat CT scan on 01/19/2020 showed worsening pancreatic fluid Hypertension CAD with stents Diabetes mellitus Advance diet to full liquid diet, once tolerating can consider discontinuing TPN Increased insulin sliding scale to high intensity Increased SCD glargine to 25 units PICC line placed and will continue TPN Pharmacy to consult for TPN calculations. Review for recent medication changes Reviewed tobacco or alcohol abuse Appreciate GI consult and recommendations Every hour Accu-Cheks IV morphine PRN Lovenox for DVT prophylaxis Protonix GI prophylaxis ADA diet Full code Discussed with RN and VIVIAN Dispo admit for pain control Surrogate decision maker is self History of Present Illness History of Present Illness Ms Vargas is a 54-year-old female with past medical history of CAD with stent placement, history of alcohol abuse, diabetes who presents to the ED with generalized abdominal pain that radiates to the back for the past 2 months and has progressively worsened. Patient states that she has had history of acute pancreatitis in the past and also history of alcohol abuse. She has cut down on her smoking and her alcohol drinks immensely. Her last drink she states was about 2 weeks ago. Patient describes her pain as sharp, 6 out of 10, and is associated with nausea and vomiting. Patient denies any bloody bowel movements, fevers, shortness of breath, dysuria, or diarrhea 01/15: Patient did not tolerate clear liquid diet, reassurance provided, I explained the need to give her bowel rest and iv fluids for maintenance Pain management will be adjusted, further recommendations based on clinical course. 01/16: Patient still complains of some abdominal pain, mild nausea. She denies any vomiting. She did lose IV access and discussed with her nursing staff to try to replace this. September 30 for midline if unable to obtain IV access. 01/17: Patient denies any significant improvement in her epigastric abdominal pain. She does report new onset of right lower quadrant pain. She is toleratin g a full liquid diet without any nausea or vomiting. 01/18: Still with pain, improved with meds. Repeat CT concerning fo worsening pancreatitis. Per GI recommendations, will pursue PICC line, TPN, and clear liquids. 01/19: No acute events overnight. PICC line placement and TPN. 01/20: No acute events overnight. Patient seen and examined bedside. Patient notes improve meant and her abdominal pain. Patient tolerated clears and would like to advance diet. Patient's chart, labs, images were reviewed and discussed with RN 01/21: Feels improved today. Tolerated p.o. well. Glucose rising. Afebrile. Off TPN. No pain at all currently. D/w her mother in room ok for d/c home,but to stop HCTZ, stop ozempic or any GLP-1 agonists and to completely avoid alcohol. Vitals/I&O Vitals/I&O: Vital Signs Date Time Temp Pulse Resp B/P (MAP) Pulse Ox O2 Delivery O2 Flow Rate FiO2 01/23/20 03:00 98.6 77 18 146/67 (93) 96 Room Air 98.6 I & O 01/22/20 01/22/20 01/23/20 15:00 23:00 07:00 Intake Total 600 ml Output Total 0 ml Balance 600 ml Physical Exam Physical Exam: GEN: No apparent distress. Alert and oriented HEENT: Normal cephalic, atraumatic, external auditory canals are patent NECK: Supple, no JVD, no thyromegaly was noted LUNGS: Bilateral crackles HEART: RRR, S1, S2 present. Peripheral pulses intact, no obvious murmurs noted ABDOMEN: Soft, minimal epigastric discomfort upon palpation positive bowel sounds, no organomegaly, normal bowel sounds EXTREMITIES: Without clubbing, cyanosis, or edema. Pedal pulses intact. Negative Homans sign General: Alert, Oriented X3, Cooperative, No acute distress Lungs: Clear Abdomen: Soft, Other (mild epigastric TTP, right lower quadrant tenderness) Extremities: No clubbing, No cyanosis Skin: No rashes, No breakdown Labs Labs: Laboratory Tests Test 01/22/20 09:19 01/22/20 11:23 01/22/20 16:52 01/22/20 21:06 Glucose (Fingerstick) 318 mg/dL (70-99) 327 mg/dL (70-99) 197 mg/dL (70-99) 248 mg/dL (70-99) Test 01/23/20 03:25 01/23/20 07:58 Sodium Level 137 mmol/L (136-145) Potassium Level 4.0 mmol/L (3.5-5.1) Chloride Level 101 mmol/L (98-107) Carbon Dioxide Level 24 mmol/L (21-32) Anion Gap 12 (6-14) Blood Urea Nitrogen 10 mg/dL (7-20) Creatinine 1.0 mg/dL (0.6-1.0) Estimated GFR (Cockcroft-Gault) 69.9 Glucose Level 326 mg/dL (70-99) Calcium Level 9.1 mg/dL (8.5-10.1) Phosphorus Level 5.1 mg/dL (2.6-4.7) Magnesium Level 2.0 mg/dL (1.8-2.4) Lipase 604 U/L (73-393) Glucose (Fingerstick) 248 mg/dL (70-99) Assessment and Plan Assessmemt and Plan Problems Medical Problems: (1) Chronic pancreatitis Status: Acute (2) Nausea and vomiting Status: Acute Comment Review of Relevant I have reviewed the following items elena (where applicable) has been applied. Medications: Current Medications Medications (Trade) Dose Ordered Sig/Luis Enrique Route PRN Reason Start Time Stop Time Status Last Admin Dose Admin Acetaminophen (Tylenol) 650 mg PRN Q6HRS PRN PO MILD PAIN / TEMP > 100.3'F 01/22/20 12:15 01/22/20 12:29 Prochlorperazine Edisylate (Compazine) 10 mg PRN Q6HRS PRN IV NAUSEA/VOMITING 01/22/20 12:15 01/22/20 12:29 Insulin Human Lispro (HumaLOG) 8 units TIDAC SQ 01/22/20 12:30 01/22/20 16:57 DC 01/22/20 12:31 Losartan Potassium (Cozaar) 25 mg DAILY PO 01/22/20 12:15 01/22/20 12:29 Insulin Human Lispro (HumaLOG) 3 units TIDAC SQ 01/22/20 17:00 01/22/20 17:03 Justifications for Admission Other Justification BAKARI KINGSTON MD Jan 23, 2020 08:09
[2020-01-23] MEDS: FERROUS SULFATE 325 MG TABLET. PO SCH (08:16)
[2020-01-23] MEDS: NICOTINE 7MG PATCH. TD SCH (08:16)
[2020-01-23] MEDS: POLYETHYLENE GLYCOL 3350 17 GM PACKET. PO SCH (08:16)
[2020-01-23] MEDS: PARoxetine 20 MG TABLET PO SCH (08:17)
[2020-01-23] MEDS: CITALOPRAM 20 MG TABLET. PO SCH (08:17)
[2020-01-23] MEDS: CYANOCOBALAMIN (VITAMIN B-12) 1,000 MCG/ML VIAL IM SCH (08:18)
[2020-01-23] MEDS: LOSARTAN POTASSIUM 25 MG TABLET. PO SCH (08:18)
[2020-01-23] MEDS: PANTOPRAZOLE 40 MG TABLET.DR. PO SCH (08:18)
[2020-01-23] MEDS: HYDROcodone/APAP 7.5/325MG 1 TAB TABLET PO PRN ×2 (08:21→13:54)
[2020-01-23] MEDS: INSULIN LISPRO 300 UNITS/3 ML VIAL. SQ SCH ×4 (08:31→12:48)
[2020-01-23] MEDS ORDERED: amLODIPine BESYLATE 5 MG TABLET PO SCH (09:00)
[2020-01-23 11:00] VITALS: BP 155/77
--- NOTE | 2020-01-23 11:20 | PDOC ---
Date of Service: DATE: 01/23/20 TIME: 11:16 Subjective: Subjective: Feels much better. Just a headache. Abd pain improving. Ate a burger and chicken yesterday. Skipped breakfast because didn't like it. Would like to go home. Objective: Objective: Stools charted. Vital Signs: Vital Signs Date Time Temp Pulse Resp B/P (MAP) Pulse Ox O2 Delivery O2 Flow Rate FiO2 01/23/20 08:21 Room Air 01/23/20 08:18 78 190/85 01/23/20 07:00 98.6 18 96 98.6 Labs: Laboratory Tests Test 01/22/20 11:23 01/22/20 16:52 01/22/20 21:06 01/23/20 07:58 Glucose (Fingerstick) 327 mg/dL (70-99) 197 mg/dL (70-99) 248 mg/dL (70-99) 248 mg/dL (70-99) PE: GEN: NAD - sitting up in bed, looks better today LUNGS: clear anteriorly HEART: RRR ABD: soft, less right-sided discomfort NEURO/PSYCH: A & O 3 A/P: Alcoholic pancreatitis, possible pseudocyst - tolerating soft diet FUNMILAYO/B12 deficiency, GERD, constipation Headache, HTN - per primary -- Tolerating GI soft diet, symptoms improved. Okay to DC per GI. Our office will contact for interval pancreas imaging - will review timing w/ Dr. Nieto. Also needs outpt 'scopes. Continue iron, B12, PPI, and Miralax or similar as needed. Justicifation of Admission Dx: Justifications for Admission: Justification of Admission Dx: Yes DONNA JUAREZ Jan 23, 2020 11:20
[2020-01-23] MEDS ORDERED: ASA/APAP/CAFFEINE 250/250/65MG TABLET. PO ONE (12:30)
--- NOTE | 2020-01-23 12:32 | PDOC3 ---
Discharge Summary Visit Information Date of Admission: Jan 15, 2020 Date of Discharge: Jan 23, 2020 Admitting Diagnosis: Acute on chronic pancreatitis Final Diagnosis Problems Medical Problems: (1) Chronic pancreatitis Status: Acute (2) Nausea and vomiting Status: Acute Brief Hospital Course Allergies Allergies Coded Allergies Type Severity Reaction Last Updated Verified adhesive tape Allergy Intermediate Rash 11/14/19 Yes Vital Signs Vital Signs Date Time Temp Pulse Resp B/P (MAP) Pulse Ox O2 Delivery O2 Flow Rate FiO2 01/23/20 11:00 98.6 77 18 155/77 (103) 97 Room Air 98.6 Lab Results Laboratory Tests Test 01/21/20 15:55 01/21/20 20:51 01/22/20 06:10 01/22/20 09:19 Glucose (Fingerstick) 253 mg/dL (70-99) 232 mg/dL (70-99) 318 mg/dL (70-99) White Blood Count 7.9 x10^3/uL (4.0-11.0) Red Blood Count 3.25 x10^6/uL (3.50-5.40) Hemoglobin 10.2 g/dL (12.0-15.5) Hematocrit 30.5 % (36.0-47.0) Mean Corpuscular Volume 94 fL (79-100) Mean Corpuscular Hemoglobin 31 pg (25-35) Mean Corpuscular Hemoglobin Concent 33 g/dL (31-37) Red Cell Distribution Width 15.6 % (11.5-14.5) Platelet Count 288 x10^3/uL (140-400) Neutrophils (%) (Auto) 69 % (31-73) Lymphocytes (%) (Auto) 21 % (24-48) Monocytes (%) (Auto) 6 % (0-9) Eosinophils (%) (Auto) 3 % (0-3) Basophils (%) (Auto) 1 % (0-3) Neutrophils # (Auto) 5.4 x10^3/uL (1.8-7.7) Lymphocytes # (Auto) 1.7 x10^3/uL (1.0-4.8) Monocytes # (Auto) 0.5 x10^3/uL (0.0-1.1) Eosinophils # (Auto) 0.2 x10^3/uL (0.0-0.7) Basophils # (Auto) 0.1 x10^3/uL (0.0-0.2) Sodium Level 135 mmol/L (136-145) Potassium Level 4.0 mmol/L (3.5-5.1) Chloride Level 101 mmol/L (98-107) Carbon Dioxide Level 22 mmol/L (21-32) Anion Gap 12 (6-14) Blood Urea Nitrogen 10 mg/dL (7-20) Creatinine 0.8 mg/dL (0.6-1.0) Estimated GFR (Cockcroft-Gault) 90.4 Glucose Level 318 mg/dL (70-99) Calcium Level 9.2 mg/dL (8.5-10.1) Phosphorus Level 4.4 mg/dL (2.6-4.7) Magnesium Level 2.0 mg/dL (1.8-2.4) Lipase 424 U/L (73-393) Test 01/22/20 11:23 01/22/20 16:52 01/22/20 21:06 01/23/20 03:25 Glucose (Fingerstick) 327 mg/dL (70-99) 197 mg/dL (70-99) 248 mg/dL (70-99) Sodium Level 137 mmol/L (136-145) Potassium Level 4.0 mmol/L (3.5-5.1) Chloride Level 101 mmol/L (98-107) Carbon Dioxide Level 24 mmol/L (21-32) Anion Gap 12 (6-14) Blood Urea Nitrogen 10 mg/dL (7-20) Creatinine 1.0 mg/dL (0.6-1.0) Estimated GFR (Cockcroft-Gault) 69.9 Glucose Level 326 mg/dL (70-99) Calcium Level 9.1 mg/dL (8.5-10.1) Phosphorus Level 5.1 mg/dL (2.6-4.7) Magnesium Level 2.0 mg/dL (1.8-2.4) Lipase 604 U/L (73-393) Test 01/23/20 07:58 01/23/20 12:21 Glucose (Fingerstick) 248 mg/dL (70-99) 224 mg/dL (70-99) Laboratory Tests Test 01/22/20 16:52 01/22/20 21:06 01/23/20 03:25 01/23/20 07:58 Glucose (Fingerstick) 197 mg/dL (70-99) 248 mg/dL (70-99) 248 mg/dL (70-99) Sodium Level 137 mmol/L (136-145) Potassium Level 4.0 mmol/L (3.5-5.1) Chloride Level 101 mmol/L (98-107) Carbon Dioxide Level 24 mmol/L (21-32) Anion Gap 12 (6-14) Blood Urea Nitrogen 10 mg/dL (7-20) Creatinine 1.0 mg/dL (0.6-1.0) Estimated GFR (Cockcroft-Gault) 69.9 Glucose Level 326 mg/dL (70-99) Calcium Level 9.1 mg/dL (8.5-10.1) Phosphorus Level 5.1 mg/dL (2.6-4.7) Magnesium Level 2.0 mg/dL (1.8-2.4) Lipase 604 U/L (73-393) Test 01/23/20 12:21 Glucose (Fingerstick) 224 mg/dL (70-99) Brief Hospital Course Ms Vargas is a 54-year-old female with past medical history of CAD with stent placement, history of alcohol abuse, diabetes who presents to the ED with gener alized abdominal pain that radiates to the back for the past 2 months and has progressively worsened. Patient states that she has had history of acute pancreatitis in the past and also history of alcohol abuse. She has cut down on her smoking and her alcohol drinks immensely. Her last drink she states was about 2 weeks ago. Patient describes her pain as sharp, 6 out of 10, and is associated with nausea and vomiting. Patient denies any bloody bowel movements, fevers, shortness of breath, dysuria, or diarrhea 01/15: Patient did not tolerate clear liquid diet, reassurance provided, I explained the need to give her bowel rest and iv fluids for maintenance Pain management will be adjusted, further recommendations based on clinical course. 01/16: Patient still complains of some abdominal pain, mild nausea. She denies any vomiting. She did lose IV access and discussed with her nursing staff to try to replace this. September 30 for midline if unable to obtain IV access. 01/17: Patient denies any significant improvement in her epigastric abdominal pain. She does report new onset of right lower quadrant pain. She is tolerating a full liquid diet without any nausea or vomiting. 01/18: Still with pain, improved with meds. Repeat CT concerning fo worsening pancreatitis. Per GI recommendations, will pursue PICC line, TPN, and clear liquids. 01/19: No acute events overnight. PICC line placement and TPN. 01/20: No acute events overnight. Patient seen and examined bedside. Patient notes improve meant and her abdominal pain. Patient tolerated clears and would like to advance diet. Patient's chart, labs, images were reviewed and discussed with RN 01/21: Feels improved today. Tolerated p.o. well. Glucose rising. Afebrile. Off TPN. No pain at all currently. D/w her mother in room ok for d/c home,but to stop HCTZ, stop ozempic or any GLP-1 agonists and to completely avoid alcohol. Consults: GI Problem list: Acute abdominal pain due to acute on chronic pancreatitisrepeat CT scan on 01/19/2020 showed worsening pancreatic fluid Hypertension CAD with stents Diabetes mellitus Greater than 30 minutes spent on d/c home Discharge Information Condition at Discharge: Improved Follow Up: Weeks Disposition/Orders: D/C to Home Scheduled Aspirin (Aspirin Ec) 81 Mg Tablet.dr, 81 MG PO DAILYWBKFT, #30 Prescribed by: ART JALLOH MD on 02/14/16 3521 Last Action: HELD on 01/15/202004 by MALISSA WEN MD Bupropion HCl (Bupropion Xl) 450 Mg Tab.er.24h, 1 TAB PO DAILYWBKFT for antismoking for 30 Days, #30 Ref 0 (Reported) Entered as Reported by: MICK VASQUEZ RN on 01/15/201939 Last Taken: UNKNOWN on Unknown Date & Time Last Action: HELD on 01/15/202004 by MALISSA WEN MD Cholecalciferol (Vitamin D3) (D3-50) 50,000 Unit Capsule, 50,000 UNIT PO DAILY for Supplement, (Reported) Entered as Reported by: MICK VASQUEZ RN on 01/15/201939 Last Taken: UNKNOWN on Unknown Date & Time Last Action: HELD on 01/15/202004 by MALISSA WEN MD Clopidogrel Bisulfate (Clopidogrel) 75 Mg Tablet, 1 TAB PO DAILY, #90 Ref 1 Prescribed by: JOHN SCOTT APRN on 08/28/16 1549 Last Action: HELD on 01/15/202004 by MALISSA WEN MD Cyanocobalamin (Vitamin B-12) (B-12) 1,000 Mcg Tablet, 1 TAB PO DAILY for Supplement for 30 Days, #30 Ref 0 (Reported) Entered as Reported by: MICK VASQUEZ RN on 01/15/201939 Last Taken: UNKNOWN on Unknown Date & Time Last Action: HELD on 01/15/202004 by MALISSA WEN MD Escitalopram Oxalate (Lexapro) 20 Mg Tablet, 1 TAB PO DAILY, #90 Ref 3 (Reported) Entered as Reported by: XOCHITL RAMIREZ on 11/15/17 1213 Last Action: Converted on 01/18/201902 by MALISSA WEN MD Fluticasone Propionate (Fluticasone Propionate Nasal [place]) 16 Gm [place].susp, 2 SPRAY NS DAILY for Congestion, #1 Ref 11 (Reported) Entered as Reported by: MICK VASQUEZ RN on 01/15/201939 Last Taken: UNKNOWN on Unknown Date & Time Last Action: HELD on 01/15/202004 by MALISSA WEN MD Gabapentin (Gabapentin ) 300 Mg Capsule, 300 MG PO TID, (Reported) Entered as Reported by: XOCHITL RAMIREZ on 11/15/17 1225 Last Action: HELD on 01/15/202004 by MALISSA WEN MD Insulin Glargine,Hum.rec.anlog (Lantus Solostar) 100 Unit/1 Ml Insuln.pen, 35 UNIT SQ QHS, #15 Ref 3 (Reported) Entered as Reported by: XOCHITL RAMIREZ on 11/15/17 1231 Last Action: Converted on 01/21/20 0851 by MALISSA WEN MD Insulin Lispro (Humalog) 100 Unit/1 Ml Cartridge, 16 UNIT SQ TIDAC, (Reported) Entered as Reported by: XOCHITL RAMIREZ on 11/15/17 1233 Last Action: HELD on 01/15/202004 by MALISSA WEN MD Isosorbide Mononitrate (Isosorbide Mononitrate Er) 30 Mg Tab.er.24h, 1 TAB PO DAILY for Cardiac, #30 Ref 5 (Reported) Entered as Reported by: MICK VASQUEZ RN on 01/15/201950 Last Action: HELD on 01/15/202004 by MALISSA WEN MD Lisinopril (Lisinopril) 20 Mg Tablet, 1 TAB PO DAILY, #30 Ref 5 (Reported) Entered as Reported by: XOCHITL RAMIREZ on 11/15/17 1226 Last Action: HELD on 01/15/202004 by MALISSA WEN MD Metoprolol Succinate (Metoprolol Succinate ( Xl )) 25 Mg Tab.er.24h, 1 TAB PO D AILY, #30 Ref 5 Prescribed by: JOHN SCOTT APRN on 08/28/16 1542 Last Action: Continued on 01/18/201902 by MALISSA WEN MD [place]-3/Dha/Epa/Fish Oil (Fish Oil 1,000 mg Softgel) 1,000 Mg Capsule, 1 CAP PO BID for supplement for 30 Days, #60 Ref 0 (Reported) Entered as Reported by: MICK VASQUEZ RN on 01/15/201939 Last Taken: UNKNOWN on Unknown Date & Time Last Action: HELD on 01/15/202004 by MALISSA WEN MD Omeprazole (Omeprazole) 20 Mg Capsule.dr, 1 CAP PO DAILY for gerd, #30 Ref 5 (Reported) Entered as Reported by: MICK VASQUEZ RN on 01/15/201950 Last Taken: UNKNOWN on Unknown Date & Time Last Action: HELD on 01/15/202004 by MALISSA WEN MD Ondansetron (Ondansetron Odt) 4 Mg Tab.rapdis, 1 TAB PO PRN Q6-8HRS for N/V, #16 (Reported) Entered as Reported by: MICK VASQUEZ RN on 01/15/201950 Last Taken: UNKNOWN on Unknown Date & Time Last Action: HELD on 01/15/202004 by MALISSA WEN MD Potassium Chloride (Potassium Chloride ) 20 Meq Tablet.er, 20 MEQ PO DAILY for SUPPLEMENT, (Reported) Entered as Reported by: MICK VASQUEZ RN on 01/15/201950 Last Taken: UNKNOWN on Unknown Date & Time Last Action: HELD on 01/15/202004 by MALISSA WEN MD Quetiapine Fumarate (Seroquel) 100 Mg Tablet, 1 TAB PO QHS for Bipolar, #30 (Reported) Entered as Reported by: MICK VASQUEZ RN on 01/15/201950 Last Taken: UNKNOWN on Unknown Date & Time Last Action: Continued on 01/18/201902 by MALISSA WEN MD Rosuvastatin Calcium (Crestor) 40 Mg Tablet, 1 TAB PO DAILY for HLD, #30 Ref 5 (Reported) Entered as Reported by: MICK VASQUEZ RN on 01/15/201950 Last Taken: UNKNOWN on Unknown Date & Time Last Action: HELD on 01/15/202004 by MALISSA WEN MD Spironolactone (Spironolactone) 25 Mg Tablet, 1 TAB PO DAILY for HTN, #90 Ref 1 (Reported) Entered as Reported by: MICK VASQUEZ RN on 01/15/201950 Last Taken: UNKNOWN on Unknown Date & Time Last Action: HELD on 01/15/202004 by MALISSA WEN MD Scheduled PRN Albuterol Sulfate (Proair Respiclick) 90 Mcg Aer.pow.ba, 2 PUFF IH PRN PRN for SHORTNESS OF BREATH, (Reported) Entered as Reported by: XOCHITL RAMIREZ on 11/15/17 1212 Last Action: HELD on 01/15/202004 by MALISSA WEN MD Furosemide (Furosemide) 20 Mg Tablet, 1 TAB PO PRN DAILY PRN for SWELLING, #90 Ref 1 (Reported) Entered as Reported by: XOCHITL RAMIREZ on 11/15/17 1215 Last Action: HELD on 01/15/202004 by MALISSA WEN MD Hydrocodone/Apap 7.5-325 ([place] 7.5-325 Tablet) 1 Each Tablet, 1 TAB PO PRN Q6HRS PRN for PAIN, #20 Ref 0 Prescribed by: VICKY OCHOA on 11/16/17 1226 Last Action: Continued on 01/17/20 175 by DIONICIO SALAS Ibuprofen (Ibuprofen) 400 Mg Tablet, 400 MG PO PRN Q6HRS PRN for INFLAMMATION, (Reported) Entered as Reported by: MICK VASQUEZ RN on 01/15/201939 Last Taken: UNKNOWN on Unknown Date & Time Last Action: HELD on 01/15/202004 by MALISSA WEN MD Sennosides (Senokot) 8.6 Mg Tablet, 1 TAB PO PRN PRN for CONSTIPATION, #40 (Reported) Entered as Reported by: XOCHITL RAMIREZ on 11/15/17 1229 Last Action: HELD on 01/15/202004 by MALISSA WEN MD Triazolam (Triazolam) 0.25 Mg Tablet, 2 TAB PO PRN QHS PRN for sleep MDD 2 Tablet(s) for 30 Days, #60 Ref 0 (Reported) Entered as Reported by: MICK VASQUEZ RN on 01/15/201950 Last Taken: UNKNOWN on Unknown Date & Time Last Action: Converted on 01/18/201902 by MALISSA WEN MD Miscellaneous Medications Lidocaine (Lidocaine PATCH ) 1 Each Adh..patch, 1 EACH TP, (Reported) Entered as Reported by: XOCHITL RAMIREZ on 11/15/17 1231 Last Action: HELD on 01/15/202004 by MALISSA WEN MD Discontinued Medications Atorvastatin Calcium (Atorvastatin Calcium) 40 Mg Tablet, 80 MG PO QHS, #60 Prescribed by: ART JALLOH MD on 02/14/16 1731 Last Action: HELD on 01/15/202004 by MALISSA WEN MD Cimetidine Hcl (Cimetidine) 300 Mg/5 Ml Solution, 300 MG PO BID for Gerd, (Reported) Entered as Reported by: MICK VASQUEZ RN on 01/15/201939 Last Taken: UNKNOWN on Unknown Date & Time Last Action: HELD on 01/15/202004 by MALISSA WEN MD Escitalopram Oxalate (Escitalopram Oxalate) 20 Mg Tablet, 1 TAB PO DAILY for Bipolar, #30 Ref 5 (Reported) Entered as Reported by: MICK VASQUEZ RN on 01/15/201939 Last Taken: UNKNOWN on Unknown Date & Time Last Action: HELD on 01/15/202004 by MALISSA WEN MD Fenofibrate Nanocrystallized (Fenofibrate) 145 Mg Tablet, 1 TAB PO DAILY for HLD, #30 Ref 5 (Reported) Entered as Reported by: MICK VASQUEZ RN on 01/15/201939 Last Taken: UNKNOWN on Unknown Date & Time Last Action: HELD on 01/15/202004 by MALISSA WEN MD Hydrochlorothiazide (Hydrochlorothiazide Tablet) 12.5 Mg Tablet, 1 TAB PO DAILY, #30 Ref 5 (Reported) Entered as Reported by: XOCHITL RAMIREZ on 6/5 Last Action: HELD on 01/15/202004 by MALISSA WEN MD Losartan Potassium (Losartan Potassium) 100 Mg Tablet, 100 MG PO DAILY for HYP ERTENSION, (Reported) Entered as Reported by: MICK VASQUEZ RN on 01/15/201950 Last Taken: UNKNOWN on Unknown Date & Time Last Action: HELD on 01/15/202004 by MALISSA WEN MD Nitroglycerin (NITROGLYCERIN SubLingual) 0.4 Mg Tab.subl, 0.4 MG SL PRN Q5MIN PRN for CHEST PAIN, (Reported) Entered as Reported by: MICK VASQUEZ RN on 01/15/201950 Last Taken: UNKNOWN on Unknown Date & Time Last Action: HELD on 01/15/202004 by MALISSA WEN MD Paroxetine Hcl (Paxil) 20 Mg Tablet, 1 TAB PO DAILY, #30 Ref 5 (Reported) Entered as Reported by: XOCHITL RAMIREZ on 11/15/17 1226 Last Action: Continued on 01/18/201902 by MALISSA WEN MD Quetiapine Fumarate (Seroquel) 400 Mg Tablet, 1 TAB PO QHS for bipolar, #30 Ref 2 (Reported) Entered as Reported by: MICK VASQUEZ RN on 01/15/201950 Last Taken: UNKNOWN on Unknown Date & Time Last Action: HELD on 01/15/202004 by MALISSA WEN MD Ranitidine Hcl (Zantac) 150 Mg Tablet, 1 TAB PO BID, #60 Ref 3 (Reported) Entered as Reported by: XOCHITL RAMIREZ on 11/15/171226 Last Action: HELD on 01/15/202004 by MALISSA WEN MD Justicifation of Admission Dx: Justifications for Admission: Justification of Admission Dx: Yes BAKARI KINGSTON MD Jan 23, 2020 12:32
--- NOTE | 2020-01-23 14:00 | NUR ---
Discharge Note: JONO HOLT [facility] Discharge instructions and discharge home medications reviewed with Patient and a copy given. All questions have been answered and understanding verbalized. The following instructions and handouts were given: f/u with pcp within one week. Discontinued lines and drains: MARIELOS BULLOCK PICC Line. Patient discharged to Home or Self Care with Family Member via Wheelchair
--- NOTE | 2020-01-23 17:03 | NUR ---
SW following. Spoke with RN and reviewed chart. Pt ready for discharge home today, self-care. No further SW needs identified at this time.
== END 2020-01-23 14:00 | disposition home or self-care (01) | DRG 439 ==
LOC: ER 10:35 → 2 NORTH 15:35 → 6 SOUTH 01-20 05:54
PROVIDERS: ADMIT Internal Medicine; ATTEND Internal Medicine
PROC: 02HV33Z Insertion of Infusion Device into Superior Vena Cava, Percutaneous Approach (ICD-10-PCS; principal; 2020-01-15)
DX: K85.90 Acute pancreatitis without necrosis or infection, unspecified (principal); D62 Acute posthemorrhagic anemia; E78.5 Hyperlipidemia, unspecified; D64.9 Anemia, unspecified; E11.22 Type 2 diabetes mellitus with diabetic chronic kidney disease; E11.40 Type 2 diabetes mellitus with diabetic neuropathy, unspecified; E11.51 Type 2 diabetes mellitus with diabetic peripheral angiopathy without gangrene; E53.8 Deficiency of other specified B group vitamins; F03.90 Unspecified dementia, unspecified severity, without behavioral disturbance, psychotic disturbance, mood disturbance, and anxiety; F10.10 Alcohol abuse, uncomplicated; F17.210 Nicotine dependence, cigarettes, uncomplicated; F31.9 Bipolar disorder, unspecified; K86.1 Other chronic pancreatitis; I12.9 Hypertensive chronic kidney disease with stage 1 through stage 4 chronic kidney disease, or unspecified chronic kidney disease; I25.10 Atherosclerotic heart disease of native coronary artery without angina pectoris; I25.2 Old myocardial infarction; K21.9 Gastro-esophageal reflux disease without esophagitis; K59.00 Constipation, unspecified; K76.0 Fatty (change of) liver, not elsewhere classified; N18.9 Chronic kidney disease, unspecified; Z82.49 Family history of ischemic heart disease and other diseases of the circulatory system; Z83.3 Family history of diabetes mellitus; Z86.73 Personal history of transient ischemic attack (TIA), and cerebral infarction without residual deficits; Z95.5 Presence of coronary angioplasty implant and graft; F41.9 Anxiety disorder, unspecified; M54.5 Low back pain; Z79.84 Long term (current) use of oral hypoglycemic drugs
CPT/HCPCS: 36415; 36569; 71045; 74160; 74177; 80048; 80053; 80061; 80076; 81001; 82550; 82607; 82962; 83540; 83550; 83690; 83735; 84100; 84478; 84484; 85025; 86038; 93005; 96361; 96374; 99285; J0610; J0780; J1650; J1815; J1885; J2270; J3420; J3475; J3480; J3490; J7030; J7120; Q9967; G0378

== ENCOUNTER 2020-06-20 07:05 | Inpatient (IN) | payer OTHER ==
[~2020-06-20] VITALS: Ht 170.2 cm; Wt 96.0 kg
[~2020-06-20 07:05] MED LIST changes: +BUPR450T3 PO; +CHOL500021 PO; +CIME300S4 PO; +CRESTOR40 MG PO; +CYAN100072 PO; +ESCITALOPRAM OX20 MG PO; +FENO145T3 PO; +FLUT16SP NS; +IBUP-1027 PO; +ISOS30TA68 PO; -LISI-334 PO; +LISI20TA18 PO; +LOSA100T14 PO; +NITR0.4T22 SL; +OMEG100021 PO; +OMEP20CA16 PO; +ONDA4TAB12 PO; +POTA20TA4 PO; +QUET100T4 PO; +QUET400T4 PO; +SPIR25TA5 PO; +TRIA0.2567 PO
[2020-06-20 07:40] LABS: BASO # 0.1 x10^3/uL (0.0-0.2); BASO % 1 % (0-3); EOS # 0.2 x10^3/uL (0.0-0.7); EOS % 2 % (0-3); HEMATOCRIT 41.6 % (36.0-47.0); HEMOGLOBIN 13.5 g/dL (12.0-15.5); LYMPH # 1.1 x10^3/uL (1.0-4.8); LYMPH % 11 % (24-48); MEAN CORPUSCULAR HEMOGLOBIN 30 pg (25-35); MEAN CORPUSCULAR HGB CONC 32 g/dL (31-37); MEAN CORPUSCULAR VOLUME 92 fL (79-100); MONO # 0.5 x10^3/uL (0.0-1.1); MONO % 4 % (0-9); NEUT # 8.6 x10^3/uL (1.8-7.7); NEUT % 82 % (31-73); PLATELET COUNT 303 x10^3/uL (140-400); RED BLOOD COUNT 4.53 x10^6/uL (3.50-5.40); RED CELL DISTRIBUTION WIDTH 14.7 % (11.5-14.5); WHITE BLOOD COUNT 10.5 x10^3/uL (4.0-11.0)
--- NOTE | 2020-06-20 07:44 | PHYS DOC ---
Past Medical History Past Medical History: Alcoholism, CVA, Diabetes-Type II, TN, Pancreatitis Additional Past Medical Histor: neuropathy, SI, diabetic foot ulcer r heel Past Surgical History: Other Additional Past Surgical Histo: cardiac stent, Rt great toe amputation Smoking Status: Current Every Day Smoker Alcohol Use: Heavy Additional Information: SOBER x1 MO Drug Use: None General Adult EDM: Chief Complaint: ABDOMINAL PAIN HPI: HPI: 55-year-old female past medical history of hypertension, CAD w/stent placement, diabetes, history of alcohol abuse and pancreatitis 6 months ago, presents the ED with complaints of sharp, nonradiating upper abdominal pain for the past 3 days, is concerned she is having pancreatitis again. Reports nausea and vomi ting 2 days ago, last bowel movement was 2 days ago. Last alcoholic beverage was on Wednesday-reports half a glass of wine while watching the [employer] game. no PSH. Was seen by her pmd on Wednesday for these symptoms and prescribed amytriptyline. Stopped taking is because it made her "feel weird." Denies any IVDU/ cocaine use. Upon ROS, has cp that started 2 days ago. Has no taken her BP medications today but reports compliance. Review of Systems: Review of Systems: Constitutional: Denies fever or chills. [] Eyes: Denies change in visual acuity. [] HENT: Denies nasal congestion or sore throat. [] Respiratory: Denies cough or shortness of breath. [] Cardiovascular: Denies syncope or hemoptysis GI: Denies melena, hematochezia, hematemesis, constipation or diarrhea : Denies dysuria or hematuria Musculoskeletal: Denies joint pain or swelling Integument: Denies rash or diaphoresis Neurologic: Denies headache, focal weakness or sensory changes. [] Endocrine: Denies polyuria or polydipsia. [] Lymphatic: Denies swollen glands. [] Psychiatric: Denies depression or anxiety. [] Heart Score: Risk Factors: Risk Factors: DM, Current or recent (<one month) smoker, HTN, HLP, family history of CAD, obesity. Risk Scores: Score 0 - 3: 2.5% MACE over next 6 weeks - Discharge Home Score 4 - 6: 20.3% MACE over next 6 weeks - Admit for Clinical Observation Score 7 - 10: 72.7% MACE over next 6 weeks - Early Invasive Strategies Current Medications: Current Medications Medications (Trade) Dose Ordered Sig/Luis Enrique Start Time Stop Time Status Last Admin Dose Admin Sodium Chloride 1,000 ml @ 1,000 mls/hr Q1H 06/20/20 07:45 06/20/20 08:44 Allergies: Allergies: Allergies Coded Allergies Type Severity Reaction Last Updated Verified adhesive tape Allergy Intermediate Rash 11/14/19 Yes Physical Exam: PE: Constitutional: Afebrile, hypertensive, nontoxic appearing HENT: Normocephalic, atraumatic, Eyes: EOMI, conjunctiva normal, no discharge. Neck: Normal range of motion, supple, Cardiovascular: S1/2 present, regular rhythm Lungs & Thorax: Speaking in full sentences, bilateral equal chest rise, no tachypnea or increased work of breathing Abdomen: soft, very tender in RLQ, RUQ, LUG, no peritonitis or rigidity Skin: Warm, dry, no erythema, no rash. [] Back: No midline tenderness, right CVA tenderness. [] Extremities: No tenderness, no cyanosis, no edema Neurologic: Alert and oriented X 3, normal motor function, normal sensory function, no focal deficits noted. [] Psychologic: Affect normal, judgement normal, mood normal. [] Current Patient Data: Vital Signs: Vital Signs Date Time Temp Pulse Resp B/P (MAP) Pulse Ox O2 Delivery O2 Flow Rate FiO2 06/20/20 07:10 98.4 92 12 187/88 (121) 100 Room Air 98.4 EKG: EKG: sinus at 90 bpm, no axis deviation, prolonged QTC of 467, no ST elevations, ST segment depressions in lead II, III, and aVF, no T wave inversions, -I compared this with October [address] segment depressions do appear worsened on reeval pt reports "yes" to nonradiating chest pressure that has been present for more than 24 hours. Radiology/Procedures: Radiology/Procedures: IMAGING REPORT Signed PATIENT: JONO HOLT V ACCOUNT: [id number] : 1965 LOCATION: ER AGE: 55 SEX: F EXAM STATUS: REG ER ORD. PHYSICIAN: CINTHYA MARIANO DO REASON: ruQ pain, h/o pacnreatitis PROCEDURE: CT ABD PELV W/ IV CONTRST ONLY CT of the abdomen and pelvis with contrast. HISTORY: Right upper quadrant pain, history of pancreatitis. CT scan the abdomen and pelvis was done using 75 mL Omnipaque 300 contrast. Lung bases are clear. There is no effusion. There is a cyst in the right liver without change from the prior study. No new liver lesion is noted. Spleen and adrenal glands are normal. 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 There is no mass or hydronephrosis in the kidneys. There is been an improvement at the tail the pancreas compared to the study from January 18. There is now increased edema and inflammation about the head of the pancreas extending into the mesentery most consistent with an acute pancreatitis. I do not see free air that might suggest perforated ulcer. There is no bowel obstruction. Appendix is normal. There is a small amount of free fluid in the pelvis. Uterus and ovaries are unremarkable. Bladder is normal. IMPRESSION: 1. Peripancreatic inflammation and fluid about the head of the pancreas suggests an acute pancreatitis. 2. Improvement at the tail of the pancreas compared to December 2019. 3. Mild free fluid in the pelvis. PQRS Compliance Statement: One or more of the following individualized dose reduction techniques were utilized for this examination: 1. Automated exposure control 2. Adjustment of the mA and/or kV according to patient size 3. Use of iterative reconstruction technique Electronically signed by: Babak Smith MD (06/20/2020 8:49 AM) [id number] DICTATED and SIGNED BY: BABAK SMITH MD DATE: 06/20/20 [id number] 0 IMAGING REPORT Signed PATIENT: JONO HOLT V ACCOUNT: [id number] : 1965 LOCATION: ER AGE: 55 SEX: F EXAM STATUS: REG ER ORD. PHYSICIAN: CINTHYA MARIANO DO REASON: abd pain PROCEDURE: CHEST AP ONLY EXAM: XR CHEST 1V 06/20/2020 8:06 AM CLINICAL INDICATION: Abdominal pain COMPARISON: Chest radiograph 01/19/2020 TECHNIQUE: AP upright view of the chest FINDINGS: The heart and mediastinum are normal. Lungs are well-expanded. A calcified granuloma in the medial left lung base is unchanged. No consolidation, pleural effusion, or pneumothorax. Pulmonary vascularity is normal. Moderate bilateral acromioclavicular degenerative joint disease. IMPRESSION: No acute cardiopulmonary abnormality. Electronically signed by: Madeline Farfan MD (06/20/2020 8:18 AM) [id number] DICTATED and SIGNED BY: MADELINE FARFAN MD DATE: 06/20/20 [id number] 0 Course & Med Decision Making: Course & Med Decision Making Pertinent Labs and Imaging studies reviewed. (See chart for details) Concern for acute pancreatitis and symptomatic hypertension w/EKG changes. Was given nitro and analgesia in ed. Susan grading of pancreatitis score 2 = mild. Patient with no hypocalcemia. Hyperglycemia is consistent with prior lab levels. Lactic acid and blood cultures pending. Will admit for further medical management and cardiology consultation. Patient stable time of admission and agrees this plan. I have spoken with the patient and/or caregivers. I have explained the p atient's condition, diagnosis and treatment plan based on the information available to me at this time. I have answered the patient's and/or caregivers questions and answered any concerns. The patient and/or caregivers have as good an understanding of the patient's diagnosis, condition and treatment plan as can be expected at this point. The patient has been stabilized within the capability of the emergency department. The patient will be transported for further care and management or will be moved to an observation or inpatient service. I have communicated with the staff or medical practitioner taking over this patient's care. Vivienne Disclaimer: Vivienne Disclaimer: This electronic medical record was generated, in whole or in part, using a voice recognition dictation system. Departure Departure Impression: Primary Impression: Acute pancreatitis Additional Impressions: Inferior ST segment depression Uncontrolled hypertension Disposition: ADMITTED INPT THIS HOSP Admitting Physician: CARISA (Dr. Espinoza) Condition: STABLE Referrals: MILLA ZALDIVAR APRN (PCP) CINTHYA MARIANO DO Jun 20, 2020 07:44
[2020-06-20] MEDS ORDERED: IV NORMAL SALINE 1000ML BAG 1,000 ML IV SCH (07:45)
[2020-06-20 07:52] LABS: CALCIUM 9.6 mg/dL (8.5-10.1); GFR 69.7
[2020-06-20 07:57] LABS: ALBUMIN 3.7 g/dL (3.4-5.0); TOTAL BILIRUBIN 0.5 mg/dL (0.2-1.0); TOTAL PROTEIN 7.5 g/dL (6.4-8.2)
[2020-06-20 08:00] LABS: BILIRUBIN,URINE NEGATIVE (NEG); CLARITY,URINE CLEAR; COLOR,URINE YELLOW; NITRITE,URINE NEGATIVE (NEG); PROTEIN,URINE 100 mg/dL (NEG-TRACE); UROBILINOGEN,URINE 0.2 mg/dL (0.2 mg/dL)
[2020-06-20 08:07] LABS: BARBITURATES NEG (NEG); BENZODIAZEPINES NEG (NEG); CANNABINOIDS NEG (NEG); COCAINE NEG (NEG); METHADONE NEG (NEG); OPIATES NEG (NEG); PHENCYCLIDINE NEG (NEG)
[2020-06-20 08:09] LABS: AMPHETAMINE/METHAMPHETAMINE NEG (NEG)
[2020-06-20 08:10] LABS: BACTERIA,URINE FEW /HPF (0-FEW); RBC,URINE OCC /HPF (0-2); WBC,URINE OCC /HPF (0-4)
[2020-06-20] MEDS ORDERED: fentaNYL PF VIAL 100 MCG/2 ML VIAL IVP ONE (08:15)
[2020-06-20] MEDS ORDERED: NITROGLYCERIN OINT 1 GM PACKET. TP ONE (08:15)
[2020-06-20] MEDS ORDERED: IOHEXOL 300 MG/ML 100ML VIAL. IV ONE (08:15)
[2020-06-20 08:18] LABS: DIRECT BILIRUBIN 0.1 mg/dL (0.0-0.2); MAGNESIUM 1.9 mg/dL (1.8-2.4)
--- NOTE | 2020-06-20 08:20 | RAD ---
EXAM: XR CHEST 1V 06/20/2020 8:06 AM CLINICAL INDICATION: Abdominal pain COMPARISON: Chest radiograph 01/19/2020 TECHNIQUE: AP upright view of the chest FINDINGS: The heart and mediastinum are normal. Lungs are well-expanded. A calcified granuloma in t he medial left lung base is unchanged. No consolidation, pleural effusion, or pneumothorax. Pulmonar y vascularity is normal. Moderate bilateral acromioclavicular degenerative joint disease. IMPRESSION: No acute cardiopulmonary abnormality. Electronically signed by: Madeline Farfan MD (06/20/2020 8:18 AM) [id number]
[2020-06-20] MEDS ORDERED: CONTRAST GIVEN. MC PRN (08:30)
--- NOTE | 2020-06-20 08:52 | RAD ---
CT of the abdomen and pelvis with contrast. HISTORY: Right upper quadrant pain, history of pancreatitis. CT scan the abdomen and pelvis was done using 75 mL Omnipaque 300 contrast. Lung bases are clear. The re is no effusion. There is a cyst in the right liver without change from the prior study. No new diane er lesion is noted. Spleen and adrenal glands are normal. 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 There is no m ass or hydronephrosis in the kidneys. There is been an improvement at the tail the pancreas compared to the study from January 18. There is now increased edema and inflammation about the head of the panc reas extending into the mesentery most consistent with an acute pancreatitis. I do not see free air t hat might suggest perforated ulcer. There is no bowel obstruction. Appendix is normal. There is a sma ll amount of free fluid in the pelvis. Uterus and ovaries are unremarkable. Bladder is normal. IMPRESSION: 1. Peripancreatic inflammation and fluid about the head of the pancreas suggests an acute pancreatiti s. 2. Improvement at the tail of the pancreas compared to December 2019. 3. Mild free fluid in the pelvis. PQRS Compliance Statement: One or more of the following individualized dose reduction techniques were utilized for this examinat ion: 1. Automated exposure control 2. Adjustment of the mA and/or kV according to patient size 3. Use of iterative reconstruction technique Electronically signed by: Babak Smith MD (06/20/2020 8:49 AM) [id number]
[2020-06-20] MEDS ORDERED: ONDANSETRON PF 4 MG/2 ML VIAL. IV PRN ×2 (09:15→10:45)
[2020-06-20] MEDS ORDERED: HYDROmorphone 2 MG/ML VIAL IVP ONE (09:15)
[2020-06-20] MEDS: IV NORMAL SALINE 1000ML BAG 1,000 ML IV SCH (09:15)
--- NOTE | 2020-06-20 10:31 | PDOC1 ---
History and Physical Date of Admission Date of Admission DATE: 06/20/20 TIME: 10:30 Identification/Chief Complaint Chief Complaint RUQ PAIN X 2 DAYS, worse today, seen in ER with chest pain, nl troponin , bp uncontrolled History of Present Illness History of Present Illness 54-year-old female with past medical history of CAD with stent placement, history of alcohol abuse, diabetes who presents to the ED with generalized abdominal pain AND ruq that radiates to the back for the past 24 hrs and has progressively worsened. Patient states that she has had history of acute pancreatitis in the past and also history of alcohol abuse. She has cut down on her smoking and no alcohol drinks Her last drink she states was about 12 weeks ago. Patient describes her pain as sharp, 6 out of 10, and is associated with nausea and vomiting. Patient denies any bloody bowel movements, fevers, shortness of breath, dysuria, or diarrhea Reports nausea and vomiting 2 days ago, last bowel movement was 2 days ago. Last alcoholic beverage was on Wednesday-half a glass of wine while watching the [employer] game. n Was seen by her pmd on Wednesday for these symptoms and prescribed a mytriptyline. Stopped taking is because it made her "feel weird." Denies any IVDU/ cocaine use. pt is poor surgical candidate. previously placed stent in the left anterior descending artery with 80% stenosis involving small to medium caliber second obtuse marginal branch of left circumflex artery ON LAST ADMIT, considered for elective cholecystectomy pending etoh cessation. Upon ROS, has chest pain that started 2 days ago. Has no taken her BP medications today but reports compliance. Past Medical History Past Medical History Past Medical History Past Medical History: Alcoholism, CVA, Diabetes-Type II, [place], Pancreatitis Additional Past Medical Histor: neuropathy, SI, diabetic foot ulcer r heel Past Surgical History: Other Additional Past Surgical Histo: cardiac stent, Rt great toe amputation Smoking Status: Current Every Day Smoker Alcohol Use: Heavy Additional Information: SOBER x1 MO Drug Use: None Procedure(s) performed: Left Heart Catheterization and selective coronary angiography via right transradial approach INDICATION The indication(s) include : unstable angina . PROCEDURE NARRATIVE After explaining the risks, benefits and alternative options, informed consent was obtained from patient. Patient was brought to the cardiac Market Research Assistant and right wrist was prepped and draped in the usual fashion after confirming a positive modified Varinder's test. Arterial access was obtained in the right radial artery and a 6 Afghan sheath was inserted. 6 Afghan JL 3.5 and 6 Afghan JR4 catheters were used to perform selective angiography of the left and right coronary arteries after initial attempts at engaging these vessels with 6 Afghan Bill catheter were unsuccessful. LVEDP and transaortic gradients were measured as well. Left ventriculography was not performed since recent 2-D echo showed normal LV function. Patient tolerated the procedure well. Hemostasis was achieved using TR band. There were no immediate complications. The following findings were noted. FINDINGS 1. Hemodynamics: Left ventricular end-diastolic pressure of 25 mmHg. No pullback gradient across the aortic valve. 2. Coronary angiography: a. The left main coronary artery arose from the left sinus of Valsalva, gave rise to the left anterior descending and left circumflex arteries and did not show any significant stenosis. b. The left anterior descending artery showed widely patent previously placed stent in the midsegment. c. The left circumflex artery was a dominant vessel that showed 80% stenosis in the mid segment and 70% stenosis in the distal segment of a small to medium caliber second obtuse marginal branch. d. The right coronary artery was small and nondominant vessel that showed moderate diffuse disease. Conclusion Widely patent previously placed stent in the left anterior descending artery with 80% stenosis involving small to medium caliber second obtuse marginal branch of left circumflex artery. No flow-limiting lesions that needed intervention were noted. Recommendations Medical Therapy DICTATED and SIGNED BY: MIRIAM GEE MD Past Medical History Cardiovascular: CAD, HTN, [place] CENTRAL NERVOUS SYSTEM: CVA, Dementia, Periperal neuropathy, Other GI: GERD Heme/Onc: Cancer Hepatobiliary: No pertinent hx Psych: Anxiety, Bipolar, Depression, Other Musculoskeletal: low back pain Rheumatologic: No pertinent hx Infectious disease: No pertinent hx Renal/: Chronic renal insuff Endocrine: Diabetes Past Surgical History Past Surgical History: Other Family History Family History: Coronary Artery Disease, Diabetes, Hypertension Social History <1 pack per day ALCOHOL: occassional (heavier in the past) Drugs: None Lives: with Family FHX COPD Cardiovascular: CAD, HTN, [place] CENTRAL NERVOUS SYSTEM: CVA, Dementia, Periperal neuropathy, Other GI: GERD Heme/Onc: Cancer Hepatobiliary: No pertinent hx Psych: Anxiety, Bipolar, Depression, Other Musculoskeletal: low back pain Rheumatologic: No pertinent hx Infectious disease: No pertinent hx Renal/: Chronic renal insuff Endocrine: Diabetes Past Surgical History Past Surgical History: Other Family History Family History: Alcohol Abuse, Coronary Artery Disease, Diabetes, Hypertension Social History Smoke: <1 pack per day ALCOHOL: occassional Drugs: None Current Problem List Problem List Problems Medical Problems: (1) Acute pancreatitis Status: Acute (2) Inferior ST segment depression Status: Acute (3) Uncontrolled hypertension Status: Acute Current Medications Current Medications Current Medications Sodium Chloride 1,000 ml @ 1,000 mls/hr Q1H IV Last administered on 06/20/20at 07:49; Start 06/20/20 at 07:45; Stop 06/20/20 at 08:44; Status DC Nitroglycerin (Nitro-Bid Oint) 1 inch 1X ONCE TP Last administered on 06/20/20at 08:15; Start 06/20/20 at 08:15; Stop 06/20/20 at 08:16; Status DC Fentanyl Citrate (Fentanyl 2ml Vial) 75 mcg 1X ONCE IVP Last administered on 06/20/20at 08:15; Start 06/20/20 at 08:15; Stop 06/20/20 at 08:16; Status DC Iohexol (Omnipaque 300 Mg/ml) 75 ml 1X ONCE IV Last administered on 06/20/20at 08:27; Start 06/20/20 at 08:15; Stop 06/20/20 at 08:18; Status DC Info (CONTRAST GIVEN -- Rx MONITORING) 1 each PRN DAILY PRN MC SEE COMMENTS; Start 06/20/20 at 08:30; Stop 06/22/20 at 08:29 Hydromorphone HCl (Dilaudid) 1 mg 1X ONCE IVP Last administered on 06/20/20at 09:49; Start 06/20/20 at 09:15; Stop 06/20/20 at 09:16; Status DC Ondansetron HCl (Zofran) 4 mg PRN Q8HRS PRN IV NAUSEA/VOMITING; Start 06/20/20 at 09:15; Stop 06/21/20 at 09:14 Morphine Sulfate (Morphine Sulfate) 2 mg PRN Q2HR PRN IV PAIN; Start 06/20/20 at 09:15; Stop 06/21/20 at 09:14 Sodium Chloride 1,000 ml @ 100 mls/hr Q10H IV ; Start 06/20/20 at 09:15; Stop 06/21/20 at 09:14 Active Scripts Active [place] 7.5-325 Tablet (Acetaminophen/Hydrocodone Bitart) 1 Each Tablet 1 Tab PO PRN Q6HRS PRN Clopidogrel (Clopidogrel Bisulfate) 75 Mg Tablet 1 Tab PO DAILY Metoprolol Succinate ( Xl ) (Metoprolol Succinate) 25 Mg Tab.er.24h 1 Tab PO DAILY Aspirin Ec (Aspirin) 81 Mg Tablet.dr 81 Mg PO DAILYWBKFT Reported Triazolam 0.25 Mg Tablet 2 Tab PO PRN QHS PRN MDD 2 Tablet(s) 30 Days Spironolactone 25 Mg Tablet 1 Tab PO DAILY Crestor (Rosuvastatin Calcium) 40 Mg Tablet 1 Tab PO DAILY Seroquel (Quetiapine Fumarate) 400 Mg Tablet 1 Tab PO QHS Seroquel (Quetiapine Fumarate) 100 Mg Tablet 1 Tab PO QHS Potassium Chloride (Potassium Chloride) 20 Meq Tablet.er 20 Meq PO DAILY Ondansetron Odt (Ondansetron) 4 Mg Tab.rapdis 1 Tab PO PRN Q6-8HRS Omeprazole 20 Mg Capsule.dr 1 Cap PO DAILY Isosorbide Mononitrate Er (Isosorbide Mononitrate) 30 Mg Tab.er.24h 1 Tab PO DAILY Ibuprofen 400 Mg Tablet 400 Mg PO PRN Q6HRS PRN Fluticasone Propionate Nasal [place] (Fluticasone Propionate) 16 Gm [place].susp 2 [place] NS DAILY Fish Oil 1,000 mg Softgel ([place]-3/Dha/Epa/Fish Oil) 1,000 Mg Capsule 1 Cap PO BID 30 Days B-12 (Cyanocobalamin (Vitamin B-12)) 1,000 Mcg Tablet 1 Tab PO DAILY 30 Days D3-50 (Cholecalciferol (Vitamin D3)) 50,000 Unit Capsule 50,000 Unit PO DAILY Bupropion Xl (Bupropion HCl) 450 Mg Tab.er.24h 1 Tab PO DAILYWBKFT 30 Days Humalog (Insulin Lispro) 100 Unit/1 Ml Cartridge 16 Unit SQ TIDAC Lantus Solostar (Insulin Glargine,Hum.rec.anlog) 100 Unit/1 Ml Insuln.pen 35 Unit SQ QHS Lidocaine PATCH (Lidocaine) 1 Each Adh..patch 1 Each TP Senokot (Sennosides) 8.6 Mg Tablet 1 Tab PO PRN PRN Lisinopril 20 Mg Tablet 1 Tab PO DAILY Gabapentin (Gabapentin) 300 Mg Capsule 300 Mg PO TID Furosemide 20 Mg Tablet 1 Tab PO PRN DAILY PRN Lexapro (Escitalopram Oxalate) 20 Mg Tablet 1 Tab PO DAILY Proair Respiclick (Albuterol Sulfate) 90 Mcg Aer.pow.ba 2 Puff IH PRN PRN Allergies Allergies: Coded Allergies: adhesive tape (Verified Allergy, Intermediate, Rash, 11/14/19) ROS Review of System Constitutional: Denies fever or chills. [] Eyes: Denies change in visual acuity. [] HENT: Denies nasal congestion or sore throat. [] Respiratory: Denies cough or shortness of breath. [] Cardiovascular: Denies syncope or hemoptysis GI: Denies melena, hematochezia, hematemesis, constipation or diarrhea : Denies dysuria or hematuria Musculoskeletal: Denies joint pain or swelling Integument: Denies rash or diaphoresis Neurologic: Denies headache, focal weakness or sensory changes. [] Endocrine: Denies polyuria or polydipsia. [] Lymphatic: Denies swollen glands. [] Psychiatric: POS HX depression // anxiety. [] General: YES: Fatigue PSYCHOLOGICAL ROS: YES: Anxiety, Depression; No: Behavioral Disorder, Concentration difficultie, Decreased libido, Disorientation, Hallucinations, Hostility, Irritablity, Memory difficulties, Mood Swings, Obsessive thoughts, Physical abuse, Sexual abuse, Sleep disturbances, Suicidal ideation, Other Eyes: No Blurry vision, No Decreased vision, No Double vision, No Dry eyes, No Excessive tearing, No Eye Pain, No Itchy Eyes, No Loss of vision, No Photophobia, No Scotomata, No Uses contacts, No Uses glasses, No Other ENDOCRINE: No: Breast Changes, Galactorrhea, Hair Pattern Changes, Hot Flashes, Malaise/lethargy, Mood Swings, Palpitations, Polydipsia/polyuria, Skin Changes, Temperature Intolerance, Unexpected Weight Changes, Other Respiratory: No: Cough, Hemoptysis, Orthopnea, Pleuritic Pain, Shortness of breath, SOB with excertion, Sputum Changes, Stridor, Tachypnea, Wheezing, Other Cardiovascular: yes Chest Pain Gastrointestinal: Yes Nausea, Yes Abdominal Pain Genitourinary: No Dysuria, No Frequency, No Incontinence, No Hematuria, No Retention, No Discharge, No Urgency, No Pain, No Flank Pain, No Other, No , No , No , No , No , No , No Musculoskeletal: Yes Gait Disturbance, Yes Joint Stiffness Neurological: Yes Gait Disturbance Skin: No Dry Skin, No Eczema, No Hair Changes, No Lumps, No Mole Changes, No Mottling, No Nail Changes, No Pruritus, No Rash, No Skin Lesion Changes, No Other, No Acne Physical Exam Physical Exam HENT: Normocephalic, atraumatic, Eyes: EOMI, conjunctiva normal, no discharge. Neck: Normal range of motion, supple, Cardiovascular: S1/2 present, regular rhythm Lungs & Thorax: Speaking in full sentences, bilateral equal chest rise, no tachypnea Abdomen: soft, very tender in RLQ, RUQ, LUG, no peritonitis or rigidity Skin: Warm, dry, no erythema, no rash. [] Back: No midline tenderness, right CVA tenderness. [] Extremities: No tenderness, no cyanosis, no edema Neurologic: Alert and oriented X 3, normal motor function, normal sensory function, no focal deficits General: Alert, Oriented X3, Cooperative, mild distress HEENT: Atraumatic, PERRLA, EOMI, Mucous membr. moist/pink Lungs: Clear to auscultation, Normal air movement Heart: RRR, no thrills, no gallops, no murmurs Breasts: Not examined Abdomen: Soft, Other (RUQ TENDER , NO REBOUND) Rectal Exam: not examined PELVIC: Examination not indicated Extremities: No cyanosis Skin: No rashes Neuro: Normal speech, Cranial nerves 3-12 NL Psych/Mental Status: Mental status NL, Mood NL Vitals Vitals Vital Signs Date Time Temp Pulse Resp B/P (MAP) Pulse Ox O2 Delivery O2 Flow Rate FiO2 06/20/20 09:49 12 100 Room Air 06/20/20 08:15 87 182/74 06/20/20 07:10 98.4 98.4 Labs Labs Laboratory Tests Test 06/20/20 07:19 06/20/20 07:27 White Blood Count 10.5 x10^3/uL (4.0-11.0) Red Blood Count 4.53 x10^6/uL (3.50-5.40) Hemoglobin 13.5 g/dL (12.0-15.5) Hematocrit 41.6 % (36.0-47.0) Mean Corpuscular Volume 92 fL (79-100) Mean Corpuscular Hemoglobin 30 pg (25-35) Mean Corpuscular Hemoglobin Concent 32 g/dL (31-37) Red Cell Distribution Width 14.7 % (11.5-14.5) Platelet Count 303 x10^3/uL (140-400) Neutrophils (%) (Auto) 82 % (31-73) Lymphocytes (%) (Auto) 11 % (24-48) Monocytes (%) (Auto) 4 % (0-9) Eosinophils (%) (Auto) 2 % (0-3) Basophils (%) (Auto) 1 % (0-3) Neutrophils # (Auto) 8.6 x10^3/uL (1.8-7.7) Lymphocytes # (Auto) 1.1 x10^3/uL (1.0-4.8) Monocytes # (Auto) 0.5 x10^3/uL (0.0-1.1) Eosinophils # (Auto) 0.2 x10^3/uL (0.0-0.7) Basophils # (Auto) 0.1 x10^3/uL (0.0-0.2) Sodium Level 136 mmol/L (136-145) Potassium Level 4.0 mmol/L (3.5-5.1) Chloride Level 99 mmol/L (98-107) Carbon Dioxide Level 22 mmol/L (21-32) Anion Gap 15 (6-14) Blood Urea Nitrogen 7 mg/dL (7-20) Creatinine 1.0 mg/dL (0.6-1.0) Estimated GFR (Cockcroft-Gault) 69.7 BUN/Creatinine Ratio 7 (6-20) Glucose Level 296 mg/dL (70-99) Lactic Acid Level 1.8 mmol/L (0.4-2.0) Calcium Level 9.6 mg/dL (8.5-10.1) Magnesium Level 1.9 mg/dL (1.8-2.4) Total Bilirubin 0.5 mg/dL (0.2-1.0) Direct Bilirubin 0.1 mg/dL (0.0-0.2) Aspartate Amino Transf (AST/SGOT) 11 U/L (15-37) Alanine Aminotransferase (ALT/SGPT) 15 U/L (14-59) Alkaline Phosphatase 83 U/L (46-116) Creatine Kinase 51 U/L (26-192) Troponin I Quantitative < 0.017 ng/mL (0.000-0.055) Total Protein 7.5 g/dL (6.4-8.2) Albumin 3.7 g/dL (3.4-5.0) Albumin/Globulin Ratio 1.0 (1.0-1.7) Lipase 2751 U/L (73-393) Ethyl Alcohol Level < 10 mg/dL (0-10) Urine Collection Type Unknown Urine Color Yellow Urine Clarity Clear Urine pH 6.0 (<5.0-8.0) Urine Specific [place] >=1.030 (1.000-1.030) Urine Protein 100 mg/dL (NEG-TRACE) Urine Glucose (UA) >=1000 mg/dL (NEG) Urine Ketones (Stick) 40 mg/dL (NEG) Urine Blood Negative (NEG) Urine Nitrite Negative (NEG) Urine Bilirubin Negative (NEG) Urine Urobilinogen Dipstick 0.2 mg/dL (0.2 mg/dL) Urine Leukocyte Esterase Negative (NEG) Urine RBC Occ /HPF (0-2) Urine WBC Occ /HPF (0-4) Urine Squamous Epithelial Cells Many /LPF Urine Bacteria Few /HPF (0-FEW) Urine Opiates Screen Neg (NEG) Urine Methadone Screen Neg (NEG) Urine Barbiturates Neg (NEG) Urine Phencyclidine Screen Neg (NEG) Urine Amphetamine/Methamphetamine Neg (NEG) Urine Benzodiazepines Screen Neg (NEG) Urine Cocaine Screen Neg (NEG) Urine Cannabinoids Screen Neg (NEG) Urine Ethyl Alcohol Neg (NEG) Laboratory Tests Test 06/20/20 07:19 06/20/20 07:27 White Blood Count 10.5 x10^3/uL (4.0-11.0) Red Blood Count 4.53 x10^6/uL (3.50-5.40) Hemoglobin 13.5 g/dL (12.0-15.5) Hematocrit 41.6 % (36.0-47.0) Mean Corpuscular Volume 92 fL (79-100) Mean Corpuscular Hemoglobin 30 pg (25-35) Mean Corpuscular Hemoglobin Concent 32 g/dL (31-37) Red Cell Distribution Width 14.7 % (11.5-14.5) Platelet Count 303 x10^3/uL (140-400) Neutrophils (%) (Auto) 82 % (31-73) Lymphocytes (%) (Auto) 11 % (24-48) Monocytes (%) (Auto) 4 % (0-9) Eosinophils (%) (Auto) 2 % (0-3) Basophils (%) (Auto) 1 % (0-3) Neutrophils # (Auto) 8.6 x10^3/uL (1.8-7.7) Lymphocytes # (Auto) 1.1 x10^3/uL (1.0-4.8) Monocytes # (Auto) 0.5 x10^3/uL (0.0-1.1) Eosinophils # (Auto) 0.2 x10^3/uL (0.0-0.7) Basophils # (Auto) 0.1 x10^3/uL (0.0-0.2) Sodium Level 136 mmol/L (136-145) Potassium Level 4.0 mmol/L (3.5-5.1) Chloride Level 99 mmol/L (98-107) Carbon Dioxide Level 22 mmol/L (21-32) Anion Gap 15 (6-14) Blood Urea Nitrogen 7 mg/dL (7-20) Creatinine 1.0 mg/dL (0.6-1.0) Estimated GFR (Cockcroft-Gault) 69.7 BUN/Creatinine Ratio 7 (6-20) Glucose Level 296 mg/dL (70-99) Lactic Acid Level 1.8 mmol/L (0.4-2.0) Calcium Level 9.6 mg/dL (8.5-10.1) Magnesium Level 1.9 mg/dL (1.8-2.4) Total Bilirubin 0.5 mg/dL (0.2-1.0) Direct Bilirubin 0.1 mg/dL (0.0-0.2) Aspartate Amino Transf (AST/SGOT) 11 U/L (15-37) Alanine Aminotransferase (ALT/SGPT) 15 U/L (14-59) Alkaline Phosphatase 83 U/L (46-116) Creatine Kinase 51 U/L (26-192) Troponin I Quantitative < 0.017 ng/mL (0.000-0.055) Total Protein 7.5 g/dL (6.4-8.2) Albumin 3.7 g/dL (3.4-5.0) Albumin/Globulin Ratio 1.0 (1.0-1.7) Lipase 2751 U/L (73-393) Ethyl Alcohol Level < 10 mg/dL (0-10) Urine Collection Type Unknown Urine Color Yellow Urine Clarity Clear Urine pH 6.0 (<5.0-8.0) Urine Specific [place] >=1.030 (1.000-1.030) Urine Protein 100 mg/dL (NEG-TRACE) Urine Glucose (UA) >=1000 mg/dL (NEG) Urine Ketones (Stick) 40 mg/dL (NEG) Urine Blood Negative (NEG) Urine Nitrite Negative (NEG) Urine Bilirubin Negative (NEG) Urine Urobilinogen Dipstick 0.2 mg/dL (0.2 mg/dL) Urine Leukocyte Esterase Negative (NEG) Urine RBC Occ /HPF (0-2) Urine WBC Occ /HPF (0-4) Urine Squamous Epithelial Cells Many /LPF Urine Bacteria Few /HPF (0-FEW) Urine Opiates Screen Neg (NEG) Urine Methadone Screen Neg (NEG) Urine Barbiturates Neg (NEG) Urine Phencyclidine Screen Neg (NEG) Urine Amphetamine/Methamphetamine Neg (NEG) Urine Benzodiazepines Screen Neg (NEG) Urine Cocaine Screen Neg (NEG) Urine Cannabinoids Screen Neg (NEG) Urine Ethyl Alcohol Neg (NEG) Images Images APPROVED REPORT EXAM: Two-dimensional and M-mode echocardiogram with Doppler and color Doppler. Other Information Quality : Good HR: 59bpm INDICATION Syncope 2D DIMENSIONS Left Atrium(2D) 3.3 (1.6-4.0cm) IVSd 1.2 (0.7-1.1cm) Aortic Root(2D) 1.9 (2.0-3.7cm) LVDd 4.6 (3.9-5.9cm) LVOT Diameter 1.9 (1.8-2.4cm) PWd 1.1 (0.7-1.1cm) LVDs 3.8 (2.5-4.0cm) FS (%) 17.7 % SV 25.0 ml LVEF(%) 50.0 (>50%) Aortic Valve AoV Peak Walter. 153.5cm/s AoV VTI 35.0cm AO Peak GR. 9.4mmHg LVOT Peak Walter. 70.9cm/s AO Mean GR. 5mmHg MELVIN (VMAX) 0.93cm2 Mitral Valve MV E Velocity 90.4cm/s MV DECEL TIME 275ms MV A Velocity 98.3cm/s MV PHT 80ms E/A Ratio 0.9 MVA (PHT) 2.76cm2 TDI E/Lateral E' 10.5 E/Medial E' 13.2 Pulmonary Valve PV Peak Velocity 89.2cm/s PV Peak Grad. 3mmHg Tricuspid Valve TR P. Velocity 257cm/s RAP ESTIMATE 15mmHg TR Peak Gr. 27mmHg RVSP 42mmHg Pulmonary Vein S1 Velocity 52.4cm/s D2 Velocity 45.8cm/s LEFT VENTRICLE The left ventricle is normal size. There is mild concentric left ventricular hypertrophy. The left ventricular systolic function is borderline normal. The ejection fraction is estimated at 50%. The left ventricular diastolic function and filling is normal for age. RIGHT VENTRICLE The right ventricle is normal size. The right ventricular systolic function is normal. ATRIA The left atrium size is normal. The right atrium size is normal. The interatrial septum is intact with no evidence for an atrial septal defect or patent foramen ovale as noted on 2-D or Doppler imaging. AORTIC VALVE The aortic valve is calcified but opens well. Doppler and Color Flow revealed trace aortic regurgitation. There is no significant aortic valvular stenosis. There is no aortic valvular vegetation. MITRAL VALVE The mitral valve is mildly thickened. There is no evidence of mitral valve prolapse. There is no mitral valve stenosis. Doppler and Color-flow revealed trace to mild mitral regurgitation. TRICUSPID VALVE The tricuspid valve is normal in structure and function. Doppler and Color Flow revealed mild tricuspid regurgitation. There is no tricuspid valve prolapse or vegetation. There is no tricuspid valve stenosis. PULMONIC VALVE The pulmonic valve is not well visualized. Doppler and Color Flow revealed no pulmonic valvular regurgitation. There is no pulmonic valvular stenosis. GREAT VESSELS The aortic root is normal in size. The IVC is enlarged in size and collapses <50% with inspiration. PERICARDIAL EFFUSION There is no pleural effusion. There is no evidence of significant pericardial effusion. Critical Notification Critical Value: No <Conclusion> The left ventricular systolic function is borderline normal. The ejection fraction is estimated at 50%. Trace to mild mitral regurgitation. Mild tricuspid regurgitation. There is no evidence of significant pericardial effusion. Signed by : Miriam Gee, Electronically Approved : 07/12/2017 13:14:31 DICTATED and SIGNED BY: MIRIAM GEE MD DATE: 07/12/17 1314 EXAM: XR CHEST 1V 06/20/2020 8:06 AM CLINICAL INDICATION: Abdominal pain COMPARISON: Chest radiograph 01/19/2020 TECHNIQUE: AP upright view of the chest FINDINGS: The heart and mediastinum are normal. Lungs are well-expanded. A calcified granuloma in the medial left lung base is unchanged. No consolidation, pleural effusion, or pneumothorax. Pulmonary vascularity is normal. Moderate bilateral acromioclavicular degenerative joint disease. IMPRESSION: No acute cardiopulmonary abnormality. Electronically signed by: Madeline Farfan MD (06/20/2020 8:18 AM) [id number] DICTATED and SIGNED BY: MADELINE FARFAN MD DATE: 06/20/20 [id number] PATIENT: JONO HOLT V ACCOUNT: [id number] : 1965 LOCATION: ER AGE: 55 SEX: F EXAM STATUS: REG ER ORD. PHYSICIAN: CINTHYA MARIANO DO REASON: ruQ pain, h/o pacnreatitis PROCEDURE: CT ABD PELV W/ IV CONTRST ONLY CT of the abdomen and pelvis with contrast. HISTORY: Right upper quadrant pain, history of pancreatitis. CT scan the abdomen and pelvis was done using 75 mL Omnipaque 300 contrast. Lung bases are clear. There is no effusion. There is a cyst in the right liver without change from the prior study. No new liver lesion is noted. Spleen and adrenal glands are normal. 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 There is no mass or hydronephrosis in the kidneys. There is been an improvement at the tail the pancreas compared to the study from January 18. There is now increased edema and inflammation about the head of the pancreas extending into the mesentery most consistent with an acute pancreatitis. I do not see free air that might suggest perforated ulcer. There is no bowel obstruction. Appendix is normal. There is a small amount of free fluid in the pelvis. Uterus and ovaries are unremarkable. Bladder is normal. IMPRESSION: 1. Peripancreatic inflammation and fluid about the head of the pancreas suggests an acute pancreatitis. 2. Improvement at the tail of the pancreas compared to December 2019. 3. Mild free fluid in the pelvis. COMPARISON: None available. TECHNIQUE: Limited ultrasound examination of the right upper quadrant of the abdomen was performed FINDINGS: Pancreas is obscured by overlying bowel gas. Liver: The liver measures 19.2 cm in length in the right mid clavicular line. Increased hepatic echogenicity relative to the right kidney consistent with hepatic steatosis.s There is no focal abnormality of the liver. Portal venous flow is confirmed. Gallbladder/Biliary: The gallbladder is normal in appearance without evidence for cholelithiasis. An echogenic material dependently likely gallbladder sludge. There is no wall thickening or pericholecystic fluid. There is no pain with direct transducer pressure over the gallbladder.The common bile duct measures 0.5 cm. The right kidney measures 12.9 cm in bipolar length. Normal renal cortical echotexture. No focal renal lesion. No hydronephrosis. There is no free fluid in the subhepatic space. IMPRESSION: 1. Echogenic material dependently within the gallbladder likely sludge. No sonographic evidence for acute cholecystitis. 2. Hepatomegaly and fatty liver. Electronically signed by: Dale Duckworth MD (11/13/2019 8:10 PM) [facility] DICTATED and SIGNED BY: DALE DUCKWORTH MD DATE: 11/13/192009 PQRS Compliance Statement: One or more of the following individualized dose reduction techniques were utilized for this examination: 1. Automated exposure control 2. Adjustment of the mA and/or kV according to patient size 3. Use of iterative reconstruction technique Electronically signed by: Babak Smith MD (06/20/2020 8:49 AM) [id number] DICTATED and SIGNED BY: BABAK SMITH MD DATE: 06/20/20 [id number] VTE Prophylaxis Ordered VTE Prophylaxis Devices: Yes VTE Pharmacological Prophylaxi: Yes Assessment/Plan Assessment/Plan IMPRESSION 1. Acute abdominal pain due to acute on chronic pancreatitis Peripancreatic inflammation and fluid about the head of the pancreas suggests an acute pancreatitis. ON CT TODAY, Improvement at the tail of the pancreas compared to December 2019. npo, CONSULT GI IV PAIN CONTROL ABD SONO 2. Hypertension, UNCONTROLLED IV LABETALOL 20 MG Q 3 HRS PRN BP SUPPORT home meds 3. CAD with HX stents WITH CHEST PAIN consult cardiology previously placed stent in the left anterior descending artery with 80% stenosis involving small to medium caliber second obtuse marginal branch of left circumflex artery 4. Diabetes mellitus SS INSULIN PROTOCOL A1C 5. HX remote severe alcohol abuse unsure as current true intake given hx 6. Morbid obesity 7. REMOTE CVA 8. hyperlipidemia cont statin ADMIT OBSERVATION Justifications for Admission Other Justification KERI MORENO MD Jun 20, 2020 10:31
[2020-06-20] MEDS ORDERED: ACETAMINOPHEN 325 MG TABLET. PO PRN (10:45)
[2020-06-20] MEDS ORDERED: 0.9 % SODIUM CHLORIDE 10 ML DISP.SYRIN. IV PRN (10:45)
[2020-06-20] MEDS ORDERED: LORazepam 0.5 MG TABLET PO PRN (10:45)
[2020-06-20] MEDS ORDERED: LABETALOL 20 MG/4 ML DISP.SYRIN. IVP PRN (10:45)
[2020-06-20] MEDS ORDERED: HYDROmorphone 2 MG/ML VIAL IV PRN (10:45)
[2020-06-20] MEDS ORDERED: MULTIVIT INFUSN,ADULT 4,VIT K 10 ML, THIAMINE INJ 100 MG, FOLIC ACID INJ 1 MG in IV NOR... IV ONE (10:45)
[2020-06-20] MEDS ORDERED: SODIUM PHOSPHATES 19/7GM 133 ML ENEMA. PR PRN (10:45)
[2020-06-20] MEDS ORDERED: ACETAMINOPHEN 650 MG SUPP.RECT. PR PRN (10:45)
[2020-06-20] MEDS ORDERED: guaiFENesin ORAL 200 MG/10 ML LIQUID. PO PRN (10:45)
[2020-06-20] MEDS ORDERED: DOCUSATE SODIUM 100 MG CAPSULE. PO PRN (10:45)
[2020-06-20] MEDS ORDERED: MAG HYDROX/ALUMINUM HYD/SIMETH 30 ML ORAL.SUSP PO PRN (10:45)
[2020-06-20] MEDS ORDERED: ALBUTEROL SULFATE 2.5 MG/3 ML NEBU. NEB PRN (10:45)
[2020-06-20 10:50] VITALS: BP 165/75
--- NOTE | 2020-06-20 11:47 | PDOC2 ---
GI CONSULT Date of Service: DATE: 06/20/20 TIME: 11:47 Reason For Consult: pancreatitis HPI: HPI: 55 y/o female who we've seen in the past. Has had abdominal pain every day for 3 months. Epigastrium to RUQ to right flank. Constant, sometimes worse after eating. Generally tolerates soft foods but has to avoid fried foods. Worsening pain the last couples days and associated w/ n/v. Mentions has been to [facility] since we've seen her for "steroid shots" - points to back, hips, and abdomen. Lipase is 2751, CT shows peripancreatic inflammation and fluid about the head of the pancreas and improvement at the tail of the pancreas compared previous. H/o chronic abd pain, pancreatitis and possible pseudocyst, GB sludge, GERD (currently untreated), constipation (says stooling normally currently), FUNMILAYO and B12 deficiency (Hgb normal now), and CAD on ASA and Plavix. Denies bleeding. When we last saw, we recommended interval pancreas imaging and outpt EGD and colonoscopy which she has not pursued. BLANQUITA was negative in 12/2019. Cortisol was lowish in 2017. A1c 9.1 in 2018. Past surgery eval recommended alcohol cessation before considering cholecystectomy. From past encounter, no previous EGD but reported normal colonoscopy (not sure where/when). Past imaging w/ hepatic steatosis/hepatomegaly. Still drinking some. PMH: PMH: HTN, NC, CVA, HLD, DM, neuropathy, bipolar/depression, OA, Meniere's CKD, PVD LEEP, right toe amputation FH: Family History: Cancer Social History: Smoke: <1 pack per day ALCOHOL: occassional Drugs: None ROS: GEN: Denies fevers, chills, sweats HEENT: Denies blurred vision, sore throat CV: Denies chest pain RESP: Denies shortness of air, cough GI: Per HPI : Denies hematuria, dysuria ENDO: Denies weight changes NEURO: Denies confusion, dizziness MSK: Denies weakness, joint pain/swelling SKIN: Denies jaundice, pruritus Vitals: Vitals: Vital Signs Date Time Temp Pulse Resp B/P (MAP) Pulse Ox O2 Delivery O2 Flow Rate FiO2 06/20/20 10:50 97.6 89 18 165/75 (105) 98 Room Air 97.6 Labs: Labs: Laboratory Tests Test 1/28/21 07:19 06/20/20 07:27 06/20/20 11:35 White Blood Count 10.5 x10^3/uL (4.0-11.0) Red Blood Count 4.53 x10^6/uL (3.50-5.40) Hemoglobin 13.5 g/dL (12.0-15.5) Hematocrit 41.6 % (36.0-47.0) Mean Corpuscular Volume 92 fL (79-100) Mean Corpuscular Hemoglobin 30 pg (25-35) Mean Corpuscular Hemoglobin Concent 32 g/dL (31-37) Red Cell Distribution Width 14.7 % (11.5-14.5) Platelet Count 303 x10^3/uL (140-400) Neutrophils (%) (Auto) 82 % (31-73) Lymphocytes (%) (Auto) 11 % (24-48) Monocytes (%) (Auto) 4 % (0-9) Eosinophils (%) (Auto) 2 % (0-3) Basophils (%) (Auto) 1 % (0-3) Neutrophils # (Auto) 8.6 x10^3/uL (1.8-7.7) Lymphocytes # (Auto) 1.1 x10^3/uL (1.0-4.8) Monocytes # (Auto) 0.5 x10^3/uL (0.0-1.1) Eosinophils # (Auto) 0.2 x10^3/uL (0.0-0.7) Basophils # (Auto) 0.1 x10^3/uL (0.0-0.2) Sodium Level 136 mmol/L (136-145) Potassium Level 4.0 mmol/L (3.5-5.1) Chloride Level 99 mmol/L (98-107) Carbon Dioxide Level 22 mmol/L (21-32) Anion Gap 15 (6-14) Blood Urea Nitrogen 7 mg/dL (7-20) Creatinine 1.0 mg/dL (0.6-1.0) Estimated GFR (Cockcroft-Gault) 69.7 BUN/Creatinine Ratio 7 (6-20) Glucose Level 296 mg/dL (70-99) Lactic Acid Level 1.8 mmol/L (0.4-2.0) Calcium Level 9.6 mg/dL (8.5-10.1) Magnesium Level 1.9 mg/dL (1.8-2.4) Total Bilirubin 0.5 mg/dL (0.2-1.0) Direct Bilirubin 0.1 mg/dL (0.0-0.2) Aspartate Amino Transf (AST/SGOT) 11 U/L (15-37) Alanine Aminotransferase (ALT/SGPT) 15 U/L (14-59) Alkaline Phosphatase 83 U/L (46-116) Creatine Kinase 51 U/L (26-192) Troponin I Quantitative < 0.017 ng/mL (0.000-0.055) Total Protein 7.5 g/dL (6.4-8.2) Albumin 3.7 g/dL (3.4-5.0) Albumin/Globulin Ratio 1.0 (1.0-1.7) Lipase 2751 U/L (73-393) Ethyl Alcohol Level < 10 mg/dL (0-10) Urine Collection Type Unknown Urine Color Yellow Urine Clarity Clear Urine pH 6.0 (<5.0-8.0) Urine Specific [place] >=1.030 (1.000-1.030) Urine Protein 100 mg/dL (NEG-TRACE) Urine Glucose (UA) >=1000 mg/dL (NEG) Urine Ketones (Stick) 40 mg/dL (NEG) Urine Blood Negative (NEG) Urine Nitrite Negative (NEG) Urine Bilirubin Negative (NEG) Urine Urobilinogen Dipstick 0.2 mg/dL (0.2 mg/dL) Urine Leukocyte Esterase Negative (NEG) Urine RBC Occ /HPF (0-2) Urine WBC Occ /HPF (0-4) Urine Squamous Epithelial Cells Many /LPF Urine Bacteria Few /HPF (0-FEW) Urine Opiates Screen Neg (NEG) Urine Methadone Screen Neg (NEG) Urine Barbiturates Neg (NEG) Urine Phencyclidine Screen Neg (NEG) Urine Amphetamine/Methamphetamine Neg (NEG) Urine Benzodiazepines Screen Neg (NEG) Urine Cocaine Screen Neg (NEG) Urine Cannabinoids Screen Neg (NEG) Urine Ethyl Alcohol Neg (NEG) Glucose (Fingerstick) 209 mg/dL (70-99) Allergies: Coded Allergies: adhesive tape (Verified Allergy, Intermediate, Rash, 11/14/19) Medications: Current Medications Medications (Trade) Dose Ordered Sig/Luis Enrique Route PRN Reason Start Time Stop Time Status Last Admin Dose Admin Sodium Chloride 1,000 ml @ 1,000 mls/hr Q1H IV 06/20/20 07:45 06/20/20 08:44 DC 06/20/20 07:49 Nitroglycerin (Nitro-Bid Oint) 1 inch 1X ONCE TP 06/20/20 08:15 06/20/20 08:16 DC 06/20/20 08:15 Fentanyl Citrate (Fentanyl 2ml Vial) 75 mcg 1X ONCE IVP 06/20/20 08:15 06/20/20 08:16 DC 06/20/20 08:15 Iohexol (Omnipaque 300 Mg/ml) 75 ml 1X ONCE IV 06/20/20 08:15 06/20/20 08:18 DC 06/20/20 08:27 Hydromorphone HCl (Dilaudid) 1 mg 1X ONCE IVP 06/20/20 09:15 06/20/20 09:16 DC 06/20/20 09:49 Imaging: Imaging: CT A/P IMPRESSION: 1. Peripancreatic inflammation and fluid about the head of the pancreas suggests an acute pancreatitis. 2. Improvement at the tail of the pancreas compared to December 2019. 3. Mild free fluid in the pelvis. CXR IMPRESSION: No acute cardiopulmonary abnormality. PE: GEN: NAD HEENT: Atraumatic, PERRL LUNGS: CTAB HEART: RRR ABD: quiet w/ some distention, tender in epigastrium along right ribs around to right flank, also suprapubic EXTREMITY: No edema SKIN: No rashes, no jaundice NEURO/PSYCH: A & O 3 A/P: A/P: Recurrent pancreatitis - probably related to alcohol Chronic upper abd pain H/o FUNMILAYO and B12 deficiency - normal Hgb currently H/o GERD - untreated CRC screen - reports previous colonoscopy H/o constipation - not now GB sludge Hepatic steatosis/hepatomegaly CAD on ASA and Plavix HTN -- She asks to drink and has concerns blood sugar is low - gave okay to try clears sparingly. IVF, pain control per primary. Note plans for another US. Resume PPI, also iron and B12. As in the past, stop alcohol. Outpt scopes. DONNA JUAREZ Jun 20, 2020 11:47
[2020-06-20] MEDS ORDERED: THIAMINE IV SCH (12:00)
[2020-06-20] MEDS ORDERED: FOLIC ACID IV SCH (12:00)
[2020-06-20] MEDS ORDERED: NORMAL SALINE IV SCH (12:00)
[2020-06-20] MEDS: ENOXAPARIN 40 MG/0.4 ML SYRINGE. SQ SCH (12:19)
--- NOTE | 2020-06-20 12:24 | PDOC2 ---
JOHN SCOTT TIRE REGROOVING MACHINE OPERATOR 06/20/20 1224: CARDIAC CONSULT DATE OF CONSULT Date of Consult DATE: 06/20/20 TIME: 12:17 REASON FOR CONSULT Reason for Consult: Chest pain REFERRING PHYSICIAN Referring Physician: Dr. Espinoza SOURCE Source: Chart review, Patient HISTORY OF PRESENT ILLNESS HISTORY OF PRESENT ILLNESS This is a 55 yo female, with a history of pancreatitis, who presented secondary to upper abdominal pain for the 3 days. Had a brief episode of sharp pain in her left chest, which prompted this consult. Patient reports pain occurred when she was sitting watching television. No associated dizziness, diaphoresis, palpitations, or shortness of breath. Pain lasted for about 1 minute and resolved without intervention. PAST MEDICAL HISTORY Past Medical History Cardiovascular: HTN (with hypertensive heart disease), CA (PCI/EUSEBIO to mid LAD with 3 X 18 mm Xience EUSEBIO; 50% lesion at takeoff of small diagonal branch then distal sequential 20-30% lesions; OM1 diffuse plaquing with 50-60% long lesion; OM2 diffusely diseased with 70-80% mid stenosis; OM3 with diffuse 20-30% d isease; left PDA 50-60% in distal segment; RCA without high grade focal disease), Hyperlipidemia, Other (carotid stenosis bilaterally 50-70%; CDU 06/2014 @ [facility]) CENTRAL NERVOUS SYSTEM: CVA ( X 3; 2004), Dementia, Periperal neuropathy (secondary to DM, II; polyneuropathy per [facility] evaluation ) GI: GERD (with history of esophagitis) Heme/Onc: Anemia NOS, Cancer (ovarian) Hepatobiliary: No pertinent hx Psych: Bipolar, Depression Musculoskeletal: Osteoarthritis (right knee) Rheumatologic: No pertinent hx Infectious disease: No pertinent hx ENT: No pertinent hx, Other (Meniere's disease) Renal/: Chronic renal insuff Endocrine: Diabetes (type II, uncontrolled with peripheral vasc complications) Dermatology: No pertinent hx PAST SURGICAL HISTORY Past Surgical History PCI/stent, LEEP FAMILY HISTORY Family History Coronary Artery Disease (mother and maternal aunt), Diabetes (mother) CURRENT MEDICATIONS CURRENT MEDICATIONS Current Medications Medications (Trade) Dose Ordered Sig/Luis Enrique Route PRN Reason Start Time Stop Time Status Last Admin Dose Admin Sodium Chloride 1,000 ml @ 1,000 mls/hr Q1H IV 06/20/20 07:45 06/20/20 08:44 DC 06/20/20 07:49 Nitroglycerin (Nitro-Bid Oint) 1 inch 1X ONCE TP 06/20/20 08:15 06/20/20 08:16 DC 06/20/20 08:15 Fentanyl Citrate (Fentanyl 2ml Vial) 75 mcg 1X ONCE IVP 06/20/20 08:15 06/20/20 08:16 DC 06/20/20 08:15 Iohexol (Omnipaque 300 Mg/ml) 75 ml 1X ONCE IV 06/20/20 08:15 06/20/20 08:18 DC 06/20/20 08:27 Hydromorphone HCl (Dilaudid) 1 mg 1X ONCE IVP 06/20/20 09:15 06/20/20 09:16 DC 06/20/20 09:49 ALLERGIES ALLERGIES: Coded Allergies: adhesive tape (Verified Allergy, Intermediate, Rash, 11/14/19) ROS Review of System 14 point ROS conducted with pertinent positives noted above in HPI PHYSICAL EXAM PHYSICAL EXAM General: Alert, Oriented X3, Cooperative, No acute distress HEENT: Atraumatic, Mucous membr. moist/pink Heart: Regular rate (SR), Normal S1, Normal S2, Other (2/6 systolic murmur to LLS border) Abdomen: Soft, No tenderness Skin: warm and dry Neuro: Normal speech, Sensation intact Psych/Mental Status: Mental status NL, Mood NL MUSCULOSKELETAL: Osteoarthritic changes both hands VITALS/I&O VITALS/I&O: Vital Signs Date Time Temp Pulse Resp B/P (MAP) Pulse Ox O2 Delivery O2 Flow Rate FiO2 06/20/20 11:00 Room Air 06/20/20 10:50 97.6 89 18 165/75 (105) 98 97.6 LABS Lab: Laboratory Tests Test 06/20/20 07:19 06/20/20 07:27 06/20/20 11:35 White Blood Count 10.5 x10^3/uL (4.0-11.0) Red Blood Count 4.53 x10^6/uL (3.50-5.40) Hemoglobin 13.5 g/dL (12.0-15.5) Hematocrit 41.6 % (36.0-47.0) Mean Corpuscular Volume 92 fL (79-100) Mean Corpuscular Hemoglobin 30 pg (25-35) Mean Corpuscular Hemoglobin Concent 32 g/dL (31-37) Red Cell Distribution Width 14.7 % (11.5-14.5) H Platelet Count 303 x10^3/uL (140-400) Neutrophils (%) (Auto) 82 % (31-73) H Lymphocytes (%) (Auto) 11 % (24-48) L Monocytes (%) (Auto) 4 % (0-9) Eosinophils (%) (Auto) 2 % (0-3) Basophils (%) (Auto) 1 % (0-3) Neutrophils # (Auto) 8.6 x10^3/uL (1.8-7.7) H Lymphocytes # (Auto) 1.1 x10^3/uL (1.0-4.8) Monocytes # (Auto) 0.5 x10^3/uL (0.0-1.1) Eosinophils # (Auto) 0.2 x10^3/uL (0.0-0.7) Basophils # (Auto) 0.1 x10^3/uL (0.0-0.2) Sodium Level 136 mmol/L (136-145) Potassium Level 4.0 mmol/L (3.5-5.1) Chloride Level 99 mmol/L (98-107) Carbon Dioxide Level 22 mmol/L (21-32) Anion Gap 15 (6-14) H Blood Urea Nitrogen 7 mg/dL (7-20) Creatinine 1.0 mg/dL (0.6-1.0) Estimated GFR (Cockcroft-Gault) 69.7 BUN/Creatinine Ratio 7 (6-20) Glucose Level 296 mg/dL (70-99) H Lactic Acid Level 1.8 mmol/L (0.4-2.0) Calcium Level 9.6 mg/dL (8.5-10.1) Magnesium Level 1.9 mg/dL (1.8-2.4) Total Bilirubin 0.5 mg/dL (0.2-1.0) Direct Bilirubin 0.1 mg/dL (0.0-0.2) Aspartate Amino Transferase (AST) 11 U/L (15-37) L Alanine Aminotransferase (ALT) 15 U/L (14-59) Alkaline Phosphatase 83 U/L (46-116) Creatine Kinase 51 U/L (26-192) Troponin I Quantitative < 0.017 ng/mL (0.000-0.055) Total Protein 7.5 g/dL (6.4-8.2) Albumin 3.7 g/dL (3.4-5.0) Albumin/Globulin Ratio 1.0 (1.0-1.7) Lipase 2751 U/L (73-393) H Ethyl Alcohol Level < 10 mg/dL (0-10) Urine Collection Type Unknown Urine Color Yellow Urine Clarity Clear Urine pH 6.0 (<5.0-8.0) Urine Specific [place] >=1.030 (1.000-1.030) Urine Protein 100 mg/dL (NEG-TRACE) Urine Glucose (UA) >=1000 mg/dL (NEG) Urine Ketones (Stick) 40 mg/dL (NEG) Urine Blood Negative (NEG) Urine Nitrite Negative (NEG) Urine Bilirubin Negative (NEG) Urine Urobilinogen Dipstick 0.2 mg/dL (0.2 mg/dL) Urine Leukocyte Esterase Negative (NEG) Urine RBC Occ /HPF (0-2) Urine WBC Occ /HPF (0-4) Urine Squamous Epithelial Cells Many /LPF Urine Bacteria Few /HPF (0-FEW) Urine Opiates Screen Neg (NEG) Urine Methadone Screen Neg (NEG) Urine Barbiturates Neg (NEG) Urine Phencyclidine Screen Neg (NEG) Urine Amphetamine/Methamphetamine Neg (NEG) Urine Benzodiazepines Screen Neg (NEG) Urine Cocaine Screen Neg (NEG) Urine Cannabinoids Screen Neg (NEG) Urine Ethyl Alcohol Neg (NEG) Glucose (Fingerstick) 209 mg/dL (70-99) H Laboratory Tests 06/20/20 07:19 Laboratory Tests 06/20/20 07:19 ECHOCARDIOGRAM ECHOCARDIOGRAM <Conclusion> The left ventricle is normal size. Left ventricle systolic function is mildly impaired. The Ejection Fraction is 40-45%. There is mild generalized hypokinesis. There is borderline concentric left ventricular hypertrophy. There is no significant aortic valvular stenosis. Doppler and Color Flow revealed trace to mild aortic regurgitation. Doppler and Color-flow revealed trace to mild mitral regurgitation. Doppler and Color Flow revealed trace to mild tricuspid regurgitation. The PA pressure was estimated at 29 mmHg. There is no evidence of significant pericardial effusion. DATE: 08/28/16 1614 <Conclusion> The left ventricular systolic function is borderline normal. The ejection fraction is estimated at 50%. Trace to mild mitral regurgitation. Mild tricuspid regurgitation. There is no evidence of significant pericardial effusion. DATE: 07/12/17 1314 Mild to moderate global left ventricular hypokinesis is noted. Overall left ventricular systolic function is mildly to moderately impaired. The estimated left ventricular ejection fraction is in the range of 40 to 45%. Left ventricular contractility appears similar when compared with the prior echocardiogram performed on 11/28/1819. Grade I (mild) left ventricular diastolic dysfunction. Right ventricular contractility appears normal. Normal chamber dimensions. The aortic, mitral and tricuspid cardiac valves appear structurally normal. There is no evidence of significant valvular regurgitation or stenosis by doppler exam. No pericardial effusion is seen. 02/06/19 - 2-D + DOPPLER ECHOCARDIOGRAM STRESS TEST STRESS TEST 01/10/20 - Procedure: D-SPECT MULTI GATED THALLIUM REGADENOSON MPI STRESS TEST SUMMARY/OPINION: 1. This study is abnormal. There is a smallsized, mild to moderate intensity r eversible perfusion defect involving apical anterior and anterolateral segments concerning for ischemia in LAD territory. 2. Left ventricular systolic function is abnormal, global hypokinesis without clear regional variation. 3. The pharmacologic ECG portion of the study is negative for ischemia, baseline abnormal ECG with ST depression in the inferior and lateral precordial leads. Comparison is made with a prior DSECT study completed 03/04/2018. Ejection fraction was 36%, Left ventricular end-diastolic volume was 108 mL.. Study was deemed to be abnormal and intermediate risk secondary to the small to moderate sized, mild to moderate intensity, predominantly reversible perfusion defect of the apical anterior, apical lateral, and true left ventricular apex. Diffuse, moderate to severe, global LV systolic dysfunction was identified. Overall no significant changes when comparing these 2 studies. In aggregate the current study is intermediate risk in regards to predicted annual cardiovascular mortality rate. HEART CATH HEART CATH Conclusion Widely patent previously placed stent in the left anterior descending artery with 80% stenosis involving small to medium caliber second obtuse marginal branch of left circumflex artery. No flow-limiting lesions that needed intervention were noted. Recommendations Medical Therapy DATE: 02/14/16 1345 ASSESSMENT/PLAN ASSESSMENT/PLAN 1. Abdominal pain, acute on chronic pancreatitis. as per GI 2. Chest pain, atypical. Initial trop negative. 3. CAD: PCI/stent in the past. Follows with GINA Prado. Stress test 06/20/20 as noted above. 4. HTN: controlled 5. Hyperlipidemia; statin 6. Diabetes, II; uncontrolled 7. H/o CVA 8. Tobaccoism; discussed/encouraged cessation 9. Carotid stenosis s/p CEA 10. H/o alcoholism; continue to drink "occasionally" Recommendations Trend trop Lipids Continue secondary prevention including ASA/Plavix, statin Consider further outpatient ischemic evaluation if pain recurrent Follow up with primary paper folding machine operator upon discharge MIRIAM GEE MD 06/20/202046: CARDIAC CONSULT ASSESSMENT/PLAN ASSESSMENT/PLAN Patient seen and examined. Agree with PRODUCTION TECHNICIAN's assessment and plan. CP with very atypical features. CA ruled out. Recent MPI results noted above. Continue management of ac on chr pancreatitis per IM Follow up with primary paper folding machine operator upon DC Thank you for your consultation JOHN SCOTT APRN Jun 20, 2020 12:24 MIRIAM GEE MD Jun 20, 2020 20:47
[2020-06-20 12:35] LABS: CHOLESTEROL/HDL RATIO 6.8
[2020-06-20] MEDS ORDERED: SENNOSIDES 8.6 MG TABLET PO PRN (12:45)
[2020-06-20] MEDS ORDERED: FUROSEMIDE 20 MG TABLET PO PRN (12:45)
[2020-06-20] MEDS ORDERED: NON FORMULARY ITEM (Albuterol Sulfate (Proair Respiclick) 2 PUFF) IH PRN (12:45)
[2020-06-20] MEDS: IPRATRPIUM/ALBUTEROL 0.5/2.5MG 3 ML NEBU. NEB SCH ×3 (12:59→20:00)
[2020-06-20] MEDS: LIDOCAINE (700MG/PATCH) PATCH. TP SCH (13:00)
[2020-06-20] MEDS ORDERED: ZOLPIDEM 5 MG TABLET. PO PRN (13:45)
[2020-06-20 14:41] VITALS: BP 136/67
[2020-06-20] MEDS: FERROUS SULFATE 325 MG TABLET. PO SCH (14:44)
[2020-06-20] MEDS: GABAPENTIN 300 MG CAPSULE. PO SCH ×2 (14:44→21:00)
[2020-06-20] MEDS: CITALOPRAM 20 MG TABLET. PO SCH (14:44)
[2020-06-20] MEDS: buPROPion XL 150 MG TAB.ER.24H. PO SCH (14:44)
[2020-06-20] MEDS: CYANOCOBALAMIN (VITAMIN B-12) 1,000 MCG TABLET. PO SCH (14:44)
[2020-06-20] MEDS: ASPIRIN ENTERIC COATED 81 MG TABLET.DR. PO SCH (14:44)
[2020-06-20] MEDS: POLYETHYLENE GLYCOL 3350 17 GM PACKET. PO SCH (14:45)
[2020-06-20] MEDS: POTASSIUM CHLORIDE 20 MEQ TABLET.ER. PO SCH (14:45)
[2020-06-20] MEDS: CLOPIDOGREL BISULFATE 75 MG TABLET PO SCH (14:45)
[2020-06-20] MEDS: SPIRONOLACTONE 25 MG TABLET PO SCH (14:45)
[2020-06-20] MEDS: METOPROLOL SUCC 24HR ER 25 MG TAB.ER.24H. PO SCH (14:49)
[2020-06-20] MEDS: ISOSORBIDE MONONITRATE ER 30 MG TAB.ER.24H PO SCH (14:49)
[2020-06-20] MEDS: MORPHINE SULFATE 2 MG/ML VIAL. IV PRN ×2 (14:50→20:21)
[2020-06-20] MEDS: LISINOPRIL 20 MG TABLET PO SCH (15:02)
--- NOTE | 2020-06-20 15:46 | RAD ---
Exam performed: Complete abdominal sonogram. Indication:Right upper quadrant pain Date of exam: 06/20/2020 . Comparison: CT abdomen and pelvis from earlier today Technique:Real time garcia scale imaging of the abdomen is performed and images are obtained. Findings : The liver is normal in size and echogenicity. It measures 16.12 cm in length. The common duct sydnee ures 7.8 mm . The gallbladder appears normal. Pancreas is completely obscured due to overlying bowel gas. The spleen is normal in size. Both kidneys are unremarkable without evidence for hydronephrosis . Right kidney [id number] x 5.1 x 4.8 and the left kidney [id number] x 5.1 x 5.3. The inferior v samir cava and aorta are poorly visualized. Impression: Mild dilation of the common bile duct is seen. In absence of any gallbladder abnormality, the finding s are nonspecific. Alternating with a recent CT abdomen and pelvis demonstrating acute inflammatory c hanges in the region of pancreatic head, the findings may be related to spasm or mild stricture seco ndary to inflammatory etiology. Follow-up ultrasound after resolution of acute symptoms may be obtain ed to ensure that the common bile duct returns to normal size. It dilation persists, consider evaluat ion with MRCP to rule out possibility of mild distal common bile duct stricture or calculus.. Electronically signed by: Sindi Velasquez MD (06/20/2020 3:44 PM) [id number]
[2020-06-20] MEDS: PANTOPRAZOLE 40 MG TABLET.DR. PO SCH (17:02)
[2020-06-20 17:04] VITALS: BP 103/54
[2020-06-20 19:40] VITALS: BP 95/46
[2020-06-20] MEDS: QUEtiapine 100 MG TABLET. PO SCH (20:20)
[2020-06-20] MEDS: ATORVASTATIN CALCIUM 40 MG TABLET. PO SCH (20:20)
[2020-06-20 23:05] VITALS: BP 89/46
[2020-06-21] VITALS (7 sets, daily range): BP systolic 74–142; BP diastolic 35–58
[2020-06-21 00:11] LABS: HEMOGLOBIN A1C 12.5 % (4.8-5.6)
[2020-06-21] MEDS: IPRATRPIUM/ALBUTEROL 0.5/2.5MG 3 ML NEBU. NEB SCH ×6 (04:00→20:03)
[2020-06-21] MEDS: IV NORMAL SALINE 1000ML BAG 1,000 ML IV SCH ×2 (05:15→11:48)
[2020-06-21] MEDS ORDERED: PANTOPRAZOLE 40 MG TABLET.DR. PO SCH (07:30)
[2020-06-21] MEDS: LIDOCAINE (700MG/PATCH) PATCH. TP SCH (08:00)
[2020-06-21] MEDS ORDERED: ERGOCALCIFEROL (VITAMIN D2) 50,000 UNIT CAPSULE. PO SCH (09:00)
[2020-06-21] MEDS: ISOSORBIDE MONONITRATE ER 30 MG TAB.ER.24H PO SCH (09:00)
[2020-06-21] MEDS: LISINOPRIL 20 MG TABLET PO SCH (09:00)
[2020-06-21] MEDS: METOPROLOL SUCC 24HR ER 25 MG TAB.ER.24H. PO SCH (09:00)
[2020-06-21] MEDS: FERROUS SULFATE 325 MG TABLET. PO SCH (10:19)
[2020-06-21] MEDS: ASPIRIN ENTERIC COATED 81 MG TABLET.DR. PO SCH (10:19)
[2020-06-21] MEDS: CYANOCOBALAMIN (VITAMIN B-12) 1,000 MCG TABLET. PO SCH (10:19)
[2020-06-21] MEDS: CITALOPRAM 20 MG TABLET. PO SCH (10:19)
[2020-06-21] MEDS: SPIRONOLACTONE 25 MG TABLET PO SCH (10:20)
[2020-06-21] MEDS: PANTOPRAZOLE 40 MG TABLET.DR. PO SCH (10:20)
[2020-06-21] MEDS: GABAPENTIN 300 MG CAPSULE. PO SCH ×3 (10:20→21:09)
[2020-06-21] MEDS: POTASSIUM CHLORIDE 20 MEQ TABLET.ER. PO SCH (10:20)
[2020-06-21] MEDS: CLOPIDOGREL BISULFATE 75 MG TABLET PO SCH (10:20)
--- NOTE | 2020-06-21 10:46 | PDOC ---
Date of Service: DATE: 06/21/20 TIME: 10:42 Subjective: Subjective: Still sore but better than yesterday, would like to advance diet. Has a headache, has questions about diabetes treatment. Objective: Objective: D/w nurse - fluctuating glucose and BP - not much complaining re: abd pain, tolerating clears. Vital Signs: Vital Signs Date Time Temp Pulse Resp B/P (MAP) Pulse Ox O2 Delivery O2 Flow Rate FiO2 06/21/20 07:50 97.7 79 16 96/55 (69) 99 Room Air 97.7 Labs: Laboratory Tests Test 06/20/20 11:35 06/20/20 16:09 06/20/20 21:01 06/21/20 04:56 Glucose (Fingerstick) 209 mg/dL (70-99) 275 mg/dL (70-99) 343 mg/dL (70-99) 42 mg/dL (70-99) Test 06/21/20 05:23 06/21/20 07:26 Glucose (Fingerstick) 84 mg/dL (70-99) 148 mg/dL (70-99) BLOOD CULTURE Final GRAM POSITIVE COCCI IN CLUSTERS, SUGGESTIVE OF STAPH, IN 2 OF 4 BOTTLES, ONE OF TWO SETS DRAWN IN ER. CALLED TO RASHI BAUMAN RN ON 2N AT 9:50 ON 06/21/20 DW MT SENT TO [facility] FOR FURTHER WORKUP. Imaging: Abd US 06/20 Impression: Mild dilation of the common bile duct is seen. In absence of any gallbladder abnormality, the findings are nonspecific. Alternating with a recent CT abdomen and pelvis demonstrating acute inflammatory changes in the region of pancreatic head, the findings may be related to spasm or mild stricture secondary to inflammatory etiology. Follow-up ultrasound after resolution of acute symptoms may be obtained to ensure that the common bile duct returns to normal size. It dilation persists, consider evaluation with MRCP to rule out possibility of mild distal common bile duct stricture or calculus.. PE: GEN: NAD LUNGS: CTAB HEART: RRR ABD: quiet BS, epigastric/RQUQ discomfort, soft NEURO/PSYCH: A & O 3 A/P: Recurrent pancreatitis - probably related to alcohol GPC bacteremia Mild CBD dilation - US as above, LFTs normal yesterday H/o FUNMILAYO and B12 deficiency, GERD, constipation CAD, HTN, DM - per primary/cardiology -- Try full liquids. Stop drinking. Justicifation of Admission Dx: Justifications for Admission: Justification of Admission Dx: Yes DONNA JUAREZ Jun 21, 2020 10:46
[2020-06-21] MEDS: FLUTICASONE 50MCG/NASAL SPRAY 16GM BOTTLE. NS SCH (11:48)
[2020-06-21] MEDS: ENOXAPARIN 40 MG/0.4 ML SYRINGE. SQ SCH (11:48)
[2020-06-21] MEDS: buPROPion XL 150 MG TAB.ER.24H. PO SCH (11:49)
[2020-06-21] MEDS: POLYETHYLENE GLYCOL 3350 17 GM PACKET. PO SCH (11:49)
--- NOTE | 2020-06-21 12:14 | PDOC ---
KAYA SIMMONS CURRENCY EXAMINER 06/21/20 1214: CARDIO Progress Notes Date and Time Date of Service 06/21/2020 Time of Evaluation 1020 Subjective Subjective: No Chest Pain, No shortness of breath, No Palpitations Vitals Vitals Vital Signs Date Time Temp Pulse Resp B/P (MAP) Pulse Ox O2 Delivery O2 Flow Rate FiO2 06/21/20 10:45 98.1 77 16 110/51 (70) 100 Room Air 98.1 Weight Weight [ ] Input and Output Intake and Output Intake and Output 06/21/20 07:00 Intake Total 2540 ml Output Total 200 ml Balance 2340 ml Intake Oral 560 ml IV Total 1980 ml Output Urine Total 200 ml # Voids 1 # Bowel Movements 1 Laboratory Labs Laboratory Tests Test 06/20/20 14:35 06/20/20 16:09 06/20/20 21:01 06/21/20 04:56 Troponin I Quantitative < 0.017 ng/mL (0.000-0.055) Glucose (Fingerstick) 275 mg/dL (70-99) 343 mg/dL (70-99) 42 mg/dL (70-99) Test 06/21/20 05:23 06/21/20 07:26 06/21/20 11:18 Glucose (Fingerstick) 84 mg/dL (70-99) 148 mg/dL (70-99) 207 mg/dL (70-99) Microbiology Micro Microbiology 06/20/20 Blood Culture - Final, Complete Physical Exam HEENT: Neck Supple W Full Motion Chest: Symmetric LUNGS: Clear to Auscultation Heart: RRR (SR) Abdomen: Soft N/T Extremities: No Calf Tenderness, Other (1+ bilateral LE pitting edema) Neurology: alert, oriented, follow commands Assessment Assessment 1. Abdominal pain, acute on chronic pancreatitis. likely from ETOH as per GI 2. Atypical CP: possibly GI 3. CAD: PCI/stent in the past. Follows with GINA Prado. Stress test 06/20/20 as noted above. 4. HTN: low end this morning possibly from volume depletion r/t to DKA 5. Hyperlipidemia: not on goal 6. DM2/DKA; uncontrolled with hypoglycemia episode 7. H/o CVA 8. Tobaccoism; discussed/encouraged cessation 9. Carotid stenosis s/p CEA 10. H/o alcoholism; continue to drink "occasionally" Recommendations 1. Continue ASA/plavix. 2. Optimize statin and BG control. Encouraged ETOH cessation. May utilize vascepa as well. This could be monitored as outpt defer to her primary oil drilling engineer. Dietitian consult 3. Continue secondary prevention. May hold BP regimen pending BP trend. Continue with IVF 4. Consider further outpatient ischemic evaluation if pain recurrent 5. Follow up with primary oil drilling engineer upon discharge Justicifation of Admission Dx: Justifications for Admission: Justification of Admission Dx: Yes MIRIAM GEE MD 06/22/20 0910: CARDIO Progress Notes Assessment Assessment Patient seen and examined 06/21/20. Agree with FLAT DRIER's assessment and plan. Chest pain with atypical features and most probably GI etiology. CAD status clinically stable. Recent stress test did not show any significant ischemia. Continue current management for acute on chronic pancreatitis. Follow-up with primary oil drilling engineer upon discharge. KAYA SIMMONS APRN Jun 21, 2020 12:14 MIRIAM GEE MD Jun 22, 2020 09:10
--- NOTE | 2020-06-21 12:23 | PDOC ---
[facility] PROGRESS NOTE Date of Service DOS: DATE: 06/21/20 TIME: 12:21 Chief Complaint Chief Complaint Assessment/Plan 1. Acute abdominal pain due to acute on chronic pancreatitis Peripancreatic inflammation and fluid about the head of the pancreas suggests an acute pancreatitis. ON CT TODAY, Improvement at the tail of the pancreas compared to December 2019. npo, CONSULT GI IV PAIN CONTROL ABD SONO Clear liquid diet 2. Hypertension, UNCONTROLLED IV LABETALOL 20 MG Q 3 HRS PRN BP SUPPORT home meds 3. CAD with HX stents WITH CHEST PAIN consult cardiology previously placed stent in the left anterior descending artery with 80% stenosis involving small to medium caliber second obtuse marginal branch of left circumflex artery 4. Diabetes mellitus SS INSULIN PROTOCOL A1C 5. HX remote severe alcohol abuse unsure as current true intake given hx 6. Morbid obesity 7. REMOTE CVA 8. hyperlipidemia cont statin History of Present Illness History of Present Illness 06/21/2020 No acute events overnight. We will advance diet to clear liquid diet. Patient's chart, labs, images were reviewed and discussed with RN 54-year-old female with past medical history of CAD with stent placement, history of alcohol abuse, diabetes who presents to the ED with generalized abdominal pain AND ruq that radiates to the back for the past 24 hrs and has progressively worsened. Patient states that she has had history of acute pancreatitis in the past and also history of alcohol abuse. She has cut down on her smoking and no alcohol drinks Her last drink she states was about 12 weeks ago. Patient describes her pain as sharp, 6 out of 10, and is associated with nausea and vomiting. Patient denies any bloody bowel movements, fevers, shortness of breath, dysuria, or diarrhea Reports nausea and vomiting 2 days ago, last bowel movement was 2 days ago. Last alcoholic beverage was on Wednesday-half a glass of wine while watching the [employer] game. n Was seen by her pmd on Wednesday for these symptoms and prescribed amytriptyline. Stopped taking is because it made her "feel weird." Denies any IVDU/ cocaine use. pt is poor surgical candidate. previously placed stent in the left anterior descending artery with 80% stenosis involving small to medium caliber second obtuse marginal branch of left circumflex artery ON LAST ADMIT, considered for elective cholecystectomy pending etoh cessation. Upon ROS, has chest pain that started 2 days ago. Has no taken her BP medications today but reports compliance. Vitals/I&O Vitals/I&O: Vital Signs Date Time Temp Pulse Resp B/P (MAP) Pulse Ox O2 Delivery O2 Flow Rate FiO2 06/21/20 10:45 98.1 77 16 110/51 (70) 100 Room Air 98.1 I & O 06/20/20 06/20/20 06/21/20 15:00 23:00 07:00 Intake Total 1000 ml 1340 ml 200 ml Output Total 200 ml Balance 1000 ml 1340 ml 0 ml Physical Exam General: Alert, Oriented X3, Cooperative, mild distress Lungs: Clear Abdomen: Soft, Other (RUQ TENDER , NO REBOUND) Extremities: No cyanosis Skin: No rashes Labs Labs: Laboratory Tests Test 06/20/20 14:35 06/20/20 16:09 06/20/20 21:01 06/21/20 04:56 Troponin I Quantitative < 0.017 ng/mL (0.000-0.055) Glucose (Fingerstick) 275 mg/dL (70-99) 343 mg/dL (70-99) 42 mg/dL (70-99) Test 06/21/20 05:23 06/21/20 07:26 06/21/20 11:18 Glucose (Fingerstick) 84 mg/dL (70-99) 148 mg/dL (70-99) 207 mg/dL (70-99) Assessment and Plan Assessmemt and Plan Problems Medical Problems: (1) Acute pancreatitis Status: Acute (2) Inferior ST segment depression Status: Acute (3) Uncontrolled hypertension Status: Acute Comment Review of Relevant I have reviewed the following items elena (where applicable) has been applied. Medications: Current Medications Medications (Trade) Dose Ordered Sig/Luis Enrique Route PRN Reason Start Time Stop Time Status Last Admin Dose Admin Aspirin (Ecotrin) 81 mg DAILYWBKFT PO 06/20/20 13:30 06/21/20 10:19 Clopidogrel Bisulfate (Plavix) 75 mg DAILY PO 06/20/20 13:30 06/21/20 10:20 Cyanocobalamin (Vitamin B-12) 1,000 mcg DAILY PO 06/20/20 13:30 06/21/20 10:19 Fluticasone Propionate (Flonase) 2 spray DAILY NS 06/21/20 09:00 06/21/20 11:48 Gabapentin (Neurontin) 300 mg TID PO 06/20/20 14:00 06/21/20 10:20 Isosorbide Mononitrate (Imdur) 30 mg DAILY PO 06/20/20 13:30 06/20/20 14:49 Lisinopril (Prinivil) 20 mg DAILY PO 06/20/20 13:00 06/20/20 15:02 Metoprolol Succinate (Toprol Xl) 25 mg DAILY PO 06/20/20 13:30 06/20/20 14:49 Potassium Chloride (Klor-Con) 20 meq DAILY PO 06/20/20 13:30 06/21/20 10:20 Quetiapine Fumarate (SEROquel) 100 mg QHS PO 06/20/20 21:00 06/20/20 20:20 Spironolactone (Aldactone) 25 mg DAILY PO 06/20/20 13:30 06/21/20 10:20 Bupropion HCl (Wellbutrin Xl) 450 mg DAILYWBKFT PO 06/20/20 13:30 06/21/20 11:49 Ergocalciferol (Vitamin D2) 50,000 unit Fr PO 06/21/20 09:00 06/21/20 10:20 Citalopram Hydrobromide (CeleXA) 40 mg DAILY PO 06/20/20 13:30 06/21/20 10:19 Atorvastatin Calcium (Lipitor) 80 mg QHS PO 06/20/20 21:00 06/20/20 20:20 Pantoprazole Sodium (Protonix) 40 mg DAILYAC PO 06/20/20 16:30 06/21/20 10:20 Ferrous Sulfate (Feosol) 325 mg DAILYWBKFT PO 06/20/20 13:15 06/21/20 10:19 Polyethylene Glycol (miraLAX PACKET) 17 gm DAILY PO 06/20/20 13:30 06/21/20 11:49 Justifications for Admission Other Justification MALISSA WEN MD Jun 21, 2020 12:23
[2020-06-21 13:10] LABS: CALCIUM 9.2 mg/dL (8.5-10.1); CREATININE 1.3 mg/dL (0.6-1.0); GFR 51.5; POTASSIUM 3.7 mmol/L (3.5-5.1)
--- NOTE | 2020-06-21 13:27 | NUR ---
SS following for discharge planning. SS reviewed pt chart and discussed with pt RN. Pt is currently on room air. PT/OT recommended home with assistance. SS and nurse navigator met with pt to discuss discharge planning and home healthcare. Pt agreeable to home healthcare with [facility], ; fax [phone]. SS will continue to follow for discharge planning.
[2020-06-21] MEDS: oxyCODONE/APAP 5/325 1 TAB TABLET PO PRN (14:01)
[2020-06-21] MEDS ORDERED: CIME300S4 PO (16:13)
[2020-06-21] MEDS ORDERED: BUPR150T27 PO (16:13)
[2020-06-21] MEDS ORDERED: AMLO-186 PO (16:13)
[2020-06-21] MEDS ORDERED: FENO145T3 PO (16:13)
[2020-06-21] MEDS ORDERED: MIRT-7 PO (16:13)
[2020-06-21] MEDS ORDERED: CARV25TA2 PO (16:13)
[2020-06-21] MEDS: ATORVASTATIN CALCIUM 40 MG TABLET. PO SCH (21:09)
[2020-06-21] MEDS: QUEtiapine 100 MG TABLET. PO SCH (21:09)
[2020-06-21] MEDS ORDERED: DEXTROSE 50% 25 GM / 50ML DISP.SYRIN. IV PRN (21:15)
[2020-06-21] MEDS: INSULIN LISPRO 300 UNITS/3 ML VIAL. SQ SCH (21:21)
[2020-06-22 03:41] VITALS: BP 124/58
[2020-06-22 07:00] VITALS: BP 139/75
[2020-06-22] MEDS: IPRATRPIUM/ALBUTEROL 0.5/2.5MG 3 ML NEBU. NEB SCH ×3 (07:55→18:03)
[2020-06-22] MEDS: LIDOCAINE (700MG/PATCH) PATCH. TP SCH (08:00)
[2020-06-22] MEDS: POTASSIUM CHLORIDE 20 MEQ TABLET.ER. PO SCH (08:15)
[2020-06-22] MEDS: CYANOCOBALAMIN (VITAMIN B-12) 1,000 MCG TABLET. PO SCH (08:15)
[2020-06-22] MEDS: FERROUS SULFATE 325 MG TABLET. PO SCH (08:15)
[2020-06-22] MEDS: GABAPENTIN 300 MG CAPSULE. PO SCH ×3 (08:15→21:12)
[2020-06-22] MEDS: PANTOPRAZOLE 40 MG TABLET.DR. PO SCH (08:15)
[2020-06-22] MEDS: ASPIRIN ENTERIC COATED 81 MG TABLET.DR. PO SCH (08:15)
[2020-06-22] MEDS: SPIRONOLACTONE 25 MG TABLET PO SCH (08:16)
[2020-06-22] MEDS: oxyCODONE/APAP 5/325 1 TAB TABLET PO PRN (08:16)
[2020-06-22] MEDS: CITALOPRAM 20 MG TABLET. PO SCH (08:17)
[2020-06-22] MEDS: ISOSORBIDE MONONITRATE ER 30 MG TAB.ER.24H PO SCH (08:17)
[2020-06-22] MEDS: CLOPIDOGREL BISULFATE 75 MG TABLET PO SCH (08:18)
[2020-06-22] MEDS: FLUTICASONE 50MCG/NASAL SPRAY 16GM BOTTLE. NS SCH (08:18)
[2020-06-22] MEDS: POLYETHYLENE GLYCOL 3350 17 GM PACKET. PO SCH ×2 (08:19→09:12)
[2020-06-22] MEDS: LISINOPRIL 20 MG TABLET PO SCH (08:19)
[2020-06-22] MEDS: INSULIN LISPRO 300 UNITS/3 ML VIAL. SQ SCH ×3 (08:28→17:22)
[2020-06-22] MEDS: buPROPion SR 150 MG TABLET.SA PO SCH ×2 (08:46→21:12)
[2020-06-22] MEDS: CARVEDILOL 12.5 MG TABLET. PO SCH ×2 (09:09→17:00)
[2020-06-22] MEDS: FENOFIBRATE,MICRONIZED 134 MG CAPSULE PO SCH (09:09)
[2020-06-22 11:00] VITALS: BP 118/65
--- NOTE | 2020-06-22 11:45 | PDOC ---
[facility] PROGRESS NOTE Date of Service DOS: DATE: 06/22/20 TIME: 11:43 Chief Complaint Chief Complaint Assessment/Plan 1. Acute abdominal pain due to acute on chronic pancreatitis Peripancreatic inflammation and fluid about the head of the pancreas suggests an acute pancreatitis. ON CT TODAY, Improvement at the tail of the pancreas compared to December 2019. npo, CONSULT GI IV PAIN CONTROL ABD SONO Clear liquid diet 2. Hypertension, UNCONTROLLED IV LABETALOL 20 MG Q 3 HRS PRN BP SUPPORT home meds 3. CAD with HX stents WITH CHEST PAIN consult cardiology previously placed stent in the left anterior descending artery with 80% stenosis involving small to medium caliber second obtuse marginal branch of left circumflex artery 4. Diabetes mellitus SS INSULIN PROTOCOL A1C 5. HX remote severe alcohol abuse unsure as current true intake given hx 6. Morbid obesity 7. REMOTE CVA 8. hyperlipidemia cont statin History of Present Illness History of Present Illness 06/22/2020 No acute events overnight. Patient ate dinner last night and tolerated it well with some nausea. Bowel movement x1 last night. Continues to have some abdominal pain that is improved after p.o. pain medications. Home meds have been restarted. Will anticipate discharge in the next 24 hours. Patient's cristiano t, labs, images were reviewed and discussed with RN 06/21/2020 No acute events overnight. We will advance diet to clear liquid diet. Patient's chart, labs, images were reviewed and discussed with RN 54-year-old female with past medical history of CAD with stent placement, history of alcohol abuse, diabetes who presents to the ED with generalized abdominal pain AND ruq that radiates to the back for the past 24 hrs and has progressively worsened. Patient states that she has had history of acute pancreatitis in the past and also history of alcohol abuse. She has cut down on her smoking and no alcohol drinks Her last drink she states was about 12 weeks ago. Patient describes her pain as sharp, 6 out of 10, and is associated with nausea and vomiting. Patient denies any bloody bowel movements, fevers, shortness of breath, dysuria, or diarrhea Reports nausea and vomiting 2 days ago, last bowel movement was 2 days ago. Last alcoholic beverage was on Wednesday-half a glass of wine while watching the [employer] ([employer] game. n Was seen by her pmd on Wednesday for these symptoms and prescribed amytriptyline. Stopped taking is because it made her "feel weird." Denies any IVDU/ cocaine use. pt is poor surgical candidate. previously placed stent in the left anterior descending artery with 80% stenosis involving small to medium caliber second obtuse marginal branch of left circum flex artery ON LAST ADMIT, considered for elective cholecystectomy pending etoh cessation. Upon ROS, has chest pain that started 2 days ago. Has no taken her BP medications today but reports compliance. Vitals/I&O Vitals/I&O: Vital Signs Date Time Temp Pulse Resp B/P (MAP) Pulse Ox O2 Delivery O2 Flow Rate FiO2 06/22/20 09:16 18 Room Air 06/22/20 09:09 91 139/75 06/22/20 07:00 98.0 98 98.0 I & O 06/21/20 06/21/20 06/22/20 15:00 23:00 07:00 Intake Total 600 ml 120 ml 250 ml Output Total 250 ml Balance 600 ml -130 ml 250 ml Physical Exam General: Alert, Oriented X3, Cooperative, mild distress Lungs: Clear Abdomen: Soft, Other (RUQ TENDER , NO REBOUND) Extremities: No cyanosis Skin: No rashes Labs Labs: Laboratory Tests Test 06/21/20 12:45 06/21/20 16:11 06/21/20 20:37 06/22/20 07:46 Sodium Level 139 mmol/L (136-145) Potassium Level 3.7 mmol/L (3.5-5.1) Chloride Level 105 mmol/L (98-107) Carbon Dioxide Level 22 mmol/L (21-32) Anion Gap 12 (6-14) Blood Urea Nitrogen 11 mg/dL (7-20) Creatinine 1.3 mg/dL (0.6-1.0) Estimated GFR (Cockcroft-Gault) 51.5 Glucose Level 107 mg/dL (70-99) Calcium Level 9.2 mg/dL (8.5-10.1) Glucose (Fingerstick) 86 mg/dL (70-99) 321 mg/dL (70-99) 322 mg/dL (70-99) Test 06/22/20 11:35 Glucose (Fingerstick) 241 mg/dL (70-99) Assessment and Plan Assessmemt and Plan Problems Medical Problems: (1) Acute pancreatitis Status: Acute (2) Inferior ST segment depression Status: Acute (3) Uncontrolled hypertension Status: Acute Comment Review of Relevant I have reviewed the following items elena (where applicable) has been applied. Medications: Current Medications Medications (Trade) Dose Ordered Sig/Luis Enrique Route PRN Reason Start Time Stop Time Status Last Admin Dose Admin Insulin Human Lispro (HumaLOG) 0-5 UNITS TIDWMEALS SQ 06/21/20 21:00 06/22/20 08:28 Bupropion HCl (Wellbutrin Sr) 150 mg BID PO 06/22/20 09:00 06/22/20 08:46 Carvedilol (Coreg) 25 mg BIDWMEALS PO 06/22/20 09:00 06/22/20 09:09 Fenofibrate (Lofibra) 134 mg DAILY PO 06/22/20 09:00 06/22/20 09:09 Justifications for Admission Other Justification MALISSA WEN MD Jun 22, 2020 11:45
[2020-06-22] MEDS: ENOXAPARIN 40 MG/0.4 ML SYRINGE. SQ SCH (12:18)
[2020-06-22 15:00] VITALS: BP 93/54
[2020-06-22 19:35] VITALS: BP 108/60
[2020-06-22] MEDS ORDERED: INSULIN GLARGINE SYRINGE. SQ SCH (21:00)
[2020-06-22] MEDS ORDERED: MIRTAZAPINE 15 MG TABLET PO SCH (21:00)
[2020-06-22] MEDS: ATORVASTATIN CALCIUM 40 MG TABLET. PO SCH (21:12)
[2020-06-22] MEDS: QUEtiapine 100 MG TABLET. PO SCH (21:12)
[2020-06-22 23:15] VITALS: BP 111/62
[2020-06-23] MEDS ORDERED: INSULIN LISPRO 300 UNITS/3 ML VIAL. SQ ONE (01:30)
[2020-06-23 03:45] VITALS: BP 145/80
[2020-06-23] MEDS: oxyCODONE/APAP 5/325 1 TAB TABLET PO PRN (06:12)
[2020-06-23 07:00] VITALS: BP 136/76
[2020-06-23] MEDS: IPRATRPIUM/ALBUTEROL 0.5/2.5MG 3 ML NEBU. NEB SCH (07:54)
[2020-06-23] MEDS: INSULIN LISPRO 300 UNITS/3 ML VIAL. SQ SCH ×2 (08:00→12:07)
[2020-06-23] MEDS: LIDOCAINE (700MG/PATCH) PATCH. TP SCH (08:00)
[2020-06-23] MEDS: LISINOPRIL 20 MG TABLET PO SCH (08:52)
[2020-06-23] MEDS: buPROPion SR 150 MG TABLET.SA PO SCH (08:53)
[2020-06-23] MEDS: CLOPIDOGREL BISULFATE 75 MG TABLET PO SCH (08:53)
[2020-06-23] MEDS: POLYETHYLENE GLYCOL 3350 17 GM PACKET. PO SCH (08:53)
[2020-06-23] MEDS: CYANOCOBALAMIN (VITAMIN B-12) 1,000 MCG TABLET. PO SCH (08:53)
[2020-06-23] MEDS: CITALOPRAM 20 MG TABLET. PO SCH (08:53)
[2020-06-23] MEDS: FENOFIBRATE,MICRONIZED 134 MG CAPSULE PO SCH (08:53)
[2020-06-23] MEDS: POTASSIUM CHLORIDE 20 MEQ TABLET.ER. PO SCH (08:54)
[2020-06-23] MEDS: ASPIRIN ENTERIC COATED 81 MG TABLET.DR. PO SCH (08:54)
[2020-06-23] MEDS: SPIRONOLACTONE 25 MG TABLET PO SCH (08:54)
[2020-06-23] MEDS: ISOSORBIDE MONONITRATE ER 30 MG TAB.ER.24H PO SCH (08:54)
[2020-06-23] MEDS: FERROUS SULFATE 325 MG TABLET. PO SCH (08:54)
[2020-06-23] MEDS: PANTOPRAZOLE 40 MG TABLET.DR. PO SCH (08:54)
[2020-06-23] MEDS: CARVEDILOL 12.5 MG TABLET. PO SCH (08:55)
[2020-06-23] MEDS: GABAPENTIN 300 MG CAPSULE. PO SCH (08:55)
[2020-06-23] MEDS: FLUTICASONE 50MCG/NASAL SPRAY 16GM BOTTLE. NS SCH (08:56)
[2020-06-23] MEDS ORDERED: DOCU-153 PO (10:13)
[2020-06-23] MEDS ORDERED: SENN-87 PO (10:13)
[2020-06-23] MEDS ORDERED: POLY17PO52 PO (10:13)
[2020-06-23] MEDS ORDERED: ATOR40TA59 PO (10:13)
--- NOTE | 2020-06-23 10:15 | DISCH ---
DISCHARGE INSTRUCTIONS Condition on Discharge Condition on Discharge: Stable Activity After Discharge Activity Instructions for Disc: Activity as tolerated Lifting Instructions after Dis: No heavy lifting, Add. restrict see below Driving Instructions after Dis: Do not drive Weight Bearing Status after Di: Other, see below Diet after Discharge Diet after Discharge: Diabetic No Calorie Level Diet Texture: Regular Liquid Texture: Thin Liquid Swallowing Supervision: None needed Wound Incision Care Wound/Incision Care: Do not change dressing, Other, see below Wound Care Equipment: Dressings Checks after Discharge Checks after discharge: Check blood press - daily, Check blood sugar, ac/hs Contacting the DR. after DC Call your doctor for: Concerns you may have Follow-Up Follow up with: PCP within 2 weeks of discharge Follow Up With: Cardiology as needed or scheduled Treatment/Equipment after DC Adaptive Equipment Issued: None MALISSA WEN MD Jun 23, 2020 10:15
[2020-06-23 11:00] VITALS: BP 155/84
[2020-06-23 11:50] LABS: CALCIUM 9.1 mg/dL (8.5-10.1); CREATININE 1.1 mg/dL (0.6-1.0); GFR 62.4; POTASSIUM 5.1 mmol/L (3.5-5.1)
--- NOTE | 2020-06-23 12:35 | NUR ---
Discharge Note: JONO HOLT JEAN Discharge instructions and discharge home medications reviewed with Patient and a copy given. All questions have been answered and understanding verbalized. The following instructions and handouts were given: Acute pancreatitis and Hypertension Discontinued lines and drains: Peripheral IV intact. Patient discharged to Home or Self Care with Family Member via Wheelchair
--- NOTE | 2020-06-27 12:40 | PDOC3 ---
[facility]-Discharge Summary Date of Admission: Date of Admission: Jun 20, 2020 Date of Discharge: Date of Discharge: Jun 23, 2020 Discharge Diagnosis: Discharge Diagnosis: 1. Acute abdominal pain due to acute on chronic pancreatitis Peripancreatic inflammation and fluid about the head of the pancreas suggests an acute pancreatitis. ON CT TODAY, Improvement at the tail of the pancreas compared to December 2019. npo, CONSULT GI IV PAIN CONTROL ABD SONO Clear liquid diet 2. Hypertension, UNCONTROLLED IV LABETALOL 20 MG Q 3 HRS PRN BP SUPPORT home meds 3. CAD with HX stents WITH CHEST PAIN consult cardiology previously placed stent in the left anterior descending artery with 80% stenosis involving small to medium caliber second obtuse marginal branch of left circumflex artery 4. Diabetes mellitus SS INSULIN PROTOCOL A1C 5. HX remote severe alcohol abuse unsure as current true intake given hx Hospital Course: Hospital Course: By day of discharge, patient was tolerating soft diet and pain was controlled with percocet. She will be discharged with percocet for 3 days only. She will need to continue with her cardiac medications and BP medications as well. Rest of her hospital course was uneventful. 06/22/2020 No acute events overnight. Patient ate dinner last night and tolerated it well with some nausea. Bowel movement x1 last night. Continues to have some abdominal pain that is improved after p.o. pain medications. Home meds have been restarted. Will anticipate discharge in the next 24 hours. Patient's chart, labs, images were reviewed and discussed with RN 06/21/2020 No acute events overnight. We will advance diet to clear liquid diet. Patient's chart, labs, images were reviewed and discussed with RN 54-year-old female with past medical history of CAD with stent placement, history of alcohol abuse, diabetes who presents to the ED with generalized abdominal pain AND ruq that radiates to the back for the past 24 hrs and has progressively worsened. Patient states that she has had history of acute pancreatitis in the past and also history of alcohol abuse. She has cut down on her smoking and no alcohol drinks Her last drink she states was about 12 weeks ago. Patient describes her pain as sharp, 6 out of 10, and is associated with nausea and vomiting. Patient denies any bloody bowel movements, fevers, shortness of breath, dysuria, or diarrhea Reports nausea and vomiting 2 days ago, last bowel movement was 2 days ago. Last alcoholic beverage was on Wednesday-half a glass of wine while watching the [employer] game. n Was seen by her pmd on Wednesday for these symptoms and prescribed amytriptyline. Stopped taking is because it made her "feel weird." Denies any IVDU/ cocaine use. pt is poor surgical candidate. previously placed stent in the left anterior descending artery with 80% stenosis involving small to medium caliber second obtuse marginal branch of left circumflex artery ON LAST ADMIT, considered for elective cholecystectomy pending etoh cessation. Upon ROS, has chest pain that started 2 days ago. Has no taken her BP medications today but reports compliance. Disposition: Disposition/Orders: D/C to Home Activity: Activity: Resume previous activity Diet: Diet: Soft Medications: Home Meds Active Scripts Sennosides (SENNA LAX) 8.6 Mg Tablet, 8.6 MG PO PRN BID PRN for CONSTIPATION for 30 Days, #60 TAB Prov:MALISSA WEN MD 06/23/20 Polyethylene Glycol 3350 (POLYETHYLENE GLYCOL 3350) 17 Gm Powd.pack, 17 GM PO DAILY for constipation for 30 Days, #30 PKT Prov:MALISSA WEN MD 06/23/20 Docusate Sodium (DOK) 100 Mg Capsule, 100 MG PO PRN BID PRN for HARD STOOLS for 30 Days, #60 CAP Prov:MALISSA WEN MD 06/23/20 Atorvastatin Calcium (ATORVASTATIN CALCIUM) 40 Mg Tablet, 80 MG PO QHS for cholesterol for 30 Days, #60 TAB Prov:MALISSA WEN MD 06/23/20 Clopidogrel Bisulfate (CLOPIDOGREL) 75 Mg Tablet, 1 TAB PO DAILY, #90 TAB 1 Refill Prov:JOHN SCOTT APRN 08/28/16 Aspirin (ASPIRIN EC) 81 Mg Tablet., 81 MG PO DAILYWBKFT, #30 Prov:ART JALLOH MD 02/14/16 Reported Medications Mirtazapine (MIRTAZAPINE) 15 Mg Tablet, 1 TAB PO QHS for Insomnia , #30 TAB 3 Refills 06/21/20 Fenofibrate Nanocrystallized (FENOFIBRATE) 145 Mg Tablet, 1 TAB PO DAILY for HLD, #30 TAB 5 Refills 06/21/20 Carvedilol (CARVEDILOL) 25 Mg Tablet, 25 MG PO BIDWMEALS for CARDIAC, TAB 06/21/20 Amlodipine Besylate (AMLODIPINE BESYLATE) 5 Mg Tablet, 5 MG PO DAILY for HTN, TAB 06/21/20 Bupropion Hcl (BUPROPION HCL SR) 150 Mg Tablet.er, 150 MG PO BID for depression , TAB.SR 06/21/20 Triazolam (TRIAZOLAM) 0.25 Mg Tablet, 2 TAB PO PRN QHS PRN for sleep MDD 2 Tablet(s) for 30 Days, #60 TAB 0 Refills 01/15/20 Spironolactone (SPIRONOLACTONE) 25 Mg Tablet, 1 TAB PO DAILY for HTN, #90 TAB 1 Refill 01/15/20 Quetiapine Fumarate (SEROQUEL) 100 Mg Tablet, 500 MG PO QHS for Bipolar, #30 TAB 01/15/20 Isosorbide Mononitrate (ISOSORBIDE MONONITRATE ER) 30 Mg Tab.er.24h, 1 TAB PO DAILY for Cardiac, #30 TAB 5 Refills 01/15/20 Fluticasone Propionate (FLUTICASONE PROPIONATE NASAL SPRAY) 16 Gm [place].susp, 2 SPRAY NS DAILY for Congestion, #1 INHALER 11 Refills 01/15/20 [place]-3/Dha/Epa/Fish Oil (Fish Oil 1,000 mg Softgel) 1,000 Mg Capsule, 1 CAP PO BID for supplement for 30 Days, #60 CAP 0 Refills 01/15/20 Cyanocobalamin (Vitamin B-12) (B-12) 1,000 Mcg Tablet, 1 TAB PO DAILY for Supplement for 30 Days, #30 TAB 0 Refills 01/15/20 Cholecalciferol (Vitamin D3) (D3-50) 50,000 Unit Capsule, 41383 UNIT PO DAILY for Supplement, CAP 01/15/20 Insulin Lispro (HUMALOG) 100 Unit/1 Ml Cartridge, 16 UNIT SQ TIDAC, EACH 11/15/17 Insulin Glargine,Hum.rec.anlog (LANTUS SOLOSTAR) 100 Unit/1 Ml Insuln.pen, 45 UNIT SQ QHS for DM, #15 ML 3 Refills 11/15/17 Lidocaine (Lidocaine PATCH ) 1 Each Adh..patch, 1 EACH TP, PATCH 11/15/17 Escitalopram Oxalate (LEXAPRO) 20 Mg Tablet, 1 TAB PO DAILY, #90 TAB 3 Refills 11/15/17 Albuterol Sulfate (Proair Respiclick) 90 Mcg Aer.pow.ba, 2 PUFF IH PRN PRN for SHORTNESS OF BREATH, INHALER 11/15/17 Discontinued Reported Medications Cimetidine Hcl (CIMETIDINE) 300 Mg/5 Ml Solution, 300 MG PO BID for GERD, MISC 06/21/20 Rosuvastatin Calcium (CRESTOR) 40 Mg Tablet, 1 TAB PO DAILY for HLD, #30 TAB 5 Refills 01/15/20 Bupropion HCl (Bupropion Xl) 450 Mg Tab.er.24h, 1 TAB PO DAILYWBKFT for antismoking for 30 Days, #30 TAB 0 Refills 01/15/20 Scheduled Amlodipine Besylate (Amlodipine Besylate), 5 MG PO DAILY, (Reported) Aspirin (Aspirin Ec), 81 MG PO DAILYWBKFT Atorvastatin Calcium (Atorvastatin Calcium), 80 MG PO QHS Bupropion Hcl (Bupropion Hcl Sr), 150 MG PO BID, (Reported) Carvedilol (Carvedilol), 25 MG PO BIDWMEALS, (Reported) Cholecalciferol (Vitamin D3) (D3-50), 50,000 UNIT PO DAILY, (Reported) Clopidogrel Bisulfate (Clopidogrel), 1 TAB PO DAILY Cyanocobalamin (Vitamin B-12) (B-12), 1 TAB PO DAILY, (Reported) Escitalopram Oxalate (Lexapro), 1 TAB PO DAILY, (Reported) Fenofibrate Nanocrystallized (Fenofibrate), 1 TAB PO DAILY, (Reported) Fluticasone Propionate (Fluticasone Propionate Nasal [place]), 2 SPRAY NS DAILY, (Reported) Insulin Glargine,Hum.rec.anlog (Lantus Solostar), 45 UNIT SQ QHS, (Reported) Insulin Lispro (Humalog), 16 UNIT SQ TIDAC, (Reported) Isosorbide Mononitrate (Isosorbide Mononitrate Er), 1 TAB PO DAILY, (Reported) Mirtazapine (Mirtazapine), 1 TAB PO QHS, (Reported) [place]-3/Dha/Epa/Fish Oil (Fish Oil 1,000 mg Softgel), 1 CAP PO BID, (Reported) Polyethylene Glycol 3350 (Polyethylene Glycol 3350), 17 GM PO DAILY Quetiapine Fumarate (Seroquel), 500 MG PO QHS, (Reported) Spironolactone (Spironolactone), 1 TAB PO DAILY, (Reported) Scheduled PRN Albuterol Sulfate (Proair Respiclick), 2 PUFF IH PRN PRN for SHORTNESS OF BREATH, (Reported) Docusate Sodium (Dok), 100 MG PO PRN BID PRN for HARD STOOLS Sennosides (Senna Lax), 8.6 MG PO PRN BID PRN for CONSTIPATION Triazolam (Triazolam), 2 TAB PO PRN QHS PRN for sleep, (Reported) Miscellaneous Medications Lidocaine (Lidocaine PATCH ), 1 EACH TP, (Reported) Discontinued Medications Bupropion HCl (Bupropion Xl), 1 TAB PO DAILYWBKFT, (Reported) Discontinued Reason: Prescription changed Cimetidine Hcl (Cimetidine), 300 MG PO BID, (Reported) Rosuvastatin Calcium (Crestor), 1 TAB PO DAILY, (Reported) Total Time: Total Time: Total time spent was 45 minutes in preparing scripts, discharge planning with SW and RN, and preparing this discharge summary. Patient seen and examined on day of discharge. Justicifation of Admission Dx: Justifications for Admission: Justification of Admission Dx: Yes MALISSA WEN MD Jun 27, 2020 12:40
== END 2020-06-23 12:35 | disposition home or self-care (01) | DRG 438 ==
LOC: ER 07:05 → 2 NORTH 09:11
PROVIDERS: ADMIT Family Medicine; ATTEND Family Medicine
DX: K85.90 Acute pancreatitis without necrosis or infection, unspecified (principal); E11.10 Type 2 diabetes mellitus with ketoacidosis without coma; Q89.09 Congenital malformations of spleen; K86.1 Other chronic pancreatitis; E11.22 Type 2 diabetes mellitus with diabetic chronic kidney disease; E11.40 Type 2 diabetes mellitus with diabetic neuropathy, unspecified; E11.51 Type 2 diabetes mellitus with diabetic peripheral angiopathy without gangrene; E11.649 Type 2 diabetes mellitus with hypoglycemia without coma; E66.01 Morbid (severe) obesity due to excess calories; E78.5 Hyperlipidemia, unspecified; F03.90 Unspecified dementia, unspecified severity, without behavioral disturbance, psychotic disturbance, mood disturbance, and anxiety; F17.210 Nicotine dependence, cigarettes, uncomplicated; F31.9 Bipolar disorder, unspecified; F41.9 Anxiety disorder, unspecified; I13.10 Hypertensive heart and chronic kidney disease without heart failure, with stage 1 through stage 4 chronic kidney disease, or unspecified chronic kidney disease; I25.10 Atherosclerotic heart disease of native coronary artery without angina pectoris; I25.2 Old myocardial infarction; K21.9 Gastro-esophageal reflux disease without esophagitis; K76.0 Fatty (change of) liver, not elsewhere classified; K82.8 Other specified diseases of gallbladder; K83.8 Other specified diseases of biliary tract; M17.11 Unilateral primary osteoarthritis, right knee; N18.9 Chronic kidney disease, unspecified; Z82.49 Family history of ischemic heart disease and other diseases of the circulatory system; Z82.5 Family history of asthma and other chronic lower respiratory diseases; Z83.3 Family history of diabetes mellitus; Z86.73 Personal history of transient ischemic attack (TIA), and cerebral infarction without residual deficits; Z95.5 Presence of coronary angioplasty implant and graft; G89.29 Other chronic pain; Z68.33 Body mass index [BMI] 33.0-33.9, adult; Z90.49 Acquired absence of other specified parts of digestive tract; R07.89 Other chest pain
CPT/HCPCS: 36415; 71045; 74177; 76700; 80048; 80053; 80061; 80307; 81001; 82248; 82550; 82962; 83036; 83605; 83690; 83735; 84484; 85025; 87040; 87077; 87205; 93005; 94640; 94760; 96361; 96374; 96375; G0480; J1170; J1650; J1815; J2270; J3010; J3411; J3490; J7030; Q9967; 99285-25; G0378

== ENCOUNTER 2020-10-07 08:40 | Emergency (ER) | payer OTHER ==
[~2020-10-07] VITALS: Ht 170.2 cm; Wt 100.0 kg
[~2020-10-07 08:40] MED LIST changes: +AMLO-186 PO; +BUPR150T27 PO; +CARV25TA2 PO; +DOCU-153 PO; +MIRT15TA3 PO; +POLY17PO52 PO; +SENN-87 PO
--- NOTE | 2020-10-07 09:23 | EKG ---
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
--- NOTE | 2020-10-07 09:26 | RAD ---
EXAM: Chest, single view. HISTORY: Shortness of air. COMPARISON: 06/20/2020. FINDINGS: A frontal view of the chest is obtained. There is no infiltrate, pleural effusion or pneumo thorax. The heart is normal in size. There are calcified granulomas. IMPRESSION: No acute pulmonary finding. Electronically signed by: Jaz Mckeon MD (10/07/2020 9:23 AM) [id number]
[2020-10-07 09:31] LABS: BILIRUBIN,URINE NEGATIVE (NEG); CLARITY,URINE CLEAR; COLOR,URINE YELLOW; NITRITE,URINE NEGATIVE (NEG); PH,URINE 6.5 (<5.0-8.0); PROTEIN,URINE 100 mg/dL (NEG-TRACE); UROBILINOGEN,URINE 0.2 mg/dL (0.2 mg/dL)
[2020-10-07 09:44] LABS: BACTERIA,URINE MODERATE /HPF (0-FEW); RBC,URINE 0 /HPF (0-2); WBC,URINE 0 /HPF (0-4)
[2020-10-07 10:13] LABS: BASO # 0.1 x10^3/uL (0.0-0.2); BASO % 1 % (0-3); EOS # 0.1 x10^3/uL (0.0-0.7); EOS % 1 % (0-3); HEMATOCRIT 39.6 % (36.0-47.0); LYMPH # 1.9 x10^3/uL (1.0-4.8); LYMPH % 21 % (24-48); MEAN CORPUSCULAR HEMOGLOBIN 30 pg (25-35); MEAN CORPUSCULAR HGB CONC 33 g/dL (31-37); MEAN CORPUSCULAR VOLUME 93 fL (79-100); MONO # 0.4 x10^3/uL (0.0-1.1); MONO % 5 % (0-9); NEUT # 6.2 x10^3/uL (1.8-7.7); NEUT % 72 % (31-73); PLATELET COUNT 220 x10^3/uL (140-400); RED BLOOD COUNT 4.26 x10^6/uL (3.50-5.40); RED CELL DISTRIBUTION WIDTH 16.6 % (11.5-14.5); WHITE BLOOD COUNT 8.6 x10^3/uL (4.0-11.0)
[2020-10-07 10:20] LABS: CREATININE 1.1 mg/dL (0.6-1.0); GFR 62.4; POTASSIUM 4.9 mmol/L (3.5-5.1)
[2020-10-07 10:25] LABS: ALBUMIN 3.7 g/dL (3.4-5.0); ALBUMIN/GLOBULIN RATIO 0.9 (1.0-1.7); MAGNESIUM 2.1 mg/dL (1.8-2.4); TOTAL BILIRUBIN 0.3 mg/dL (0.2-1.0); TOTAL PROTEIN 7.9 g/dL (6.4-8.2)
--- NOTE | 2020-10-07 10:41 | RAD ---
EXAM: Head CT without contrast. HISTORY: Dizziness. Hypertension. TECHNIQUE: Computed tomographic images of the head were obtained without contrast. *One or more of the following individualized dose reduction techniques were utilized for this examina tion: 1. Automated exposure control. 2. Adjustment of the mA and/or kV according to patient size. 3. Use of iterative reconstruction technique. COMPARISON: 11/13/2019. FINDINGS: There is no acute or subacute extra-axial or intraparenchymal hemorrhage. There is no mass effect or midline shift. There is no hydrocephalus. There is stable encephalomalacia within the left greater than right cerebellum. There are subtle area s of hypodensity within the cerebral white matter, likely due to chronic small vessel disease. The visualized portions of the orbits, paranasal sinuses and mastoid air cells are unremarkable. No s uspicious calvarial lesion is seen. IMPRESSION: 1. Stable encephalomalacia within the left greater than right cerebellum, likely due to sequela of ch ronic infarction. 2. Bilateral cerebral white matter changes, likely due to chronic small vessel disease. 3. Note is made that MRI is more sensitive for acute infarction. Electronically signed by: Jaz Mckeon MD (10/07/2020 10:39 AM) [id number]
[2020-10-07] MEDS ORDERED: MORPHINE SULFATE 4 MG/ML VIAL. IV ONE (12:15)
[2020-10-07] MEDS ORDERED: IOHEXOL 300 MG/ML 100ML VIAL. IV ONE (13:15)
[2020-10-07] MEDS ORDERED: fentaNYL PF VIAL 100 MCG/2 ML VIAL IVP ONE (13:15)
--- NOTE | 2020-10-07 14:29 | RAD ---
EXAM: CT Abdomen and Pelvis with IV contrast CLINICAL HISTORY: abdominal pain, hx of pancreatitis COMPARISON: 06/20/2020 01/19/2020 TECHNIQUE: Helical CT of the abdomen and pelvis was performed following the administration of intrave nous contrast. Axial, coronal and sagittal reformatted images were generated. PQRS compliance statement - One or more of the following individualized dose reduction techniques wer e utilized for this study: 1. Automated exposure control 2. Adjustment of the mA and/or kV according to patient size 3. Use of iterative reconstruction technique FINDINGS: Lower Chest: Calcified granuloma left lower lobe. Abdomen and Pelvis: Liver is enlarged. Subcentimeter hypodense right hepatic lobe lesions, too small to accurately charac terize. Gallbladder is normal. No biliary duct dilatation. Low-density pancreatic lesions are seen in cluding in the uncinate process measuring 6 mm and in the pancreatic tail measuring 5 mm. Calcified g ranuloma are seen within the spleen. Adrenal glands are normal. Right lower pole renal cyst is seen. Hypodense left upper pole renal lesion too small to accurately c haracterize. No hydronephrosis. No hydroureter. Bladder is markedly distended which can be correlated with possible voluntary or involuntary causes of urinary retention. Symmetric nephrograms. Moderate colonic stool content is seen. No small or large bowel dilatation. No bowel obstruction. No abdominal or pelvic ascites. No small or large bowel dilatation. Aorta is normal in caliber. Atherosclerotic calcifications of the aorta and iliacs. No abdominal pelv ic ascites. No abdominal or pelvic lymphadenopathy. Small fat-containing periumbilical hernia. Bones: No aggressive osseous lesion is seen. Degenerative changes of the spine are seen. Symphysis pubis deg enerative changes are seen. IMPRESSION: 1. Low-density pancreatic lesions of uncertain clinical significance and can be further assessed by MRI. No CT evidence for acute pancreatitis. 2. Hepatomegaly. 3. Bladder is markedly distended which can be correlated with possible voluntary or involuntary caus es of urinary retention. Electronically signed by: Dale Mccarty MD (10/07/2020 2:27 PM) YVONNESHELTON
[2020-10-07 14:31] VITALS: BP 206/93
--- NOTE | 2020-10-07 14:44 | PHYS DOC ---
Past Medical History Past Medical History: Alcoholism, CVA, Diabetes-Type II, MD, Pancreatitis Additional Past Medical Histor: neuropathy, SI, diabetic foot ulcer r heel Past Surgical History: Other Additional Past Surgical Histo: cardiac stent, Rt great toe amputation Smoking Status: Current Some Day Smoker Alcohol Use: Sober Drug Use: None General Adult EDM: Chief Complaint: SHORTNESS OF BREATH HPI: HPI: Patient is a 55 year old female who was brought here by EMS from home with multiple different medical problem. Patient started having mid abdominal pain since last night. Patient has history of chronic pancreatitis, she felt like her pancrea is flaring up again. Patient also has history of COPD and asthma, she ran out of albuterol inhaler. She started having trouble breathing this morning. Patient denies any chest pain, no cough or fever. Patient had not taken her blood pressure medication this morning. Patient also complained of dizziness that has been going on for years. Patient's doctors are at [facility]. Review of Systems: Review of Systems: Constitutional: Denies fever or chills. [] Eyes: Denies change in visual acuity. [] HENT: Denies nasal congestion or sore throat. [] Respiratory: Denies cough, positive for hortness of breath. [] Cardiovascular: Denies chest pain or edema. [] GI: Positive for abdominal pain, no nausea, vomiting, bloody stools or diarrhea. [] : Denies dysuria. [] Musculoskeletal: Denies back pain or joint pain. [] Integument: Denies rash. [] Neurologic: Denies headache, focal weakness or sensory changes. Positive for dizziness. Endocrine: Denies polyuria or polydipsia. [] Lymphatic: Denies swollen glands. [] Psychiatric: Denies depression or anxiety. [] Heart Score: C/O Chest Pain: N/A Risk Factors: Risk Factors: DM, Current or recent (<one month) smoker, HTN, HLP, family history of CAD, obesity. Risk Scores: Score 0 - 3: 2.5% MACE over next 6 weeks - Discharge Home Score 4 - 6: 20.3% MACE over next 6 weeks - Admit for Clinical Observation Score 7 - 10: 72.7% MACE over next 6 weeks - Early Invasive Strategies Current Medications: Current Medications Medications (Trade) Dose Ordered Sig/Luis Enrique Start Time Stop Time Status Last Admin Dose Admin Fentanyl Citrate (Fentanyl 2ml Vial) 50 mcg 1X ONCE 10/07/20 13:15 10/07/20 13:16 DC 10/07/20 14:27 50 MCG Iohexol (Omnipaque 300 Mg/ml) 75 ml 1X ONCE 10/07/20 13:15 10/07/20 13:18 DC 10/07/20 13:53 75 ML Morphine Sulfate (Morphine Sulfate) 4 mg 1X ONCE 10/07/20 12:15 10/07/20 12:16 DC 10/07/20 12:12 4 MG Allergies: Allergies: Allergies Coded Allergies Type Severity Reaction Last Updated Verified adhesive tape Allergy Intermediate Rash 11/14/19 Yes Physical Exam: PE: Constitutional: Well developed, well nourished, no acute distress, non-toxic appearance. [] HENT: Normocephalic, atraumatic, bilateral external ears normal, oropharynx moist, no oral exudates, nose normal. [] Eyes: PERRLA, EOMI, conjunctiva normal, no discharge. [] Neck: Normal range of motion, no tenderness, supple, no stridor. [] Cardiovascular:Heart rate regular rhythm, no murmur [] Lungs & Thorax: Bilateral breath sounds clear to auscultation [] Abdomen: Bowel sounds normal, soft, no tenderness, no masses, no pulsatile masses. [] Skin: Warm, dry, no erythema, no rash. [] Back: No tenderness, no CVA tenderness. [] Extremities: No tenderness, no cyanosis, no clubbing, ROM intact, no edema. [] Neurologic: Alert and oriented X 3, normal motor function, normal sensory function, no focal deficits noted. [] Psychologic: Affect normal, judgement normal, mood normal. [] Current Patient Data: Labs: Laboratory Tests Test 10/07/20 09:14 10/07/20 10:00 10/07/20 10:07 Urine Collection Type Void Urine Color Yellow Urine Clarity Clear Urine pH 6.5 (<5.0-8.0) Urine Specific [place] 1.015 (1.000-1.030) Urine Protein 100 mg/dL (NEG-TRACE) Urine Glucose (UA) >=1000 mg/dL (NEG) Urine Ketones (Stick) Negative mg/dL (NEG) Urine Blood Negative (NEG) Urine Nitrite Negative (NEG) Urine Bilirubin Negative (NEG) Urine Urobilinogen Dipstick 0.2 mg/dL (0.2 mg/dL) Urine Leukocyte Esterase Negative (NEG) Urine RBC 0 /HPF (0-2) Urine WBC 0 /HPF (0-4) Urine Squamous Epithelial Cells Mod /LPF Urine Bacteria Moderate /HPF (0-FEW) Sodium Level 134 mmol/L (136-145) L Potassium Level 4.9 mmol/L (3.5-5.1) Chloride Level 102 mmol/L (98-107) Carbon Dioxide Level 23 mmol/L (21-32) Anion Gap 9 (6-14) Blood Urea Nitrogen 15 mg/dL (7-20) Creatinine 1.1 mg/dL (0.6-1.0) H Estimated GFR (Cockcroft-Gault) 62.4 BUN/Creatinine Ratio 14 (6-20) Glucose Level 285 mg/dL (70-99) H Calcium Level 9.0 mg/dL (8.5-10.1) Magnesium Level 2.1 mg/dL (1.8-2.4) Total Bilirubin 0.3 mg/dL (0.2-1.0) Aspartate Amino Transferase (AST) 11 U/L (15-37) L Alanine Aminotransferase (ALT) 15 U/L (14-59) Alkaline Phosphatase 105 U/L (46-116) Troponin I Quantitative < 0.017 ng/mL (0.000-0.055) DR-Uwn-W-Type Natriuretic Peptide 340 pg/mL (0-124) H Total Protein 7.9 g/dL (6.4-8.2) Albumin 3.7 g/dL (3.4-5.0) Albumin/Globulin Ratio 0.9 (1.0-1.7) L Lipase 120 U/L (73-393) White Blood Count 8.6 x10^3/uL (4.0-11.0) Red Blood Count 4.26 x10^6/uL (3.50-5.40) Hemoglobin 13.0 g/dL (12.0-15.5) Hematocrit 39.6 % (36.0-47.0) Mean Corpuscular Volume 93 fL (79-100) Mean Corpuscular Hemoglobin 30 pg (25-35) Mean Corpuscular Hemoglobin Concent 33 g/dL (31-37) Red Cell Distribution Width 16.6 % (11.5-14.5) H Platelet Count 220 x10^3/uL (140-400) Neutrophils (%) (Auto) 72 % (31-73) Lymphocytes (%) (Auto) 21 % (24-48) L Monocytes (%) (Auto) 5 % (0-9) Eosinophils (%) (Auto) 1 % (0-3) Basophils (%) (Auto) 1 % (0-3) Neutrophils # (Auto) 6.2 x10^3/uL (1.8-7.7) Lymphocytes # (Auto) 1.9 x10^3/uL (1.0-4.8) Monocytes # (Auto) 0.4 x10^3/uL (0.0-1.1) Eosinophils # (Auto) 0.1 x10^3/uL (0.0-0.7) Basophils # (Auto) 0.1 x10^3/uL (0.0-0.2) Laboratory Tests 10/07/20 10:07 Laboratory Tests 10/07/20 10:00 Vital Signs: Vital Signs Date Time Temp Pulse Resp B/P (MAP) Pulse Ox O2 Delivery O2 Flow Rate FiO2 10/07/20 14:27 16 100 Room Air 10/07/20 08:45 98.4 86 199/88 (125) 98.4 EKG: EKG: [] Radiology/Procedures: Radiology/Procedures: [][facility] [address] [place], [place] [id number] IMAGING REPORT Signed PATIENT: JONO OHLT V ACCOUNT: [id number] : 1965 LOCATION: ER AGE: 55 SEX: F EXAM STATUS: PRE ER ORD. PHYSICIAN: MACKENZIE PETERSEN DO REASON: soa PROCEDURE: PORTABLE CHEST 1V EXAM: Chest, single view. HISTORY: Shortness of air. COMPARISON: 06/20/2020. FINDINGS: A frontal view of the chest is obtained. There is no infiltrate, pleural effusion or pneumothorax. The heart is normal in size. There are calcified granulomas. IMPRESSION: No acute pulmonary finding. Electronically signed by: Jaz Rapp MD (10/07/2020 9:23 AM) [id number] DICTATED and SIGNED BY: JAZ RAPP MD DATE: 10/07/20 [id number] [facility] [address] [place] [address] IMAGING REPORT Signed PATIENT: JONO HOLT V ACCOUNT: [id number] : 1965 LOCATION: ER AGE: 55 SEX: F EXAM STATUS: REG ER ORD. PHYSICIAN: MACKENZIE PETERSEN DO REASON: dizziness, hypertension PROCEDURE: CT HEAD WO CONTRAST EXAM: Head CT without contrast. HISTORY: Dizziness. Hypertension. TECHNIQUE: Computed tomographic images of the head were obtained without contrast. *One or more of the following individualized dose reduction techniques were utilized for this examination: 1. Automated exposure control. 2. Adjustment of the mA and/or kV according to patient size. 3. Use of iterative reconstruction technique. COMPARISON: 11/13/2019. FINDINGS: There is no acute or subacute extra-axial or intraparenchymal hemorrhage. There is no mass effect or midline shift. There is no hydrocephalus. There is stable encephalomalacia within the left greater than right cerebellum. There are subtle areas of hypodensity within the cerebral white matter, likely due to chronic small vessel disease. The visualized portions of the orbits, paranasal sinuses and mastoid air cells are unremarkable. No suspicious calvarial lesion is seen. IMPRESSION: 1. Stable encephalomalacia within the left greater than right cerebellum, likely due to sequela of chronic infarction. 2. Bilateral cerebral white matter changes, likely due to chronic small vessel disease. 3. Note is made that MRI is more sensitive for acute infarction. Electronically signed by: Jaz Rapp MD (10/07/2020 10:39 AM) [id number] DICTATED and SIGNED BY: JAZ RAPP MD DATE: 10/07/20 [id number] [facility] [address] [place] [address] IMAGING REPORT Signed PATIENT: JONO HOLT V ACCOUNT: [id number] : 1965 LOCATION: ER AGE: 55 SEX: F EXAM STATUS: REG ER ORD. PHYSICIAN: MACKENZIE PETERSEN DO REASON: abdominal pain, hx of pancreatitis PROCEDURE: CT ABD PELV W/ IV CONTRST ONLY EXAM: CT Abdomen and Pelvis with IV contrast CLINICAL HISTORY: abdominal pain, hx of pancreatitis COMPARISON: 06/20/2020 01/19/2020 TECHNIQUE: Helical CT of the abdomen and pelvis was performed following the administration of intravenous contrast. Axial, coronal and sagittal reformatted images were generated. PQRS compliance statement - One or more of the following individualized dose reduction techniques were utilized for this study: 1. Automated exposure control 2. Adjustment of the mA and/or kV according to patient size 3. Use of iterative reconstruction technique FINDINGS: Lower Chest: Calcified granuloma left lower lobe. Abdomen and Pelvis: Liver is enlarged. Subcentimeter hypodense right hepatic lobe lesions, too small to accurately characterize. Gallbladder is normal. No biliary duct dilatation. Low-density pancreatic lesions are seen including in the uncinate process measuring 6 mm and in the pancreatic tail measuring 5 mm. Calcified granuloma are seen within the spleen. Adrenal glands are normal. Right lower pole renal cyst is seen. Hypodense left upper pole renal lesion too small to accurately characterize. No hydronephrosis. No hydroureter. Bladder is markedly distended which can be correlated with possible voluntary or involuntary causes of urinary retention. Symmetric nephrograms. Moderate colonic stool content is seen. No small or large bowel dilatation. No bowel obstruction. No abdominal or pelvic ascites. No small or large bowel dilatation. Aorta is normal in caliber. Atherosclerotic calcifications of the aorta and iliacs. No abdominal pelvic ascites. No abdominal or pelvic lymphadenopathy. Small fat-containing periumbilical hernia. Bones: No aggressive osseous lesion is seen. Degenerative changes of the spine are seen. Symphysis pubis degenerative changes are seen. IMPRESSION: 1. Low-density pancreatic lesions of uncertain clinical significance and can be further assessed by MRI. No CT evidence for acute pancreatitis. 2. Hepatomegaly. 3. Bladder is markedly distended which can be correlated with possible voluntary or involuntary causes of urinary retention. Electronically signed by: Dale Duckworth MD (10/07/2020 2:27 PM) [facility] DICTATED and SIGNED BY: DALE DUCKWORTH MD DATE: 10/07/20 [id number] Course & Med Decision Making: Course & Med Decision Making Pertinent Labs and Imaging studies reviewed. (See chart for details) Patient is a 55-year-old female who presented to ER with multiple medical complaints. CT scan her abdomen pelvic did not show any acute problem. Patient says she feels much better now after IV pain medication, denies any trouble breathing or any chest pain at this time. Patient was discharged home in stable condition. She will need to follow-up with her family physician at [facility] for reevaluation this week. Dragon Disclaimer: Dragon Disclaimer: This electronic medical record was generated, in whole or in part, using a voice recognition dictation system. Departure Departure Impression: Primary Impression: Abdominal pain Additional Impressions: Dyspnea Dizziness HTN (hypertension) Disposition: HOME / SELF CARE / HOMELESS Condition: IMPROVED Referrals: MILLA ZALDIVAR APRN (PCP) Please follow up with your doctor this week for reevaluation. Patient Instructions: Abdominal Pain, Dizziness, Hypertension, Shortness of Breath Additional Instructions: Thank you for visiting our Emergency Department. We appreciate you trusting us with your care. If any additional problems come up don't hesitate to return to visit us. Please follow up with your primary care provider so they can plan additional care if needed and know about the problem that you had. If symptoms worsen come back to the Emergency Department. Any concerning symptoms that start such as chest pain, shortness of air, weakness or numbness on one side of the body, running high fevers or any other concerning symptoms return to the ER. Scripts Albuterol Sulfate (PROAIR HFA INHALER) 8.5 Gm Hfa.aer.ad 2 PUFF IH PRN Q4-6HRS PRN for wheezing for 21 Days, #1 INHALER 0 Refills Prov: MACKENZIE PETERSEN DO 10/07/20 MCAKENZIE PETERSEN DO October 07, 2020 14:44
[2020-10-07] MEDS ORDERED: ALBU2.5V8 IH (14:54)
== END 2020-10-07 14:59 | disposition home or self-care (01) ==
LOC: ER 08:40
DX: R10.9 Unspecified abdominal pain (principal); R06.02 Shortness of breath; R42 Dizziness and giddiness; I10 Essential (primary) hypertension; J44.9 Chronic obstructive pulmonary disease, unspecified; E11.40 Type 2 diabetes mellitus with diabetic neuropathy, unspecified; Z86.73 Personal history of transient ischemic attack (TIA), and cerebral infarction without residual deficits; I25.2 Old myocardial infarction; F17.200 Nicotine dependence, unspecified, uncomplicated; Z88.8 Allergy status to other drugs, medicaments and biological substances
CPT/HCPCS: 36415; 70450; 71045; 74177; 80053; 81001; 83690; 83735; 83880; 84484; 85025; 87086; 93005; 96374; 96375; 99285; J2270; J3010; Q9967

== ENCOUNTER 2021-09-15 10:21 | Inpatient (IN) | payer OTHER ==
[~2021-09-15] VITALS: Ht 170.2 cm; Wt 89.0 kg
[~2021-09-15 10:21] MED LIST changes: +ALBU2.5V8 IH; +DOCU-148 PO; -DOCU-153 PO; -DULO60CA6 PO; +DULO60CA7 PO; +LINE600T12 PO; +MIRT-7 PO; -MIRT15TA3 PO; +OXYC1TAB19 PO
[2021-09-15] MEDS ORDERED: IV RINGERS,LACTATED 1000ML 1,000 ML IV ONE (11:15)
[2021-09-15] MEDS ORDERED: MORPHINE SULFATE 2 MG/ML INJ. IVP ONE ×2 (11:15→13:00)
--- NOTE | 2021-09-15 11:50 | RAD ---
XR TIBIA+FIBULA, XR KNEE 3 VIEWS History: Reason: mechanical fall 2 days ago, knee/lower leg pain / Spl. Instructions: / History: Technique: 3 views bilateral knee and 2 views bilateral tibia and fibula. Comparison: None. Findings: Right lower extremity: Acute comminuted right proximal fibular nondisplaced fracture. No dislocation. Small right knee joint effusion. Mild right knee degenerative changes most prominent in the medial a nd patellofemoral compartments. Vascular calcifications. Mild ankle degenerative changes. Left lower extremity: Acute nondisplaced comminuted left proximal fibular fracture. No dislocation. V ascular calcific effusions. Mild left knee degenerative changes most prominent within the medial and patellofemoral compartments. No significant knee joint effusion. Mild ankle degenerative changes. Impression: 1. Acute bilateral proximal fibular fractures. Electronically signed by: Natalio Gore DO (09/15/2021 11:48 AM) [id number]
[2021-09-15 12:20] LABS: BASO % 1 % (0-3); EOS # 0.1 x10^3/uL (0.0-0.7); EOS % 2 % (0-3); HEMATOCRIT 33.6 % (36.0-47.0); HEMOGLOBIN 10.9 g/dL (12.0-15.5); LYMPH # 1.2 x10^3/uL (1.0-4.8); LYMPH % 18 % (24-48); MEAN CORPUSCULAR HEMOGLOBIN 28 pg (25-35); MEAN CORPUSCULAR HGB CONC 33 g/dL (31-37); MEAN CORPUSCULAR VOLUME 87 fL (79-100); MONO # 0.4 x10^3/uL (0.0-1.1); MONO % 5 % (0-9); NEUT # 5.2 x10^3/uL (1.8-7.7); NEUT % 75 % (31-73); PLATELET COUNT 326 x10^3/uL (140-400); RED BLOOD COUNT 3.88 x10^6/uL (3.50-5.40); RED CELL DISTRIBUTION WIDTH 17.6 % (11.5-14.5)
[2021-09-15 12:37] LABS: GFR 69.4; POTASSIUM 4.1 mmol/L (3.5-5.1)
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
[2021-09-15 12:42] LABS: ALBUMIN 3.3 g/dL (3.4-5.0); ALBUMIN/GLOBULIN RATIO 0.8 (1.0-1.7); MAGNESIUM 2.1 mg/dL (1.8-2.4); TOTAL BILIRUBIN 0.7 mg/dL (0.2-1.0); TOTAL PROTEIN 7.2 g/dL (6.4-8.2)
--- NOTE | 2021-09-15 13:46 | RAD ---
XR EXAM OF ANKLE 2V History: Reason: need mortise view bilat ankle / Spl. Instructions: / History: Technique: One view bilateral ankles. Comparison: None. Findings: Right ankle: Symmetric ankle mortise. No acute fracture. Mild ankle DJD. Left ankle: Symmetric ankle mortise. No acute fracture. Mild ankle DJD. Impression: 1. No acute osseous abnormality. Electronically signed by: Natalio Gore DO (09/15/2021 1:43 PM) [id number]
--- NOTE | 2021-09-15 14:17 | RAD ---
CT LOWER EXTREMITY WITHOUT CONTRAST History: Pain Comparison: Radiographs September 15, 2021. Technique: CT imaging was performed of the bilateral knees. Coronal and sagittal reconstructions were performed. Exposure: One or more of the following individualized dose reduction techniques were utilized for thi s examination: 1. Automated exposure control 2. Adjustment of the mA and/or kV according to patient size 3. Use of iterative reconstruction technique. Findings: Right knee: Acute comminuted right proximal fibular fracture. Subtle buckling of the lateral proximal tibia with subtle sclerosis within the posterior lateral tibial plateau. No dislocation. Mild right knee degenerative changes most prominent within the medial and patellofemoral compartment. Small knee joint effusion. Myotendinous structures are grossly intact. Left knee: Acute comminuted left proximal fibular fracture. Subtle buckling of the lateral proximal t ibia with subtle sclerosis within the posterior lateral tibial plateau. No dislocation. Mild knee deg enerative changes most prominent within the medial and patellofemoral compartments. Myotendinous stru ctures are grossly intact. Impression: 1. Subtle buckling of the lateral proximal tibia with subtle sclerosis of the posterior lateral tibi al plateau bilaterally, may represent posterior lateral corner tibial plateau fractures. MRI can furt her evaluate if clinically indicated. 2. Acute comminuted bilateral proximal fibular fractures. Electronically signed by: Natalio Gore DO (09/15/2021 2:14 PM) [id number]
[2021-09-15] MEDS ORDERED: IV DEXTROSE 5% 250 ML BAG. IV PRN (14:45)
[2021-09-15] MEDS ORDERED: HYDROmorphone 2 MG/ML INJ. IVP ONE (14:45)
[2021-09-15] MEDS ORDERED: DEXTROSE 50% 25 GM / 50ML DISP.SYRIN. IV PRN (14:45)
--- NOTE | 2021-09-15 14:54 | PDOC1 ---
History and Physical Date of Admission Date of Admission DATE: 09/15/21 TIME: 14:52 Identification/Chief Complaint Chief Complaint Fall, bilateral knee pain Source Source: Patient History of Present Illness History of Present Illness Ms Vargas is a 56 yo F w/ PMHx CVA (cerebellar), Diabetes-Type II s/p diabetic toe amputation, CAD s/p stenting, neuropathy, smoker who presents with bilateral knee pain, unable to bear weight after a fall 2 days prior to her ED presentation. She notes pain is worse on the right. Also does have a wound on the dorsum of right foot she notes no abuse or trauma she says she just fell. Labs with WBC 7, Hb 10.9, platelets 326, INR 1.2, NA 133, K4.1, BUN 12, CR 1, glucose 372, calcium 9, magnesium 2.1, albumin 3.3 lipase 200 otherwise LFTs within normal laboratory limits, high-sensitivity troponin is 7, rapid COVID-19 negative Knee and ankle radiographs reveal bilateral proximal fibular fractures possible tibial plateau fractures. CT knee confirms fibular fractures. Unable to bear weight in the ED. She is not an excellent historian. She does note prior history of CVA. Admitted for further care Past Medical History Cardiovascular: CAD, HTN, NC Pulmonary: Asthma, COPD CENTRAL NERVOUS SYSTEM: CVA, Dementia, Periperal neuropathy GI: Other Heme/Onc: Cancer Hepatobiliary: No pertinent hx Psych: Anxiety, Bipolar, Depression Musculoskeletal: low back pain, Osteoarthritis Rheumatologic: No pertinent hx Infectious disease: No pertinent hx Renal/: Other Endocrine: Diabetes Past Surgical History Past Surgical History: Other Family History Family History: Alcohol Abuse, Coronary Artery Disease, Diabetes, Hypertension Social History Smoke: Quit ALCOHOL: occassional Drugs: None Current Medications Current Medications Current Medications Ringer's Solution 1,000 ml @ 1,000 mls/hr 1X ONCE IV Last administered on 09/15/21at 11:36; Start 09/15/21 at 11:15; Stop 09/15/21 at 12:14; Status DC Morphine Sulfate (Morphine Sulfate) 2 mg 1X ONCE IVP Last administered on 09/15/21at 11:35; Start 09/15/21 at 11:15; Stop 09/15/21 at 11:16; Status DC Morphine Sulfate (Morphine Sulfate) 2 mg 1X ONCE IVP Last administered on 4/25/22at 12:58; Start 09/15/21 at 13:00; Stop 09/15/21 at 13:01; Status DC Hydromorphone HCl (Dilaudid) 1 mg 1X ONCE IVP Last administered on 09/15/21at 14:44; Start 09/15/21 at 14:45; Stop 09/15/21 at 14:46; Status DC Insulin Human Lispro (HumaLOG) 0-9 UNITS TIDACHC SQ ; Start 09/15/21 at 16:30 Dextrose (Dextrose 50%-Water Syringe) 12.5 gm PRN Q15MIN PRN IV SEE COMMENTS; Start 09/15/21 at 14:45 Dextrose (Iv Dextrose 5%) 250 ml PRN Q15MIN PRN IV SEE COMMENTS; Start 09/15/21 at 14:45; Status UNV Active Scripts Active Zyvox (Linezolid) 600 Mg Tablet 600 Mg PO BID 10 Days Percocet 7.5-325 Mg Tablet (Oxycodone/Acetaminophen) 1 Each Tablet 1 Tab PO QIDPRN PRN MDD 4 Tablet(s) 5 Days Proair Hfa Inhaler (Albuterol Sulfate) 8.5 Gm Hfa.aer.ad 2 Puff IH PRN Q4-6HRS PRN 21 Days Senna Lax (Sennosides) 8.6 Mg Tablet 8.6 Mg PO PRN BID PRN 30 Days Polyethylene Glycol 3350 17 Gm Powd.pack 17 Gm PO DAILY 30 Days Dok (Docusate Sodium) 100 Mg Capsule 100 Mg PO PRN BID PRN 30 Days Atorvastatin Calcium 40 Mg Tablet 80 Mg PO QHS 30 Days Clopidogrel (Clopidogrel Bisulfate) 75 Mg Tablet 1 Tab PO DAILY Aspirin Ec (Aspirin) 81 Mg Tablet.dr 81 Mg PO DAILYWBKFT Reported Mirtazapine 15 Mg Tablet 1 Tab PO QHS Fenofibrate (Fenofibrate Nanocrystallized) 145 Mg Tablet 1 Tab PO DAILY Carvedilol 25 Mg Tablet 25 Mg PO BIDWMEALS Amlodipine Besylate 5 Mg Tablet 5 Mg PO DAILY Bupropion Hcl Sr (Bupropion Hcl) 150 Mg Tablet.er 150 Mg PO BID Triazolam 0.25 Mg Tablet 2 Tab PO PRN QHS PRN MDD 2 Tablet(s) 30 Days Spironolactone 25 Mg Tablet 1 Tab PO DAILY Seroquel (Quetiapine Fumarate) 100 Mg Tablet 500 Mg PO QHS Isosorbide Mononitrate Er (Isosorbide Mononitrate) 30 Mg Tab.er.24h 1 Tab PO DAILY Fluticasone Propionate Nasal Kaleva (Fluticasone Propionate) 16 Gm Kaleva.susp 2 Kaleva NS DAILY Fish Oil 1,000 mg Softgel ([place]-3/Dha/Epa/Fish Oil) 1,000 Mg Capsule 1 Cap PO BID 30 Days B-12 (Cyanocobalamin (Vitamin B-12)) 1,000 Mcg Tablet 1 Tab PO DAILY 30 Days D3-50 (Cholecalciferol (Vitamin D3)) 50,000 Unit Capsule 50,000 Unit PO DAILY Humalog (Insulin Lispro) 100 Unit/1 Ml Cartridge 16 Unit SQ TIDAC Lantus Solostar (Insulin Glargine,Hum.rec.anlog) 100 Unit/1 Ml Insuln.pen 45 Unit SQ QHS Lidocaine PATCH (Lidocaine) 1 Each Adh..patch 1 Each TP Lexapro (Escitalopram Oxalate) 20 Mg Tablet 1 Tab PO DAILY Proair Respiclick (Albuterol Sulfate) 90 Mcg Aer.pow.ba 2 Puff IH PRN PRN Allergies Allergies: Coded Allergies: adhesive tape (Verified Allergy, Intermediate, Rash, 11/14/19) ROS General: YES: Fatigue, Malaise; No: Chills, Night Sweats, Appetite, Other PSYCHOLOGICAL ROS: No: Anxiety, Behavioral Disorder, Concentration difficultie, Decreased libido, Depression, Disorientation, Hallucinations, Hostility, Irritablity, Memory difficulties, Mood Swings, Obsessive thoughts, Physical abuse, Sexual abuse, Sleep disturbances, Suicidal ideation, Other Eyes: No Blurry vision, No Decreased vision, No Double vision, No Dry eyes, No Excessive tearing, No Eye Pain, No Itchy Eyes, No Loss of vision, No Photopho brianne, No Scotomata, No Uses contacts, No Uses glasses, No Other HEENT: No: Heacaches, Visual Changes, Hearing change, Nasal congestion, Nasal discharge, Oral lesions, Sinus pain, Sore Throat, Epistaxis, Sneezing, Snoring, Tinnitus, Vertigo, Vocal changes, Other ALLERGY AND IMMUNOLOGY: No: Hives, Insect Bite Sensitivity, Itchy/Watery Eyes, Nasal Congestion, Post Nasal Drip, Seasonal Allergies, Other Hematological and Lymphatic: No: Bleeding Problems, Blood Clots, Blood Transfusions, Brusing, Night Sweats, Pallor, Swollen Lymph Nodes, Other ENDOCRINE: No: Breast Changes, Galactorrhea, Hair Pattern Changes, Hot Flashes, Malaise/lethargy, Mood Swings, Palpitations, Polydipsia/polyuria, Skin Changes, Temperature Intolerance, Unexpected Weight Changes, Other Breast: No New/Changing Breast Lumps, No Nipple changes, No Nipple discharge, No Other Respiratory: No: Cough, Hemoptysis, Orthopnea, Pleuritic Pain, Shortness of breath, SOB with excertion, Sputum Changes, Stridor, Tachypnea, Wheezing, Other Cardiovascular: No Chest Pain, No Palpitations, No Orthopnea, No Paroxysmal Noc. Dyspnea, No Edema, No Lt Headedness, No Other Gastrointestinal: No Nausea, No Vomiting, No Abdominal Pain, No Diarrhea, No Constipation, No Melena, No Hematochezia, No Other Genitourinary: No Dysuria, No Frequency, No Incontinence, No Hematuria, No Ret ention, No Discharge, No Urgency, No Pain, No Flank Pain, No Other, No , No , No , No , No , No , No Musculoskeletal: Yes Gait Disturbance, Yes Joint Pain, Yes Joint Stiffness, Yes Muscle Pain; No Joint Swelling, No Muscular Weakness, No Pain In:, No Swelling In:, No Other Neurological: Yes Gait Disturbance; No Behavorial Changes, No Bowel/Bladder ControlChng, No Confusion, No Dizziness, No Headaches, No Impaired Coord/balance, No Memory Loss, No Numbness/Tingling, No Seizures, No Speech Problems, No Tremors, No Visual Changes, No Weakness, No Other Skin: No Dry Skin, No Eczema, No Hair Changes, No Lumps, No Mole Changes, No Mottling, No Nail Changes, No Pruritus, No Rash, No Skin Lesion Changes, No Other, No Acne Physical Exam General: Alert, Oriented X3, Cooperative, moderate distress HEENT: Atraumatic, PERRLA, EOMI, Mucous membr. moist/pink Lungs: Clear to auscultation, Normal air movement Heart: S1S2, RRR, no thrills, no rubs, no gallops, no murmurs Abdomen: Normal bowel sounds, Soft, No tenderness, No hepatosplenomegaly, No masses Extremities: No clubbing, No cyanosis, No edema, Normal pulses, Other (Bilateral tenderness inferiorly on knees) Neuro: Sensation intact, Cranial nerves 3-12 NL, Reflexes 2+ Psych/Mental Status: Mental status NL, Mood NL Vitals Vitals Vital Signs Date Time Temp Pulse Resp B/P (MAP) Pulse Ox O2 Delivery O2 Flow Rate FiO2 09/15/21 14:48 84 20 146/84 (104) 98 Room Air 09/15/21 10:52 97.7 97.7 Labs Labs Laboratory Tests Test 09/15/21 12:06 White Blood Count 7.0 x10^3/uL (4.0-11.0) Red Blood Count 3.88 x10^6/uL (3.50-5.40) Hemoglobin 10.9 g/dL (12.0-15.5) Hematocrit 33.6 % (36.0-47.0) Mean Corpuscular Volume 87 fL (79-100) Mean Corpuscular Hemoglobin 28 pg (25-35) Mean Corpuscular Hemoglobin Concent 33 g/dL (31-37) Red Cell Distribution Width 17.6 % (11.5-14.5) Platelet Count 326 x10^3/uL (140-400) Neutrophils (%) (Auto) 75 % (31-73) Lymphocytes (%) (Auto) 18 % (24-48) Monocytes (%) (Auto) 5 % (0-9) Eosinophils (%) (Auto) 2 % (0-3) Basophils (%) (Auto) 1 % (0-3) Neutrophils # (Auto) 5.2 x10^3/uL (1.8-7.7) Lymphocytes # (Auto) 1.2 x10^3/uL (1.0-4.8) Monocytes # (Auto) 0.4 x10^3/uL (0.0-1.1) Eosinophils # (Auto) 0.1 x10^3/uL (0.0-0.7) Basophils # (Auto) 0.0 x10^3/uL (0.0-0.2) Sodium Level 133 mmol/L (136-145) Potassium Level 4.1 mmol/L (3.5-5.1) Chloride Level 97 mmol/L (98-107) Carbon Dioxide Level 23 mmol/L (21-32) Anion Gap 13 (6-14) Blood Urea Nitrogen 12 mg/dL (7-20) Creatinine 1.0 mg/dL (0.6-1.0) Estimated GFR (Cockcroft-Gault) 69.4 BUN/Creatinine Ratio 12 (6-20) Glucose Level 372 mg/dL (70-99) Calcium Level 9.0 mg/dL (8.5-10.1) Magnesium Level 2.1 mg/dL (1.8-2.4) Total Bilirubin 0.7 mg/dL (0.2-1.0) Aspartate Amino Transf (AST/SGOT) 10 U/L (15-37) Alanine Aminotransferase (ALT/SGPT) 13 U/L (14-59) Alkaline Phosphatase 116 U/L (46-116) Total Protein 7.2 g/dL (6.4-8.2) Albumin 3.3 g/dL (3.4-5.0) Albumin/Globulin Ratio 0.8 (1.0-1.7) Lipase 200 U/L (73-393) Laboratory Tests Test 09/15/21 12:06 White Blood Count 7.0 x10^3/uL (4.0-11.0) Red Blood Count 3.88 x10^6/uL (3.50-5.40) Hemoglobin 10.9 g/dL (12.0-15.5) Hematocrit 33.6 % (36.0-47.0) Mean Corpuscular Volume 87 fL (79-100) Mean Corpuscular Hemoglobin 28 pg (25-35) Mean Corpuscular Hemoglobin Concent 33 g/dL (31-37) Red Cell Distribution Width 17.6 % (11.5-14.5) Platelet Count 326 x10^3/uL (140-400) Neutrophils (%) (Auto) 75 % (31-73) Lymphocytes (%) (Auto) 18 % (24-48) Monocytes (%) (Auto) 5 % (0-9) Eosinophils (%) (Auto) 2 % (0-3) Basophils (%) (Auto) 1 % (0-3) Neutrophils # (Auto) 5.2 x10^3/uL (1.8-7.7) Lymphocytes # (Auto) 1.2 x10^3/uL (1.0-4.8) Monocytes # (Auto) 0.4 x10^3/uL (0.0-1.1) Eosinophils # (Auto) 0.1 x10^3/uL (0.0-0.7) Basophils # (Auto) 0.0 x10^3/uL (0.0-0.2) Sodium Level 133 mmol/L (136-145) Potassium Level 4.1 mmol/L (3.5-5.1) Chloride Level 97 mmol/L (98-107) Carbon Dioxide Level 23 mmol/L (21-32) Anion Gap 13 (6-14) Blood Urea Nitrogen 12 mg/dL (7-20) Creatinine 1.0 mg/dL (0.6-1.0) Estimated GFR (Cockcroft-Gault) 69.4 BUN/Creatinine Ratio 12 (6-20) Glucose Level 372 mg/dL (70-99) Calcium Level 9.0 mg/dL (8.5-10.1) Magnesium Level 2.1 mg/dL (1.8-2.4) Total Bilirubin 0.7 mg/dL (0.2-1.0) Aspartate Amino Transf (AST/SGOT) 10 U/L (15-37) Alanine Aminotransferase (ALT/SGPT) 13 U/L (14-59) Alkaline Phosphatase 116 U/L (46-116) Total Protein 7.2 g/dL (6.4-8.2) Albumin 3.3 g/dL (3.4-5.0) Albumin/Globulin Ratio 0.8 (1.0-1.7) Lipase 200 U/L (73-393) Images Images CT LOWER EXTREMITY WITHOUT CONTRAST History: Pain Comparison: Radiographs September 15, 2021. Technique: CT imaging was performed of the bilateral knees. Coronal and sagittal reconstructions were performed. Exposure: One or more of the following individualized dose reduction techniques were utilized for this examination: 1. Automated exposure control 2. Adjustment of the mA and/or kV according to patient size 3. Use of iterative reconstruction technique. Findings: Right knee: Acute comminuted right proximal fibular fracture. Subtle buckling of the lateral proximal tibia with subtle sclerosis within the posterior lateral tibial plateau. No dislocation. Mild right knee degenerative changes most prominent within the medial and patellofemoral compartment. Small knee joint effusion. Myotendinous structures are grossly intact. Left knee: Acute comminuted left proximal fibular fracture. Subtle buckling of the lateral proximal tibia with subtle sclerosis within the posterior lateral tibial plateau. No dislocation. Mild knee degenerative changes most prominent w ithin the medial and patellofemoral compartments. Myotendinous structures are grossly intact. Impression: 1. Subtle buckling of the lateral proximal tibia with subtle sclerosis of the posterior lateral tibial plateau bilaterally, may represent posterior lateral corner tibial plateau fractures. MRI can further evaluate if clinically indicated. 2. Acute comminuted bilateral proximal fibular fractures. XR EXAM OF ANKLE 2V History: Reason: need mortise view bilat ankle / Spl. Instructions: / History: Technique: One view bilateral ankles. Comparison: None. Findings: Right ankle: Symmetric ankle mortise. No acute fracture. Mild ankle DJD. Left ankle: Symmetric ankle mortise. No acute fracture. Mild ankle DJD. Impression: 1. No acute osseous abnormality. XR TIBIA+FIBULA, XR KNEE 3 VIEWS History: Reason: mechanical fall 2 days ago, knee/lower leg pain / Spl. Instructions: / History: Technique: 3 views bilateral knee and 2 views bilateral tibia and fibula. Comparison: None. Findings: Right lower extremity: Acute comminuted right proximal fibular nondisplaced fracture. No dislocation. Small right knee joint effusion. Mild right knee degenerative changes most prominent in the medial and patellofemoral compart ments. Vascular calcifications. Mild ankle degenerative changes. Left lower extremity: Acute nondisplaced comminuted left proximal fibular fracture. No dislocation. Vascular calcific effusions. Mild left knee degenerative changes most prominent within the medial and patellofemoral compartments. No significant knee joint effusion. Mild ankle degenerative changes. Impression: 1. Acute bilateral proximal fibular fractures. VTE Prophylaxis Ordered VTE Prophylaxis Devices: Yes VTE Pharmacological Prophylaxi: Yes Assessment/Plan Assessment/Plan Bilateral knee pain - with bilateral proximal tibia and fibular fractures Bilateral proximal tibia fractures - likely non-operative Myalgias - likely from fracture DM2 - will give insulin basal bolus plus H/o CVA (cerebellar 2004) - cont plavix, statin H/o CAD s/p stenting of LAD remotely at [facility] - cont meds Neuropathy - cont gabapentin, monitor renal function Ex-smoker, quit alcohol Falls at home - needs safe discharge plan, gait training FEN - ADA diet PPX - heparin FULL CODE Dispo - inpatient Justifications for Admission Other Justification BAKARI KINGSTON MD Sep 15, 2021 14:54
[2021-09-15 15:05] LABS: PROTHROMBIN TIME PATIENT 14.5 SEC (11.7-14.0)
[2021-09-15] MEDS ORDERED: HYDROcodone/APAP 5/325MG 1 TAB TABLET PO PRN (16:00)
[2021-09-15] MEDS: INSULIN LISPRO 300 UNITS/3 ML VIAL. SQ SCH ×2 (16:30→21:34)
[2021-09-15 17:30] VITALS: BP 151/73
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
[2021-09-15] MEDS: HYDROcodone/APAP 5/325MG 1 TAB TABLET PO PRN (17:38)
[2021-09-15] MEDS ORDERED: INSULIN LISPRO 300 UNITS/3 ML VIAL. SQ ONE (18:15)
[2021-09-15 19:00] VITALS: BP 132/63
[2021-09-15] MEDS ORDERED: ALBUTEROL SULFATE 2.5 MG/3 ML NEBU. INH PRN (19:15)
[2021-09-15] MEDS ORDERED: DOCUSATE SODIUM 100 MG CAPSULE. PO PRN (19:15)
[2021-09-15] MEDS: MIRTAZAPINE 15 MG TABLET PO SCH (21:28)
[2021-09-15] MEDS: buPROPion SR 150 MG TABLET.SA PO SCH (21:28)
[2021-09-15] MEDS: ATORVASTATIN CALCIUM 40 MG TABLET. PO SCH (21:28)
[2021-09-15] MEDS: QUEtiapine 100 MG TABLET. PO SCH (21:29)
[2021-09-15] MEDS: INSULIN GLARGINE SYRINGE. SQ SCH (21:34)
[2021-09-15] MEDS: HYDROmorphone 2 MG/ML INJ. IVP PRN (21:38)
--- NOTE | 2021-09-15 21:52 | EKG ---
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
[2021-09-15 23:00] VITALS: BP 113/65
[2021-09-16] VITALS (7 sets, daily range): BP systolic 80–142; BP diastolic 45–69
[2021-09-16] MEDS: HYDROcodone/APAP 5/325MG 1 TAB TABLET PO PRN ×2 (04:08→15:38)
[2021-09-16] MEDS: INSULIN LISPRO 300 UNITS/3 ML VIAL. SQ SCH ×7 (07:30→21:00)
[2021-09-16] MEDS: HYDROmorphone 2 MG/ML INJ. IVP PRN ×2 (08:47→20:41)
[2021-09-16] MEDS: ASPIRIN ENTERIC COATED 81 MG TABLET.DR. PO SCH (08:49)
[2021-09-16] MEDS: buPROPion SR 150 MG TABLET.SA PO SCH ×2 (08:49→20:32)
[2021-09-16] MEDS: ISOSORBIDE MONONITRATE ER 30 MG TAB.ER.24H PO SCH (08:49)
[2021-09-16] MEDS: CITALOPRAM 20 MG TABLET. PO SCH (08:50)
[2021-09-16] MEDS: CLOPIDOGREL BISULFATE 75 MG TABLET PO SCH (08:50)
[2021-09-16] MEDS: CARVEDILOL 12.5 MG TABLET. PO SCH ×2 (08:50→16:50)
[2021-09-16] MEDS: POLYETHYLENE GLYCOL 3350 17 GM PACKET. PO SCH (08:52)
[2021-09-16] MEDS: CYANOCOBALAMIN (VITAMIN B-12) 1,000 MCG TABLET. PO SCH (08:52)
[2021-09-16] MEDS: FLUTICASONE 50MCG/NASAL SPRAY 16GM BOTTLE. NS SCH (08:52)
--- NOTE | 2021-09-16 09:01 | NUR ---
Per patient, she did not eat enough this morning to take any insulin. patient refused morning sliding scale and standard dose.
--- NOTE | 2021-09-16 11:25 | PDOC ---
[employer] PROGRESS NOTE Date of Service DOS: DATE: 09/16/21 TIME: 11:23 Chief Complaint Chief Complaint Bilateral proximal fibula fractures (etiology unexplained? ) Bilateral possible lateral tibial plateau fractures (etiology unexplained?) Tobacco abuse History of alcohol abuse Anxiety/depression History of the following; CAD, HTN, [place] Pulmonary: Asthma, COPD CENTRAL NERVOUS SYSTEM: CVA, Dementia, Periperal neuropathy GI: Other Heme/Onc: Cancer Hepatobiliary: No pertinent hx Psych: Anxiety, Bipolar, Depression History of Present Illness History of Present Illness 09/16/2021 Patient seen and examined She is still complain of pain Discussed with case management Discussed with RN Chart review Vitals/I&O Vitals/I&O: Vital Signs Date Time Temp Pulse Resp B/P (MAP) Pulse Ox O2 Delivery O2 Flow Rate FiO2 09/16/21 10:50 97.4 82 18 104/57 (73) 97 Room Air 97.4 Physical Exam General: Alert, Oriented X3, Cooperative, moderate distress Lungs: Clear Abdomen: Normal bowel sounds, Soft, No tenderness, No hepatosplenomegaly, No ma sses Extremities: No clubbing, No cyanosis, No edema, Normal pulses, Other (Bilateral tenderness inferiorly on knees) Labs Labs: Laboratory Tests Test 09/15/21 12:06 09/15/21 14:50 09/15/21 15:20 09/15/21 16:06 White Blood Count 7.0 x10^3/uL (4.0-11.0) Red Blood Count 3.88 x10^6/uL (3.50-5.40) Hemoglobin 10.9 g/dL (12.0-15.5) Hematocrit 33.6 % (36.0-47.0) Mean Corpuscular Volume 87 fL (79-100) Mean Corpuscular Hemoglobin 28 pg (25-35) Mean Corpuscular Hemoglobin Concent 33 g/dL (31-37) Red Cell Distribution Width 17.6 % (11.5-14.5) Platelet Count 326 x10^3/uL (140-400) Neutrophils (%) (Auto) 75 % (31-73) Lymphocytes (%) (Auto) 18 % (24-48) Monocytes (%) (Auto) 5 % (0-9) Eosinophils (%) (Auto) 2 % (0-3) Basophils (%) (Auto) 1 % (0-3) Neutrophils # (Auto) 5.2 x10^3/uL (1.8-7.7) Lymphocytes # (Auto) 1.2 x10^3/uL (1.0-4.8) Monocytes # (Auto) 0.4 x10^3/uL (0.0-1.1) Eosinophils # (Auto) 0.1 x10^3/uL (0.0-0.7) Basophils # (Auto) 0.0 x10^3/uL (0.0-0.2) Sodium Level 133 mmol/L (136-145) Potassium Level 4.1 mmol/L (3.5-5.1) Chloride Level 97 mmol/L (98-107) Carbon Dioxide Level 23 mmol/L (21-32) Anion Gap 13 (6-14) Blood Urea Nitrogen 12 mg/dL (7-20) Creatinine 1.0 mg/dL (0.6-1.0) Estimated GFR (Cockcroft-Gault) 69.4 BUN/Creatinine Ratio 12 (6-20) Glucose Level 372 mg/dL (70-99) Calcium Level 9.0 mg/dL (8.5-10.1) Magnesium Level 2.1 mg/dL (1.8-2.4) Total Bilirubin 0.7 mg/dL (0.2-1.0) Aspartate Amino Transf (AST/SGOT) 10 U/L (15-37) Alanine Aminotransferase (ALT/SGPT) 13 U/L (14-59) Alkaline Phosphatase 116 U/L (46-116) Total Protein 7.2 g/dL (6.4-8.2) Albumin 3.3 g/dL (3.4-5.0) Albumin/Globulin Ratio 0.8 (1.0-1.7) Lipase 200 U/L (73-393) Prothrombin Time 14.5 SEC (11.7-14.0) Prothromb Time International Ratio 1.2 (0.8-1.1) Activated Partial Thromboplast Time 30 SEC (24-38) SARS-CoV-2 Antigen (Rapid) Negative (NEGATIVE) Troponin I High Sensitivity 7 ng/L (4-50) Test 09/15/21 17:35 09/15/21 20:31 4/26/22 07:06 Glucose (Fingerstick) 406 mg/dL (70-99) 283 mg/dL (70-99) 331 mg/dL (70-99) Assessment and Plan Assessmemt and Plan Problems Medical Problems: (1) Bilateral fibular fractures Status: Acute (2) Bilateral tibial fractures Status: Acute (3) Hx of chronic pancreatitis Status: Acute (4) Poorly controlled diabetes mellitus Status: Ac Bilateral proximal fibula fractures (etiology unexplained? ) Bilateral possible lateral tibial plateau fractures (etiology unexplained?) Tobacco abuse History of alcohol abuse Anxiety/depression History of toe amputation PVD CAD, HTN, [place] COPD Asthma CVA, Dementia, Periperal neuropathy Anxiety Bipolar Depression Plan Await MRI reports per orthopedic recommendations PT OT As needed pain meds Trend labs Encourage p.o. intake Home meds DVT prophylaxis Full code Suspect she will need to go to long-term eventually Per orthopedics recommendations please see the following and we certainly agree and appreciate their input: Bilateral knee pain Bilateral proximal fibula fractures Bilateral possible lateral tibial plateau fractures Tobacco abuse History of alcohol abuse Anxiety/depression Plan: Discussed with the patient that her findings are not consistent with anything specifically so it is a somewhat confusing clinical picture. She is adamant that there are no situations of abuse or anything else that she can think of that she has left out. I did call and speak with the radiologist who read her CT films. Even though this happened 2 days ago, we would expect some sort of hematoma especially with her anticoagulation but that is not seen on the CT scans. Also the nature of the laterality is perplexing and not a common presentation. We will keep the patient nonweightbearing at this time and we will get an MRI of her right knee to see if that yields any further information. The CTs were read as lateral tibial plateau fractures and the radiologist said that this may just be a sclerotic appearing area without actual fracture but it was hard to tell. The proximal fibula's are fractured acutely bilaterally. We will get the MRI and follow-up. Since she is not able to take care of herself at home, she will be admitted to the hospital. Orthopedics will continue to follow. No surgery is expected for her stay. Comment Review of Relevant I have reviewed the following items elena (where applicable) has been applied. Medications: Current Medications Medications (Trade) Dose Ordered Sig/Luis Enrique Route PRN Reason Start Time Stop Time Status Last Admin Dose Admin Morphine Sulfate (Morphine Sulfate) 2 mg 1X ONCE IVP 4/25/22 13:00 09/15/21 13:01 DC 09/15/21 12:58 Hydromorphone HCl (Dilaudid) 1 mg 1X ONCE IVP 09/15/21 14:45 09/15/21 14:46 DC 09/15/21 14:44 Insulin Human Lispro (HumaLOG) 0-9 UNITS TIDACHC SQ 09/15/21 16:30 09/15/21 21:34 Hydromorphone HCl (Dilaudid) 1 mg PRN Q4HRS PRN IVP SEVERE PAIN 7-10 09/15/21 15:00 09/16/21 08:47 Acetaminophen/ Hydrocodone Bitart (Lortab 5/325) 2 tab PRN Q6HRS PRN PO MODERATE PAIN, SEVERE PAIN 09/15/21 16:00 09/16/21 04:08 Insulin Human Lispro (HumaLOG) 19 units 1X ONCE SQ 09/15/21 18:15 09/15/21 18:16 DC 09/15/21 18:39 Amlodipine Besylate (Norvasc) 5 mg DAILY PO 09/16/21 09:00 09/16/21 08:49 Aspirin (Ecotrin) 81 mg DAILYWBKFT PO 09/16/21 08:00 09/16/21 08:49 Atorvastatin Calcium (Lipitor) 80 mg QHS PO 09/15/21 21:00 09/15/21 21:28 Clopidogrel Bisulfate (Plavix) 75 mg DAILY PO 09/16/21 09:00 09/16/21 08:50 Isosorbide Mononitrate (Imdur) 30 mg DAILY PO 09/16/21 09:00 09/16/21 08:49 Mirtazapine (Remeron) 15 mg QHS PO 09/15/21 21:00 09/15/21 21:28 Quetiapine Fumarate (SEROquel) 500 mg QHS PO 09/15/21 21:00 09/15/21 21:29 Bupropion HCl (Wellbutrin Sr) 150 mg BID PO 09/15/21 21:00 09/16/21 08:49 Carvedilol (Coreg) 25 mg BIDWMEALS PO 09/16/21 08:00 09/16/21 08:50 Citalopram Hydrobromide (CeleXA) 40 mg DAILY PO 09/16/21 09:00 09/16/21 08:50 Insulin Glargine (Lantus Syringe) 45 unit QHS SQ 09/15/21 21:00 09/15/21 21:34 Justifications for Admission Other Justification MEREDITH LIVINGSTON III DO Sep 16, 2021 11:25
--- NOTE | 2021-09-16 14:29 | RAD ---
EXAMINATION: MRI RIGHT LOWER LEG WITHOUT IV CONTRAST CLINICAL HISTORY: Bilateral comminuted proximal fibula fractures with suspicion for subtle tibial lisa teau fracture. Leg pain. TECHNIQUE: Multiplanar multisequential images obtained through the proximal right lower leg without i ntravenous contrast. COMPARISON: CT bilateral lower extremities 09/15/2021 FINDINGS: Redemonstration of essentially nondisplaced comminuted fracture in the proximal fibular metaphysis wi th intra-articular extension to the proximal tibiofibular joint. No evidence of additional acute frac ture or suspicious marrow replacing process. Fibular attachments of the fibular collateral ligament and biceps femoris tendon remain intact. ACL, PCL, and partially visualized MCL intact. Tendons intact, including the popliteus and patellar tendon s. Prominent soft tissue edema surrounding the fibula fracture. No evidence of organized collection to s uggest significant hematoma formation. Edema and minimal fiber irregularity in the lateral soleus mus henrique, compatible with mild to moderate strain. Mild to moderate edema in the proximal peroneus longus, extensor digitorum longus, and tibialis anterior and posterior muscles, reactive/low-grade strains. Partially visualized small Burciaga's cyst. IMPRESSION: Essentially nondisplaced comminuted proximal fibular fracture with intra-articular extension as descr ibed. No evidence of additional acute fracture. Surrounding soft tissue changes as described, including mild to moderate soleus muscle strain. Electronically signed by: Ezequiel Pacheco DO (09/16/2021 2:26 PM) [id number]
--- NOTE | 2021-09-16 17:16 | PDOC ---
PROGRESS NOTES Date of Service DATE: 09/16/21 TIME: 17:13 Subjective Subjective Problems overnight: Objective Vital Signs Vital Signs Date Time Temp Pulse Resp B/P (MAP) Pulse Ox O2 Delivery O2 Flow Rate FiO2 09/16/21 16:50 79 99/50 09/16/21 16:08 Room Air 09/16/21 15:17 97.5 20 95 97.5 Labs Laboratory Tests Test 09/15/21 12:06 09/15/21 14:50 09/15/21 15:20 09/15/21 16:06 White Blood Count 7.0 x10^3/uL (4.0-11.0) Red Blood Count 3.88 x10^6/uL (3.50-5.40) Hemoglobin 10.9 g/dL (12.0-15.5) Hematocrit 33.6 % (36.0-47.0) Mean Corpuscular Volume 87 fL (79-100) Mean Corpuscular Hemoglobin 28 pg (25-35) Mean Corpuscular Hemoglobin Concent 33 g/dL (31-37) Red Cell Distribution Width 17.6 % (11.5-14.5) Platelet Count 326 x10^3/uL (140-400) Neutrophils (%) (Auto) 75 % (31-73) Lymphocytes (%) (Auto) 18 % (24-48) Monocytes (%) (Auto) 5 % (0-9) Eosinophils (%) (Auto) 2 % (0-3) Basophils (%) (Auto) 1 % (0-3) Neutrophils # (Auto) 5.2 x10^3/uL (1.8-7.7) Lymphocytes # (Auto) 1.2 x10^3/uL (1.0-4.8) Monocytes # (Auto) 0.4 x10^3/uL (0.0-1.1) Eosinophils # (Auto) 0.1 x10^3/uL (0.0-0.7) Basophils # (Auto) 0.0 x10^3/uL (0.0-0.2) Sodium Level 133 mmol/L (136-145) Potassium Level 4.1 mmol/L (3.5-5.1) Chloride Level 97 mmol/L (98-107) Carbon Dioxide Level 23 mmol/L (21-32) Anion Gap 13 (6-14) Blood Urea Nitrogen 12 mg/dL (7-20) Creatinine 1.0 mg/dL (0.6-1.0) Estimated GFR (Cockcroft-Gault) 69.4 BUN/Creatinine Ratio 12 (6-20) Glucose Level 372 mg/dL (70-99) Calcium Level 9.0 mg/dL (8.5-10.1) Magnesium Level 2.1 mg/dL (1.8-2.4) Total Bilirubin 0.7 mg/dL (0.2-1.0) Aspartate Amino Transf (AST/SGOT) 10 U/L (15-37) Alanine Aminotransferase (ALT/SGPT) 13 U/L (14-59) Alkaline Phosphatase 116 U/L (46-116) Total Protein 7.2 g/dL (6.4-8.2) Albumin 3.3 g/dL (3.4-5.0) Albumin/Globulin Ratio 0.8 (1.0-1.7) Lipase 200 U/L (73-393) Prothrombin Time 14.5 SEC (11.7-14.0) Prothromb Time International Ratio 1.2 (0.8-1.1) Activated Partial Thromboplast Time 30 SEC (24-38) SARS-CoV-2 Antigen (Rapid) Negative (NEGATIVE) Troponin I High Sensitivity 7 ng/L (4-50) Test 09/15/21 17:35 09/15/21 20:31 09/16/21 07:06 09/16/21 12:28 Glucose (Fingerstick) 406 mg/dL (70-99) 283 mg/dL (70-99) 331 mg/dL (70-99) 345 mg/dL (70-99) Test 09/16/21 16:34 Glucose (Fingerstick) 349 mg/dL (70-99) Laboratory Tests Test 09/15/21 17:35 09/15/21 20:31 09/16/21 07:06 09/16/21 12:28 Glucose (Fingerstick) 406 mg/dL (70-99) 283 mg/dL (70-99) 331 mg/dL (70-99) 345 mg/dL (70-99) Test 09/16/21 16:34 Glucose (Fingerstick) 349 mg/dL (70-99) Assessment Assessment POD# Plan Plan of Care Patient seen, sitting up on the side of her bed. She says that she still does not think that she can walk. No new concerns. I did review her medical history with her because her chart says that she has a history of cancer but patient says that she does not have any history of cancer. Patient nontoxic-appearing. Interacts with exam appropriately. Both knees are bent to approximately 90 degrees, no effusion bilaterally. Calves are soft bilaterally. Reviewed MRI, no evidence of tibia fracture on the right proximal tibia. We are going to let her be weightbearing as tolerated bilateral lower extremities, she will most likely auto protect. We will have therapy work with her to see about discharging. She needs to follow-up in our office in 2 weeks. Please call now for follow-up. Justicifation of Admission Dx: Justifications for Admission: Justification of Admission Dx: Yes VIRAJ GRIFFITH Sep 16, 2021 17:16
[2021-09-16] MEDS: MIRTAZAPINE 15 MG TABLET PO SCH (20:32)
[2021-09-16] MEDS: ATORVASTATIN CALCIUM 40 MG TABLET. PO SCH (20:33)
[2021-09-16] MEDS: QUEtiapine 100 MG TABLET. PO SCH (20:33)
[2021-09-16] MEDS: INSULIN GLARGINE SYRINGE. SQ SCH (21:47)
[2021-09-17 03:34] VITALS: BP 105/61
[2021-09-17 07:00] VITALS: BP 134/65
[2021-09-17] MEDS: POLYETHYLENE GLYCOL 3350 17 GM PACKET. PO SCH (07:37)
[2021-09-17] MEDS: FLUTICASONE 50MCG/NASAL SPRAY 16GM BOTTLE. NS SCH (07:38)
[2021-09-17] MEDS: CITALOPRAM 20 MG TABLET. PO SCH (08:26)
[2021-09-17] MEDS: CYANOCOBALAMIN (VITAMIN B-12) 1,000 MCG TABLET. PO SCH (08:26)
[2021-09-17] MEDS: buPROPion SR 150 MG TABLET.SA PO SCH (08:26)
[2021-09-17] MEDS: ASPIRIN ENTERIC COATED 81 MG TABLET.DR. PO SCH (08:26)
[2021-09-17] MEDS: CLOPIDOGREL BISULFATE 75 MG TABLET PO SCH (08:27)
[2021-09-17] MEDS: CARVEDILOL 12.5 MG TABLET. PO SCH (08:27)
[2021-09-17] MEDS: ISOSORBIDE MONONITRATE ER 30 MG TAB.ER.24H PO SCH (08:27)
[2021-09-17] MEDS: HYDROcodone/APAP 5/325MG 1 TAB TABLET PO PRN (08:28)
[2021-09-17] MEDS: INSULIN LISPRO 300 UNITS/3 ML VIAL. SQ SCH ×4 (08:32→11:30)
[2021-09-17] MEDS: HYDROmorphone 2 MG/ML INJ. IVP PRN (10:24)
[2021-09-17 11:00] VITALS: BP 83/46
--- NOTE | 2021-09-17 12:22 | SNU/HH DC ---
DISCHARGE WITH HOME HEALTH DISCHARGE INFORMATION: Discharge Date: Sep 17, 2021 Final Diagnosis: Problems Medical Problems: (1) Bilateral fibular fractures Status: Acute (2) Bilateral tibial fractures Status: Acute (3) Hx of chronic pancreatitis Status: Acute (4) Poorly controlled diabetes mellitus Status: Acute Condition on Discharge: Stable HOME HEALTH: Face to Face: I certify this patient is under my care and that I, or a nurse practitioner or physician's nursing home assistant administrator working with me, had a face to face encounter that meets the physician face to face encounter requirements with this patient on []. RN For Eval/Treatment: Yes Physical Therapy For: Evalulation/Treatment Occupational Therapy For: Evaluation/Treatment Home Health Aide For: Self-care Pt Meets Homebound Status: Poor coordination w/ amb., Unsteady balance w/ amb,, Extreme weakness w/ amb., Frequent falls w/ injury, Limited distance walking, Unable to negotiate home POST DISCHARGE ORDERS: Activity Instructions for Disc: Activity as tolerated Weight Bearing Status after Di: As tolerated DIET AFTER DISCHARGE: Cardiac Wound/Incision Care: Do not change dressing CHECKS AFTER DISCHARGE: Checks after discharge: Check blood press - daily, Check blood sugar, ac/hs, Check your Temp as needed, Weigh Yourself Daily FOLLOW-UP: PCP to follow Home Health: Regla Flood APRN Follow up with: PCP within 2 weeks of discharge Follow Up With: Orthopedic surgery within 2 weeks TREATMENT/EQUIPMENT ORDERS: Adaptive Equipment Issued: None CERTIFICATION STATEMENT: Certification Statement: Certification Statement: Based on the above finding, I certify that this patient is confined to the home and needs intermittent prison care, physical therapy and/or speech therapy, or continues to need occupational therapy.~ This patient is under my care, and I have initiated the establishment of the plan of care.~ This patient will be followed by myself or a community physician who will periodically review the plan of care. Home Meds Active Scripts Oxycodone/Apap 7.5-325 (PERCOCET 7.5-325 MG TABLET ) 1 Each Tablet, 1 TAB PO QIDPRN PRN for . MDD 4 Tablet(s) for 5 Days, #20 TAB 0 Refills Prov:CASTLE,NIAL K III DO 05/08/21 Albuterol Sulfate (PROAIR HFA INHALER) 8.5 Gm Hfa.aer.ad, 2 PUFF IH PRN Q4-6HRS PRN for wheezing for 21 Days, #1 INHALER 0 Refills Prov:MACKENZIE PETERSEN DO 10/07/20 Sennosides (SENNA LAX) 8.6 Mg Tablet, 8.6 MG PO PRN BID PRN for CONSTIPATION for 30 Days, #60 TAB Prov:MALISSA WEN MD 06/23/20 Polyethylene Glycol 3350 (POLYETHYLENE GLYCOL 3350) 17 Gm Powd.pack, 17 GM PO DAILY for constipation for 30 Days, #30 PKT Prov:MALISSA WEN MD 06/23/20 Docusate Sodium (DOK) 100 Mg Capsule, 100 MG PO PRN BID PRN for HARD STOOLS for 30 Days, #60 CAP Prov:MALISSA WEN MD 06/23/20 Atorvastatin Calcium (ATORVASTATIN CALCIUM) 40 Mg Tablet, 80 MG PO QHS for cholesterol for 30 Days, #60 TAB Prov:MALISSA WEN MD 06/23/20 Clopidogrel Bisulfate (CLOPIDOGREL) 75 Mg Tablet, 1 TAB PO DAILY, #90 TAB 1 Refill Prov:JOHN SCOTT APRN 08/28/16 Aspirin (ASPIRIN EC) 81 Mg Tablet.dr, 81 MG PO DAILYWBKFT, #30 Prov:ART JALLOH MD 02/14/16 Reported Medications Mirtazapine (MIRTAZAPINE) 15 Mg Tablet, 1 TAB PO QHS for Insomnia , #30 TAB 3 Refills 06/21/20 Fenofibrate Nanocrystallized (FENOFIBRATE) 145 Mg Tablet, 1 TAB PO DAILY for HLD, #30 TAB 5 Refills 06/21/20 Carvedilol (CARVEDILOL) 25 Mg Tablet, 25 MG PO BIDWMEALS for CARDIAC, TAB 06/21/20 Amlodipine Besylate (AMLODIPINE BESYLATE) 5 Mg Tablet, 5 MG PO DAILY for HTN, TAB 06/21/20 Bupropion Hcl (BUPROPION HCL SR) 150 Mg Tablet.er, 150 MG PO BID for depression , TAB.SR 06/21/20 Triazolam (TRIAZOLAM) 0.25 Mg Tablet, 2 TAB PO PRN QHS PRN for sleep MDD 2 Tablet(s) for 30 Days, #60 TAB 0 Refills 01/15/20 Spironolactone (SPIRONOLACTONE) 25 Mg Tablet, 1 TAB PO DAILY for HTN, #90 TAB 1 Refill 01/15/20 Quetiapine Fumarate (SEROQUEL) 100 Mg Tablet, 500 MG PO QHS for Bipolar, #30 TAB 01/15/20 Isosorbide Mononitrate (ISOSORBIDE MONONITRATE ER) 30 Mg Tab.er.24h, 1 TAB PO DAILY for Cardiac, #30 TAB 5 Refills 01/15/20 Fluticasone Propionate (FLUTICASONE PROPIONATE NASAL SPRAY) 16 Gm [place].susp, 2 SPRAY NS DAILY for Congestion, #1 INHALER 11 Refills 01/15/20 [place]-3/Dha/Epa/Fish Oil (Fish Oil 1,000 mg Softgel) 1,000 Mg Capsule, 1 CAP PO BID for supplement for 30 Days, #60 CAP 0 Refills 01/15/20 Cyanocobalamin (Vitamin B-12) (B-12) 1,000 Mcg Tablet, 1 TAB PO DAILY for Supplement for 30 Days, #30 TAB 0 Refills 01/15/20 Cholecalciferol (Vitamin D3) (D3-50) 50,000 Unit Capsule, 76366 UNIT PO DAILY for Supplement, CAP 01/15/20 Insulin Lispro (HUMALOG) 100 Unit/1 Ml Cartridge, 16 UNIT SQ TIDAC, EACH 11/15/17 Insulin Glargine,Hum.rec.anlog (LANTUS SOLOSTAR) 100 Unit/1 Ml Insuln.pen, 45 UNIT SQ QHS for DM, #15 ML 3 Refills 11/15/17 Lidocaine (Lidocaine PATCH ) 1 Each Adh..patch, 1 EACH TP, PATCH 11/15/17 Escitalopram Oxalate (LEXAPRO) 20 Mg Tablet, 1 TAB PO DAILY, #90 TAB 3 Refills 11/15/17 Albuterol Sulfate (Proair Respiclick) 90 Mcg Aer.pow.ba, 2 PUFF IH PRN PRN for SHORTNESS OF BREATH, INHALER 11/15/17 Discontinued Scripts Linezolid (ZYVOX) 600 Mg Tablet, 600 MG PO BID for . for 10 Days, #20 TAB Prov:CASTLE,NIAL K III DO 05/08/21 MALISSA WEN MD Sep 17, 2021 12:22
[2021-09-17] MEDS ORDERED: HYDR-2761 PO (12:28)
--- NOTE | 2021-09-17 13:20 | NUR ---
Patient refused insulin, stated she felt like her blood sugar was too low. BS checked, education provided on adequate blood sugar. Patient insisted on refusing insulin dose.
--- NOTE | 2021-09-18 13:08 | PDOC3 ---
[facility]-Discharge Summary Date of Admission: Date of Admission: Sep 15, 2021 Date of Discharge: Date of Discharge: Sep 17, 2021 Discharge Diagnosis: Discharge Diagnosis: Bilateral proximal fibula fractures (etiology unexplained? ) Bilateral possible lateral tibial plateau fractures (etiology unexplained?) Tobacco abuse History of alcohol abuse Anxiety/depression Consults: Consults: Per Ortho: Plan of Care Patient seen, sitting up on the side of her bed. She says that she still does not think that she can walk. No new concerns. I did review her medical history with her because her chart says that she has a history of cancer but patient says that she does not have any history of cancer. Patient nontoxic-appearing. Interacts with exam appropriately. Both knees are bent to approximately 90 degrees, no effusion bilaterally. Calves are soft bilaterally. Reviewed MRI, no evidence of tibia fracture on the right proximal tibia. We are going to let her be weightbearing as tolerated bilateral lower extremities, she will most likely auto protect. We will have therapy work with her to see about discharging. She needs to follow-up in our office in 2 weeks. Please call now for follow-up. Hospital Course: Hospital Course: 56 yo F w/ PMHx CVA (cerebellar), Diabetes-Type II s/p diabetic toe amputation, CAD s/p stenting, neuropathy, smoker who presents with bilateral knee pain, unable to bear weight after a fall 2 days prior to her ED presentation. She notes pain is worse on the right. Also does have a wound on the dorsum of right foot she notes no abuse or trauma she says she just fell. Labs with WBC 7, Hb 10.9, platelets 326, INR 1.2, NA 133, K4.1, BUN 12, CR 1, glucose 372, calcium 9, magnesium 2.1, albumin 3.3 lipase 200 otherwise LFTs within normal laboratory limits, high-sensitivity troponin is 7, rapid COVID-19 negative Knee and ankle radiographs reveal bilateral proximal fibular fractures possible tibial plateau fractures. CT knee confirms fibular fractures. Unable to bear weight in the ED. She is not an excellent historian. She does note prior history of CVA. Admitted for further care Evaluated by orthopedic surgery and PT OT. She will need home health upon discharge. Please see orthopedic surgery recommendations above. Rest of hospital course was uneventful. Disposition: Disposition/Orders: D/C to Home w/ HH Activity: Activity: Resume previous activity Diet: Diet: Cardiac Medications: Home Meds Active Scripts Hydrocodone Bit/Acetaminophen (HYDROCODONE-APAP 5-325 ) 1 Tab Tablet, 1 TAB PO PRN Q4-6HRS PRN for MILD PAIN 1-3 for 3 Days, #18 TAB Prov:MALISSA WEN MD 09/17/21 Oxycodone/Apap 7.5-325 (PERCOCET 7.5-325 MG TABLET ) 1 Each Tablet, 1 TAB PO QIDPRN PRN for . MDD 4 Tablet(s) for 5 Days, #20 TAB 0 Refills Prov:MEREDITH LIVINGSTON K III DO 05/08/21 Albuterol Sulfate (PROAIR HFA INHALER) 8.5 Gm Hfa.aer.ad, 2 PUFF IH PRN Q4-6HRS PRN for wheezing for 21 Days, #1 INHALER 0 Refills Prov:MACKENZIE PETERSEN DO 10/07/20 Sennosides (SENNA LAX) 8.6 Mg Tablet, 8.6 MG PO PRN BID PRN for CONSTIPATION for 30 Days, #60 TAB Prov:MALISSA WEN MD 06/23/20 Polyethylene Glycol 3350 (POLYETHYLENE GLYCOL 3350) 17 Gm Powd.pack, 17 GM PO DAILY for constipation for 30 Days, #30 PKT Prov:MALISSA WEN MD 06/23/20 Docusate Sodium (DOK) 100 Mg Capsule, 100 MG PO PRN BID PRN for HARD STOOLS for 30 Days, #60 CAP Prov:MALISSA WEN MD 06/23/20 Atorvastatin Calcium (ATORVASTATIN CALCIUM) 40 Mg Tablet, 80 MG PO QHS for cholesterol for 30 Days, #60 TAB Prov:MALISSA WEN MD 06/23/20 Clopidogrel Bisulfate (CLOPIDOGREL) 75 Mg Tablet, 1 TAB PO DAILY, #90 TAB 1 Refill Prov:JOHN SCOTT APRN 08/28/16 Aspirin (ASPIRIN EC) 81 Mg Tablet.dr 81 MG PO DAILYWBKFT, #30 Prov:ART JALLOH MD 02/14/16 Reported Medications Mirtazapine (MIRTAZAPINE) 15 Mg Tablet, 1 TAB PO QHS for Insomnia , #30 TAB 3 Refills 06/21/20 Fenofibrate Nanocrystallized (FENOFIBRATE) 145 Mg Tablet, 1 TAB PO DAILY for HLD, #30 TAB 5 Refills 06/21/20 Carvedilol (CARVEDILOL) 25 Mg Tablet, 25 MG PO BIDWMEALS for CARDIAC, TAB 06/21/20 Amlodipine Besylate (AMLODIPINE BESYLATE) 5 Mg Tablet, 5 MG PO DAILY for HTN, TAB 06/21/20 Bupropion Hcl (BUPROPION HCL SR) 150 Mg Tablet.er, 150 MG PO BID for depression , TAB.SR 06/21/20 Triazolam (TRIAZOLAM) 0.25 Mg Tablet, 2 TAB PO PRN QHS PRN for sleep MDD 2 Tablet(s) for 30 Days, #60 TAB 0 Refills 01/15/20 Spironolactone (SPIRONOLACTONE) 25 Mg Tablet, 1 TAB PO DAILY for HTN, #90 TAB 1 Refill 01/15/20 Quetiapine Fumarate (SEROQUEL) 100 Mg Tablet, 500 MG PO QHS for Bipolar, #30 TAB 01/15/20 Isosorbide Mononitrate (ISOSORBIDE MONONITRATE ER) 30 Mg Tab.er.24h, 1 TAB PO DAILY for Cardiac, #30 TAB 5 Refills 01/15/20 Fluticasone Propionate (FLUTICASONE PROPIONATE NASAL SPRAY) 16 Gm [place].susp, 2 SPRAY NS DAILY for Congestion, #1 INHALER 11 Refills 01/15/20 [place]-3/Dha/Epa/Fish Oil (Fish Oil 1,000 mg Softgel) 1,000 Mg Capsule, 1 CAP PO BID for supplement for 30 Days, #60 CAP 0 Refills 01/15/20 Cyanocobalamin (Vitamin B-12) (B-12) 1,000 Mcg Tablet, 1 TAB PO DAILY for Supplement for 30 Days, #30 TAB 0 Refills 01/15/20 Cholecalciferol (Vitamin D3) (D3-50) 50,000 Unit Capsule, 09539 UNIT PO DAILY for Supplement, CAP 01/15/20 Insulin Lispro (HUMALOG) 100 Unit/1 Ml Cartridge, 16 UNIT SQ TIDAC, EACH 11/15/17 Insulin Glargine,Hum.rec.anlog (LANTUS SOLOSTAR) 100 Unit/1 Ml Insuln.pen, 45 UNIT SQ QHS for DM, #15 ML 3 Refills 11/15/17 Lidocaine (Lidocaine PATCH ) 1 Each Adh..patch, 1 EACH TP, PATCH 11/15/17 Escitalopram Oxalate (LEXAPRO) 20 Mg Tablet, 1 TAB PO DAILY, #90 TAB 3 Refills 11/15/17 Albuterol Sulfate (Proair Respiclick) 90 Mcg Aer.pow.ba, 2 PUFF IH PRN PRN for SHORTNESS OF BREATH, INHALER 11/15/17 Discontinued Scripts Linezolid (ZYVOX) 600 Mg Tablet, 600 MG PO BID for . for 10 Days, #20 TAB Prov:CASTLE,NIAL K III DO 05/08/21 Scheduled Amlodipine Besylate (Amlodipine Besylate), 5 MG PO DAILY, (Reported) Aspirin (Aspirin Ec), 81 MG PO DAILYWBKFT Atorvastatin Calcium (Atorvastatin Calcium), 80 MG PO QHS Bupropion Hcl (Bupropion Hcl Sr), 150 MG PO BID, (Reported) Carvedilol (Carvedilol), 25 MG PO BIDWMEALS, (Reported) Cholecalciferol (Vitamin D3) (D3-50), 50,000 UNIT PO DAILY, (Reported) Clopidogrel Bisulfate (Clopidogrel), 1 TAB PO DAILY Cyanocobalamin (Vitamin B-12) (B-12), 1 TAB PO DAILY, (Reported) Escitalopram Oxalate (Lexapro), 1 TAB PO DAILY, (Reported) Fenofibrate Nanocrystallized (Fenofibrate), 1 TAB PO DAILY, (Reported) Fluticasone Propionate (Fluticasone Propionate Nasal [place]), 2 SPRAY NS DAILY, (Reported) Insulin Glargine,Hum.rec.anlog (Lantus Solostar), 45 UNIT SQ QHS, (Reported) Insulin Lispro (Humalog), 16 UNIT SQ TIDAC, (Reported) Isosorbide Mononitrate (Isosorbide Mononitrate Er), 1 TAB PO DAILY, (Reported) Mirtazapine (Mirtazapine), 1 TAB PO QHS, (Reported) [place]-3/Dha/Epa/Fish Oil (Fish Oil 1,000 mg Softgel), 1 CAP PO BID, (Reported) Polyethylene Glycol 3350 (Polyethylene Glycol 3350), 17 GM PO DAILY Quetiapine Fumarate (Seroquel), 500 MG PO QHS, (Reported) Spironolactone (Spironolactone), 1 TAB PO DAILY, (Reported) Scheduled PRN Albuterol Sulfate (Proair Respiclick), 2 PUFF IH PRN PRN for SHORTNESS OF BREATH, (Reported) Albuterol Sulfate (Proair Hfa Inhaler), 2 PUFF IH PRN Q4-6HRS PRN for wheezing Docusate Sodium (Dok), 100 MG PO PRN BID PRN for HARD STOOLS Hydrocodone Bit/Acetaminophen (Hydrocodone-Apap 5-325 ), 1 TAB PO PRN Q4-6HRS PRN for MILD PAIN 1-3 Oxycodone/Apap 7.5-325 (Percocet 7.5-325 Mg Tablet ), 1 TAB PO QIDPRN PRN for . Sennosides (Senna Lax), 8.6 MG PO PRN BID PRN for CONSTIPATION Triazolam (Triazolam), 2 TAB PO PRN QHS PRN for sleep, (Reported) Miscellaneous Medications Lidocaine (Lidocaine PATCH ), 1 EACH TP, (Reported) Discontinued Medications Linezolid (Zyvox), 600 MG PO BID Total Time: Total Time: Total time spent was 35 minutes in preparing scripts, discharge planning with SWI and RN and preparing this discharge summary Patient seen and examined on day of discharge. No acute abnormal findings. Justicifation of Admission Dx: Justifications for Admission: Justification of Admission Dx: Yes MALISSA WEN MD Sep 18, 2021 13:08
== END 2021-09-17 14:10 | disposition home health service (06) | DRG 563 ==
LOC: ER 10:21 → 4 NORTH 14:47
PROVIDERS: ADMIT Internal Medicine; ATTEND Internal Medicine
DX: S82.832A Other fracture of upper and lower end of left fibula, initial encounter for closed fracture (principal); S82.141A Displaced bicondylar fracture of right tibia, initial encounter for closed fracture; K86.1 Other chronic pancreatitis; S82.202A Unspecified fracture of shaft of left tibia, initial encounter for closed fracture; S82.402A Unspecified fracture of shaft of left fibula, initial encounter for closed fracture; E11.65 Type 2 diabetes mellitus with hyperglycemia; E11.40 Type 2 diabetes mellitus with diabetic neuropathy, unspecified; F03.90 Unspecified dementia, unspecified severity, without behavioral disturbance, psychotic disturbance, mood disturbance, and anxiety; F17.210 Nicotine dependence, cigarettes, uncomplicated; F31.9 Bipolar disorder, unspecified; F41.9 Anxiety disorder, unspecified; I10 Essential (primary) hypertension; I25.10 Atherosclerotic heart disease of native coronary artery without angina pectoris; I25.2 Old myocardial infarction; J44.9 Chronic obstructive pulmonary disease, unspecified; M19.079 Primary osteoarthritis, unspecified ankle and foot; Z20.822 Contact with and (suspected) exposure to COVID-19; W01.0XXA Fall on same level from slipping, tripping and stumbling without subsequent striking against object, initial encounter; F10.20 Alcohol dependence, uncomplicated; M19.90 Unspecified osteoarthritis, unspecified site; Z82.49 Family history of ischemic heart disease and other diseases of the circulatory system; Z83.3 Family history of diabetes mellitus; Z86.73 Personal history of transient ischemic attack (TIA), and cerebral infarction without residual deficits; Z89.429 Acquired absence of other toe(s), unspecified side; Z95.5 Presence of coronary angioplasty implant and graft; Z89.411 Acquired absence of right great toe; Z91.041 Radiographic dye allergy status; Y93.89 Activity, other specified; Y92.89 Other specified places as the place of occurrence of the external cause; Y99.8 Other external cause status
CPT/HCPCS: 36415; 73600; 73721; 80053; 82962; 83690; 83735; 84484; 85025; 85610; 85730; 87426; 93005; 94640; 96361; 96374; 96375; 96376; J1170; J1815; J2270; J7120; 73562-50; 73590-50; 73700-50; 97116-GP; 97535-GO; 99285-25; G0378